=== PATIENT | female | born 1980 | race Two or more races ===

== ENCOUNTER 2020-06-05 17:22 | Outpatient (REF) | payer OTHER, SELFPAY | END 2020-06-05 17:23 | disposition home or self-care (01) | LOC: HO.LAB 17:22 | PROVIDERS: PCP Internal Medicine; Visit Provider Internal Medicine | DX: Z20.828 Contact with and (suspected) exposure to other viral communicable diseases (principal) | CPT/HCPCS: C9803; U0003 ==

== ENCOUNTER 2020-07-11 17:10 | Outpatient (REF) | payer OTHER, SELFPAY | END 2020-07-11 17:11 | disposition home or self-care (01) | LOC: HO.LAB 17:10 | PROVIDERS: Visit Provider Internal Medicine | DX: Z20.822 Contact with and (suspected) exposure to COVID-19 (principal) | CPT/HCPCS: 36415; C9803; U0003 ==

== ENCOUNTER 2020-08-12 14:47 | Outpatient (REF) | payer OTHER, SELFPAY ==
[2020-08-13 08:17] LABS: HIV AB/AG Nonreactive (Nonreactive); HIV Num 1 0.07 S/CO (0.00-0.99); ~HepC Num1 0.09 S/CO (0.00-0.79); ~Hepatitis C Antibody Nonreactive (Nonreactive)
[2020-08-13 08:26] LABS: Syphilis Screen Nonreactive (Nonreactive)
[2020-08-13 08:32] LABS: HBsAGNum1 0.17 S/CO (0.00-0.99); Hepatitis B Surface Antigen Negative (Negative)
[2020-08-13 09:57] LABS: BV Int Neg Control Negative (Negative); BV Int Pos Control Positive (Positive)
[2020-08-13 13:32] LABS: C. trachomatis RNA TMA NOT DETECTED (NOT DETECTED); N. gonorrhoeae RNA TMA NOT DETECTED (NOT DETECTED)
[2020-08-17 03:12] LABS: HPV mRNA E6/E7 rflx Not Detected (Not Detected)
== END 2020-08-12 14:48 | disposition home or self-care (01) ==
LOC: HO.LAB 14:47
PROVIDERS: PCP Internal Medicine; Visit Provider Obstetrics & Gynecology
DX: Z01.419 Encounter for gynecological examination (general) (routine) without abnormal findings (principal); Z11.51 Encounter for screening for human papillomavirus (HPV); Z11.3 Encounter for screening for infections with a predominantly sexual mode of transmission; R10.2 Pelvic and perineal pain
CPT/HCPCS: 36415; 81003; 81025; 86780; 86803; 87340; 87389; 87480; 87491; 87510; 87591; 87624; 87660; 88142

== ENCOUNTER 2020-08-14 10:10 | Outpatient (REF) | payer OTHER, SELFPAY | END 2020-08-14 10:11 | disposition home or self-care (01) | LOC: HO.LAB 10:10 | PROVIDERS: Visit Provider Obstetrics & Gynecology | DX: Z13.89 Encounter for screening for other disorder (principal) ==

== ENCOUNTER 2020-09-02 13:21 | Outpatient (REF) | payer OTHER, SELFPAY ==
--- NOTE | ~2020-09-02 | US_ITS ---
EXAMINATION: US PELVIC COMPLETE CLINICAL INFORMATION: Transabdominal and transvaginal ultrasound pelvis is performed. COMPARISON: CT abdomen and pelvis with IV contrast 02/24/2019. TECHNIQUE: Transabdominal and transvaginal ultrasound of the pelvis is performed. FINDINGS: The uterus is anteverted measuring 9.4 cm in length, 5.3 cm in AP and 5.4 cm in transverse dimension. Endometrial thickness is 0.36 cm. No uterine lesions seen. Right ovary measures 2.4 x 1.7 x 2.3 cm and volume 4.8 mL. Previously measured 2.8 x 2.3 x 2.2 cm. Left ovary measures 3.6 x 2.0 x 2.8 cm and volume 10.4 mL. No focal lesion seen. Previously left ovary measured 3.6 x 2.9 x 3.3 cm. No major change. There are small nabothian cysts seen in the cervix on transvaginal ultrasound. There is no free fluid in the cul-de-sac. US/US transvaginal IMPRESSION: Unremarkable uterus with small nabothian cysts in the cervix. Ovaries are unremarkable. There is no free fluid in cul-de-sac.
--- NOTE | ~2020-09-02 | US_ITS ---
EXAMINATION: US PELVIC COMPLETE CLINICAL INFORMATION: Transabdominal and transvaginal ultrasound pelvis is performed. COMPARISON: CT abdomen and pelvis with IV contrast 02/24/2019. TECHNIQUE: Transabdominal and transvaginal ultrasound of the pelvis is performed. FINDINGS: The uterus is anteverted measuring 9.4 cm in length, 5.3 cm in AP and 5.4 cm in transverse dimension. Endometrial thickness is 0.36 cm. No uterine lesions seen. Right ovary measures 2.4 x 1.7 x 2.3 cm and volume 4.8 mL. Previously measured 2.8 x 2.3 x 2.2 cm. Left ovary measures 3.6 x 2.0 x 2.8 cm and volume 10.4 mL. No focal lesion seen. Previously left ovary measured 3.6 x 2.9 x 3.3 cm. No major change. There are small nabothian cysts seen in the cervix on transvaginal ultrasound. There is no free fluid in the cul-de-sac. US/US pelvic complete IMPRESSION: Unremarkable uterus with small nabothian cysts in the cervix. Ovaries are unremarkable. There is no free fluid in cul-de-sac.
== END 2020-09-02 13:22 | disposition home or self-care (01) ==
LOC: HO.US 13:21
PROVIDERS: Visit Provider Obstetrics & Gynecology
DX: R10.2 Pelvic and perineal pain (principal)
CPT/HCPCS: 76830; 76856

== ENCOUNTER → 2020-09-10 13:51 | Outpatient (BNVA) | payer OTHER, SELFPAY | PROVIDERS: PCP Internal Medicine; Visit Provider Obstetrics & Gynecology ==

== ENCOUNTER 2020-10-22 11:34 | Outpatient (REF) | payer OTHER, SELFPAY ==
--- NOTE | ~2020-10-22 | MM_ITS ---
EXAMINATION: MM SCREENING DIGITAL BREAST TOMOSYNTHESIS, BILATERAL CLINICAL INFORMATION: Screening. Asymptomatic. The lifetime risk of breast cancer based on the Tyrer-Cuzick Model is 10.6%. COMPARISON: Mammography: 01/17/2018 TECHNIQUE: Digital breast tomosynthesis is performed in both the craniocaudal and mediolateral oblique views along with computer-aided detection (CAD). Synthesized 2D images are generated from the tomosynthesis. FINDINGS: There are scattered areas of fibroglandular density (ACR BI-RADS breast composition Category b). There are no significant masses, abnormal calcifications, or other abnormalities. Circumscribed density with some calcifications about the deep lateral aspect of the right breast is shown to represent vessel with calcifications on tomosynthesis views. MM/MM tomosynthesis screening BI IMPRESSION: There are no significant changes from prior study. ASSESSMENT: BI-RADS 1: Negative RECOMMENDATION: Routine annual mammography screening. This patient's information was entered into a reminder system with a target due date for their next mammogram.
== END 2020-10-22 11:35 | disposition home or self-care (01) ==
LOC: HO.MAMMO 11:34
PROVIDERS: Visit Provider Obstetrics & Gynecology
DX: Z12.31 Encounter for screening mammogram for malignant neoplasm of breast (principal)
CPT/HCPCS: 77063; 77067

== ENCOUNTER 2021-08-26 11:50 | Outpatient (REF) | payer OTHER, SELFPAY ==
[2021-08-26 14:46] LABS: Syphilis Screen Nonreactive (Nonreactive)
[2021-08-26 17:17] LABS: CT PCR NOT DETECTED (Not Detect.); NG PCR NOT DETECTED (Not Detect.)
[2021-08-27 13:18] LABS: BV Int Neg Control Negative (Negative); BV Int Pos Control Positive (Positive)
[2021-08-28 07:44] LABS: ~Hepatitis C Antibody Nonreactive (Nonreactive)
[2021-08-28 07:57] LABS: HIV AB/AG Nonreactive (Nonreactive); HIV Num 1 0.08 S/CO (0.00-0.99); Hepatitis B Surface Antigen Negative (Negative)
== END 2021-08-26 11:51 | disposition home or self-care (01) ==
LOC: HO.LAB 11:50
PROVIDERS: PCP Internal Medicine; Visit Provider Obstetrics & Gynecology
DX: Z01.419 Encounter for gynecological examination (general) (routine) without abnormal findings (principal); R10.2 Pelvic and perineal pain; N76.0 Acute vaginitis; B96.89 Other specified bacterial agents as the cause of diseases classified elsewhere; Z11.3 Encounter for screening for infections with a predominantly sexual mode of transmission; Z11.8 Encounter for screening for other infectious and parasitic diseases; Z11.4 Encounter for screening for human immunodeficiency virus [HIV]; Z11.59 Encounter for screening for other viral diseases; M79.7 Fibromyalgia; J45.909 Unspecified asthma, uncomplicated; F17.210 Nicotine dependence, cigarettes, uncomplicated; Z88.8 Allergy status to other drugs, medicaments and biological substances; Z91.018 Allergy to other foods; Z91.014 Allergy to mammalian meats; Z91.013 Allergy to seafood
CPT/HCPCS: 36415; 86780; 86803; 87340; 87389; 87480; 87491; 87510; 87591; 87660

== ENCOUNTER 2021-09-16 14:30 | Outpatient (REF) | payer OTHER, SELFPAY ==
--- NOTE | ~2021-09-16 | US_ITS ---
EXAMINATION: US PELVIS CLINICAL INFORMATION: Pelvic and perineal pain. COMPARISON: Pelvic ultrasound 09/02/2020. TECHNIQUE: Ultrasound of the pelvis is performed using both transabdominal and transvaginal transducers along with Doppler. Transvaginal imaging is performed due to inadequate visualization transabdominally. FINDINGS: UTERUS: The uterus is anteverted and measures 8.4 x 3.9 x 5.0 cm. Nabothian cysts are present in the cervix. The double wall endometrial thickness is 0.3 mm. The uterus is smooth in contour and has normal myometrial echogenicity. No visible fibroid. ADNEXA: Both ovaries are visualized and contain follicular cysts. There is normal color flow to the adnexa. There is no ovarian torsion. There is no pelvic ascites or fluid collection. Right ovary measures 2.7 x 1.8 x 2.0 cm for a volume of 4.7 mL. Left ovary measures 2.5 x 1.7 x 2.0 cm for a volume of 3.7 mL US/US pelvic and transvaginal IMPRESSION: Negative exam.
== END 2021-09-16 14:31 | disposition home or self-care (01) ==
LOC: HO.US 14:30
PROVIDERS: PCP Internal Medicine; Visit Provider Obstetrics & Gynecology
DX: R10.2 Pelvic and perineal pain (principal)
CPT/HCPCS: 76830; 76856

== ENCOUNTER → 2021-09-30 10:33 | Outpatient (BNVA) | payer OTHER, SELFPAY | PROVIDERS: Visit Provider Obstetrics & Gynecology | DX: Z13.89 Encounter for screening for other disorder (principal) ==

== ENCOUNTER 2021-10-23 11:33 | Outpatient (REF) | payer OTHER, SELFPAY ==
--- NOTE | ~2021-10-23 | MM_ITS ---
EXAMINATION: MM SCREENING DIGITAL BREAST TOMOSYNTHESIS, BILATERAL CLINICAL INFORMATION: Screening. Asymptomatic. The lifetime risk of breast cancer based on the Tyrer-Cuzick Model is 11%. COMPARISON: Mammography: 10/22/2020, 01/17/2018 TECHNIQUE: Digital breast tomosynthesis is performed in both the craniocaudal and mediolateral oblique views along with computer-aided detection (CAD). Synthesized 2D images are generated from the tomosynthesis. FINDINGS: There are scattered areas of fibroglandular density (ACR BI-RADS breast composition Category b). There are no significant masses, abnormal calcifications, or other abnormalities. Parenchymal pattern is similar to prior studies. No developing density. The axilla and skin contours are unremarkable. MM/MM tomosynthesis screening BI IMPRESSION: No mammographic evidence of malignancy. ASSESSMENT: BI-RADS 1: Negative RECOMMENDATION: Routine annual mammography screening. This patient's information was entered into a reminder system with a target due date for their next mammogram.
== END 2021-10-23 11:34 | disposition home or self-care (01) ==
LOC: HO.MAMMO 11:33
PROVIDERS: Visit Provider Obstetrics & Gynecology
DX: Z12.31 Encounter for screening mammogram for malignant neoplasm of breast (principal)
CPT/HCPCS: 77063; 77067

== ENCOUNTER 2022-10-29 07:49 | Outpatient (REF) | payer MEDICAID, SELFPAY ==
--- NOTE | ~2022-10-29 | MM_ITS ---
EXAMINATION: MM SCREENING DIGITAL BREAST TOMOSYNTHESIS, BILATERAL CLINICAL INFORMATION: Screening. Asymptomatic. The lifetime risk of breast cancer based on the Tyrer-Cuzick Model is 11%. COMPARISON: Mammography: 10/23/2021, 10/22/2020, 01/17/2018 TECHNIQUE: Digital breast tomosynthesis is performed in both the craniocaudal and mediolateral oblique views along with computer-aided detection (CAD). Synthesized 2D images are generated from the tomosynthesis. FINDINGS: There are scattered areas of fibroglandular density (ACR BI-RADS breast composition Category b). There are no significant masses, abnormal calcifications, or other abnormalities. No architectural abnormality or developing density or significant change from prior studies. The axilla are unremarkable. MM/MM tomosynthesis screening BI IMPRESSION: No mammographic evidence of malignancy. ASSESSMENT: BI-RADS 1: Negative RECOMMENDATION: Routine annual mammography screening. This patient's information was entered into a reminder system with a target due date for their next mammogram.
== END 2022-10-29 07:50 | disposition home or self-care (01) ==
LOC: HO.MAMMO 07:49
PROVIDERS: Visit Provider Obstetrics & Gynecology
DX: Z12.31 Encounter for screening mammogram for malignant neoplasm of breast (principal)
CPT/HCPCS: 77063; 77067

== ENCOUNTER → 2022-12-16 08:04 | Outpatient (BNVA) | payer MEDICAID, SELFPAY | PROVIDERS: Visit Provider Obstetrics & Gynecology ==

== ENCOUNTER 2023-01-28 14:56 | Outpatient (REF) | payer MEDICAID, SELFPAY ==
[2023-01-28 16:54] LABS: Anion Gap 16 (12-20); Blood Urea Nitrogen 8 mg/dL (9-16); Calcium 10.5 mg/dL (8.4-10.2); Carbon Dioxide 20 mmol/L (22-29); Chloride 105 mmol/L (96-108); Estimated Glomerular Filt Rate > 60; Glucose Random 96 mg/dL (60-115); Potassium 4.2 mmol/L (3.3-5.1); Sodium 137 mmol/L (135-145)
[2023-01-29 14:40] LABS: CT PCR NOT DETECTED (Not Detect.); NG PCR NOT DETECTED (Not Detect.)
[2023-01-31 04:10] LABS: HIV AB/AG Nonreactive (Nonreactive); HIV Num 1 0.07 S/CO (0.00-0.99)
[2023-01-31 04:18] LABS: ~HepC Num1 0.08 S/CO (0.00-0.79); ~Hepatitis C Antibody Nonreactive (Nonreactive)
[2023-02-03 14:43] LABS: Anti Nuclear Antibody Screen NEGATIVE (NEGATIVE)
== END 2023-01-28 14:57 | disposition home or self-care (01) ==
LOC: HO.HHCL 14:56
PROVIDERS: Visit Provider Emergency Medicine
DX: Z11.4 Encounter for screening for human immunodeficiency virus [HIV] (principal); Z11.3 Encounter for screening for infections with a predominantly sexual mode of transmission; R30.9 Painful micturition, unspecified
CPT/HCPCS: 0353U; 36415; 80048; 86038; 86803; 87086; 87389

== ENCOUNTER 2023-02-21 13:56 | Outpatient (AMB) | payer MEDICAID, SELFPAY ==
--- NOTE | 2023-02-21 13:58 | MHC.OFFVIS ---
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: No Accompanied by: Self / Same As Patient Allergies ibuprofen [From Motrin] Allergy (Severe, Verified 12/16/22 08:10) WHEEZING, TONGUE SWELLING, INCREASE SOB shrimp Allergy (Severe, Verified 12/16/22 08:10) ANAPHYLAXIS almond Allergy (Mild, Verified 12/16/22 08:10) RASH Pork/Porcine Containing Products Allergy (Mild, Verified 12/16/22 08:10) RASH HPI Fibromyalgia & Bilateral Hip Pain HPI Details Patient is 42 years female with prior history of bilateral hip pain, fibromyalgia, s/p gastric bypass, neck pain, opioid use disorder on Suboxone and remote coccyx injury presents today for evaluation of bilateral hip pain and widespread body pain. She denies any recent injury, trauma, or falls. Reports falling and injuring her coccyx about 30 years ago. Patient attributes her hip pain to arthritis. Per rheumatology referral notes, initial work up for CBC, Rheumatoid factor, and VANDANA were unremarkable. She used to follow at [facility] with Dr. Osborne and has received trigger point injections for her neck pain without relief and is no longer seen at [facility] due to non-compliance with visits. Patient has failed NSAIDs, Gabapentin, topical compound applications and Cymbalta. She is concerned for significant pain in her right lateral hip and groin with movements, changing positions, prolonged walking. She does have mild low back pain that travels into her right buttock and hip with localized tenderness in the projection of right sacroiliac joint as well as tenderness in the left greater trochanteric bursae. Patient is unable to obtain adequate sleep for many years due to pain with changing positions or laying on her sides, worse on the right. Her gait is normal without leg discrepancy. Patient has not completed physical therapy due to work/family obligations and significant pain. 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 Denies any radicular back pain symptoms and negative SLR testing with dorsiflexion. Denies any fever, weight loss, abdominal pain, bladder or bowel incontinence or dysfunction, or saddle anesthesia. Location Bilateral hips, widespread body pain Duration Bilateral lateral hip pain for about 3 + years Characteristics of symptom or complaint Burning, sharp, stabbing, aching, sore, heavy, pulling Aggravating or associated factors Prolonged walking, changing positions, sleeping Relieving factors Topical compound cream, rest, NSAIDs, gabapentin, Cymbalta Treatment Coccyx injections by Dr. Osborne in the past, good relief PENDING SALE TO [facility] Medical History (Updated 02/23/23 @ 15:23 by ANTONINO Castellon) Arthritis Asthma B12 deficiency Bilateral hip pain Cervical intraepithelial neoplasia grade 1 Fibromyalgia Iron deficiency anemia Opioid use disorder Surgical History (Updated 02/21/23 @ 14:15 by Di Jean) H/O abdominoplasty H/O gastric bypass History of loop electrical excision procedure (LEEP) Hx of tonsillectomy Hx of tubal ligation Hx of wisdom tooth extraction Family History Maternal Aunt Uterine cancer Social History Household Members: Spouse Household Members Other:: son Housing: Apartment Alcohol intake: never Patient Tobacco Use Status: Current someday Tobacco user Tobacco use type: Cigarette Cigarettes Per Day: 5 Years Smoked: 15 Substance Use Type: Other Substance Use Type Other:: percocet 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al status: employed 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: [employer] Sexual orientation: Straight/Heterosexual Gender identity: Female Female Reproductive History Menstrual Age of Menarche: 8 Review of Systems Const All systems reviewed & are unremarkable except as noted in HPI and below Physical Exam Vital Signs: Last Vital Signs Pulse 71 02/21/23 14:04 BP 99/48 L 02/21/23 14:04 Pulse Ox 98 02/21/23 14:04 Oxygen Delivery Method Room Air 02/21/23 14:04 BMI result Body Mass Index 20.9 General: Appears afebrile. Alert and oriented. Mood and affect appropriate. Follows and participates in conversation appropriately. Respiratory effort is unlabored. No cough. No nasal discharge. Able to transition from sit to stand unassisted. Ambulates with bilaterally normal heel strike and toe off. Const General: cooperative, no acute distress, alert and awake Nutritional Appearance: thin Limitations: no limitations Back/Spine/Pelvis Cervical Spine: cervical ROM normal, cervical muscular tenderness and No Cervical spine tenderness Thoracic/Lumbar Spine: thoracic and lumbar spine normal to inspection, Thoracic/lumbar spine scar(s), thoraco-lumbar ROM normal, Lasegue's sign negative, straight leg raise negative bilaterally, No thoracic spinal tenderness and No lumbar spinal tenderness Pelvis: buttock tenderness on the right Sacroiliac joints: on the right (SI distraction, side thrust and compression positive. WILVER test positive.) tender to palpation and on the left (Adrian's test reproduces mild lateral hip pain) nontender Sacrum: no tenderness Extrem Other: Multiple widespread TTPs 16/16 bilaterally, including upper and lower extremities. Right groin and lateral hip pain with right I/E hip rotations. General: Yes capillary refill normal, Yes no clubbing, cyanosis or edema and Yes no calf tenderness Right lower extremity: hip/thigh (Right lateral hip and groin pain with with I/E hip rotations) Details: normal to inspection and tenderness Location: of the hip Location: posterolaterally and over the greater trochanter; no swelling, no ecchymosis, no crepitus and no unusual warmth Left lower extremity: hip/thigh (Mild left groin pain with external hip rotations. ) Details: normal to inspection and tenderness Location: of the hip Location: laterally and over the great trochanter; no ecchymosis, no crepitus and no unusual warmth Results Reviewed Results Reviewed: XR BILATERAL HIPS WITH AP PELVIS 02/21/23 FINDINGS: Bone alignment is normal. No fracture or dislocation. The hip joints are normal. Bones pelvis are normal. There are surgical clips in the left pelvis. IMPRESSION: Unremarkable exam. Assessment & Plan Assessment & Plan (1) Bilateral hip pain: Code(s): M25.551 - Pain in right hip; M25.552 - Pain in left hip (2) Sacroiliac joint pain: Code(s): M53.3 - Sacrococcygeal disorders, not elsewhere classified (3) Low back pain: Code(s): M54.50 - Low back pain, unspecified (4) Fibromyalgia: Code(s): M79.7 - Fibromyalgia Plan Patient's pain is most consistent with bilateral GTB of both hips, SIJ and fibromyalgia. Discussed interventional treatments for these pain generators, including diagnostic vs therapeutic injections and potential neuromodulation treatments. Continue activity modifications, topical applications and pillow between knees/legs and avoiding most affected side while sleeping. Bilateral hip with pelvic view imaging completed after this visit was unremarkable. Schedule Bilateral Greater Trochanteric Bursa Steroid injections with local and fluoroscopy. If no relief, will consider sacroiliac joint injections. Expectations, risks and benefits were reviewed. Patient is aware she will be contacted to schedule this procedure. All questions were answered and the patient is in agreement of plan. Follow-up after injections and sooner as needed. Orders: Orders XR hip BI w PEL1V 02/21/23 M16.0 - Bilateral primary osteoarthritis of hip, M25.551 - Pain in right hip, M25.552 - Pain in left hip Coding Level of Care Code New Pt Level 4 (71423) Diagnoses Bilateral hip pain M25.551; M25.552 Sacroiliac joint pain M53.3 Low back pain M54.50 Fibromyalgia M79.7
[2023-02-21 14:04] VITALS: BP 99/48; PULSE 71; O2SAT 98; BMI 20.9
== END 2023-02-21 14:29 | disposition home or self-care (01) ==
PROVIDERS: PCP Internal Medicine; Visit Provider Nurse Practitioner Family
DX: M25.551 Pain in right hip (principal); M25.552 Pain in left hip; M53.3 Sacrococcygeal disorders, not elsewhere classified; M54.50 Low back pain, unspecified; M79.7 Fibromyalgia
CPT/HCPCS: 99204

== ENCOUNTER 2023-02-21 13:56 | Outpatient (REF) | payer MEDICAID, SELFPAY ==
--- NOTE | ~2023-02-21 | XR_ITS ---
EXAMINATION: XR BILATERAL HIPS WITH AP PELVIS CLINICAL INFORMATION: Pain COMPARISON: None available. TECHNIQUE: AP view of the pelvis and single views of each hip were obtained. FINDINGS: Bone alignment is normal. No fracture or dislocation. The hip joints are normal. Bones pelvis are normal. There are surgical clips in the left pelvis. XR/XR hip BI w PEL1V IMPRESSION: Unremarkable exam.
== END 2023-02-21 13:57 | disposition home or self-care (01) ==
LOC: HO.XRAY 13:56
PROVIDERS: PCP Internal Medicine; Visit Provider Nurse Practitioner Family
DX: M16.0 Bilateral primary osteoarthritis of hip (principal); M53.3 Sacrococcygeal disorders, not elsewhere classified; M54.50 Low back pain, unspecified; M79.7 Fibromyalgia
CPT/HCPCS: 73521; 99204

== ENCOUNTER 2023-03-01 16:32 | Outpatient (REF) | payer MEDICAID, SELFPAY | END 2023-03-01 16:33 | disposition home or self-care (01) | LOC: HO.HHCLNP 16:32 | PROVIDERS: Visit Provider Internal Medicine | DX: R30.0 Dysuria (principal) | CPT/HCPCS: 87086; 87088; 87186 ==

== ENCOUNTER 2023-03-04 08:18 | Outpatient (AMB) | payer MEDICAID, SELFPAY ==
--- NOTE | 2023-03-04 08:21 | A.OFFVIS_ITS ---
Intake Intake Visit Reasons: Bertin theraputic GTB inj Allergies ibuprofen [From Motrin] Allergy (Severe, Verified 03/04/23 08:21) WHEEZING, TONGUE SWELLING, INCREASE SOB shrimp Allergy (Severe, Verified 03/04/23 08:21) ANAPHYLAXIS almond Allergy (Mild, Verified 03/04/23 08:21) RASH Pork/Porcine Containing Products Allergy (Mild, Verified 03/04/23 08:21) RASH Medication List - Last Reconciled 03/04/23 by Marcie Adames LPN buprenorphine-naloxone 2-0.5 mg (Suboxone) 5 mg sublingual QAM buprenorphine-naloxone 8-2 mg (Suboxone) 10 mg sublingual QAM epinephrine IM gabapentin 300 mg PO BEDTIME zolpidem (Ambien) 5 mg PO BEDTIME HPI Bertin theraputic GTB inj HPI Details 42-year-old female is presenting today for a bilateral therapeutic GTB injection. The patient was referred by ANTONINO Castellon. She used to follow at [facility] with Dr. Osborne and has received trigger point injections for her neck pain. Denies any recent cough, cold, infection, fever or other significant changes in medical history since last office visit. FOR[facility]LY [facility], [facility] Medical History (Updated 03/04/23 @ 09:32 by Vinay Spivey MD) Arthritis Asthma B12 deficiency Bilateral hip pain Cervical intraepithelial neoplasia grade 1 Fibromyalgia Iron deficiency anemia Opioid use disorder Surgical History (Updated 02/21/23 @ 14:15 by Di Jean) H/O abdominoplasty H/O gastric bypass History of loop electrical excision procedure (LEEP) Hx of tonsillectomy Hx of tubal ligation Hx of wisdom tooth extraction Family History Maternal Aunt Uterine cancer Social History Household Members: Spouse Household Members Other:: son Housing: Apartment Alcohol intake: never Patient Tobacco Use Status: Current someday Tobacco user Tobacco use type: Cigarette Cigarettes Per Day: 5 Years Smoked: 15 Substance Use Type: Other 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al status: employed 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: [employer] Sexual orientation: Straight/Heterosexual Gender identity: Female Female Reproductive History Menstrual Age of Menarche: 8 Review of Systems Const All systems reviewed & are unremarkable except as noted in HPI and below Physical Exam General: Appears afebrile. Alert and oriented. Mood and affect appropriate. Follows and participates in conversation appropriately. Respiratory effort is unlabored. Able to transition from sit to stand unassisted. Ambulates with bilaterally normal heel strike and toe off. Office Procedures Joint Injection/Drain Joint Injection/Drain Details: Bilateral Greater Trochanteric Bursa Steroid injections, ultrasound guided After informed written consent was obtained, the patient was placed in the supine position. Pre-procedure oxygen saturation, heart rate, and blood pressure were recorded. The skin was prepped with Chloroprep. With the use of ultrasound the greater trochanter was identified. A 25-gauge 1.5 hypodermic needle was then advanced toward the trochanteric bursa on the right side. Once in position, and after negative aspiration, 20mg Kenalog mixed with 0.5% ropivacaine (3mL total). There was no evidence of paresthesias throughout needle placement. The same procedure was then repeated on the contralateral side. The patient tolerated the procedure well and there was no evidence of procedural complications. The patient was observed in the procedure room for 20 minutes, vitals were stable, and discharged in stable condition. Coding Details: An ultrasound image of the injection was taken and stored in the permanent record. - Glenohumeral/Tronchanteric Bursa/Intraarticular (Bilateral) Procedure code (CPT) selection complete Results Reviewed Results Reviewed: No imaging is available for review. Assessment & Plan Assessment & Plan (1) Greater trochanteric bursitis of both hips: Code(s): M70.61 - Trochanteric bursitis, right hip; M70.62 - Trochanteric bursitis, left hip Plan Patient is status post bilateral greater trochanteric bursa steroid injection. Patient tolerated procedure well and was discharged home in stable condition with discharge instructions. All questions were answered. We will follow-up via telephone or in clinic to assess response to therapy. If the patient finds the injection helpful, we can repeat these at quarterly interval. Scribed for Dr. Spivey by Markus Sullivan, internist medical doctor md, on 03/04/2023. I, Dr. Spivey, have personally reviewed and agree with the information entered by the scribe. Coding Level of Care Code Procedure Only Diagnoses Greater trochanteric bursitis of both hips M70.61; M70.62 CPT Codes Coding - Joint 7: 34851 - Glenohumeral/Tronchanteric Bursa/Intraarticular ([id number])
== END 2023-03-04 08:36 | disposition home or self-care (01) ==
PROVIDERS: PCP Internal Medicine; Visit Provider Internal Medicine
DX: M70.61 Trochanteric bursitis, right hip (principal); M70.62 Trochanteric bursitis, left hip
CPT/HCPCS: 20611

== ENCOUNTER → 2023-03-04 08:18 | Outpatient (BNVA) | payer MEDICAID, SELFPAY | PROVIDERS: PCP Internal Medicine; Visit Provider Internal Medicine | DX: M70.61 Trochanteric bursitis, right hip (principal); M70.62 Trochanteric bursitis, left hip | CPT/HCPCS: 20611; J3301 ==

== ENCOUNTER 2023-03-28 15:41 | Outpatient (REF) | payer MEDICAID, SELFPAY ==
[2023-03-28 17:35] LABS: MANUAL DIFF FLAG NO
[2023-03-28 17:41] LABS: Basophils Percent Auto 0.5 % (0-2); Eosinophils Absolute Auto 0.2 X10*3/uL (0.0-0.4); Eosinophils Percent Auto 2.8 % (0-4); Hematocrit 34.1 % (37.0-47.0); Imm Gran Abs Auto 0.02 X10*3/uL (0.00-0.03); Imm Gran Pct Auto 0.2 % (0.0-0.4); Lymphocytes Absolute Auto 1.8 X10*3/uL (1.2-4.9); Lymphocytes Percent Auto 21.5 % (20-40); Mean Corpuscular HGB Conc 29.3 g/dl (31.0-35.0); Mean Corpuscular Hemoglobin 22.7 pg (27.0-33.0); Mean Corpuscular Volume 77.3 fL (80.0-98.0); Mean Platelet Volume 11.5 fL (9.4-12.3); Monocytes Absolute Auto 0.7 X10*3/uL (0.1-1.2); Monocytes Percent Auto 8.4 % (2-11); Neutrophils Absolute Auto 5.5 x10*3/uL (2.0-8.3); Neutrophils Percent Auto 66.6 % (45-73); Platelet Count 259 X10*3/uL (160-400); Red Blood Count 4.41 X10*6/uL (4.20-5.50); Red Cell Distribution Width 17.2 % (11.0-16.0); White Blood Count 8.3 X10*3/uL (4.8-10.8)
[2023-03-28 17:54] LABS: Alanine Aminotransferase 14 U/L (0-31); Albumin Level 4.2 g/dL (3.5-5.0); Alkaline Phosphatase 75 U/L (39-117); Anion Gap 14 (12-20); Aspartate Amino Transferase 18 U/L (5-31); Bilirubin Total 0.2 mg/dL (0.0-1.0); Blood Urea Nitrogen 4 mg/dL (9-16); C Reactive Protein 0.19 mg/dL (< or = 0.50); Calcium 10.2 mg/dL (8.4-10.2); Carbon Dioxide 23 mmol/L (22-29); Chloride 108 mmol/L (96-108); Estimated Glomerular Filt Rate > 60; Glucose Random 81 mg/dL (60-115); Potassium 3.9 mmol/L (3.3-5.1); Sodium 141 mmol/L (135-145); Total Protein 7.5 g/dL (6.5-8.0)
[2023-03-29 03:40] LABS: Syphilis Screen Nonreactive (Nonreactive)
[2023-03-29 04:01] LABS: HBS Num1 3.68 mIU/mL (0-7.99); HBc Num1 0.16 S/CO (0.00-0.79); HBsAGNum1 0.32 S/CO (0.00-0.99); HIV AB/AG Nonreactive (Nonreactive); HIV Num 1 0.05 S/CO (0.00-0.99); Hepatitis A Antibody IgM 0.18 Index (0-0.79); Hepatitis B Core Antibody Nonreactive (Nonreactive); Hepatitis B Surface Antigen Negative (Negative); ~HepC Num1 0.14 S/CO (0.00-0.79); ~Hepatitis A Antibody IgM Nonreactive (Nonreactive); ~Hepatitis B Surface Antibody NONREACTIVE (Nonreactive); ~Hepatitis C Antibody Nonreactive (Nonreactive)
[2023-03-29 04:56] LABS: CT PCR NOT DETECTED (Not Detect.); NG PCR NOT DETECTED (Not Detect.)
[2023-03-29 11:06] LABS: BV Int Neg Control Negative (Negative); BV Int Pos Control Positive (Positive)
== END 2023-03-28 15:42 | disposition home or self-care (01) ==
LOC: HO.HHCL 15:41
PROVIDERS: Visit Provider Emergency Medicine
DX: Z11.4 Encounter for screening for human immunodeficiency virus [HIV] (principal); Z11.3 Encounter for screening for infections with a predominantly sexual mode of transmission; R30.9 Painful micturition, unspecified; R10.84 Generalized abdominal pain
CPT/HCPCS: 0353U; 36415; 80053; 85025; 86140; 86704; 86706; 86709; 86780; 86803; 87086; 87088; 87186; 87340; 87389; 87480; 87510; 87660

== ENCOUNTER 2023-03-31 09:52 | Outpatient (AMB) | payer MEDICAID, SELFPAY ==
--- NOTE | 2023-03-31 09:53 | A.OFFVIS_ITS ---
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 Spivey. Patient reports ongoing 80% pain relief in lateral hips with partial improvement in her functioning, mobility and sleep. She continues to report bilateral hip with occasional radiation of pain into her groins but not as much lateral hip pain since injections. Patient now reports left knee pain in the medial aspect and patella. She denies any recent trauma, injury or falls. Patient reports left knee pain has been chronic and she tried to manage it conservatively with heating pad, lidocaine patches, and rest. Patient has not tried ice therapy and she cannot take NSAIDs due to previous gastric bypass surgery. She is interested to undergo interven tional treatments to alleviate her left knee. Denies any fever, knee locking or buckling, swelling, rash, erythema, gait imbalance or weakness. Left knee pain is rated at 7/10. Past Procedures: 03/04/23: Bilateral GTB steroid injectio ns-80% ongoing pain relief PRIOR: Patient is 42 years female with prior history of bilateral hip pain, fibromyalgia, s/p gastric bypass, neck pain, opioid use disorder on Suboxone and remote coccyx injury presents today for evaluation of bilateral hip pain and widespread body pain. She denies any recent injury, trauma, or falls. Reports falling and injuring her coccyx about 30 years ago. Patient attributes her hip pain to arthritis. Per rheumatology referral notes, initial work up for CBC, Rheumatoid factor, and VANDANA were unremarkable. She used to follow at [facility] with Dr. Osborne and has received trigger point injections for her neck pain without relief and is no longer seen at [facility] due to non-compliance with visits. Patient has failed NSAIDs, Gabapentin, topical compound applications and Cymbalta. She is concerned for significant pain in her right lateral hip and groin with movements, changing positions, prolonged walking. She does have mild low back pain that travels into her right buttock and hip with localized tenderness in the projection of right sacroiliac joint as well as tenderness in the left greater trochanteric bursae. Patient is unable to obtain adequate sleep for many years due to pain with changing positions or laying on her sides, worse on the right. Her gait is normal without leg discrepancy. Patient has not completed physical therapy due to work/family obligations and significant pain. 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 Denies any radicular back pain symptoms and negative SLR testing with dorsiflexion. Denies any fever, weight loss, abdominal pain, bladder or bowel incontinence or dysfunction, or saddle anesthesia. Location Bilateral hips, widespread body pain Duration Bilateral lateral hip pain for about 3 + years Characteristics of symptom or complaint Burning, sharp, stabbing, aching, sore, heavy, pulling Aggravating or associated factors Prolonged walking, changing positions, sleeping Relieving factors Topical compound cream, rest, NSAIDs, gabapentin, Cymbalta Treatment Coccyx injections by Dr. Osborne in the past, good relief ON LICENSE OF [facility] Medical History (Updated 03/31/23 @ 10:09 by ANTONINO Castellon) B12 deficiency Bilateral hip pain Cervical intraepithelial neoplasia grade 1 Iron deficiency anemia Opioid use disorder Arthritis Asthma Fibromyalgia Surgical History (Updated 02/21/23 @ 14:15 by Di Jean) H/O abdominoplasty H/O gastric bypass History of loop electrical excision procedure (LEEP) Hx of wisdom tooth extraction Hx of tonsillectomy Hx of tubal ligation Family History Maternal Aunt Uterine cancer Social History Household Members: Spouse Household Members Other:: son Housing: Apartment Alcohol intake: never Patient Tobacco Use Status: Current someday Tobacco user Tobacco use type: Cigarette Cigarettes Per Day: 5 Years Smoked: 15 Substance Use Type: Other 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al status: employed 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: [employer] Sexual orientation: Straight/Heterosexual Gender identity: Female Female Reproductive History Menstrual Age of Menarche: 8 Review of Systems Const All systems reviewed & are unremarkable except as noted in HPI and below Physical Exam Vital Signs: Last Vital Signs Pulse 70 03/31/23 09:57 BP 103/51 L 03/31/23 09:57 Pulse Ox 99 03/31/23 09:57 Oxygen Delivery Method Room Air 03/31/23 09:57 BMI result Body Mass Index 20.8 General: Appears afebrile. Alert and oriented. Mood and affect appropriate. Follows and participates in conversation appropriately. Respiratory effort is unlabored. Able to transition from sit to stand unassisted. Ambulates with bilaterally normal heel strike and toe off. Extrem Left lower extremity: knee (Limited ROM due to pain.) Details: normal to inspection, tenderness Location: of the patella and of the medial joint line and crepitus; no swelling, no ecchymosis, no deformity and no unusual warmth Results Reviewed Results Reviewed: XR BILATERAL HIPS WITH AP PELVIS 02/21/23 FINDINGS: Bone alignment is normal. No fracture or dislocation. The hip joints are normal. Bones pelvis are normal. There are surgical clips in the left pelvis. IMPRESSION: Unremarkable exam. Assessment & Plan Assessment & Plan (1) Left knee pain: Code(s): M25.562 - Pain in left knee (2) Greater trochanteric bursitis of both hips: Code(s): M70.61 - Trochanteric bursitis, right hip; M70.62 - Trochanteric bursitis, left hip Plan Patient is status post bilateral greater trochanteric bursa steroid injection with ongoing 80% pain relief and improved functioning, mobility and sleep. For left knee pain, will proceed with xray first prior to interventional treatments. Continue heat therapy alternate with ice packs, lidocaine patches, rest, elevation. Discussed diagnostic knee injections for potential Sprint PNS trial as well as genicular RFA options. Informational pamphlets provided to patient today. All questions and concerns have been answered and patient agreed with the plan. Follow-up for x-ray results and sooner as needed. Orders: Orders XR knee LT 3V Today M25.562 - Pain in left knee Coding Level of Care Code Est Pt Level 3 (66024) Diagnoses Left knee pain M25.562 Greater trochanteric bursitis of both hips M70.61; M70.62
[2023-03-31 09:57] VITALS: BP 103/51; PULSE 70; O2SAT 99; BMI 20.8
== END 2023-03-31 10:17 | disposition home or self-care (01) ==
PROVIDERS: PCP Internal Medicine; Visit Provider Nurse Practitioner Family
DX: M25.562 Pain in left knee (principal); M70.61 Trochanteric bursitis, right hip; M70.62 Trochanteric bursitis, left hip
CPT/HCPCS: 99213

== ENCOUNTER 2023-03-31 09:52 | Outpatient (REF) | payer MEDICAID, SELFPAY ==
--- NOTE | ~2023-03-31 | XR_ITS ---
EXAMINATION: XR KNEE, LEFT CLINICAL INFORMATION: Left knee pain COMPARISON: 01/14/2015 TECHNIQUE: Three views of the left knee. FINDINGS: Tiny medial marginal osteophytes. Mild medial joint space narrowing. No significant joint effusion. Tiny posterior patellar osteophytes. XR/XR knee LT 3V IMPRESSION: Mild degenerative changes.
== END 2023-03-31 09:53 | disposition home or self-care (01) ==
LOC: HO.XRAY 09:52
PROVIDERS: PCP Internal Medicine; Visit Provider Nurse Practitioner Family
DX: M25.562 Pain in left knee (principal); M70.61 Trochanteric bursitis, right hip; M70.62 Trochanteric bursitis, left hip
CPT/HCPCS: 73562; 99212

== ENCOUNTER 2023-04-04 15:52 | Outpatient (REF) | payer MEDICAID, SELFPAY | END 2023-04-04 15:53 | disposition home or self-care (01) | LOC: HO.HHCLNP 15:52 | PROVIDERS: Visit Provider Emergency Medicine | DX: R10.84 Generalized abdominal pain (principal) | CPT/HCPCS: 87338 ==

== ENCOUNTER 2023-04-11 | Outpatient (REF) | payer MEDICAID, SELFPAY | END 2023-04-11 00:01 | disposition home or self-care (01) | LOC: HO.HHCLNP | PROVIDERS: Visit Provider Emergency Medicine | DX: R10.84 Generalized abdominal pain (principal) | CPT/HCPCS: 82270 ==

== ENCOUNTER 2023-04-26 11:35 | Outpatient (REF) | payer MEDICAID, SELFPAY ==
[2023-04-29 11:38] LABS: C. trachomatis RNA TMA NOT DETECTED (NOT DETECTED); N. gonorrhoeae RNA TMA NOT DETECTED (NOT DETECTED)
== END 2023-04-26 11:36 | disposition home or self-care (01) ==
LOC: HO.HHCLNP 11:35
PROVIDERS: Visit Provider Emergency Medicine
DX: R30.0 Dysuria (principal)
CPT/HCPCS: 36415; 81513; 87086; 87088; 87186; 87491; 87591

== ENCOUNTER 2023-04-27 13:50 | Outpatient (AMB) | payer MEDICAID, SELFPAY ==
[2023-04-27 13:58] VITALS: BMI 20.7
--- NOTE | 2023-04-27 13:58 | MHC.OFFVIS ---
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 has pain at base of her middle finger especially when driving. States every morning for the last 6 months, she wakes up with a locked finger and is very painful to pop up in place. Also mention she has numbness in both hands. HX of CTR 7 yrs ago, states her numbness wasbetter after sx but numbness came back after 2-3 years. 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 She complains of ~6 months painful locking of her left middle finger, particularly in the mornings. She showed me that her pain is directly over the middle finger A1 zoe. She says this is worse when driving. She also complains of bilateral hand numbness, intermittent but daily She reports having a bilateral carpal tunnel releases done at [facility] in ~2015, and says her sensation improved following surgery, but ~3 years later she began to develop numbness again. She is on Suboxone and Gabapentin for Fibromyalgia and back/hip pain [facility] Medical History (Updated 04/27/23 @ 14:22 by Glenn Angeles) B12 deficiency Bilateral hip pain Cervical intraepithelial neoplasia grade 1 Iron deficiency anemia Opioid use disorder Arthritis Asthma Fibromyalgia Surgical History (Updated 02/21/23 @ 14:15 by Di Jean) H/O abdominoplasty H/O gastric bypass History of loop electrical excision procedure (LEEP) Hx of wisdom tooth extraction Hx of tonsillectomy Hx of tubal ligation Family History Maternal Aunt Uterine cancer Social History (Updated 04/27/23 @ 14:00 by CIRILO Stewart) Household Members: Spouse Household Members Other:: son Housing: Apartment Alcohol intake: never Patient Tobacco Use Status: Current someday Tobacco user Tobacco use type: Cigarette Cigarettes Per Day: 5 Years Smoked: 15 Substance Use Type: Other 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al status: employed 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/ [employer] Sexual orientation: Straight/Heterosexual Gender identity: Female Female Reproductive History Menstrual Age of Menarche: 8 Review of Systems Const All systems reviewed & are unremarkable except as noted in HPI and below Physical Exam Vital Signs: BMI result Body Mass Index 20.7 Const General: cooperative, healthy appearing and no acute distress Orientation/consciousness: patient oriented x3 HEENT Head: Yes normocephalic and Yes atraumatic Eyes EOM: EOMs intact bilaterally Resp Effort & Inspection: normal respiratory effort and able to speak in complete sentences Cardio Jugular venous distension: no JVD Skin General skin exam: turgor normal Rashes: no rashes Neuro General: patient oriented x3 Extrem Other: Evaluation of Left Upper Extremity: The patient is alert, oriented, and in no acute distress Neuro: Median, Ulnar, Radial nerves motor and sensory intact and sensation is normal to the tips of all digits No thenar or intrinsic wasting Good APB muscle belly firing and good finger cross Vascular: Cap refill brisk ROM: She can make a fist and extend all her digits Most tender to palpation directly over the A1 zoe of the left middle finger. Slight catching but no locking today in clinic. Skin: No lacerations or abrasions. General: No Ecchymosis. No Erythema or evidence of infection. Psych Appearance: grossly normal Affect: normal affect Attitude: cooperative Office Procedures Fracture Care Details: No fracture, injection Fracture Billing Code: Fracture Billing Code Results Reviewed Results Reviewed: 04/27/23 14:06 Lidocaine HCl 1 % [Xylocaine 1 %] 2 ml .ROUTE .STK-MED ONE dexAMETHasone sod phosphate [Decadron] 4 mg .ROUTE .STK-MED ONE Assessment & Plan Assessment & Plan (1) Trigger finger, left middle finger: Code(s): M65.332 - Trigger finger, left middle finger Plan Assessment & Plan: 1. Left middle finger trigger finger I educated her about this condition I discussed operative and non-operative treatment options The patient would like to proceed with an injection Injection #1: The risks and benefits of a steroid injection including but not limited to risk of damage to blood vessels, nerves, tendons, infection, skin bleaching, failure to improve symptoms, increased pain, and possible need for further injections or other intervention were discussed with the patient and the patient wishes to proceed with the steroid injection. Once consent was obtained, I sterilely prepped the area over the A1 zoe of the flexor tendon sheath of the Left middle finger. I then injected the flexor tendon sheath with a combination of 1 mL of dexamethasone (4mg/ml), and 1% lidocaine. The patient tolerated the procedure well with no complications. If the patient continues to have locking and catching 4-6 weeks following this injection, they may call to schedule appointment to discuss alternative treatment options 2. Right hand numbness Symptoms intermittent, but daily, worse at night Status post carpal tunnel release at [facility] in 2016 initially with good improvement 3. Left hand numbness Symptoms intermittent, but daily, worse at night Status post carpal tunnel release at [facility] 2016 initially with good improvement She reports having improvement in her sensation following surgery, but that her symptoms returned a few years after I ordered a NCS to assess for peripheral nerve compression vs cervical radiculopathy She will follow up when completed for review Scribed for Cele Sears MD by Glenn Angeles, medical van driver, on 04/27/23 at 2:20 PM, EST. Coding Level of Care Code New Pt Level 3 (52869) Diagnoses Trigger finger, left middle finger M65.332 CPT Codes Fracture Care - Fracture Billing Code: Fracture Billing Code ([id number])
== END 2023-04-27 15:17 | disposition home or self-care (01) ==
PROVIDERS: PCP Internal Medicine; Visit Provider Orthopaedic Surgery
DX: M65.332 Trigger finger, left middle finger (principal)
CPT/HCPCS: 20550; 99203

== ENCOUNTER → 2023-04-27 13:50 | Outpatient (BNVA) | payer MEDICAID, SELFPAY | PROVIDERS: PCP Internal Medicine; Visit Provider Orthopaedic Surgery | DX: M65.332 Trigger finger, left middle finger (principal) | CPT/HCPCS: 20550; 99202; J1100 ==

== ENCOUNTER 2023-05-16 13:48 | Outpatient (REF) | payer MEDICAID, SELFPAY ==
--- NOTE | ~2023-05-16 | MM_ITS ---
EXAMINATION: MM DIAGNOSTIC DIGITAL BREAST TOMOSYNTHESIS, RIGHT US BREAST LIMITED, RIGHT MAMMOGRAPHY: CLINICAL INFORMATION: 42-year-old female complaining of small palpable abnormality right high axilla. COMPARISON: Mammography: 10/29/2022, 10/23/2021, 10/22/2020, and dating back to 2018. TECHNIQUE: Digital breast tomosynthesis is performed in both the craniocaudal and mediolateral oblique views along with computer-aided detection (CAD). Synthesized 2D images are generated from the tomosynthesis. FINDINGS: The breasts are heterogeneously dense, which may obscure small masses (ACR BI-RADS breast composition Category c). The area of palpable concern within the right high axilla has been marked by the technologist with a BB. There is no underlying mammographic abnormality within the right axilla. There is no abnormal lymphadenopathy. Of note, there has been progressive trabecular and skin thickening when comparing 10/29/2022, to 10/22/2020 and 10/23/2021 exams, nonspecific but suggestive of possible CHF, or malnutrition such as low protein states. Recommend clinically correlating, as this is clearly worsening. Otherwise, no masses, suspicious calcifications, or regions of developing parenchymal distortion. ULTRASOUND: CLINICAL INFORMATION: Palpable abnormality right axilla. Clear milky discharge upon right mammogram. COMPARISON: None relevant. TECHNIQUE: Targeted sonographic evaluation was performed using a high frequency linear transducer. Examination was tailored to evaluate the right axilla and retroareolar right breast. Selected archived documentation. FINDINGS: RIGHT BREAST: There is a mixture of fatty and fibroglandular tissue. No suspicious mass is seen. There is no pathologic acoustic shadowing. There is no axillary adenopathy or correlate in the region of palpable concern within the right axilla. There is no retroareolar mass or other abnormality to explain nipple discharge. Of note, there is diffuse skin thickening. MM/MM tomosynthesis diagnostic RT IMPRESSION: There are no specific findings suspicious for malignancy in the right breast. There is no mammographic or sonographic correlate to the focus of palpable concern in the right axilla. Recommend clinical management. There is no sonographic or mammographic abnormality in the right retroareolar region to explain nipple discharge. There is diffuse trabecular thickening and skin thickening which has progressed over the past 2 years. This is an unusual finding in a 42-year-old female. Differential diagnosis includes congestive heart failure and low protein states. Would recommend a full workup. OVERALL ASSESSMENT: Mammography: BI-RADS 2 - Benign Findings Ultrasound: BI-RADS 2 - Benign Findings RECOMMENDATION: 1. Patient should be managed based on the clinical impression. 2. Otherwise, routine annual screening mammography. Results were provided to the patient at time of visit by the technologist. This patient's information was entered into a reminder system with a target due date for their next mammogram.
== END 2023-05-16 13:49 | disposition home or self-care (01) ==
LOC: HO.MAMMO 13:48
PROVIDERS: PCP Internal Medicine; Visit Provider Emergency Medicine
DX: R22.31 Localized swelling, mass and lump, right upper limb (principal)
CPT/HCPCS: 76642; 77061; 77065

== ENCOUNTER → 2023-05-16 14:00 | Outpatient (BNV) | payer MEDICAID, SELFPAY | PROVIDERS: PCP Internal Medicine; Visit Provider Radiology Diagnostic Radiology | DX: R92.331 Mammographic heterogeneous density, right breast (principal) | CPT/HCPCS: 76642; 77061; 77065 ==

== ENCOUNTER 2023-05-18 15:25 | Outpatient (REF) | payer MEDICAID, SELFPAY | END 2023-05-18 15:26 | disposition home or self-care (01) | LOC: HO.LAB 15:25 | PROVIDERS: PCP Internal Medicine; Visit Provider Emergency Medicine | DX: Z13.89 Encounter for screening for other disorder (principal) | CPT/HCPCS: 36415; 83880 ==

== ENCOUNTER 2023-06-02 15:23 | Outpatient (REF) | payer MEDICAID, SELFPAY ==
--- NOTE | 2023-06-02 15:28 | EMG_ITS ---
Reason for referral: Evaluate for Carpal Tunnel Syndrome versus radiculopathy Referred by: ?Dr. Sears Procedure done: ?Bilateral upper extremities NCS/EMG Precautions and/or limitations: None The limb temperature was monitored continuously and remained between 32-36 degrees C during the performance of the NCS. Nerve Conduction Studies Anti Sensory Summary Table ?Stim Site NR Onset (ms) Norm Onset (ms) Peak (ms) Norm Peak (ms) O-P Amp (?V) Norm O-P Amp Site1 Site2 Delta-0 (ms) Dist (cm) Godfrey (m/s) Norm Godfrey (m/s) Left Median Anti Sensory (2nd Digit) Wrist ? 2.7 3.4 <3.6 66.9 >10 Wrist 2nd Digit 2.7 14.0 52 Right Median Anti Sensory (2nd Digit) Wrist ? 3.0 3.8 <3.6 41.1 >10 Wrist 2nd Digit 3.0 14.0 47 Right Radial Anti Sensory (Thumb) Forearm ? 1.9 2.5 <3.1 58.6 Forearm Thumb 1.9 0.0 Left Ulnar Anti Sensory (5th Digit) Wrist ? 2.5 3.5 <3.7 49.4 >15.0 Wrist 5th Digit 2.5 14.0 56 Right Ulnar Anti Sensory (5th Digit) Wrist ? 2.7 3.5 <3.7 52.9 >15.0 Wrist 5th Digit 2.7 14.0 52 Motor Summary Table ?Stim Site NR Onset (ms) Norm Onset (ms) O-P Amp (mV) Norm O-P Amp iAmp (mV) Amp (1st) (%) Site1 Site2 Delta-0 (ms) Dist (cm) Godfrey (m/s) Norm Godfrey (m/s) Left Median Motor (Abd Poll Brev) Wrist ? 3.3 <3.9 14.1 >4.5 16.0 100.0 Elbow Wrist 3.7 20.0 54 >45 Elbow ? 7.0 13.9 15.9 98.6 Right Median Motor (Abd Poll Brev) Wrist ? 3.4 <3.9 11.4 >4.5 12.8 100.0 Elbow Wrist 4.0 20.0 50 >45 Elbow ? 7.4 11.7 13.0 102.6 Left Ulnar Motor (Abd Dig Minimi) Wrist ? 2.7 <3.0 6.9 >5 8.2 100.0 B Elbow Wrist 2.8 16.0 57 >45 B Elbow ? 5.5 6.9 8.3 100.0 A Elbow B Elbow 1.5 10.0 67 >45 A Elbow ? 7.0 6.5 8.0 94.2 Right Ulnar Motor (Abd Dig Minimi) Wrist ? 2.8 <3.0 8.1 >5 10.0 100.0 B Elbow Wrist 3.1 16.5 53 >45 B Elbow ? 5.9 8.4 10.1 103.7 A Elbow B Elbow 1.1 10.0 91 >45 A Elbow ? 7.0 8.1 9.9 100.0 EMG ?Side Muscle Nerve Root Ins Act Fibs Psw Amp Dur Poly Recrt Int Pat Comment Right 1stDorInt Ulnar C8-T1 Nml Nml Nml Nml Nml 0 Nml Complete Right FlexCarRad Median C6-7 Nml Nml Nml Nml Nml 0 Nml Complete Right Biceps Musculocut C5-6 Nml Nml Nml Nml Nml 0 Nml Complete Right Triceps Radial C6-7-8 Nml Nml Nml Nml Nml 0 Nml Complete Right Deltoid Axillary C5-6 Nml Nml Nml Nml Nml 0 Nml Complete Left 1stDorInt Ulnar C8-T1 Nml Nml Nml Nml Nml 0 Nml Complete Left FlexCarRad Median C6-7 Nml Nml Nml Nml Nml 0 Nml Complete Left Biceps Musculocut C5-6 Nml Nml Nml Nml Nml 0 Nml Complete Left Triceps Radial C6-7-8 Nml Nml Nml Nml Nml 0 Nml Complete Left Deltoid Axillary C5-6 Nml Nml Nml Nml Nml 0 Nml Complete FINDINGS: Right median sensory nerve showed prolonged peak latency. All other nerves tested were within normal. Concentric needle EMG was performed in selected muscles of the bilateral upper extremities. Study did not reveal signs of electric abnormalities as shown in the table below. ? IMPRESSION: 1. Mildly prolonged peak latency on right median sensory nerve, despite adequate warming. 3. There is no electrodiagnostic evidence for ulnar neuropathy, brachial plexopathy, or cervical radiculopathy. CLINICAL COMMENT: Would be useful to have past EMG for comparison. Thank you for your kind referral. Annamaria Newman MD, MICHAEL Board Certified, [place] Board of Physical Medicine and Rehabilitation (ABPMR) Board Certified, [place] Board of Electrodiagnostic Medicine (ABEM) [facility] [id number] [facility]
== END 2023-06-02 15:24 | disposition home or self-care (01) ==
LOC: HO.NEURO 15:23
PROVIDERS: PCP Internal Medicine; Visit Provider Orthopaedic Surgery
DX: R20.0 Anesthesia of skin (principal); R20.2 Paresthesia of skin
CPT/HCPCS: 95886; 95911

== ENCOUNTER → 2023-06-02 15:28 | Outpatient (BNV) | payer MEDICAID, SELFPAY | PROVIDERS: PCP Internal Medicine; Visit Provider Physical Medicine & Rehabilitation | DX: G56.11 Other lesions of median nerve, right upper limb (principal) | CPT/HCPCS: 95886; 95911 ==

== ENCOUNTER 2023-07-19 15:17 | Outpatient (REF) | payer MEDICAID, SELFPAY ==
--- NOTE | ~2023-07-19 | XR_ITS ---
EXAMINATION: 1. RADIOGRAPHS CHEST 2. RADIOGRAPHS LEFT HIP CLINICAL INFORMATION: Question CHF. Left hip pain. COMPARISON: Bilateral hip x-rays February 21, 2023 and chest x-ray November 16, 2017 TECHNIQUE: 2 views of the chest and 2 views of left hip were obtained. FINDINGS: Chest: Cardiac silhouette is normal in size. The lungs are well aerated. There is no lobar consolidation. No pleural effusion or pneumothorax. No acute osseous abnormality. Surgical changes of the visualized upper abdomen. Right hip: Visualized portion of the proximal left femur demonstrate no fracture. Left femoral head is well-seated within the acetabulum. Left femoral acetabular joint space is well-maintained. Surgical clips project over the left hemipelvis. XR/XR chest 2V IMPRESSION: 1. No acute pulmonary pathology. 2. Unremarkable radiographs of the left hip.
--- NOTE | ~2023-07-19 | XR_ITS ---
EXAMINATION: 1. RADIOGRAPHS CHEST 2. RADIOGRAPHS LEFT HIP CLINICAL INFORMATION: Question CHF. Left hip pain. COMPARISON: Bilateral hip x-rays February 21, 2023 and chest x-ray November 16, 2017 TECHNIQUE: 2 views of the chest and 2 views of left hip were obtained. FINDINGS: Chest: Cardiac silhouette is normal in size. The lungs are well aerated. There is no lobar consolidation. No pleural effusion or pneumothorax. No acute osseous abnormality. Surgical changes of the visualized upper abdomen. Right hip: Visualized portion of the proximal left femur demonstrate no fracture. Left femoral head is well-seated within the acetabulum. Left femoral acetabular joint space is well-maintained. Surgical clips project over the left hemipelvis. XR/XR hip LT min 2V IMPRESSION: 1. No acute pulmonary pathology. 2. Unremarkable radiographs of the left hip.
== END 2023-07-19 15:18 | disposition home or self-care (01) ==
LOC: HO.HHCX 15:17
PROVIDERS: Visit Provider Internal Medicine
DX: M25.552 Pain in left hip (principal); R63.4 Abnormal weight loss
CPT/HCPCS: 71046; 73502

== ENCOUNTER 2023-07-20 08:08 | Outpatient (REF) | payer MEDICAID, SELFPAY ==
[2023-07-20 11:40] LABS: Estimated Average Glucose 94 mg/dL; Hemoglobin A1C 95.5465 umol/L; Hemoglobin A1c % 4.9 % (<6.0)
[2023-07-20 11:51] LABS: Glucose Random 86 mg/dL (60-115)
== END 2023-07-20 08:09 | disposition home or self-care (01) ==
LOC: HO.HHCL 08:08
PROVIDERS: Visit Provider Internal Medicine
DX: E16.2 Hypoglycemia, unspecified (principal); R63.4 Abnormal weight loss; N91.2 Amenorrhea, unspecified
CPT/HCPCS: 36415; 82947; 83036; 83880

== ENCOUNTER 2023-07-20 09:24 | Outpatient (REF) | payer MEDICAID, SELFPAY ==
[2023-07-20 10:15] LABS: B Type Natriuretic Peptide 17 pg/mL (<100)
== END 2023-07-20 09:25 | disposition home or self-care (01) ==
LOC: HO.LAB 09:24
PROVIDERS: Emergency Medicine; PCP Internal Medicine; Visit Provider Internal Medicine
DX: R92.8 Other abnormal and inconclusive findings on diagnostic imaging of breast (principal); E16.2 Hypoglycemia, unspecified; R63.4 Abnormal weight loss; N91.2 Amenorrhea, unspecified
CPT/HCPCS: 36415; 83880

== ENCOUNTER 2023-07-25 12:55 | Outpatient (REF) | payer OTHER, SELFPAY ==
--- NOTE | ~2023-07-25 | XR_ITS ---
EXAMINATION: XR CERVICAL SPINE CLINICAL INFORMATION: [facility] 07/20/2023 COMPARISON: None available. TECHNIQUE: 3 views of the cervical spine were obtained. FINDINGS: There is mild straightening of cervical lordosis, likely spasm. The vertebral heights, alignment is normal. There is loss of C5-C6 disc height. Rest the disc heights are normal. No visible acute fracture, dislocation or subluxation seen. The prevertebral and paravertebral soft tissues are normal. XR/XR cervical spine 3V IMPRESSION: Mild degenerative disc changes C5-C6 disc level. No visible acute fracture, dislocation or subluxation seen. Mild straightening of cervical lordosis likely spasm.
== END 2023-07-25 12:56 | disposition home or self-care (01) ==
LOC: HO.HHCX 12:55
PROVIDERS: Visit Provider Emergency Medicine
DX: M54.2 Cervicalgia (principal)
CPT/HCPCS: 72040

== ENCOUNTER 2023-08-23 13:30 | Outpatient (REF) | payer MEDICAID, SELFPAY ==
[2023-08-23 14:53] LABS: MANUAL DIFF FLAG NO
[2023-08-23 15:12] LABS: Basophils Absolute Auto 0.1 X10*3/uL (0.0-0.2); Basophils Percent Auto 0.8 % (0-2); Eosinophils Absolute Auto 0.4 X10*3/uL (0.0-0.4); Eosinophils Percent Auto 5.6 % (0-4); Hematocrit 38.8 % (37.0-47.0); Hemoglobin 12.3 g/dl (12.0-16.0); Imm Gran Abs Auto 0.02 X10*3/uL (0.00-0.03); Imm Gran Pct Auto 0.3 % (0.0-0.4); Lymphocytes Absolute Auto 2.1 X10*3/uL (1.2-4.9); Lymphocytes Percent Auto 27.8 % (20-40); Mean Corpuscular HGB Conc 31.7 g/dl (31.0-35.0); Mean Corpuscular Hemoglobin 28.7 pg (27.0-33.0); Mean Corpuscular Volume 90.7 fL (80.0-98.0); Mean Platelet Volume 10.6 fL (9.4-12.3); Monocytes Absolute Auto 0.7 X10*3/uL (0.1-1.2); Monocytes Percent Auto 8.5 % (2-11); Neutrophils Absolute Auto 4.3 x10*3/uL (2.0-8.3); Platelet Count 248 X10*3/uL (160-400); Red Blood Count 4.28 X10*6/uL (4.20-5.50); Red Cell Distribution Width 15.3 % (11.0-16.0); White Blood Count 7.6 X10*3/uL (4.8-10.8)
[2023-08-23 15:40] LABS: Alanine Aminotransferase 25 U/L (0-31); Albumin Level 4.3 g/dL (3.5-5.0); Alkaline Phosphatase 67 U/L (39-117); Anion Gap 11 (12-20); Aspartate Amino Transferase 38 U/L (5-31); Bilirubin Total 0.3 mg/dL (0.0-1.0); Blood Urea Nitrogen 12 mg/dL (9-16); Calcium 10.4 mg/dL (8.4-10.2); Carbon Dioxide 26 mmol/L (22-29); Chloride 108 mmol/L (96-108); Estimated Glomerular Filt Rate > 60; Glucose Random 81 mg/dL (60-115); Potassium 4.5 mmol/L (3.3-5.1); Sodium 140 mmol/L (135-145); Total Protein 7.6 g/dL (6.5-8.0)
[2023-08-25 11:37] LABS: H Pylori Breath Test Negative (Negative)
== END 2023-08-23 13:31 | disposition home or self-care (01) ==
LOC: HO.LAB 13:30
PROVIDERS: PCP Internal Medicine; Visit Provider Nurse Practitioner
DX: R10.12 Left upper quadrant pain (principal); K62.5 Hemorrhage of anus and rectum; K52.9 Noninfective gastroenteritis and colitis, unspecified
CPT/HCPCS: 36415; 80053; 83013; 85025; 99212

== ENCOUNTER 2023-08-23 13:30 | Outpatient (AMB) | payer MEDICAID, SELFPAY ==
--- NOTE | 2023-08-23 13:34 | A.OFFVIS_ITS ---
Intake Vital Signs 3 08/23/23 13:39 Height 5 ft 2 in Weight 130 lb BMI 23.8 BP 102/44 L Blood Pressure Location Lt brachial Position Sitting Pulse 79 Intake Visit Reasons: Right UQP / blood in stool Intake Note: Patient new consult for RUQ pain. Patient cc: abdominal bloating with RUQ pain . Patient denies any other GI issues. Insurance Application Investigator Required: No Accompanied by: Self / Same As Patient Allergies ibuprofen [From Motrin] Allergy (Severe, Verified 08/23/23 13:34) WHEEZING, TONGUE SWELLING, INCREASE SOB shrimp Allergy (Severe, Verified 08/23/23 13:34) ANAPHYLAXIS almond Allergy (Mild, Verified 08/23/23 13:34) RASH Pork/Porcine Containing Products Allergy (Mild, Verified 08/23/23 13:34) RASH HPI Right UQP / blood in stool 2 HPI0 Details 42-year-old female here for initial eval uation of right upper quadrant abdominal pain and hematochezia. She is referred by Aicha Wade of [facility]. PMX Asthma Continuous opioid therapy on Suboxone History of substance abuse History of cervical intraepithelial neoplasm Fibromyalgia syndrome Chronic bilateral hip pain History of iron deficiency anemia History of B12 deficiency * SURGICAL HISTORY Gastric bypass Abdominoplasty LEEP procedure Tonsillectomy [place] teeth extraction Tubal ligation * ALLERGIES Ibuprofen Shrimp Almonds Pork products * [employer] LABS: none since 03/2023 getting more recent labs TODAY'S VISIT She tells me that she had only one episode of rectal bleeding and she ended up at [facility] and was dx'd with colitis. She is saying that she has LUQ pain and it is worse with eating. This has been over the past 6 mos. She was seen at [facility] ER for colitis. They did not give her any treatment. She describes the pain as sharp and stabbing and lasting only for 5 or so minutes. She does not have any pain when she does not eat. Her bowel movements have normalized since her diagnosis of ?colitis. ? And she has had no more red blood in his stools She had a CT at [facility] that we will have to try to get. They did not offer any tx (?). She is a gastric bypass pt but in [address] Mcgraw. She as asthma that is well controlled and will be seeing a small kick press operator for palpitations soon. There are no prior problems with anesthesia or sedation.. No ID problems. An paternal aunt of stomach cancer, no known cRC or polyps. ROV 6 weeks, start omeprazole, get US and EGD/colonoscopy, HP breath test. [facility] Medical History (Updated 08/23/23 @ 13:52 by WILY Cox) B12 deficiency Bilateral hip pain Cervical intraepithelial neoplasia grade 1 Iron deficiency anemia Opioid use disorder Arthritis Asthma Fibromyalgia Surgical History H/O abdominoplasty H/O gastric bypass History of loop electrical excision procedure (LEEP) Hx of wisdom tooth extraction Hx of tonsillectomy Hx of tubal ligation Family History Maternal Aunt Uterine cancer Social History Household Members: Spouse Household Members Other:: son Housing: Apartment Alcohol intake: never Patient Tobacco Use Status: Current someday Tobacco user Tobacco use type: Cigarette Cigarettes Per Day: 5 Years Smoked: 15 Substance Use Type: Other 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al status: employed 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 Sexual orientation: Straight/Heterosexual Gender identity: Female Female Reproductive History Menstrual Age of Menarche: 8 Review of Systems Const Denies fatigue, Denies fever(s), Denies night sweats, Denies poor appetite and Denies weight loss ENT Reports Normal hearing present, Denies dental pain, Denies dysphagia, Denies hearing loss, Denies mouth pain, Denies odynophagia, Denies throat swelling, Denies tongue swelling and Reports other (Dentition adequate) Card Reports no additional complaints Resp Reports no additional complaints GI Details: Reports abdominal pain, Denies melena, Reports bloating, Denies hematochezia, Denies constipation, Denies GI cramping, Denies dysphagia, Denies excessive flatus, Denies early satiety, Reports heartburn, Reports diarrhea, Denies nausea, Denies odynophagia, Denies vomiting and Denies hematemesis Skin/Breast Denies pruritus, Denies lesions, Denies rash and Denies jaundice Neuro Reports Normal hearing present and Denies Abnormal speech present Endo Denies fatigue Aller/Immun Denies throat swelling and Denies tongue swelling Physical Exam Vital Signs: Last Vital Signs Pulse 79 08/23/23 13:39 BP 102/44 L 08/23/23 13:39 BMI result Body Mass Index 23.8 Const General: cooperative, no acute distress, well developed and well groomed Nutritional Appearance: average body habitus and well nourished Orientation/consciousness: oriented to person, oriented to place and oriented to time Limitations: No language barrier HEENT Head: Yes normocephalic and Yes atraumatic Eyes General: appearance normal, both eyes and all related structures Pupils: Equal, round and reactive pupils present Neck Neck: Yes normal visual inspection and Yes no lymphadenopathy Thyroid: Thyroid normal Resp Effort & Inspection: normal respiratory effort and able to speak in complete sentences Auscultation: clear to auscultation bilaterally Cardio Rate: regular rate Rhythm: regular rhythm Heart sounds: Normal, physiologic split S2 sound present Peripheral pulses: radial pulses present and posterior tibial pulses present GI Inspection: No distended, No Abdominal panniculus present and Yes scar Palpation (GI): Soft to palpation, Tenderness to palpation present (GI) in the LUQ, no guarding, not rigid and No hepatosplenomegaly present Percussion: Yes normal to percussion Auscultation: normal bowel sounds Rectal Exam - Female: deferred Abdomen image: 2 1. surgical scar Skin General skin exam: no rashes or lesions noted, turgor normal, skin not dry, no jaundice, No spider nevi and no striae Rashes: no rashes Nails: normal Neuro General: oriented to person, oriented to place and oriented to time Cranial nerves: Yes Equal, round and reactive pupils present and Yes Normal hearing present Speech: No Abnormal speech present Extrem General: Yes normal to inspection, No clubbing, No cyanosis and No edema Psych Appearance: grossly normal and well kempt Mental Status: mental status grossly normal Speech and movement: Normal speech and movement present Affect: normal affect Attitude: cooperative Thought process: Normal thought process present and not confabulating Thought content: Normal thought content present Insight: Limited insight present (Psych) Judgement: Limited judgement present (Psych) Assessment & Plan Assessment & Plan (1) Rectal bleeding: Code(s): K62.5 - Hemorrhage of anus and rectum (2) LUQ abdominal pain: Code(s): R10.12 - Left upper quadrant pain Plan She tells me that she had only one episode of rectal bleeding and she ended up at [facility] and was dx'd with colitis. She is saying that she has LUQ pain and it is worse with eating. This has been over the past 6 mos. She was seen at [facility] ER for colitis. They did not give her any treatment. She describes the pain as sharp and stabbing and lasting only for 5 or so minutes. She does not have any pain when she does not eat. Her bowel movements have normalized since her diagnosis of ?colitis. ? And she has had no more red blood in his stools She had a CT at [facility] that we will have to try to get. They did not offer any tx (?). She is a gastric bypass pt but in [address] Mcgraw. She as asthma that is well controlled and will be seeing a small kick press operator for palpitations soon. There are no prior problems with anesthesia or sedation.. No ID problems. An paternal aunt of stomach cancer, no known cRC or polyps. ROV 6 weeks, start omeprazole, get US and EGD/colonoscopy, HP breath test. Orders: Orders 2 Complete Blood Count Auto Diff 08/23/23 K62.5 - Hemorrhage of anus and rectum, R10.12 - Left upper quadrant pain Comprehensive Met. Panel 08/23/23 K62.5 - Hemorrhage of anus and rectum, R10.12 - Left upper quadrant pain EGD/[place] Combo - GI Use Only 08/23/23 K62.5 - Hemorrhage of anus and rectum, R10.12 - Left upper quadrant pain US abdomen complete 08/23/23 K62.5 - Hemorrhage of anus and rectum, R10.12 - Left upper quadrant pain H Pylori Breath Test Today Medications: New 2 peg 3350-electrolytes 236-22.74-6.74 -5.86 gram (Golytely) until fecal effluent is clear; do not exceed a total volume of 2,000 mL 240 mL PO Q10M 1 day 4,000 mL 0RF Z12.11 - Encounter for screening for malignant neoplasm of colon bisacodyl (Dulcolax (bisacodyl)) 10 mg (2 x 5 mg) PO BEDTIME 2 days 4 tabs 0RF famotidine (Pepcid) 40 mg PO BEDTIME 30 tabs 6RF R10.12 - Left upper quadrant pain Coding Level of Care Code New Pt Level 3 (51163) Diagnoses Rectal bleeding K62.5 LUQ abdominal pain R10.12
[2023-08-23 13:39] VITALS: BP 102/44; PULSE 79; BMI 23.8
== END 2023-08-23 14:36 | disposition home or self-care (01) ==
PROVIDERS: PCP Internal Medicine; Visit Provider Nurse Practitioner
DX: K62.5 Hemorrhage of anus and rectum (principal); R10.12 Left upper quadrant pain
CPT/HCPCS: 99203

== ENCOUNTER 2023-08-25 14:43 | Outpatient (AMB) | payer MEDICAID, SELFPAY ==
--- NOTE | 2023-08-25 14:50 | MHC.OFFVIS ---
Intake Vital Signs 08/25/23 14:51 Height 5 ft 2 in Weight 130 lb 1.164 oz BMI 23.8 BP 100/62 Blood Pressure Location Lt brachial Position Sitting Intake Visit Reasons: PHONE OPERATOR/Dr. Rojas/Abn mammo, ?CHF Intake Note: NPV w EKG Surgical Services Director Required: No Accompanied by: Self / Same As Patient Allergies ibuprofen [From Motrin] Allergy (Severe, Verified 08/25/23 14:52) WHEEZING, TONGUE SWELLING, INCREASE SOB shrimp Allergy (Severe, Verified 08/25/23 14:52) ANAPHYLAXIS almond Allergy (Mild, Verified 08/25/23 14:52) RASH Pork/Porcine Containing Products Allergy (Mild, Verified 08/25/23 14:52) RASH Medication List - Last Reconciled 08/25/23 by Juan Castillo MD aripiprazole 10 mg PO DAILY bisacodyl (Dulcolax (bisacodyl)) 10 mg (2 x 5 mg) PO BEDTIME 2 days buprenorphine-naloxone 2-0.5 mg (Suboxone) 5 mg sublingual QAM buprenorphine-naloxone 8-2 mg (Suboxone) 10 mg sublingual QAM cyanocobalamin (vitamin B-12) 1,000 mcg IM Q4W docusate sodium 100 - 200 mg PO BEDTIME PRN epinephrine IM famotidine (Pepcid) 40 mg PO BEDTIME gabapentin 300 mg PO BEDTIME nicotine 1 patch topical QAM nicotine (polacrilex) 4 mg PO Q2H PRN peg 3350-electrolytes 236-22.74-6.74 -5.86 gram (Golytely) 240 mL PO Q10M 1 day sennosides (senna) 8.6 - 17.2 mg PO BEDTIME PRN sulfamethoxazole-trimethoprim 800-160 mg 1 tab PO BID zolpidem (Ambien) 5 mg PO BEDTIME HPI HPI Comments History of Present Illness Details Allison is here for consultation regarding possible congestive heart failure. It seems that she had a mammogram recently. That had described diffuse thickening and thought to be possibly from congestive heart failure versus low protein states. Then recommended clinical follow-up. Patient herself does not have any known cardiac problems. No history of any coronary disease or myocardial infarction or cardiomyopathy or in fact anything cardiac sounding. She does not have any symptoms either like shortness of breath or angina. She states she was morbidly obese and weighed in excess of 300 lb. Then had weight loss surgery many years ago and lost significant amount of weight. [facility] Medical History (Updated 08/25/23 @ 15:15 by Juan Castillo MD) B12 deficiency Bilateral hip pain Cervical intraepithelial neoplasia grade 1 Iron deficiency anemia Opioid use disorder Arthritis Asthma Fibromyalgia Surgical History H/O abdominoplasty H/O gastric bypass History of loop electrical excision procedure (LEEP) Hx of wisdom tooth extraction Hx of tonsillectomy Hx of tubal ligation Family History Maternal Aunt Uterine cancer Social History Household Members: Spouse Household Members Other:: son Housing: Apartment Alcohol intake: never Patient Tobacco Use Status: Current someday Tobacco user Tobacco use type: Cigarette Cigarettes Per Day: 5 Years Smoked: 15 Substance Use Type: Other 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al status: employed 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 Sexual orientation: Straight/Heterosexual Gender identity: Female Female Reproductive History Menstrual Age of Menarche: 8 Review of Systems Const Denies chills, Denies daytime sleepiness, Denies fatigue, Denies fever(s), Denies frequent falls, Denies night sweats, Denies snoring, Denies weakness, Denies weight gain and Denies weight loss Eyes Denies loss of vision ENT Denies dizziness and Denies hearing loss Card Denies chest pain, Denies chest pain with activity, Denies syncope, Denies rapid heart rate, Denies edema, Denies claudication, Denies leg edema, Denies lightheadedness, Denies palpitations, Denies dyspnea, Denies dyspnea on exertion and Denies orthopnea Resp Denies cough, Denies excessive phlegm production, Denies dyspnea, Denies dyspnea on exertion, Denies snoring and Denies wheezing GI Denies abdominal pain, Denies hematochezia, Denies change in bowel habits, Denies change in stool character, Denies heartburn, Denies nausea and Denies vomiting Denies hematuria, Denies urinary frequency and Denies dysuria Musc Denies arthralgias, Denies muscle weakness, Denies numbness and Denies tingling Skin/Breast Denies nail changes and Denies rash Neuro Denies Abnormal speech present, Denies dizziness, Denies syncope, Denies frequent falls, Denies loss of vision, Denies memory loss, Denies numbness, Denies tingling and Denies weakness Psych Denies depression and Denies memory loss Endo Denies fatigue and Denies palpitations Aller/Immun Denies wheezing Physical Exam Vital Signs: Last Vital Signs BP 100/62 08/25/23 14:51 BMI result Body Mass Index 23.8 Const General: comfortable and no acute distress Orientation/consciousness: patient oriented x3 HEENT Other: Unremarkable Head: Yes normal to inspection Neck Neck: Yes normal visual inspection Chest Chest palpation & inspection: normal inspection of the chest Resp Auscultation: clear to auscultation bilaterally Cardio Palpation: normal PMI Heart sounds: S1 normal heart sound present, S2 normal heart sound present, no gallops, no murmurs and no rubs GI Palpation (GI): Soft to palpation Back/Spine/Pelvis Other: unremarkable Skin General skin exam: no rashes or lesions noted Neuro General: patient oriented x3 Speech: No Abnormal speech present Extrem General: Yes normal to inspection Psych Mental Status: mental status grossly normal Office Procedures EKG Details: EKG with sinus rhythm at 75/Min; no significant ST-T changes and otherwise unremarkable. [place]. [id number], Complete Assessment & Plan Assessment & Plan (1) Abnormal mammogram: Code(s): R92.8 - Other abnormal and inconclusive findings on diagnostic imaging of breast Plan Question of congestive heart failure based on nonspecific thickening seen on mammogram. However, clinically she has no symptoms or signs of the same. Cardiac BNP is well within normal limits. Unlikely that she has any congestive heart failure. We will get an echocardiogram as well for further clarification. Otherwise, mainly reassurance. Orders: Orders CA echo transthoracic complete Today I50.9 - Heart failure, unspecified Coding Level of Care Code New Pt Level 3 (56454) Diagnoses Abnormal mammogram R92.8 CPT Codes EKG - CPT: 16355-[id number], Complete ([id number])
[2023-08-25 14:51] VITALS: BP 100/62; BMI 23.8
== END 2023-08-25 15:15 | disposition home or self-care (01) ==
PROVIDERS: PCP Internal Medicine; Visit Provider Internal Medicine
DX: R92.8 Other abnormal and inconclusive findings on diagnostic imaging of breast (principal)
CPT/HCPCS: 93010; 99203

== ENCOUNTER → 2023-08-25 14:43 | Outpatient (BNVA) | payer MEDICAID, SELFPAY | PROVIDERS: PCP Internal Medicine; Visit Provider Internal Medicine | DX: R92.8 Other abnormal and inconclusive findings on diagnostic imaging of breast (principal) | CPT/HCPCS: 93005; 99202 ==

== ENCOUNTER 2023-09-09 09:23 | Outpatient (REF) | payer MEDICAID, SELFPAY ==
--- NOTE | ~2023-09-09 | US_ITS ---
EXAMINATION: US ABDOMEN COMPLETE CLINICAL INFORMATION: Left upper quadrant pain. COMPARISON: CT abdomen and pelvis 02/24/2019. Renal ultrasound 01/14/2015 and 02/18/2012. TECHNIQUE: Real-time imaging of the abdominal viscera. FINDINGS: PANCREAS: The pancreas is not well seen due to bowel gas. ABDOMINAL AORTA: The proximal, mid, and distal segments are normal in caliber. INFERIOR VENA CAVA: Visualized portions are normal. LIVER: Normal. The liver is normal in size. The liver contour is normal. Parenchymal echogenicity is normal. No focal hepatic lesion. There is no intrahepatic biliary duct dilatation seen. GALLBLADDER: Surgically absent. COMMON BILE DUCT: The proximal common duct at the julius hepatis measures 0.6 cm. The mid to distal common duct measures 0.9 cm in diameter. RIGHT KIDNEY: Normal. No hydronephrosis. No renal calculi or focal parenchymal lesions. The kidney measures 10.7 cm in maximum dimension. LEFT KIDNEY: Normal. No hydronephrosis. No renal calculi or focal parenchymal lesions. The kidney measures 10.6 cm in maximum dimension. SPLEEN: Normal. The spleen measures 8.9 cm in maximum dimension. FREE FLUID: None. US/US abdomen complete IMPRESSION: 1. Prior cholecystectomy. 2. The pancreas is not well seen due to bowel gas.
== END 2023-09-09 09:24 | disposition home or self-care (01) ==
LOC: HO.US 09:23
PROVIDERS: PCP Internal Medicine; Visit Provider Nurse Practitioner
DX: R10.12 Left upper quadrant pain (principal); K62.5 Hemorrhage of anus and rectum
CPT/HCPCS: 76700

== ENCOUNTER 2023-10-28 13:31 | Outpatient (REF) | payer OTHER, MEDICAID, SELFPAY ==
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
== END 2023-10-28 13:32 | disposition home or self-care (01) ==
LOC: HO.HHCX 13:31
PROVIDERS: Visit Provider Internal Medicine
DX: M25.562 Pain in left knee (principal); V89.2XXA Person injured in unspecified motor-vehicle accident, traffic, initial encounter
CPT/HCPCS: 73564

== ENCOUNTER 2023-11-11 07:54 | Outpatient (REF) | payer MEDICAID, SELFPAY | END 2023-11-11 07:55 | disposition home or self-care (01) | LOC: HO.MAMMO 07:54 | PROVIDERS: PCP Internal Medicine; Visit Provider Internal Medicine | DX: Z12.31 Encounter for screening mammogram for malignant neoplasm of breast (principal) | CPT/HCPCS: 77063; 77067 ==

== ENCOUNTER → 2023-11-11 08:00 | Outpatient (BNV) | payer MEDICAID, SELFPAY | PROVIDERS: PCP Internal Medicine; Visit Provider Radiology Diagnostic Radiology | DX: Z12.31 Encounter for screening mammogram for malignant neoplasm of breast (principal) | CPT/HCPCS: 77063; 77067 ==

== ENCOUNTER 2023-12-05 10:55 | Outpatient (AMB) | payer OTHER, SELFPAY ==
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
== END 2023-12-05 15:58 | disposition home or self-care (01) ==
PROVIDERS: PCP Internal Medicine; Visit Provider Orthopaedic Surgery
DX: R20.0 Anesthesia of skin (principal)
CPT/HCPCS: 99213

== ENCOUNTER → 2023-12-05 10:55 | Outpatient (BNVA) | payer OTHER, SELFPAY | PROVIDERS: PCP Internal Medicine; Visit Provider Orthopaedic Surgery ==

== ENCOUNTER → 2023-12-06 14:52 | Outpatient (REF) | payer OTHER, MEDICAID, SELFPAY ==
--- NOTE | 2023-12-06 14:55 | CA_ITS ---
Transthoracic Echocardiogram Patient (Last, First, Middle): Allison Morris A Gender: Female Date of : 1980 Age: 43 Procedure Date: 12/06/2023 Procedure Type: Transthoracic Echocardiogram Location: OP Height: 157.48 cm Weight: 68.04 kg BSA: 1.69 m2 Heart Rate: bpm BP: 100 / 60 mmHg Automatic I Threading Machine Feeder: CUBA Referring MD: Juan Castillo MD Blower Insulator: Wes Morales MD Symptoms: I50.9 - Heart failure, unspecified Study Quality: Adequate ECG Rhythm: Sinus Conclusions: - Normal study Findings Left Ventricle Normal left ventricular size, thickness, and systolic function. The visually estimated ejection fraction is between 60-65%. Diastolic function is normal for age. Peak GLS is -21.4%, within normal limits. Right Ventricle Normal right ventricular cavity size and systolic function. Atria Both atria are normal in size. There is no evidence of interatrial shunt. Aortic Valve Normal aortic valve structure and function. There is no aortic valve stenosis. There is no aortic valve regurgitation. Mitral Valve Normal mitral valve structure and function. There is trace mitral valve regurgitation. There is no mitral valve stenosis. Pulmonic Valve The pulmonic valve is likely normal. There is trace pulmonic valve regurgitation. Tricuspid Valve Normal tricuspid valve structure. There is trace tricuspid valve regurgitation. The right ventricular systolic pressure is normal. The right ventricular systolic pressure is 20 mmHg. Normal right atrial pressure. There is no evidence of pulmonary hypertension. Great Vessels All visible segments of the aorta are normal in size. The pulmonary artery was not well visualized. Venous The inferior vena cava is normal in size and collapses greater than 50% with inspiration. Pericardium/Pleural There is no evidence of pericardial effusion. Prior Study Comparison No prior study available for comparison. Measurements 2D Linear Measurements RVIDd: 3.59 IVSd: 0.86 0.6-0.9/0.6-1.0 cm LVIDd: 4.33 3.9-5.3/4.2-5.9 cm LVIDd Index: 2.56 2.4-3.2/2.2-3.1 cm/m2 LVIDs: 2.81 2.0-3.6 cm LVPWd: 0.73 0.7-1.1 cm LA Diam: 3.20 2.7-3.8/3.0-4.0 cm LAIDs Index: 1.89 1.5-2.3 cm/m2 LV Mass: 131.02 67-162/88-224 g LV Mass Index: 77.52 43-95/49-115 g/m2 LVOT Diam: 2.10 3.0+(-)1.3 cm 2D Volumes LA ESV A/L: 17.20 22-52/18-58 ML/M2 RA ESV A/L: 17.60 19-21 ML/M2 2D Systolic Function EF 4C: 64.90 >55% EF 2C: 62.30 >55% EF BiP: 62.70 >55% Mitral Valve MV Pk E: 0.60 MV PK A: 0.40 MV Decel Time: 397.00 E/A: 1.50 E'Lateral: 14.50 E'Medial: 10.60 E/E' Med: 5.70 E/E' Lat: 4.10 PHT: 116.00 MVA PHT: 1.90 Decel Powell: 1.51 Aortic Valve AoV Pk Godfrey: 1.24 AoV Mn Godfrey: 0.96 AoV VTI: 0.30 AoV Pk Grad: 6.00 Aov Mn Grad: 4.00 YAZAN Cont.VTI: 2.57 LVOT LVOT Pk Godfrey: 1.04 LVOT Mn Godfrey: 0.70 LVOT VTI: 0.22 LVOT Pk Grad: 4.00 LVOT Mn Grad: 2.00 LVOT Diam: 2.10 LVOT Area: 3.46 Diastolic Function MV Pk E: 0.60 MV Pk A: 0.40 E/A: 1.50 E'Medial: 10.60 E/E' Med: 5.70 E' Laterial: 14.50 E/E' Lat: 4.10 IVC Diam Exp: 1.50 Right Ventricle TAPSE (mm): 21.10 TVS' Godfrey: 11.30 Tricuspid Valve TR Pk Godfrey: 2.04 TR Pk Grad: 17.00 RA Press: 3.00 RVSP: 20.00 IVC Diam Exp: 1.50 Great Vessels Aorta Sinus of Valsalva: 2.67 2.0-3.[address] Ridge: 2.24 1.7-3.4 cm Ao Asc: 2.60 2.1-3.4 cm Ao Arch: 2.30 Updated in Other Vendor System with Status of Final Wes Morales MD electronically signed on 12/07/2023 3:44:56 PM with status of Final
== END ==
LOC: HO.CARD 14:52
PROVIDERS: PCP Internal Medicine; Visit Provider Internal Medicine
DX: I50.9 Heart failure, unspecified (principal)
CPT/HCPCS: 93306; 93356

== ENCOUNTER → 2023-12-06 14:55 | Outpatient (BNV) | payer MEDICAID, SELFPAY | PROVIDERS: PCP Internal Medicine; Visit Provider Internal Medicine Cardiovascular Disease | DX: I50.9 Heart failure, unspecified (principal) | CPT/HCPCS: 93306; 93356 ==

== ENCOUNTER 2023-12-23 14:36 | Outpatient (REF) | payer MEDICAID, SELFPAY ==
--- NOTE | 2023-12-23 14:41 | EMG_ITS ---
Chief complaint: Numbness and pain on right big toe and dorsal foot Reason for referral: Evaluate for peroneal neuropathy Referred by: Dr. Reyes Procedure done: Left lower extremity NCS/EMG Precautions and/or limitations: None The limb temperature was monitored continuously and remained between 32-36 degrees C during the performance of the NCS. Nerve Conduction Studies Anti Sensory Summary Table ?Stim Site NR Onset (ms) Norm Onset (ms) Peak (ms) Norm Peak (ms) O-P Amp (?V) Norm O-P Amp Site1 Site2 Delta-0 (ms) Dist (cm) Godfrey (m/s) Norm Godfrey (m/s) Left Sup Peron Anti Sensory (Ankle) Lateral Leg ? 2.2 2.9 <4.4 10.2 >5.0 Lateral Leg Ankle 2.2 14.0 64 Left Sural Anti Sensory (Lat Mall) Calf ? 2.9 3.7 <4.0 18.1 >5.0 Calf Lat Mall 2.9 14.0 48 Motor Summary Table ?Stim Site NR Onset (ms) Norm Onset (ms) O-P Amp (mV) Norm O-P Amp iAmp (mV) Amp (1st) (%) Site1 Site2 Delta-0 (ms) Dist (cm) Godfrey (m/s) Norm Godfrey (m/s) Left Peroneal Motor (Ext Dig Brev) Ankle ? 3.9 <4.0 8.0 >2.5 9.3 100.0 Ankle Ext Dig Brev 3.9 0.0 B Fib ? 10.0 5.8 6.8 72.5 B Fib Ankle 6.1 24.5 40 >40 Poplt ? 10.8 6.6 7.6 82.5 Poplt B Fib 0.8 4.5 56 >40 Left Peroneal TA Motor (Tib Ant) Fib Head ? 3.0 <4.2 4.1 4.4 100.0 Fib Head Tib Ant 3.0 0.0 Poplit ? 3.5 <5.7 3.9 4.2 95.1 Poplit Fib Head 0.5 4.0 80 >40.5 Left Tibial Motor (Abd Huggins Brev) Ankle ? 4.5 <5 11.1 >2.5 15.6 100.0 Ankle Abd Huggins Brev 4.5 0.0 Knee ? 12.5 8.2 11.5 73.9 Knee Ankle 8.0 37.0 46 >40 EMG ?Side Muscle Nerve Root Ins Act Fibs Psw Amp Dur Poly Recrt Int Pat Comment Left AbdHallucis MedPlantar S1-2 Nml Nml Nml Nml Nml 0 Nml Complete Left AntTibialis Dp Br Peron L4-5 Nml Nml Nml Nml Nml 0 Nml Complete Left MedGastroc Tibial S1-2 Nml Nml Nml Nml Nml 0 Nml Complete Left VastusMed Femoral L2-4 Nml Nml Nml Nml Nml 0 Nml Complete Left ExtHallLong Dp Br Peron L5, S1 Nml Nml Nml Nml Nml 0 Nml Complete Left Peroneus Long Sup Br Peron L5-S1 Nml Nml Nml Nml Nml 0 Nml Complete Paraspinal EMG ?Side Muscle Nerve Root Ins Act Fibs Psw Comment Left Lumbar Upper Rami Nml Nml Nml Left Lumbar Mid Rami Nml Nml Nml Left Lumbar Lower Rami Nml Nml Nml FINDINGS: All motor and sensory nerves tested showed normal latencies, amplitudes and conduction velocities. Concentric needle EMG was performed in selected muscles of the left lower extremity and lumbar paraspinals. Study did not reveal signs of electric abnormalities as shown in the table above. IMPRESSION: 1. This is a normal study. 2. There is no electrodiagnostic evidence for peroneal neuropathy, tibial neuropathy, lumbosacral plexopathy, lumbar radiculopathy, or peripheral neuropathy. Thank you for your kind referral. Annamaria Newman MD, MICHAEL Board Certified, [place] Board of [employer] Medicine and Rehabilitation (ABPMR) Board Certified, [place] Board of Electrodiagnostic Medicine (ABEM) [place] [id number] [facility]
== END 2023-12-23 14:37 | disposition home or self-care (01) ==
LOC: HO.NEURO 14:36
PROVIDERS: PCP Internal Medicine; Visit Provider Orthopaedic Surgery
DX: R20.0 Anesthesia of skin (principal)
CPT/HCPCS: 95886; 95908

== ENCOUNTER → 2023-12-23 14:41 | Outpatient (BNV) | payer MEDICAID, SELFPAY | PROVIDERS: PCP Internal Medicine; Visit Provider Physical Medicine & Rehabilitation | DX: R20.2 Paresthesia of skin (principal); M79.672 Pain in left foot | CPT/HCPCS: 95886; 95909 ==

== ENCOUNTER 2024-01-26 08:11 | Outpatient (REF) | payer MEDICAID, SELFPAY ==
[2024-01-26 11:33] LABS: Hematocrit 36.5 % (37.0-47.0); Hemoglobin 11.5 g/dl (12.0-16.0); Mean Corpuscular HGB Conc 31.5 g/dl (31.0-35.0); Mean Corpuscular Hemoglobin 28.2 pg (27.0-33.0); Mean Corpuscular Volume 89.5 fL (80.0-98.0); Mean Platelet Volume 12.2 fL (9.4-12.3); Platelet Count 222 X10*3/uL (160-400); Red Blood Count 4.08 X10*6/uL (4.20-5.50); White Blood Count 4.8 X10*3/uL (4.8-10.8)
[2024-01-26 12:05] LABS: Alanine Aminotransferase 54 U/L (0-31); Albumin Level 3.8 g/dL (3.5-5.0); Alkaline Phosphatase 81 U/L (39-117); Anion Gap 12 (12-20); Aspartate Amino Transferase 27 U/L (5-31); Bilirubin Direct 0.1 mg/dL (0.0-0.5); Bilirubin Total 0.3 mg/dL (0.0-1.0); Blood Urea Nitrogen 11 mg/dL (9-16); Calcium 9.4 mg/dL (8.4-10.2); Carbon Dioxide 25 mmol/L (22-29); Chloride 107 mmol/L (96-108); Estimated Glomerular Filt Rate > 60; Glucose Fasting 88 mg/dL (60-99); Potassium 4.5 mmol/L (3.3-5.1); Sodium 139 mmol/L (135-145); Total Protein 6.5 g/dL (6.5-8.0)
[2024-01-26 12:07] LABS: TSH reflex Free T4 0.87 uIU/mL (0.32-4.0)
== END 2024-01-26 08:12 | disposition home or self-care (01) ==
LOC: HO.HHCL 08:11
PROVIDERS: Visit Provider Internal Medicine
DX: R82.90 Unspecified abnormal findings in urine (principal); R25.1 Tremor, unspecified
CPT/HCPCS: 36415; 80048; 80076; 84443; 85027

== ENCOUNTER 2024-01-27 11:32 | Outpatient (AMB) | payer MEDICAID, SELFPAY ==
[2024-01-27 11:42] VITALS: BMI 23.8
--- NOTE | 2024-01-27 11:42 | MHC.OFFVIS ---
Vital Signs 01/27/24 11:42 Height 5 ft 2 in Weight 130 lb BMI 23.8 Intake Visit Reasons: OV - EMG review of left foot Intake Note: Allison a 43 year old female who presents today for an EMG review of left foot. Patient reports ongoing foot pain with no change in her symptoms since her last visit. Allergies ibuprofen [From Motrin] Allergy (Severe, Verified 01/27/24 11:43) WHEEZING, TONGUE SWELLING, INCREASE SOB shrimp Allergy (Severe, Verified 01/27/24 11:43) ANAPHYLAXIS almond Allergy (Mild, Verified 01/27/24 11:43) RASH Pork/Porcine Containing Products Allergy (Mild, Verified 01/27/24 11:43) RASH HPI HPI OV - EMG review of left foot: Details: Ms. Herrera comes in for review of her EMG. She still has some left foot numbness over the dorsum of the foot when she wears shoes but it is tolerable now. Part of the reasons tolerable is that she wears open-toed shoes this does not bother her. [facility] Medical History (Updated 12/05/23 @ 11:47 by Jeovanny Reyes MD) B12 deficiency Bilateral hip pain Cervical intraepithelial neoplasia grade 1 Iron deficiency anemia Opioid use disorder Arthritis Asthma Fibromyalgia Surgical History H/O abdominoplasty H/O gastric bypass History of loop electrical excision procedure (LEEP) Hx of wisdom tooth extraction Hx of tonsillectomy Hx of tubal ligation Family History Maternal Aunt Uterine cancer Social History Household Members: Spouse Household Members Other:: son Housing: Apartment Alcohol intake: never Patient Tobacco Use Status: Current someday Tobacco user Tobacco use type: Cigarette Cigarettes Per Day: 5 Years Smoked: 15 Substance Use Type: Other 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al status: employed 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: [employer]/ 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 No sensory or motor deficiencies appreciable Results Reviewed Results Reviewed: EMG/NCV unremarkable left lower extremity Assessment & Plan Assessment & Plan (1) Numbness of left foot: Code(s): R20.0 - Anesthesia of skin Category: Medical Plan: Intermittent dorsal foot numbness associated with shoe wear. If this worsens she will let me know and I can send her to a solvent station attendant but at this time no intervention warranted and she will let me know if her symptoms worsen. Coding Level of Care Code Est Pt Level 3 (82668) Diagnoses Numbness of left foot R20.0
== END 2024-01-27 12:03 | disposition home or self-care (01) ==
PROVIDERS: PCP Internal Medicine; Referring Provider Internal Medicine; Visit Provider Orthopaedic Surgery
DX: R20.0 Anesthesia of skin (principal)
CPT/HCPCS: 99212

== ENCOUNTER → 2024-01-27 11:32 | Outpatient (BNVA) | payer MEDICAID, SELFPAY | PROVIDERS: PCP Internal Medicine; Visit Provider Orthopaedic Surgery | DX: R20.0 Anesthesia of skin (principal) | CPT/HCPCS: 99212 ==

== ENCOUNTER 2024-02-20 10:43 | Outpatient (REF) | payer MEDICAID, SELFPAY ==
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
[2024-02-23 13:38] LABS: HPV mRNA E6/E7 Not Detected (Not Detected)
== END 2024-02-20 10:44 | disposition home or self-care (01) ==
LOC: HO.XRAY 10:43
PROVIDERS: Obstetrics & Gynecology; PCP Internal Medicine; Visit Provider Physician Assistant
DX: Z01.419 Encounter for gynecological examination (general) (routine) without abnormal findings (principal); Z11.51 Encounter for screening for human papillomavirus (HPV); S46.012D Strain of muscle(s) and tendon(s) of the rotator cuff of left shoulder, subsequent encounter
CPT/HCPCS: 36415; 73030; 81025; 87624; 88175; 99396

== ENCOUNTER 2024-02-20 11:10 | Outpatient (AMB) | payer MEDICAID, SELFPAY ==
[2024-02-20 11:29] VITALS: BP 112/66; BMI 23.4
--- NOTE | 2024-02-20 11:29 | MHC.OFFVIS ---
Vital Signs 02/20/24 11:29 Height 5 ft 2 in Weight 127 lb 13.89 oz BMI 23.4 BP 112/66 Intake Visit Reasons: annual/DO NOT RS Wax Ball Molder Required: No Information Interpreted: non-clinical & clinical Personal Development Mentor: Personal Development Mentor Present (Arelis Jung DONAL) Accompanied by: Self / Same As Patient Allergies ibuprofen [From Motrin] Allergy (Severe, Verified 02/20/24 11:40) WHEEZING, TONGUE SWELLING, INCREASE SOB shrimp Allergy (Severe, Verified 02/20/24 11:40) ANAPHYLAXIS almond Allergy (Mild, Verified 02/20/24 11:40) RASH Pork/Porcine Containing Products Allergy (Mild, Verified 02/20/24 11:40) RASH Is last menstrual period known: Yes HPI Comments Details: Presenting for annual exam. Complaining of irregular menstrual cycles. Last Pap/HPV was negative in 08/24 Last Mammogram was BI-RADS 1 in 11/24 [facility] Medical History B12 deficiency Bilateral hip pain Cervical intraepithelial neoplasia grade 1 Iron deficiency anemia Opioid use disorder Arthritis Asthma Fibromyalgia Surgical History H/O abdominoplasty H/O gastric bypass History of loop electrical excision procedure (LEEP) Hx of wisdom tooth extraction Hx of tonsillectomy Hx of tubal ligation Family History Maternal Aunt Uterine cancer Social History Household Members: Spouse Household Members Other:: son Housing: Apartment Alcohol intake: never Patient Tobacco Use Status: Current someday Tobacco user Tobacco use type: Cigarette Cigarettes Per Day: 5 Years Smoked: 15 Substance Use Type: Other 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al status: employed 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 Sexual orientation: Straight/Heterosexual Gender identity: Female Female Reproductive History Menstrual Age of Menarche: 8 control method: permanent sterilization Total pregnancies: 4 Full term: 4 Number of Living Children: 4 Date of last pap smear: 08/15/20 Date of Mammogram: 11/11/23 Review of Systems Const All systems reviewed & are unremarkable except as noted in HPI and below Card Reports as per HPI Resp Reports as per HPI GI Reports as per HPI and Reports no additional complaints Reports as per HPI Physical Exam Vital Signs: Last Vital Signs BP 112/66 02/20/24 11:29 BMI result Body Mass Index 23.4 Const General: cooperative, healthy appearing and comfortable Chest Chest palpation & inspection: normal inspection of the chest and normal palpation of entire chest wall Breast/axilla inspection: normal inspection of the breasts and normal inspection of the axillae Breast/axilla palpation: normal palpation of the breasts, normal palpation of the axillae and no axillary lymphadenopathy Resp Effort & Inspection: normal respiratory effort Auscultation: clear to auscultation bilaterally Percussion: percussion normal Cardio Palpation: normal PMI Rate: regular rate Rhythm: regular rhythm Heart sounds: no murmurs and no rubs Peripheral pulses: Peripheral pulses 2+ throughout GI Inspection: Yes normal to inspection Palpation (GI): Soft to palpation, nontender, no guarding, not rigid and No hepatosplenomegaly present Percussion: Yes normal to percussion Auscultation: normal bowel sounds Rectal Exam - Female: deferred General: Yes bladder normal to palpation External Female Exam: No lesion Speculum Exam - Vagina: normal appearance of the vagina, normal palpation, normal vaginal discharge and not erythematous Speculum Exam - Cervix: normal appearance of the cervix and normal palpation Bimanual exam- vagina & uterus: normal bimanual exam, normal palpation, uterine size normal, bladder normal to palpation, consistency normal and normal palpation Bimanual Exam- Adnexa, other: normal adnexae, no masses and no tenderness Assessment & Plan Assessment & Plan (1) Well woman exam: Code(s): Z01.419 - Encounter for gynecological examination (general) (routine) without abnormal findings Category: Medical Plan: Since the patient had persistent JENNIFER 1 status post LEEP in 2018 followed by 2 negative co testing 2019 in 2020 will proceed with Cotesting . Instructions given the patient to schedule next screen Mammogram in 11/25. Counseled the patient about the recommended dietary allowance of 1000 mg of Calcium & 600 IU of vitamin D. The patient was instructed to perform monthly self-breast exams and to schedule an annual exam in a year; All questions answered and the patient verbalized understanding. Instructed the patient to schedule annual exam in a year (2) Abnormal uterine bleeding (AUB): Code(s): N93.9 - Abnormal uterine and vaginal bleeding, unspecified Category: Medical Plan: Co testing done, GC and chlamydia taken CBC, TSH, prolactin, HCG, and pelvic ultrasound ordered. Discussed with the patient the different causes of abnormal bleeding including thyroid disorders, uterine and ovarian pathology, endometrial hyperplasia, carcinoma and other potential causes. Discussed with the patient the work up including CBC (to r/o anemia), TSH, prolactin, pelvic Ultrasound, endometrial biopsy to r/o endometrial pathology. All questions answered and the patient verbalized understanding. Instructed the patient to schedule an appointment for an endometrial biopsy in 2 weeks. Orders: Orders TSH reflex Free T4 Today N93.9 - Abnormal uterine and vaginal bleeding, unspecified Prolactin Today N93.9 - Abnormal uterine and vaginal bleeding, unspecified Complete Blood Count no Diff Today N93.9 - Abnormal uterine and vaginal bleeding, unspecified HCG Quantitative Today N93.9 - Abnormal uterine and vaginal bleeding, unspecified US pelvic and transvaginal Today N93.9 - Abnormal uterine and vaginal bleeding, unspecified Coding Level of Care Code Est Pt Prev Care 40-64y(27873) Diagnoses Well woman exam Z01.419 Abnormal uterine bleeding (AUB) N93.9
== END 2024-02-20 13:11 | disposition home or self-care (01) ==
PROVIDERS: PCP Internal Medicine; Visit Provider Obstetrics & Gynecology
DX: Z01.419 Encounter for gynecological examination (general) (routine) without abnormal findings (principal); N93.9 Abnormal uterine and vaginal bleeding, unspecified; Z32.02 Encounter for pregnancy test, result negative
CPT/HCPCS: 99396

== ENCOUNTER 2024-02-29 10:46 | Outpatient (REF) | payer MEDICAID, SELFPAY ==
--- NOTE | ~2024-02-29 | US_ITS ---
EXAMINATION: US PELVIS CLINICAL INFORMATION: Abnormal bleeding COMPARISON: Pelvic ultrasound 09/16/2021. TECHNIQUE: Ultrasound of the pelvis is performed using both transabdominal and transvaginal transducers along with Doppler. Transvaginal imaging is performed due to inadequate visualization transabdominally. FINDINGS: Uterus: The uterus is anteverted and measures 7.2 x 4.4 x 5.3 cm. The double wall endometrial thickness is 5 mm. No visible uterine mass. Adnexa: The right ovary measures 3.0 x 2.5 x 2.5 cm, volume mL. There is a 2.5 cm simple physiologic cyst in the right ovary. Color Doppler appears normal. The right ovary measures 2.0 x 2.0 x 1.4 cm, volume 4 mL. The left ovary appears normal. Color Doppler appears normal. US/US pelvic and transvaginal IMPRESSION: Endometrial stripe measures 5 mm. No visible uterine mass. Electronically signed by: Curt Menendez MD 03/07/2024 03:29 PM EDT
== END 2024-02-29 10:47 | disposition home or self-care (01) ==
LOC: HO.US 10:46
PROVIDERS: PCP Internal Medicine; Visit Provider Obstetrics & Gynecology
DX: N93.9 Abnormal uterine and vaginal bleeding, unspecified (principal)
CPT/HCPCS: 76830; 76856

== ENCOUNTER 2024-04-11 11:49 | Outpatient (REF) | payer MEDICAID, SELFPAY | END 2024-04-11 11:50 | disposition home or self-care (01) | LOC: HO.LNP 11:49 | PROVIDERS: PCP Internal Medicine; Visit Provider Obstetrics & Gynecology | DX: N93.9 Abnormal uterine and vaginal bleeding, unspecified (principal) | CPT/HCPCS: 58100; 81025; 88305 ==

== ENCOUNTER 2024-04-11 11:49 | Outpatient (AMB) | payer MEDICAID, SELFPAY ==
--- NOTE | 2024-04-11 11:50 | MHC.OFFVIS ---
Vital Signs 04/11/24 11:54 Height 5 ft 2 in Weight 127 lb 13.89 oz BMI 23.4 Intake Visit Reasons: Ultra sound follow up/ EMB Starch Crab Required: No Information Interpreted: non-clinical & clinical Communications Director: Communications Director Present (Arelis MANSFIELD) Accompanied by: Self / Same As Patient Allergies ibuprofen [From Motrin] Allergy (Severe, Verified 04/11/24 11:55) WHEEZING, TONGUE SWELLING, INCREASE SOB shrimp Allergy (Severe, Verified 04/11/24 11:55) ANAPHYLAXIS almond Allergy (Mild, Verified 04/11/24 11:55) RASH Pork/Porcine Containing Products Allergy (Mild, Verified 04/11/24 11:55) RASH HPI Comments Details: Presenting for EMB [facility] Medical History B12 deficiency Bilateral hip pain Cervical intraepithelial neoplasia grade 1 Iron deficiency anemia Opioid use disorder Arthritis Asthma Fibromyalgia Surgical History H/O abdominoplasty H/O gastric bypass History of loop electrical excision procedure (LEEP) Hx of wisdom tooth extraction Hx of tonsillectomy Hx of tubal ligation Family History Maternal Aunt Uterine cancer Social History Household Members: Spouse Household Members Other:: son Housing: Apartment Alcohol intake: never Patient Tobacco Use Status: Current someday Tobacco user Tobacco use type: Cigarette Cigarettes Per Day: 5 Years Smoked: 15 Substance Use Type: Other 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al status: employed 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 hysteroscopy D&C) & the risks were discussed with the patient including but not limited: pain, uterine perforation, bleeding, infection, possible injury to bladder, bowel, ureter, possible need for blood transfusion with all its possible risks. The patient verbalized understanding all questions answered and signed consent. Urine test done in the office was negative The patient was placed into the dorsal lithotomy position; a speculum was inserted in the vagina. Using aseptic technique for the procedure, the cervix was cleansed with Betadine. The anterior lip of the cervix was grasped with a single tooth tenaculum. The uterus was sounded to 7 cm with a 4 mm Pipelle was used. Tissues samples were obtained and placed in formalin, in a patient labeled container and sent to the pathology department. At the end of the procedure, there was minimal bleeding noted The patient tolerated the procedure well and was discharged in good condition with the following instructions: Nothing in the vagina until the bleeding stops. No sex until the bleeding stops, to call if any of the following occurs: fever (>100.4), flu-like symptoms, abdominal pain, heavy bleeding, four smelling vaginal discharge. The patient was instructed to schedule a Follow up appointment in 2 weeks to discuss pathology results of the biopsy and treatment options. This note was generated with a voice recognition program. Some errors may have been overlooked during the review of this note. Sometimes these errors may affect the content or meaning of a given sentence. [id number] Biopsy Results AMB Test Urine AMB Test Urine Negative Last Edit by Arelis Jung CMA on 04/11/24 12:00 Results Reviewed Results Reviewed: Laboratory Last Values Tst Clinic Negative 04/11/24 12:00 Assessment & Plan Assessment & Plan (1) Abnormal uterine bleeding (AUB): Code(s): N93.9 - Abnormal uterine and vaginal bleeding, unspecified Category: Medical Plan: EMB done, see procedure note Orders: Orders AMB HCG Urine Test Today Z32.02 - Encounter for test, result negative AMB Endometrial Biopsy Today N93.9 - Abnormal uterine and vaginal bleeding, unspecified Coding Level of Care Code Procedure Only Diagnoses Abnormal uterine bleeding (AUB) N93.9 CPT Codes Endometrial Biopsy - CPT: 49731-Sfxttmgxpeh Biopsy ([id number])
[2024-04-11 11:54] VITALS: BMI 23.4
== END 2024-04-11 12:26 | disposition home or self-care (01) ==
PROVIDERS: PCP Internal Medicine; Referring Provider Internal Medicine; Visit Provider Obstetrics & Gynecology
DX: N93.9 Abnormal uterine and vaginal bleeding, unspecified (principal); Z32.02 Encounter for pregnancy test, result negative
CPT/HCPCS: 58100

== ENCOUNTER 2024-04-27 11:50 | Outpatient (REF) | payer MEDICAID, SELFPAY ==
[2024-04-27 13:38] LABS: Alanine Aminotransferase 52 U/L (0-31); Albumin Level 4.2 g/dL (3.5-5.0); Alkaline Phosphatase 81 U/L (39-117); Aspartate Amino Transferase 104 U/L (5-31); Bilirubin Direct 0.1 mg/dL (0.0-0.5); Bilirubin Total 0.3 mg/dL (0.0-1.0); Total Protein 7.2 g/dL (6.5-8.0)
[2024-04-27 14:11] LABS: Folate 11.8 ng/mL (> or = 4.0); Vitamin B12 402 pg/mL (200-900)
== END 2024-04-27 11:51 | disposition home or self-care (01) ==
LOC: HO.HHCL 11:50
PROVIDERS: PCP Internal Medicine; Referring Provider Nurse Practitioner Primary Care; Visit Provider Internal Medicine
DX: E53.8 Deficiency of other specified B group vitamins (principal); R79.89 Other specified abnormal findings of blood chemistry
CPT/HCPCS: 36415; 80076; 82607; 82746

== ENCOUNTER 2024-06-05 08:28 | Outpatient (REF) | payer MEDICAID, SELFPAY ==
[2024-06-05 09:48] LABS: Hematocrit 37.4 % (37.0-47.0); Hemoglobin 12.1 g/dl (12.0-16.0); Mean Corpuscular HGB Conc 32.4 g/dl (31.0-35.0); Mean Corpuscular Hemoglobin 29.8 pg (27.0-33.0); Mean Corpuscular Volume 92.1 fL (80.0-98.0); Mean Platelet Volume 11.9 fL (9.4-12.3); Platelet Count 217 X10*3/uL (160-400); Red Blood Count 4.06 X10*6/uL (4.20-5.50); Red Cell Distribution Width 13.4 % (11.0-16.0)
[2024-06-05 10:44] LABS: HCG Quantitative < 2 mIU/mL; TSH reflex Free T4 1.11 uIU/mL (0.32-4.0)
[2024-06-06 19:24] LABS: Lutenizing Hormone 2.8 mIU/mL; Prolactin 7.5 ng/mL
== END 2024-06-05 08:29 | disposition home or self-care (01) ==
LOC: HO.LAB 08:28
PROVIDERS: PCP Internal Medicine; Visit Provider Obstetrics & Gynecology
DX: N93.9 Abnormal uterine and vaginal bleeding, unspecified (principal)
CPT/HCPCS: 36415; 83001; 83002; 84146; 84443; 84702; 85027; 99212

== ENCOUNTER 2024-06-05 08:28 | Outpatient (AMB) | payer MEDICAID, SELFPAY ==
--- NOTE | 2024-06-05 08:42 | A.OFFVIS_ITS ---
Vital Signs 06/05/24 08:43 Height 5 ft 2 in Weight 127 lb 13.89 oz BMI 23.4 Intake Visit Reasons: EMB Results/DO NOT RS X2 Allergies ibuprofen [From Motrin] Allergy (Severe, Verified 04/11/24 11:55) WHEEZING, TONGUE SWELLING, INCREASE SOB shrimp Allergy (Severe, Verified 04/11/24 11:55) ANAPHYLAXIS almond Allergy (Mild, Verified 04/11/24 11:55) RASH Pork/Porcine Containing Products Allergy (Mild, Verified 04/11/24 11:55) RASH HPI Comments Details: The patient is presenting for follow-up to discuss the results of her abnormal uterine bleeding workup and options of treatment. The following workup was done.: H&H= 11.5/36.5 TSH within normal Endometrial biopsy pathology showed the following: Scant benign inactive endometrium, and benign squamous and endocervical glandular epithelium; no atypia or carcinoma Co testing was done was negative. Mammogram was BI-RADS 1 Pelvic ultrasound showed the following: Uterus: The uterus is anteverted and measures 7.2 x 4.4 x 5.3 cm. The double wall endometrial thickness is 5 mm. No visible uterine mass. Adnexa: The right ovary measures 3.0 x 2.5 x 2.5 cm, volume mL. There is a 2.5 cm simple physiologic cyst in the right ovary. Color Doppler appears normal. The right ovary measures 2.0 x 2.0 x 1.4 cm, volume 4 mL. The left ovary appears normal. Color Doppler appears normal. [facility] Medical History B12 deficiency Bilateral hip pain Cervical intraepithelial neoplasia grade 1 Iron deficiency anemia Opioid use disorder Arthritis Asthma Fibromyalgia Surgical History H/O abdominoplasty H/O gastric bypass History of loop electrical excision procedure (LEEP) Hx of wisdom tooth extraction Hx of tonsillectomy Hx of tubal ligation Family History Maternal Aunt Uterine cancer Social History Household Members: Spouse Household Members Other:: son Housing: Apartment Alcohol intake: never Patient Tobacco Use Status: Current someday Tobacco user Tobacco use type: Cigarette Cigarettes Per Day: 5 Years Smoked: 15 Substance Use Type: Other 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al status: employed 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 Sexual orientation: Straight/Heterosexual Gender identity: Female Female Reproductive History Menstrual Age of Menarche: 8 Review of Systems Const All systems reviewed & are unremarkable except as noted in HPI and below Reports as per HPI and Reports no additional complaints GI Reports no additional complaints Reports no additional complaints Physical Exam Vital Signs: BMI result Body Mass Index 23.4 Assessment & Plan Assessment & Plan (1) Abnormal uterine bleeding (AUB): Code(s): N93.9 - Abnormal uterine and vaginal bleeding, unspecified Category: Medical Plan: Discussed with the patient the results of the work up done and options of treatment including cyclic progesterone, BCP's, Mirena IUD, endometrial ablation. All pros, cons, risks and benefits if each option was discussed with the patient and the patient decided to think about it and get back to us. Will order FSH/ LH . Instructions given the patient to schedule a 2 week follow-up appointment. All questions answered the patient verbalized understanding. Orders: Orders Lutenizing Hormone Today N93.9 - Abnormal uterine and vaginal bleeding, unspecified Follicle Stimulating Hormone Today N93.9 - Abnormal uterine and vaginal bleeding, unspecified Prolactin Today N93.9 - Abnormal uterine and vaginal bleeding, unspecified Coding Level of Care Code Est Pt Level 3 (07211) Diagnoses Abnormal uterine bleeding (AUB) N93.9
[2024-06-05 08:43] VITALS: BMI 23.4
== END 2024-06-05 08:55 | disposition home or self-care (01) ==
PROVIDERS: PCP Internal Medicine; Visit Provider Obstetrics & Gynecology
DX: N93.9 Abnormal uterine and vaginal bleeding, unspecified (principal)
CPT/HCPCS: 99213

== ENCOUNTER 2024-06-22 08:52 | Day surgery (SDC) | payer MEDICAID, SELFPAY ==
[2024-06-20 11:37] VITALS: BMI 23.4
[2024-06-22 09:22] VITALS: BP 93/44; PULSE 61; RESP 18; TEMP 36.7; O2SAT 97
--- NOTE | 2024-06-22 10:12 | P.CONAN_ITS ---
HPI - Anesthesia Eval Consult details Narrative: 43 yo female patient for EGD, Colonoscopy. Did not finish prep secondary to small stomach from bariatric surgery. Denies N/V, bloating PMFSH Active Problems Active Problems: All Active Problems (Updated 04/11/24 @ 12:23 by Derrick Jones MD) Abnormal uterine bleeding (AUB) (Acute) Numbness of left foot (Acute) Abnormal mammogram (Acute) LUQ abdominal pain (Acute) Rectal bleeding (Acute) Opioid dependence on agonist therapy (Acute)- not taking suboxone Trigger finger, left middle finger (Acute) Left knee pain (Acute) Greater trochanteric bursitis of both hips (Acute) Fibromyalgia (Acute) Low back pain (Acute) Sacroiliac joint pain (Acute) Bilateral primary osteoarthritis of hip (Acute) Bilateral hip pain (Acute) Bacterial vaginosis (Acute) Screening for STD (sexually transmitted disease) (Acute) Pelvic pain (Acute) Well woman exam (Acute) Asthma- controlled. Inhaler prn Past Medical History Medical History B12 deficiency Bilateral hip pain Cervical intraepithelial neoplasia grade 1 Iron deficiency anemia Opioid use disorder Arthritis Asthma Fibromyalgia Family History Family History Maternal Aunt Uterine cancer Family history of problems with anesthesia: No Surgical History Surgical History H/O abdominoplasty H/O gastric bypass History of loop electrical excision procedure (LEEP) Hx of wisdom tooth extraction Hx of tonsillectomy Hx of tubal ligation History of Problems with Anesthesia: No Social History Social History Household Members: Spouse Household Members Other:: son Housing: Apartment Are you a primary manager care to a significant other at home: No Do you presently have visiting nurse or other home services: No Alcohol intake: never Patient Tobacco Use Status: Former Tobacco user Tobacco use type: Cigarette Cigarettes Per Day: 5 Years Smoked: 15 Substance Use Type: Other Have you been hit, kicked, punched, or otherwise hurt by someone within the past year? 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 Sexual orientation: Straight/Heterosexual Gender identity: Female Meds Allergies Allergy/AdvReac Type Severity Reaction Status Date / Time ibuprofen [From Motrin] Allergy Severe WHEEZING, Verified 04/11/24 11:55 TONGUE SWELLING, INCREASE SOB shrimp Allergy Severe ANAPHYLAXIS Verified 04/11/24 11:55 almond Allergy Mild RASH Verified 04/11/24 11:55 Pork/Porcine Containing Allergy Mild RASH Verified 04/11/24 11:55 Products Home Medications ?Medication ?Instructions ?Recorded ?Confirmed ?Last Taken ?Type buprenorphine 2 mg-naloxone 0.5 mg 5 mg sublingual QAM 02/21/23 08/25/23 Unknown History sublingual film (Suboxone) buprenorphine 8 mg-naloxone 2 mg 10 mg sublingual QAM 02/21/23 08/25/23 Unknown History sublingual film (Suboxone) epinephrine 0.3 mg/0.3 mL IM 02/21/23 08/25/23 Unknown History injection, auto-injector zolpidem 5 mg tablet (Ambien) 5 mg PO BEDTIME 02/21/23 08/25/23 Unknown History gabapentin 300 mg capsule 300 mg PO BEDTIME 03/04/23 08/25/23 Unknown History aripiprazole 10 mg tablet 10 mg PO DAILY 03/31/23 08/25/23 Unknown History docusate sodium 100 mg capsule 100 - 200 mg PO BEDTIME PRN 03/31/23 08/25/23 Unknown History constipation sennosides 8.6 mg tablet (senna) 8.6 - 17.2 mg PO BEDTIME PRN 03/31/23 08/25/23 Unknown History constipation sulfamethoxazole 800 1 tab PO BID 03/31/23 08/25/23 Unknown History mg-trimethoprim 160 mg tablet cyanocobalamin (vitamin B-12) 1,000 mcg IM Q4W 04/27/23 08/25/23 Unknown History 1,000 mcg/mL injection solution nicotine (polacrilex) 4 mg buccal 4 mg PO Q2H PRN 04/27/23 08/25/23 Unknown History lozenge Exam Height,Weight and Vital Signs: Height 5 ft 2 in Weight 57.975 kg Last Vital Signs Temp 98.0 F 06/22/24 09:22 Pulse 61 06/22/24 09:22 Resp 18 06/22/24 09:22 BP 93/44 L 06/22/24 09:22 Pulse Ox 97 06/22/24 09:22 O2 Del Method Room Air 06/22/24 09:22 Airway Mallampati Class: II TM Dist: >3cm Neck ROM: Full Denture: Lower Partial: Upper Loose/Missing/Broken Teeth: Yes (Denies broken or loose) Heart: RRR Lungs: CTAB Other: Did not finish prep. Small stomach post bariatric surgery Assessment and Plan Assessment Anesthesia Assessment: Anesthesia Plan Discussed and Chart Reviewed Final Anesthetic Review Family History of Problems with Anesthesia: No History of Problems with Anesthesia: No NPO: Yes ASA Class: II Final Preanesthetic Review: No Changes in Pt Med Stat, Consent Obtained/Reviewed and Anes Risks/Benef Reviewed Patient Risk: Intermediate Procedure Risk: Low Assessment/Block/Sedation in SS: Assess/Block/Sedation-SS Anesthetic Plan Anesthetic Plan: TIVA Disposition: Standard PACU
--- NOTE | 2024-06-22 10:27 | MHC.SHP ---
Pre-Procedural Eval Section A - 24 Hr Update-Section A only Date of Service: 06/22/24 The patient is an INPATIENT: No The patient has been examined within 24 hours of the surgical procedure. The History & Physical has been completed within 30 days and I have reviewed it.: No Section B - Complete if H&P > 30 days Chief Complaint: Left upper quadrant pain,rectal bleeding Relevant Family History (Specify if Yes): Yes Relevant Social History: Tobacco Use Present Medications: see Short Stay Collaborative assessment Medical History: Significant History (B12 deficiency Bilateral hip pain Cervical intraepithelial neoplasia grade 1 Iron deficiency anemia Opioid use disorder Arthritis Asthma Fibromyalgia) History of Previous Operations: Relevant previous surgery/procedure and date(s) (H/O abdominoplasty H/O gastric bypass History of loop electrical excision procedure (LEEP) Hx of wisdom tooth extraction Hx of tonsillectomy Hx of tubal ligation) Allergies: Allergies Allergy/AdvReac Type Severity Reaction Status Date / Time ibuprofen [From Motrin] Allergy Severe WHEEZING, Verified 04/11/24 11:55 TONGUE SWELLING, INCREASE SOB shrimp Allergy Severe ANAPHYLAXIS Verified 04/11/24 11:55 almond Allergy Mild RASH Verified 04/11/24 11:55 Pork/Porcine Containing Allergy Mild RASH Verified 04/11/24 11:55 Products Review of Systems Sugical H&P ROS: Negative: Constitution, Cardiovascular and Respiratory and Yes, Specify: Gastrointestinal (abd pain) Exam Surgical H&P Exam: Normal: Heart, Normal: Lungs, Normal: Extremities and Normal: Abdomen Plan Diagnosis/Plan: Unchanged I have reviewed the history and physical and performed a pertinent physical examination on my patient. No changes have occurred unless specified. Time Spent With Patient Time: Total time managing care of this patient today ____ minutes.
--- NOTE | 2024-06-22 10:55 | HO.OPN-COLON ---
Colonoscopy Operative Note Operative Note Date of Service: 06/22/24 Narrative: FLEXIBLE TRANSORAL UPPER GASTROINTESTINAL ENDOSCOPY WITH BIOPSIES AND COLONOSCOPY TILL CECUM WITH BIOPSIES Pre-op diagnosis: LUQ pain, hematochezia, ? colitis Post-op diagnosis: Gastric bypass status, normal EGD, Diverticulosis Specimens and Sources: : a: small bowel bxs r/o celiac ?b: bxs gastric pouch ?c: bxs right colon r/o microscopic colitis ?d. left colon bxs to r/o microscopic colitis Endoscopist:? Sol Hampton MD Anesthesia:?MAC UPPER ENDOSCOPY Consent: Indications for the procedure and potential complications of bleeding, perforation, reaction to medications and missed diagnosis were discussed with the patient and informed consent was obtained. Instrument: Olympus GIF H 190 mid size upper endoscope Monitoring: Vital signs and clinical assessment, continuous EKG monitoring, Pulse oximetry, Carbon Dioxide monitoring and blood pressure monitoring were done throughout the procedure. Procedure: The patient was placed in the left lateral decubitis position and pre-procedure medications were administered and a bite block was placed. The endoscope was inserted into the mouth and advanced under direct vision to the third part of duodenum. A careful inspection was made as the upper endoscope was withdrawn including a retroflexed examination of the proximal stomach; Findings and interventions are described below. Findings: Larynx: Normal Esophagus: GE junction at 33 cms. No Kolb's. Stomach: Small gastric pouch with normal anastomosis at 36 cms - biopsies were obtained from the gastric pouch. Duodenum: Normal bulb and descending duodenum Biopsies were obtained from descending duodenum to check for celiac sprue Intervention: Biopsies as noted above COLONOSCOPY PROCEDURE NOTE Instrument: Olympus PCF H 190 L variable stiffness pediatric colonoscope Monitoring: Vital signs and clinical assessment, intermittent blood pressure monitoring, continuous EKG monitoring, Pulse oximetry and Carbon Dioxide monitoring were done throughout the procedure. Please see anesthesia flowsheet. Colon withdrawl time was 21 minutes. Procedure: The patient was placed in the left lateral decubitis position and pre-procedure medications were administered. After a digital rectal examination of the ano-rectum, the video colonoscope was inserted into the rectum and advanced through the colon to the cecum. The colonoscope was slowly withdrawn in a retrograde panoramic fashion and the colon mucosa was carefully examined including a retroflexed view of the rectum. Findings and interventions are described below. Procedure Difficulty: without difficulty Findings: Terminal Ileum: Not evaluated Cecum: Normal Ascending Colon: Normal Transverse Colon: Normal Descending Colon: Normal Sigmoid Colon: Mild diverticulosis Rectum: Normal Ano-rectum: Normal Colon preparation: Good after copious irrigation. [place] Bowel Preparation Scale Right colon; 2 Transverse colon: 2 Left colon; 2 (0 = Unprepared colon segment with mucosa not seen due to solid stool that cannot be cleared. 1 = Portion of mucosa of the colon segment seen, but other areas of the colon segment not well seen due to staining, residual stool and/or opaque liquid. 2 = Minor amount of residual staining, small fragments of stool and/or opaque liquid, but mucosa of colon segment seen well. 3 = Entire mucosa of colon segment seen well with no residual staining, small fragments of stool or opaque liquid) Impression and Post Procedure Diagnosis: Endoscopy Findings: ESOPHAGUS: STOMACH: DUODENUM: Colonoscopy Findings: No polyps were detected Moderate diverticulosis seen in the sigmoid colon Plan: Pt has a FU appointment on 07/06/24 with Charlette Barrera NP, Repeat Colonoscopy in 3-5 years if polyps are adenomatous and 10 year if polyps are hyperplastic. Above findings were reviewed with the patient and relevant handouts were given and the discharge area.
[2024-06-22 11:34] VITALS: BP 97/57; PULSE 79; RESP 18; TEMP 36.1; O2SAT 100
[2024-06-22 11:49] VITALS: BP 90/40; PULSE 70; RESP 16; TEMP 36.1; O2SAT 97
== END 2024-06-22 12:10 | disposition home or self-care (01) ==
PROVIDERS: PCP Internal Medicine; Visit Provider Internal Medicine Gastroenterology
PROC: (CPT 45380; principal; 2024-06-22 10:30)
DX: K62.5 Hemorrhage of anus and rectum (principal); K57.30 Diverticulosis of large intestine without perforation or abscess without bleeding; R10.12 Left upper quadrant pain; D50.9 Iron deficiency anemia, unspecified; E53.8 Deficiency of other specified B group vitamins; J45.909 Unspecified asthma, uncomplicated; M79.7 Fibromyalgia; N87.0 Mild cervical dysplasia; M25.552 Pain in left hip; M25.551 Pain in right hip; F11.90 Opioid use, unspecified, uncomplicated; Z98.51 Tubal ligation status; Z98.84 Bariatric surgery status; Z98.0 Intestinal bypass and anastomosis status; Z88.6 Allergy status to analgesic agent; Z91.014 Allergy to mammalian meats
CPT/HCPCS: 45380; 43239; 88305; 88342; J2003; J2704

== ENCOUNTER 2024-07-06 09:45 | Outpatient (REF) | payer MEDICAID, SELFPAY ==
[2024-07-06 12:13] LABS: Alanine Aminotransferase 16 U/L (0-31); Alkaline Phosphatase 85 U/L (39-117); Aspartate Amino Transferase 21 U/L (5-31); Bilirubin Direct 0.1 mg/dL (0.0-0.5); Bilirubin Total 0.4 mg/dL (0.0-1.0); Total Protein 7.1 g/dL (6.5-8.0)
[2024-07-06 12:15] LABS: Ferritin 5 ng/mL (10-250)
[2024-07-07 04:19] LABS: HBS Num1 29.61 mIU/mL (0-7.99); HBc Num1 0.14 S/CO (0.00-0.79); HIV AB/AG Nonreactive (Nonreactive); HIV Num 1 0.07 S/CO (0.00-0.99); Hepatitis A Antibody IgM 0.22 Index (0-0.79); Hepatitis B Core Antibody Nonreactive (Nonreactive); Hepatitis B Surface Antigen Negative (Negative); ~HepC Num1 0.16 S/CO (0.00-0.79); ~Hepatitis A Antibody IgM Nonreactive (Nonreactive); ~Hepatitis B Surface Antibody REACTIVE (Nonreactive); ~Hepatitis C Antibody Nonreactive (Nonreactive)
[2024-07-09 09:14] LABS: Ceruloplasmin 24 mg/dL (14-48)
[2024-07-09 12:48] LABS: Alpha Fetoprotein 2.8 ng/mL
[2024-07-10 07:52] LABS: Anti Nuclear Antibody Screen NEGATIVE (NEGATIVE)
[2024-07-10 10:49] LABS: Mitochondrial Antibodies NEGATIVE (NEGATIVE)
[2024-07-11 00:48] LABS: FIB-ALT 12 U/L (6-29); FIB-Alpha-2-Macroglobulin 177 mg/dL (106-279); FIB-Apolipoprotein A1 167 mg/dL (101-198); FIB-GGT 9 U/L (3-55); FIB-Haptoglobin 150 mg/dL (43-212); FIB-Total Bilirubin 0.4 mg/dL (0.2-1.2); Liver Fibrosis Score 0.05; Liver Fibrosis Stage F0; Nec Inflam Act Grade A0; Nec Inflam Act Score 0.02; Reference ID 5276732
[2024-07-11 13:05] LABS: Smooth Muscle Antibody <20 U (<20)
== END 2024-07-06 09:46 | disposition home or self-care (01) ==
LOC: HO.LAB 09:45
PROVIDERS: PCP Internal Medicine; Visit Provider Nurse Practitioner
DX: R74.01 Elevation of levels of liver transaminase levels (principal); K62.5 Hemorrhage of anus and rectum
CPT/HCPCS: 36415; 80076; 81596; 82105; 82390; 82728; 84443; 86015; 86038; 86381; 86704; 86706; 86709; 86803; 87340; 87389; 99212

== ENCOUNTER 2024-07-06 09:45 | Outpatient (AMB) | payer MEDICAID, SELFPAY ==
--- NOTE | 2024-07-06 09:49 | MHC.OFFVIS ---
Vital Signs 07/06/24 10:00 Height 5 ft 2 in Weight 163 lb 9.328 oz BMI 29.9 BP 94/58 L Blood Pressure Location Lt brachial Position Sitting Pulse 75 Intake Visit Reasons: s/p egd/colon Intake Note: Patient presents in office today in follow up s/p EGD and ocolonoscopy. CC: Patient continues to have abdominal bloating and RUQ abd pain. Denies other GI concerns today. Allergies ibuprofen [From Motrin] Allergy (Severe, Verified 04/11/24 11:55) WHEEZING, TONGUE SWELLING, INCREASE SOB shrimp Allergy (Severe, Verified 04/11/24 11:55) ANAPHYLAXIS almond Allergy (Mild, Verified 04/11/24 11:55) RASH Pork/Porcine Containing Products Allergy (Mild, Verified 04/11/24 11:55) RASH HPI HPI s/p egd/colon: Details: Assessment & Plan (1) Rectal bleeding: Code(s): K62.5 - Hemorrhage of anus and rectum (2) LUQ abdominal pain: Code(s): R10.12 - Left upper quadrant pain Plan She tells me that she had only one episode of rectal bleeding and she ended up at [facility] and was dx'd with colitis. She is saying that she has LUQ pain and it is worse with eating. This has been over the past 6 mos. She was seen at [facility] ER for colitis. They did not give her any treatment. She describes the pain as sharp and stabbing and lasting only for 5 or so minutes. She does not have any pain when she does not eat. Her bowel movements have normalized since her diagnosis of ?colitis. ? And she has had no more red blood in his stools She had a CT at [facility] that we will have to try to get. They did not offer any tx (?). She is a gastric bypass pt but in [address] Mcgraw. She as asthma that is well controlled and will be seeing a mma fighter for palpitations soon. There are no prior problems with anesthesia or sedation.. No ID problems. An paternal aunt of stomach cancer, no known cRC or polyps. ROV 6 weeks, start omeprazole, get US and EGD/colonoscopy, HP breath test. Orders: Orders Complete Blood Count Auto Diff 08/23/23 K62.5 - Hemorrhage of anus and rectum, R10.12 - Left upper quadrant pain Comprehensive Met. Panel 08/23/23 K62.5 - Hemorrhage of anus and rectum, R10.12 - Left upper quadrant pain EGD/Kilgore Combo - GI Use Only 08/23/23 K62.5 - Hemorrhage of anus and rectum, R10.12 - Left upper quadrant pain US abdomen complete 08/23/23 K62.5 - Hemorrhage of anus and rectum, R10.12 - Left upper quadrant pain H Pylori Breath Test Today Medications: New peg 3350-electrolytes 236-22.74-6.74 -5.86 gram (Golytely) until fecal effluent is clear; do not exceed a total volume of 2,000 mL 240 mL PO Q10M 1 day 4,000 mL 0RF Z12.11 - Encounter for screening for malignant neoplasm of colon bisacodyl (Dulcolax (bisacodyl)) 10 mg (2 x 5 mg) PO BEDTIME 2 days 4 tabs 0RF famotidine (Pepcid) 40 mg PO BEDTIME 30 tabs 6RF R10.12 - Left upper quadrant pain LABS: Laboratory Tests 04/04/23 08/23/23 04/27/24 07:45 14:34 11:55 WBC Hgb Hct Plt Count Total Bilirubin 0.3 Direct Bilirubin 0.1 AST 104 H ALT 52 H Alkaline Phosphatase 81 TSH Stool H. pylori Ag negative H. pylori Breath Test Negative 06/05/24 09:31 WBC 7.0 Hgb 12.1 Hct 37.4 Plt Count 217 Total Bilirubin Direct Bilirubin AST ALT Alkaline Phosphatase TSH 1.11 Stool H. pylori Ag H. pylori Breath Test ULTRASOUND OF THE ABDOMEN 09/12/23 FINDINGS: PANCREAS: The pancreas is not well seen due to bowel gas. ABDOMINAL AORTA: The proximal, mid, and distal segments are normal in caliber. INFERIOR VENA CAVA: Visualized portions are normal. LIVER: Normal. The liver is normal in size. The liver contour is normal. Parenchymal echogenicity is normal. No focal hepatic lesion. There is no intrahepatic biliary duct dilatation seen. GALLBLADDER: Surgically absent. COMMON BILE DUCT: The proximal common duct at the julius hepatis measures 0.6 cm. The mid to distal common duct measures 0.9 cm in diameter. RIGHT KIDNEY: Normal. No hydronephrosis. No renal calculi or focal parenchymal lesions. The kidney measures 10.7 cm in maximum dimension. LEFT KIDNEY: Normal. No hydronephrosis. No renal calculi or focal parenchymal lesions. The kidney measures 10.6 cm in maximum dimension. SPLEEN: Normal. The spleen measures 8.9 cm in maximum dimension. FREE FLUID: None. US/US abdomen complete IMPRESSION: 1. Prior cholecystectomy. 2. The pancreas is not well seen due to bowel gas. EGD/COLONOSCOPY 06/22/24 Larynx: Normal Esophagus: GE junction at 33 cms. No Kolb's. Stomach: Small gastric pouch with normal anastomosis at 36 cms - biopsies were obtained from the gastric pouch. Duodenum: Normal bulb and descending duodenum Biopsies were obtained from descending duodenum to check for celiac sprue Findings: Terminal Ileum: Not evaluated Cecum: Normal Ascending Colon: Normal Transverse Colon: Normal Descending Colon: Normal Sigmoid Colon: Mild diverticulosis Rectum: Normal Ano-rectum: Normal Colon preparation: Good after copious irrigation. Impression and Post Procedure Diagnosis: Endoscopy Findings: ESOPHAGUS: STOMACH: DUODENUM: Colonoscopy Findings: No polyps were detected Moderate diverticulosis seen in the sigmoid colon Plan: Pt has a FU appointment on 07/06/24 with Charlette Barrera NP, Repeat Colonoscopy in 3-5 years if polyps are adenomatous and 10 year if polyps are hyperplastic. BIOPSY Received: 06/22/24 ADDENDUM REPORT Addendum Addendum #1 Immunostain for H. pylori on B is negative. Control stains appropriately. Electronically Signed By: Sydnee Rhoades 06/28/24 [id number] Diagnosis A. Small bowel, biopsy: Small bowel mucosa with preserved villi and no specific change; no evidence of celiac disease. B. Gastric pouch, biopsy: Gastric body mucosa with focal minimal chronic inactive inflammation; negative for intestinal metaplasia and dysplasia. C. Colon, right, biopsy: Colonic mucosa with no specific change; no evidence of microscopic colitis. D. Colon, left, biopsy: Colonic mucosa with no specific change; no evidence of microscopic colitis. Comment: (B): Immunostain for H. pylori pending; addendum to follow TODAY'S VISIT ? cholecystectomy? ? ETOH ast>alt she confirms that she has had her gallbladder removed. She is agreeable to a 5 year recall. The procedure was well tolerated. The results were explained and the patient is agreeable to the follow-up interval as stated. The bowel pattern has returned to normal. Education was provided to tell any 1st degree relatives about their findings to be sure that they are screened by age 45. Educated that they will be put on a recall list when it is time for their repeat scope but should they move out of state or away from the hospital they will need to remember along with their primary to repeat the procedure in a timely fashion to avoid any adverse complications. I explained to her there certainly was no evidence of any chronic colitis so it is likely she simply had an infection that generated the CT scan finding this could be anything from food-borne illness to diverticulitis. She is continuing to feel well at this time. She is also not taking omeprazole. She has not needed to utilize the senna or the Colace as she seems to be moving her bowels well with some dietary changes. I note her extremely high liver function tests with transaminases elevated AST greater than ALT. No ETOH, NO fhx liver disease known, no offending rx meds. Only occasional fatigue, no other liver sx. except itching all the time (yet bili normal). Quite frankly none of the symptoms make sense in this makes me wonder if this is a lab error (particularly in the face of a recent ultrasound showing a completely normal liver) but I will run additional testing to be completely sure including repeating the liver functions. I explained all of this to her and tell her not to worry until we get further results. ROV next available. [facility] Medical History (Updated 07/06/24 @ 17:26 by WILY Cox) Numbness of left foot LUQ abdominal pain Left knee pain Low back pain Bilateral hip pain Pelvic pain Bacterial vaginosis Screening for STD (sexually transmitted disease) Well woman exam B12 deficiency Cervical intraepithelial neoplasia grade 1 Iron deficiency anemia Opioid use disorder Arthritis Asthma Fibromyalgia Surgical History History of esophagogastroduodenoscopy (EGD) H/O colonoscopy History of cholecystectomy H/O abdominoplasty H/O gastric bypass History of loop electrical excision procedure (LEEP) Hx of wisdom tooth extraction Hx of tonsillectomy Hx of tubal ligation Family History Maternal Aunt Uterine cancer Social History Household Members: Spouse Household Members Other:: son Housing: Apartment Are you a primary director of home care hospice to a significant other at home: No Do you presently have visiting nurse or other home services: No Alcohol intake: never Patient Tobacco Use Status: Former Tobacco user Tobacco use type: Cigarette Cigarettes Per Day: 5 Years Smoked: 15 Substance Use Type: Other 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al status: employed 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 Sexual orientation: Straight/Heterosexual Gender identity: Female Female Reproductive History Menstrual Age of Menarche: 8 Review of Systems Const Denies fatigue, Denies fever(s), Denies night sweats, Denies poor appetite and Denies weight loss Eyes Details: glasses Reports requires corrective lenses ENT Reports Normal hearing present, Denies dental pain, Denies dysphagia, Denies hearing loss, Denies mouth pain, Denies odynophagia, Denies throat swelling, Denies tongue swelling and Reports other (Dentition adequate) Card Reports no additional complaints Resp Reports no additional complaints GI Details: Denies abdominal pain, Denies melena, Denies bloating, Denies hematochezia, Denies constipation, Denies GI cramping, Denies dysphagia, Denies excessive flatus, Denies early satiety, Denies heartburn, Denies diarrhea, Denies nausea, Denies odynophagia, Denies vomiting and Denies hematemesis Musc Reports back pain, Reports myalgias and Reports arthralgias Skin/Breast Denies pruritus, Denies lesions, Denies rash and Denies jaundice Neuro Reports Normal hearing present and Denies Abnormal speech present Endo Denies fatigue Aller/Immun Denies throat swelling and Denies tongue swelling Physical Exam Vital Signs: Last Vital Signs Pulse 75 07/06/24 10:00 BP 94/58 L 07/06/24 10:00 BMI result Body Mass Index 29.9 Const General: cooperative, no acute distress, well developed and well groomed Nutritional Appearance: well nourished and obese Orientation/consciousness: oriented to person, oriented to place and oriented to time Limitations: language barrier HEENT Head: Yes normocephalic and Yes atraumatic Eyes General: appearance normal, both eyes and all related structures Pupils: Equal, round and reactive pupils present Neck Neck: Yes normal visual inspection and Yes no lymphadenopathy Thyroid: Thyroid normal Resp Effort & Inspection: normal respiratory effort and able to speak in complete sentences Auscultation: clear to auscultation bilaterally Cardio Rate: regular rate Rhythm: regular rhythm Heart sounds: Normal, physiologic split S2 sound present Peripheral pulses: radial pulses present and posterior tibial pulses present GI Inspection: No distended, No Abdominal panniculus present and Yes obesity Palpation (GI): Soft to palpation, nontender, no guarding, not rigid and No hepatosplenomegaly present Percussion: Yes normal to percussion Auscultation: normal bowel sounds Rectal Exam - Female: deferred Skin General skin exam: no rashes or lesions noted, turgor normal, skin not dry, no jaundice, No spider nevi and no striae Rashes: no rashes Nails: normal Neuro General: oriented to person, oriented to place and oriented to time Cranial nerves: Yes Equal, round and reactive pupils present and Yes Normal hearing present Speech: No Abnormal speech present Extrem General: Yes normal to inspection, No clubbing, No cyanosis and No edema Psych Appearance: grossly normal and well kempt Mental Status: mental status grossly normal Speech and movement: Normal speech and movement present Affect: normal affect Attitude: cooperative Thought process: Normal thought process present and not confabulating Thought content: Normal thought content present Insight: Fair insight present (Psych) Judgement: Fair judgement present (Psych) Results Reviewed Results Reviewed: Laboratory Tests 04/04/23 08/23/23 04/27/24 07:45 14:34 11:55 WBC Hgb Hct Plt Count Total Bilirubin 0.3 Direct Bilirubin 0.1 AST 104 H ALT 52 H Alkaline Phosphatase 81 TSH Stool H. pylori Ag negative H. pylori Breath Test Negative 06/05/24 09:31 WBC 7.0 Hgb 12.1 Hct 37.4 Plt Count 217 Total Bilirubin Direct Bilirubin AST ALT Alkaline Phosphatase TSH 1.11 Stool H. pylori Ag H. pylori Breath Test ULTRASOUND OF THE ABDOMEN 09/12/23 FINDINGS: PANCREAS: The pancreas is not well seen due to bowel gas. ABDOMINAL AORTA: The proximal, mid, and distal segments are normal in caliber. INFERIOR VENA CAVA: Visualized portions are normal. LIVER: Normal. The liver is normal in size. The liver contour is normal. Parenchymal echogenicity is normal. No focal hepatic lesion. There is no intrahepatic biliary duct dilatation seen. GALLBLADDER: Surgically absent. COMMON BILE DUCT: The proximal common duct at the julius hepatis measures 0.6 cm. The mid to distal common duct measures 0.9 cm in diameter. RIGHT KIDNEY: Normal. No hydronephrosis. No renal calculi or focal parenchymal lesions. The kidney measures 10.7 cm in maximum dimension. LEFT KIDNEY: Normal. No hydronephrosis. No renal calculi or focal parenchymal lesions. The kidney measures 10.6 cm in maximum dimension. SPLEEN: Normal. The spleen measures 8.9 cm in maximum dimension. FREE FLUID: None. US/US abdomen complete IMPRESSION: 1. Prior cholecystectomy. 2. The pancreas is not well seen due to bowel gas. EGD/COLONOSCOPY 06/22/24 Larynx: Normal Esophagus: GE junction at 33 cms. No Kolb's. Stomach: Small gastric pouch with normal anastomosis at 36 cms - biopsies were obtained from the gastric pouch. Duodenum: Normal bulb and descending duodenum Biopsies were obtained from descending duodenum to check for celiac sprue Findings: Terminal Ileum: Not evaluated Cecum: Normal Ascending Colon: Normal Transverse Colon: Normal Descending Colon: Normal Sigmoid Colon: Mild diverticulosis Rectum: Normal Ano-rectum: Normal Colon preparation: Good after copious irrigation. Impression and Post Procedure Diagnosis: Endoscopy Findings: ESOPHAGUS: STOMACH: DUODENUM: Colonoscopy Findings: No polyps were detected Moderate diverticulosis seen in the sigmoid colon Plan: Pt has a FU appointment on 07/06/24 with Charlette Barrera NP, Repeat Colonoscopy in 3-5 years if polyps are adenomatous and 10 year if polyps are hyperplastic. BIOPSY Received: 06/22/24 ADDENDUM REPORT Addendum Addendum #1 Immunostain for H. pylori on B is negative. Control stains appropriately. Electronically Signed By: Sydnee Rhoades 06/28/24 1720 Diagnosis A. Small bowel, biopsy: Small bowel mucosa with preserved villi and no specific change; no evidence of celiac disease. B. Gastric pouch, biopsy: Gastric body mucosa with focal minimal chronic inactive inflammation; negative for intestinal metaplasia and dysplasia. C. Colon, right, biopsy: Colonic mucosa with no specific change; no evidence of microscopic colitis. D. Colon, left, biopsy: Colonic mucosa with no specific change; no evidence of microscopic colitis. Comment: (B): Immunostain for H. pylori pending; addendum to follow Assessment & Plan Assessment & Plan (1) Transaminitis: Code(s): R74.01 - Elevation of levels of liver transaminase levels Category: Medical (2) Rectal bleeding: Comment: No cause except hemorrhoids found on her 06/2024 scope Code(s): K62.5 - Hemorrhage of anus and rectum Category: Medical Plan ? cholecystectomy? ? ETOH ast>alt she confirms that she has had her gallbladder removed. She is agreeable to a 5 year recall. The procedure was well tolerated. The results were explained and the patient is agreeable to the follow-up interval as stated. The bowel pattern has returned to normal. Education was provided to tell any 1st degree relatives about their findings to be sure that they are screened by age 45. Educated that they will be put on a recall list when it is time for their repeat scope but should they move out of state or away from the hospital they will need to remember along with their primary to repeat the procedure in a timely fashion to avoid any adverse complications. I explained to her there certainly was no evidence of any chronic colitis so it is likely she simply had an infection that generated the CT scan finding this could be anything from food-borne illness to diverticulitis. She is continuing to feel well at this time. She is also not taking omeprazole. She has not needed to utilize the senna or the Colace as she seems to be moving her bowels well with some dietary changes. I note her extremely high liver function tests with transaminases elevated AST greater than ALT. No ETOH, NO fhx liver disease known, no offending rx meds. Only occasional fatigue, no other liver sx. except itching all the time (yet bili normal). Quite frankly none of the symptoms make sense in this makes me wonder if this is a lab error (particularly in the face of a recent ultrasound showing a completely normal liver) but I will run additional testing to be completely sure including repeating the liver functions. I explained all of this to her and tell her not to worry until we get further results. ROV next available. Orders: Orders Alpha Fetoprotein Today R74.01 - Elevation of levels of liver transaminase levels Hepatitis A,B,C Profile Today R74.01 - Elevation of levels of liver transaminase levels Ferritin Today R74.01 - Elevation of levels of liver transaminase levels Liver Fibrosis Pnl Today R74.01 - Elevation of levels of liver transaminase levels Mitochondrial Antibody Today R74.01 - Elevation of levels of liver transaminase levels Smooth Muscle Antibody Today R74.01 - Elevation of levels of liver transaminase levels HIV Ab/Ag Today R74.01 - Elevation of levels of liver transaminase levels Ceruloplasmin Today R74.01 - Elevation of levels of liver transaminase levels VANDANA Reflex Titer and Pattern Today R74.01 - Elevation of levels of liver transaminase levels Liver Panel Today R74.01 - Elevation of levels of liver transaminase levels TSH reflex Free T4 Today R74.01 - Elevation of levels of liver transaminase levels Coding Level of Care Code Est Pt Level 4 (83763) Diagnoses Transaminitis R74.01 Rectal bleeding K62.5 Time Spent (min) 33
[2024-07-06 10:00] VITALS: BP 94/58; PULSE 75; BMI 29.9
== END 2024-07-06 10:31 | disposition home or self-care (01) ==
PROVIDERS: PCP Internal Medicine; Visit Provider Nurse Practitioner
DX: R74.01 Elevation of levels of liver transaminase levels (principal); K62.5 Hemorrhage of anus and rectum
CPT/HCPCS: 99214

== ENCOUNTER → 2024-08-10 08:13 | Outpatient (BNVA) | payer MEDICAID, SELFPAY | PROVIDERS: PCP Internal Medicine; Visit Provider Obstetrics & Gynecology ==

== ENCOUNTER → 2024-08-10 08:13 | Outpatient (AMB) | payer MEDICAID, SELFPAY ==
--- NOTE | 2024-08-10 08:13 | A.OFFVIS_ITS ---
Intake Visit Reasons: Lab Results Allergies ibuprofen [From Motrin] Allergy (Severe, Verified 04/11/24 11:55) WHEEZING, TONGUE SWELLING, INCREASE SOB shrimp Allergy (Severe, Verified 04/11/24 11:55) ANAPHYLAXIS almond Allergy (Mild, Verified 04/11/24 11:55) RASH Pork/Porcine Containing Products Allergy (Mild, Verified 04/11/24 11:55) RASH HPI Comments Details: The patient is schedule telehealth visit to discuss the results of the workup for abnormal uterine bleeding. The workup showed the following: H&H= 11.5/36.5 TSH , prolactin within normal FSH/LH= 7/2.8 Endometrial biopsy pathology showed the following: Scant benign inactive endometrium, and benign squamous and endocervical glandular epithelium; no atypia or carcinoma Co testing was done was negative. Mammogram was BI-RADS 1 Pelvic ultrasound showed the following: Uterus: The uterus is anteverted and measures 7.2 x 4.4 x 5.3 cm. The double wall endometrial thickness is 5 mm. No visible uterine mass. Adnexa: The right ovary measures 3.0 x 2.5 x 2.5 cm, volume mL. There is a 2.5 cm simple physiologic cyst in the right ovary. Color Doppler appears normal. The right ovary measures 2.0 x 2.0 x 1.4 cm, volume 4 mL. The left ovary appears normal. Color Doppler appears normal. [facility] Medical History Numbness of left foot LUQ abdominal pain Left knee pain Low back pain Bilateral hip pain Pelvic pain Bacterial vaginosis Screening for STD (sexually transmitted disease) Well woman exam B12 deficiency Cervical intraepithelial neoplasia grade 1 Iron deficiency anemia Opioid use disorder Arthritis Asthma Fibromyalgia Surgical History History of esophagogastroduodenoscopy (EGD) H/O colonoscopy History of cholecystectomy H/O abdominoplasty H/O gastric bypass History of loop electrical excision procedure (LEEP) Hx of wisdom tooth extraction Hx of tonsillectomy Hx of tubal ligation Family History Maternal Aunt Uterine cancer Social History Household Members: Spouse Household Members Other:: son Housing: Apartment Are you a primary healthcare applications analyst to a significant other at home: No Do you presently have visiting nurse or other home services: No Alcohol intake: never Patient Tobacco Use Status: Former Tobacco user Tobacco use type: Cigarette Cigarettes Per Day: 5 Years Smoked: 15 Substance Use Type: Other 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al status: employed 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 Sexual orientation: Straight/Heterosexual Gender identity: Female Female Reproductive History Menstrual Age of Menarche: 8 Review of Systems Const All systems reviewed & are unremarkable except as noted in HPI and below Reports as per HPI and Reports no additional complaints GI Reports no additional complaints Reports no additional complaints Telehealth Telehealth Telehealth Platform: Telephone Location of provider rendering services: practice address Location of patient: address on file Patient Identification confirmed using: Name, : Yes Telehealth method: video Patient verbally consented to treatment: Yes Patient verbally consented to billing insurance company: Yes Patient informed of any privacy concerns related to visit: Yes Minutes spent on Phone/Video with Pt.: 5 Assessment & Plan Assessment & Plan (1) Abnormal uterine bleeding (AUB): Code(s): N93.9 - Abnormal uterine and vaginal bleeding, unspecified Category: Medical Plan: Discussed with the patient the results of the work up done and options of treatment including but not limited to BCP's, cyclic Progesterone, Mirena IUD, endometrial ablation and hysterectomy. All pros, cons, risks and benefits of each option were discussed with the patient and the patient decided to go ahead with cyclic Provera, so a more detailed discussion re: Progesterone treatment including mechanism of action, benefits (regular menses, endometrial protection form unopposed estrogen and reduction in the risk of endometrial hyperplasia and/or cancer ...), risks (Thrombosis, mood changes, weight gain, breast soreness, ? increased breast ca, others). Instructions were given to use a back- up method for contraception since this is not a method control, take the medication 1 tablet daily starting day 15-24 and to schedule a 3 months follow- up appointment; patient verbalized understanding and agreed with the plan. I spent a total of 20 minutes reviewing the chart, talking to the patient via video and documenting in the medical record. Medications: New medroxyprogesterone (Provera) start Provera 1 tablet daily from day 15-24 cyclically every months, day 1 being 1st day of menses 10 mg PO DAILY 10 days 30 tabs 0RF Coding Level of Care Code Tele Est Pt Level 3 (76325) Diagnoses Abnormal uterine bleeding (AUB) N93.9
--- OUTSIDE RECORDS SUMMARY | 2024-08-10 08:28 | XMS_ITS | Encounter Summary ---
Author Organization [employer] Address [address] [facility] [address] [place] [address] Care Team Providers Care Instrument Adjuster Name Role Phone Danny Morgan MD Primary Care Provide r Encounter Details Date Type Department Care Team ([facility] st Contact Info) Description 01/17/2024 Telephone [facility] [address] [place] [address] Frieda Casper MD [address] [place] [phone] Social History Tobacco Use Types Packs/Day Years Used Date Smoking Tobacco: Former Cigarettes Passive Smoke Exposure: Past Smokeless Tobacco: Never Alcohol Answer Date Recorded Frequency of Alcohol Consumption Not on file 09/27/2023 Average Number of Drinks Not on file 024 Frequency of Binge Drinking Not on file 09/02 Score 0 09/27/2023 Depression Answer Date Recorded Patient Health Questionnaire-9 Score 19 12/08/2023 Patient Health Questionnaire-9 Score 19 12/08/2023 Last PHQ-9: Questionnaire Data Not on file 0 12/08/2023 Housing Stability Answer Date Recorded What is your housing situation today? I have elva cheng 07/19/[address] you li ve. Do you have problems with any of the following? None of the above 07/19/2023 Food Insecurity Answer Date Recorded Within the past 12 months, y ou worried that your food would run out before you got money to buy more: Never True 07/19/2023 Within the past 12 months,th e food you bought just didn't last and you didn't have enough money to get more: Never True Transportation Answer Date Recorded In the past 12 months, has l ack of transportation kept you from medical appts, meetings, work or from getting things needed for daily living? No 07/19/2023 Utilities Answer Date Recorded In the past 12 months, has t he electric, gas, oil or water company threatened to shut off services in your home? No 07/19/2023 Depression Answer Date Recorded Patient Health Questionnaire-2 Score 4 12/08/2023 Comments Unknown Sex and Gender Information Value Date Recorded Sex Assigned at Female 05/03/2022 10:18 AM EDT Legal Sex Female 10:18 AM EDT Gender Identity Female 06/15/2022 10:09 AM EST Sexual Orientation Choose not to disclose 2022 10:50 AM EST documented as of this encounter Plan of Treatment Upcoming Encounters Date Type Department Care Team (Late st Contact Info) Description 09/25/2024 1:00 PM EDT Clinical Support [facility] [address] [place] [id number] Annie Duque RN documented as of this encounter Visit Diagnoses Not on filedocumented in this encounter Additional Health Concerns Assessment Noted Time PHQ-9 Depression Total Score: 19 024 2:06 PM EDT documented as of this encounter Care Teams Instrument Adjuster Relationship Specialty Start Date End Date Danny Morgan MD [address] [place] [id number] PCP - General Internal Medicine 04/15/14 documented as of this encounter
--- OUTSIDE RECORDS SUMMARY | 2024-08-10 08:28 | XMS_ITS | Encounter Summary ---
Author Organization [employer] Address [address] [facility] 7[address] [place] [address] Care Team Providers Care Blood Typer Name Role Phone Danny Morgan MD Primary Care Provide r Reason for Visit * Reason Comments Med Refill Encounter Details Date Type Department Care Team ([facility] st Contact Info) Description 01/30/2024 Refill [facility] [address] [place], [place] [phone] Danny Morgan MD [address] [place], [place] [phone] Postsurgical malabsorption, not elsewhere classified Social History Tobacco Use Types Packs/Day Years [...] Description 09/25/2024 1:00 PM EDT Clinical Support [facility] [address] [place] [address] Annie Duque RN documented as of this encounter Visit Diagnoses Diagnosis Postsurgical malabsorption, not elsewhere classified documented in this encounter Additional Health Concerns Assessment Noted Time PHQ-9 Depression Total Score: 19 024 2:06 PM EDT documented as of this encounter Care Teams Blood Typer Relationship Specialty Start Date End Date Danny Morgan MD [address] [place] [address] PCP - General Internal Medicine 04/15/14 documented as of this encounter
--- OUTSIDE RECORDS SUMMARY | 2024-08-10 08:28 | XMS_ITS | Encounter Summary ---
Author Organization [employer] Address [address] [facility] [address] [place] [address] Care Team Providers Care Tribal Council Member Name Role Phone Danny Morgan MD Primary Care Provide r Encounter Details Date Type Department Care Team (Late st Contact Info) Description 05/18/2023 Orders Only [facility] [address] [place] [address] Nakul Rojas MD [address] [place] [address] Abnormal mammogram of right breast (Primary Dx) Social History Tobacco Use Types Packs/Day Years Used Date Smoking Tobacco: Every Day Cigarettes Passive Smoke Exposure: Current Smokeless Tobacco: Never Depression Answer Date Recorded Patient Health Questionnaire-9 Score 19 05/05/2023 Patient Health Questionnaire-9 Score 19 05/05/2023 Last PHQ-9: Questionnaire Data Not on file 1 07/05/2022 Housing Stability Answer Date Recorded What is your housing situation today? I have housing today, but I am worried about losing housing in the future 04/19/[address] you li ve. Do you have problems with any of the following? None of the above 04/19/2023 Food Insecurity Answer Date Recorded Within the past 12 months, y ou worried that your food would run out before you got money to buy more: Never True 04/19/2023 Within the past 12 months,th e food you bought just didn't last and you didn't have enough money to get more: Never True Transportation Answer Date Recorded In the past 12 months, has l ack of transportation kept you from medical appts, meetings, work or from getting things needed for daily living? No 04/19/2023 Utilities Answer Date Recorded In the past 12 months, has t he electric, gas, oil or water company threatened to shut off services in your home? No 04/19/2023 Depression Answer Date Recorded Patient Health Questionnaire-2 Score 6 05/05/2023 Comments Unknown Sex and Gender Information Value [...] Description 09/25/2024 1:00 PM EDT Clinical Support [facility] [address] [place] [phone] Annie Duque RN documented as of this encounter Procedures Procedure Name Priority Date/Time Associated Diagnosis Comments B TYPE NATRIURETIC PEPTIDE (BNP) Routine 07/20/2023 9:42 AM EST Abnormal mammogram of right breast documented in this encounter Results * B Type Natriuretic Peptide (BNP) (07/20/2023 9:42 AM EST) B Type Natriuretic Peptide 17 <100 pg/mL [facility] Comment:For those patients w ho are being treated with Natrecor(nesiritide, recombinant BNP), BNP testing should beperformed at least two hours post treatment in order toensure that only endogenous levels of BNP are detected. Blood Venous blood specimen / Unknown 07/20/2023 9:42 AM EST 07/20/2023 9:42 AM EST us Nakul Rojas MD LAB BLOOD ORDERABLES Final Resul t [facility] [address] [place] [phone] documented in this encounter Visit Diagnoses Diagnosis Abnormal mammogram of right breast- Primary documented in this encounter Additional Health Concerns Assessment Noted Time PHQ-9 Depression Total Score: 19 023 12:52 PM EDT documented as of this encounter Care Teams Tribal Council Member Relationship Specialty Start Date End Date Danny Morgan MD [address] [place] [address] PCP - General Internal Medicine 04/15/14 documented as of this encounter
--- OUTSIDE RECORDS SUMMARY | 2024-08-10 08:28 | XMS_ITS | Encounter Summary ---
Author Organization [employer] Address [address] [facility] 7t [place] [address] Care Team Providers Care Ring Conductor Name Role Phone Danny Morgan MD Primary Care Provide r Encounter Details Date Type Department Care Team (Late Contact Info) Description 06/14/2022 Abstract [facility] [address] [place] [address] Danny Morgan MD [address] [place], [place] [phone] Social History Tobacco Use Types Packs/Day Years Used Date Smoking Tobacco: Never Assessed Comments Unknown Sex and Gender Information Value Date Recorded Sex Assigned at Female 05/03/2022 10:18 AM EDT Legal Sex Female 10:18 AM EDT Gender Identity Female 06/15/2022 10:09 AM EST Sexual Orientation Choose not to disclose 2022 10:50 AM EST COVID-19 Exposure Response Date Recorded In the last 10 days, have yo u been in contact with someone who was confirmed or suspected to have Coronavirus/COVID-19? No / Unsure 06/15/2022 10:07 AM EST documented as of this encounter Plan of Treatment Upcoming Encounters Date Type Department Care Team (Late st Contact Info) Description 09/25/2024 1:00 PM EDT Clinical Support [facility] [address] [place], [place] [phone] Annie Duque RN documented as of this encounter Procedures Procedure Name Priority Date/Time Associated Diagnosis Comments PAP/HPV Routine 08/12/2020 documented in this encounter Results * Pap Smear (08/12/2020) HM Pap smear NIL HPV mRNA E6/E7 Not detected us Historical Provider HEALTH MAINTENANCE Final Result documented in this encounter Visit Diagnoses Not on filedocumented in this encounter Care Teams Ring Conductor Relationship Specialty Start Date End Date Danny Morgan MD [address] [place] [phone] PCP - General Internal Medicine 04/15/14 documented as of this encounter
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
--- OUTSIDE RECORDS SUMMARY | 2024-08-10 08:29 | XMS_ITS | Encounter Summary ---
Author Organization [employer] Address [address] [facility] [facility] [address] [place] [address] Care Team Providers Care Router Operator Name Role Phone Danny Morgan MD Primary Care Provide r Reason for Visit * Reason Comments Med Refill Encounter Details Date Type Department Care Team ([facility] st Contact Info) Description 06/01/2023 Refill [facility] [address] [place], [place] [phone] Nakul Rojas MD [address] [place] [address] Uncomplicated opioid dependence (CMS/HCC) Social History Tobacco Use Types Packs/Day Years [...] Description 09/25/2024 1:00 PM EDT Clinical Support [facility] [address] [place] [address] Annie Duque RN documented as of this encounter Visit Diagnoses Diagnosis Uncomplicated opioid dependence (CMS/HCC) documented in this encounter Additional Health Concerns Assessment Noted Time PHQ-9 Depression Total Score: 19 023 12:52 PM EDT documented as of this encounter Care Teams Router Operator Relationship Specialty Start Date End Date Danny Morgan MD [address] [place] [address] PCP - General Internal Medicine 04/15/14 documented as of this encounter
--- OUTSIDE RECORDS SUMMARY | 2024-08-10 08:29 | XMS_ITS | Encounter Summary ---
Author Organization [employer] Address [address] [facility] [address] [place] [address] Care Team Providers Care Power Cleaner Operator Name Role Phone Danny Morgan MD Primary Care Provide r Encounter Details Date Type Department Care Team (Late st Contact Info) Description 04/06/2023 Abstract [facility] [address] [place] [address] Shereen Hardy Social History Tobacco Use Types Packs/Day Years Used Date Smoking Tobacco: Every Day Cigarettes Passive Smoke Exposure: Current Smokeless Tobacco: Never Depression Answer Date Recorded Patient Health Questionnaire-9 Score 17 03/15/2023 Depression Answer Date Recorded Patient Health Questionnaire-2 Score 6 03/15/2023 Comments Unknown Sex and Gender Information Value [...] Description 09/25/2024 1:00 PM EDT Clinical Support [facility] [address] [place] [address] Annie Duque RN documented as of this encounter Visit Diagnoses Not on filedocumented in this encounter Additional Health Concerns Assessment Noted Time PHQ-9 Depression Total Score: 17 023 4:19 PM EDT documented as of this encounter Care Teams Power Cleaner Operator Relationship Specialty Start Date End Date Danny Morgan MD [address] [place] [address] PCP - General Internal Medicine 04/15/14 documented as of this encounter
--- OUTSIDE RECORDS SUMMARY | 2024-08-10 08:30 | XMS_ITS | Encounter Summary ---
Author Organization [employer] Address [address] [facility] [address] [place] [address] Care Team Providers Care Vice President Pharmacy Name Role Phone Danny Morgan MD Primary Care Provide r Encounter Details Date Type Department Care Team (Late st Contact Info) Description 03/15/2023 Orders Only [facility] [address] [place] [address] Nakul Rojas MD [address] [place] [address] Social History Tobacco Use Types Packs/Day Years [...] Description 09/25/2024 1:00 PM EDT Clinical Support [facility] [address] [place] [address] Annie Duque RN documented as of this encounter Visit Diagnoses Not on filedocumented in this encounter Additional Health Concerns Assessment Noted Time PHQ-9 Depression Total Score: 17 023 4:19 PM EDT documented as of this encounter Care Teams Vice President Pharmacy Relationship Specialty Start Date End Date Danny Morgan MD [address] [place] [address] PCP - General Internal Medicine 04/15/14 documented as of this encounter
--- OUTSIDE RECORDS SUMMARY | 2024-08-10 08:30 | XMS_ITS | Clinical Summary ---
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 [facility] [address] [place] [address] Nakul Rojas MD Uncomplicated opioid dependence ([facility]) 06/22/2024 Orders Only GENERIC EXTERNAL DATA DEPARTMENT Provider, Generic External Data 06/05/2024 Orders Only GENERIC EXTERNAL DATA DEPARTMENT Provider, Generic External Data from Last 3 Months Immunizations Name Administration Dates Next Due Hep A, Adult 03/30/2023,06/01/2022 Hep B, adult 05/25/2023,,06/01/2022,2009,09/01/2009,06/04/2009 Influenza Injectable Quadriv alant Preservative Free IIV4 MDCK 06/07/2017 Influenza injectable quadriv alent IIV4 with preservative 03/31/2018 Influenza injectable quadriv alent preservative free 03/30/2023,06/01/2022,03/31/2018,2015,02/28/2015 Influenza, IIV3, injectable 06/01/2022, 4,07/08/2011 Influenza, Split (incl. kelby fied surface antigen) 07/13/2013,04/14/2012 Influenza, seasonal, injecta ble, preservative free 02/25/2016,02/26/2015 Pfizer Covid-19 Vaccine 12+ Bivalent 03/16/2022 TD (adult), 2 Lf tetanus tox oid, preservative free, adsorbed 01/29/2000 Td (adult), 5 Lf tetanus tox oid, preservative free, adsorbed 11/22/2016 Tdap 07/08/2011 Social History Tobacco Use Types Packs/Day Years Used Date Smoking Tobacco: Former Cigarettes Passive Smoke Exposure: Past Smokeless Tobacco: Never Tobacco Cessation:Counseling Given: Not Answered Alcohol Answer Date Recorded Frequency of Alcohol [...] not to disclose 2022 10:50 AM EST Last Filed Vital Signs Vital Sign Reading Time Taken Comments Blood Pressure 106/62 01/24/2024 2:57 PM EDT Pulse 76 01/24/2024 2:57 PM EDT Temperature 36.2 ??C (97.1 ??F) 01/24/2024 2:57 PM ED T Respiratory Rate 18 01/24/2024 2:57 PM EDT Oxygen Saturation 98% 01/24/2024 2:57 PM EDT Inhaled Oxygen Concentration - - Weight 69.5 kg (153 lb 3.2 oz) 01/24/2024 2:57 P M EDT Height 157.5 cm (5' 2 ) 01/24/2024 2:57 PM EDT Body Mass Index 28.02 01/24/2024 2:57 PM EDT Plan of Treatment Upcoming Encounters Date Type Department Care Team (Late st Contact Info) Description 09/25/2024 1:00 PM EDT Clinical Support [facility] [address] [place] [phone] Annei Duque, RN Health Maintenance Due Date Last Done Comments CT Colonography 1980 FIT DNA/Cologuard 1980 FIT 1980 FOBT 1980 Sigmoidoscopy 1980 Family Planning (PISQ) 10/18/1994 COVID-19 Vaccine ( season) 2024 03/16/2022, 06/24/2021, 11/18/2020, Additional history exists Influenza Vaccine (#1) 2024 , 06/01/2022, 06/01/2022, Additional history exists Depression Monitoring (PHQ-9) 06/08/2024 12/08/2023, 12/08/2023 SDOH Screening 08/15/2024 08/15/2023 Alcohol/Substance Use Screening 09/26/2024 09/27/2023 Mammogram 11/10/2024 11/11/2023, 05/04, 05/16/2023, Additional history exists Depression Screening 12/07/2024 12/08/2023, 12/08/19 24 Tobacco Screening 03/13/2025 03/13/2024 DTaP/Tdap/Td Vaccines (3 - Td or Tdap) 11/22/2026 11/22/2016, 07/08/2011, 01/29/2000 Pap Smear 02/19/2027 02/20/2024, 08/12/2020 Cervical Cancer Screening 02/19/2029 HPV/Cotest 02/19/2029 02/20/2024, 03/2021, 08/12/2020, Additional history exists Zoster Vaccines (1 of 2) 10/18/2029 Colonoscopy 06/22/2034 Colorectal Cancer Screening 06/22/2034 RSV Patients and Patients Aged 60 years or older (1 - 1-dose 75+ series) 10/18/2054 Hepatitis A Vaccines Aged Out 03/30/2023, 06/01/20 22 No longer eligible based on patient's age to complete this topic Hepatitis B Vaccines Completed 05/25/2023, 03/30/2023, 06/01/2022, Additional history exists HIV Screening Completed 07/06/2024, 03/05, 01/28/2023, Additional history exists Hepatitis C Screening Completed 07/06/2024 , 03/28/2023, 01/28/2023, Additional history exists HIB Vaccines Aged Out No longer eligi ble based on patient's age to complete this topic HPV Vaccines Aged Out No longer eligi ble based on patient's age to complete this topic IPV Vaccines Aged Out No longer eligi ble based on patient's age to complete this topic Meningococcal Vaccine Aged Out No sim mckinley eligible based on patient's age to complete this topic Pneumococcal Vaccine: Pediatrics (0 to 5 Years) and At-Risk Patients (6 to 49) Years) Aged Out No longer eligible based on patient's age to complete this topic RSV under 20 months Aged Out No longe r eligible based on patient's age to complete this topic Rotavirus Vaccines Aged Out No longer eligible based on patient's age to complete this topic Procedures Procedure Name Priority Date/Time Associated Diagnosis Comments ACTIN (SMOOTH MUSCLE) ANTIBODY (IGG) Routine 07/06/2024 10:47 AM EST LIVER FIBROSIS, FIBROTEST ACTITEST PANEL Routine 07/06/2024 10:47 AM EST MITOCHONDRIAL ANTIBODY WITH REFLEX TO TITER Routine 07/06/2024 10:47 AM EST VANDANA SCREEN, IFA, W/REFL TITER AND PATTERN Routine 07/06/2024 10:47 AM EST ALPHA FETOPROTEIN, TUMOR MARKER Routine 07/06/2024 10:47 AM EST CERULOPLASMIN Routine 07/06/2024 10:47 AM EST HIV 1/2 ANTIGEN/ANTIBODY, FOURTH GENERATION W/RFL Routine 07/06/2024 10:47 AM EST HEPATITIS PANEL, GENERAL Routine 07/06/2024 10:47 AM EST TSH W/REFLEX TO FT4 Routine 07/06/2024 1 0:47 AM EST FERRITIN Routine 07/06/2024 10:47 AM EST HEPATIC FUNCTION PANEL Routine 10:47 AM EST HEMATOXYLIN AND EOSIN STAIN Routine 06/22/2024 11:05 AM EST PROLACTIN Routine 06/05/2024 9:31 AM EST LH Routine 06/05/2024 9:31 AM EST FSH Routine 06/05/2024 9:31 AM EST HCG, TOTAL, QN Routine 06/05/2024 9:31 AM EST TSH W/REFLEX TO FT4 Routine 06/05/2024 9 :31 AM EST CBC Routine 06/05/2024 9:31 AM EST THINPREP IMAGING PAP AND HPV MRNA E6/E7 WITH REFLEX TO HPV 16,18/45 Routine 02/20/2024 11:10 AM EDT BI MAMMOGRAM SCREENING TOMOSYNTHESIS BILATERAL Routine 11/11/2023 8:25 AM EDT from Last 3 Months or Most Recently Relevant to Health Maintenance Results * TSH with Reflex to Free T4 (07/06/2024 10:47 AM EST) Only the most recent of2 resultswithin the time period is included. TSH reflex Free T4 0.50 0.32 - 4.0 uIU/mL [facility] 07/06/2024 10:4 7 AM EST 07/06/2024 10:47 AM EST us Generic External Data Provider LAB BLOOD ORDERAB LES Final Result [facility] [address] [place] [phone] * Liver Fibrosis (HCV), FibroTest-ActiTest Panel (07/06/2024 10:47 AM EST) Liver Fibrosis Score 0.05 [facility] Liver Fibrosis Stage F0 [facility] Liver Fibrosis Interpretation SEE NOTE [facility] Comment:no fibrosisFibro Adamaris t Score (f) Metavir Score f>=0 and f<=0.21 : F0 (no fibrosis)f>0.21 and f<=0.27 : F0-F1 (no fibrosis)f>0.27 and f<=0.31 : F1 (minimal fibrosis)f>0.31 and f<=0.48 : F1-F2 (minimal fibrosis)f>0.48 and f<=0.58 : F2 (moderate fibrosis)f>0.58 and f<=0.72 : F3 (advanced fibrosis)f>0.72 and f<=0.74 : F3-F4 (advanced fibrosis)f>0.74 and f<=1.00 : F4 (severe fibrosis) Nec Inflam Act Score 0.02 [facility] Nec Inflam Act Grade A0 [facility] Nec Inflam Act Interpretation SEE NOTE [facility] Comment:no activityActiTest Score (a) Metavir Score a>=0 and a<=0.17 : A0 (no activity)a>0.17 and a<=0.29 : A0-A1 (no activity)a>0.29 and a<=0.36 : A1 (minimal activity)a>0.36 and a<=0.52 : A1-A2 (minimal activity)a>0.52 and a<=0.60 : A2 (significant activity)a>0.60 and a<=0.62 : A2-A3 (significant activity)a>0.62 and a<=1.00 : A3 (severe activity) AUC-Bgtfj-1-Macroglo bulin 177 106 - 279 mg/dL [facility] FIB-Haptoglobin 150 43 - 212 mg/dL [facility] FIB-Apolipoprotein A1 167 101 - 198 mg/dL [facility] FIB-Total Bilirubin 0.4 0.2 - 1.2 mg/dL [facility] FIB-GGT 9 3 - 55 U/L [facility] FIB-ALT 12 6 - 29 U/L [facility] Reference ID [id number] [facility] Footnote SEE NOTE [facility] Comment: The reliability of results is dependent on compliance withthe preanalytical and analytical conditions recommended byBio[employer]. The tests have to be deferred for: acutehemolysis, acute hepatitis, acute inflammation, extrahepatic cholestasis. The advice of a specialist should besought for interpretation in chronic hemolysis and Gilbert'ssyndrome. The test interpretation is not validated in livertransplant patients. Isolated extreme values of one of thecomponents should lead to caution in interpreting theresults. In case of discordance between a biopsy result trevor test, it is recommended to seek the advice of aspecialist. The causes of these discordances could be due toa flaw of the test or to a flaw in the biopsy: i.e. a liverbiopsy has a 33% variability rate for one fibrosis stage.FibroTest is interpretable for chronic hepatitis B and C,alcoholic and non alcoholic steatosis. ActiTest isinterpretable for chronic hepatitis B and C.The performance characteristics have been determined by[employer]. Ithas not been cleared or approved by the U.S. Food and DrugAdministration. Performance characteristics refer to theanalytical performance of the test.[employer], the associated logo, [employer] and all associated [employer] woods are theregistered trademarks of [employer]. All third partymarks - (R) and (TM) - are the property of their respectiveowners. (C) [id number] [employer]. Allrights reserved.THIS TEST WAS PERFORMED AT:[facility] [id number] [facility], [place] ??[phone] SWANSON MD,PHD,MICHAEL 07/06/2024 10:4 7 AM EST 07/06/2024 10:47 AM EST us Generic External Data Provider LAB BLOOD ORDERAB LES Final Result [facility] [address] [place] [phone] * Hepatitis Panel, General (07/06/2024 10:47 AM EST) Hepatitis A IgM Nonreactive Nonreactive [facility] Comment:IgM antibodies to THAPA V not detected; does not exclude earlyacute or recovered HAV infection. ~Hepatitis B Surface Antibody REACTIVE Nonreactive [facility] Comment:REACTIVE: > 11.99 mI U/mL Hepatitis B Core Antibody Nonreactive Nonreactive [facility] Hepatitis C Antibody Nonreactive Nonreactive [facility] Comment:Antibodies to HCV no t detected; does not exclude early acuteHCV infection. Hepatitis B Surface Ag Negative Negative [facility] 07/06/2024 10:4 7 AM EST 07/06/2024 10:47 AM EST Generic External Data Provider LAB BLOOD ORDERAB LES Final Result Performing Organization Address [facility] Co de Phone Number [facility] [address] [place] [phone] * Actin (Smooth Muscle) Antibody (IgG) (07/06/2024 10:47 AM EST) Smooth Muscle Antibody <20 <20 U [facility] Comment:Reference Range: <20 U: Negative>or=20 U: PositiveAntibodies recognizing actin are the main componentof smooth muscle antibodies associated with auto- immune liver disease. Actin antibodies are found inapproximately 75% of patients with autoimmunehepatitis (AIH) type 1, approximately 65% of patientswith autoimmune cholangitis, approximately 30% ofpatients with primary biliary cirrhosis andapproximately 2% of healthy controls. High values areclosely correlated with AIH type 1.THIS TEST WAS PERFORMED AT:[facility] [place] [address]YWKLENEKRUNAL HI MD,PHD 07/06/2024 10:4 7 AM EST 07/06/2024 10:47 AM EST Generic External Data Provider LAB BLOOD ORDERAB LES Final Result Performing Organization Address [facility] Co de Phone Number [facility] [address] [place] [phone] * Ceruloplasmin (07/06/2024 10:47 AM EST) Ceruloplasmin 24 14 - 48 mg/dL [facility] Comment:THIS TEST WAS PERFOR MED AT:[facility] [address] [phone] RAO MD 07/06/2024 10:4 7 AM EST 07/06/2024 10:47 AM EST us Generic External Data Provider LAB BLOOD ORDERAB LES Final Result Performing Organization Address [facility] Co de Phone Number [facility] [address] [place] [phone] * Alpha-Fetoprotein, Tumor Marker (07/06/2024 10:47 AM EST) Alpha Fetoprotein 2.8 ng/mL [facility] Comment:Reference Range: <6. 1The use of AFP as a tumor marker in females is not recommended.This test was performed using the Harshal Coulterchemiluminescent method. Values obtained fromdifferent assay methods cannot be usedinterchangeably. AFP levels, regardless ofvalue, should not be interpreted as absoluteevidence of the presence or absence of disease.THIS TEST WAS PERFORMED AT:[facility] [place] [id number] RAO MD 07/06/2024 10:4 7 AM EST 07/06/2024 10:47 AM EST Generic External Data Provider LAB BLOOD ORDERAB LES Final Result Performing Organization Address [facility] de Phone Number [facility] [address] [place] [phone] * Mitochondrial Antibody with Reflex to Titer (07/06/2024 10:47 AM EST) Mitochondrial Antibodies NEGATIVE NEGATIVE [facility] Comment:THIS TEST WAS PERFOR MED AT:[address] [place] [id number] RAO MD Mitochondrial Ab Titer TNP [facility] 07/06/2024 10:4 7 AM EST 07/06/2024 10:47 AM EST us Generic External Data Provider LAB BLOOD ORDERAB LES Final Result Performing Organization Address City/[facility]/ZIP Co de Phone Number [facility] [address] [place] [phone] * HIV-1/2 Antigen and Antibodies, Fourth Generation, with Reflexes (07/06/2024 10:47 AM EST) HIV AB/AG Nonreactive Nonreactive [facility] Comment:HIV-1 p24 Ag and/or HIV-1/HIV-2 Ab not detected.A test result that is nonreactive does not exclude thepossibility of exposure to or infection with HIV-1 and/orHIV-2. Nonreactive results in this assay for individualswith prior exposure to HIV-1 and/or HIV-2 may be due toantigen and antibody levels that are below the limit ofdetection of this assay.The 8Trip HIV Ag/Ab Combo assay result andsupplemental assay results should be interpreted inconjunction with the patient's clinical presentation,history and other laboratory results. If the results areinconsistent with clinical evidence, additional testing issuggested to confirm the result. 07/06/2024 10:4 7 AM EST 07/06/2024 10:47 AM EST us Generic External Data Provider LAB BLOOD ORDERAB LES Final Result [facility] [address] [place] [phone] * VANDANA Screen,IFA, with Reflex to Titer and Pattern (07/06/2024 10:47 AM EST) Anti Nuclear Antibody Screen NEGATIVE NEGATIVE [facility] Comment:VANDANA IFA is a first l ine screen for detecting thepresence of up to approximately 150 autoantibodies invarious autoimmune diseases. A negative VANDANA IFA resultsuggests an VANDANA-associated autoimmune disease is notpresent at this time, but is not definitive. If thereis high clinical suspicion for Sjogren's syndrome,testing for anti-SS-A/Ro antibody should be considered.Anti-Uma-1 antibody should be considered for clinicallysuspected inflammatory myopathies.AC-0: NegativeInternational Consensus on VANDANA Patterns(https://doi.org/10.1515/ygbr-8994-6207)For additional information, please refer tohttp://education.[employer]/faq/RJW331(This link is being provided for informational/educational purposes only.)THIS TEST WAS PERFORMED AT:[address] [place] [phone] RAO MD VANDANA Titer TNP [facility] VANDANA Pattern TNP [facility] VANDANA TITER 2 (REF LAB) [facility] Pattern 2 [facility] V[facility]DANA TITER 3 [facility] VANDANA PATTERN 3 [facility] 07/06/2024 10:4 7 AM EST 07/06/2024 10:47 AM EST us Generic External Data Provider LAB BLOOD ORDERAB LES Final Result Performing Organization Address [facility] Co de Phone Number [facility] [address] [place] [phone] * (ABNORMAL) Ferritin (07/06/2024 10:47 AM EST) Ferritin 5(L) 10 - 250 ng/mL [facility] 07/06/2024 10:4 7 AM EST 07/06/2024 10:47 AM EST Generic External Data Provider LAB BLOOD ORDERAB LES Final Result Performing Organization Address [facility] de Phone Number [facility] [address] [place] [phone] * Hepatic Function Panel (07/06/2024 10:47 AM EST) Bilirubin, Total 0.4 0.0 - 1.0 mg/dL [facility] Bilirubin, Direct 0.1 0.0 - 0.5 mg/dL [facility] Aspartate Amino Transferase 21 5 - 31 U/L [facility] Alanine Aminotransferase 16 0 - 31 U/L [facility] Total Protein 7.1 6.5 - 8.0 g/dL [facility] Albumin Level 4.0 3.5 - 5.0 g/dL [facility] Alkaline Phosphatase 85 39 - 117 U/L [facility] 07/06/2024 10:4 7 AM EST 07/06/2024 10:47 AM EST us Generic External Data Provider LAB BLOOD ORDERAB LES Final Result Performing Organization Address City/State/[facility] Co de Phone Number [facility] [address] [place] [phone] * Hematoxylin and Eosin Stain (06/22/2024 11:05 AM EST) 06/22/2024 11:0 5 AM EST 06/22/2024 11:56 AM EST Narrative [facility] - 06/28/2024 5:20 PM EST ----- ------- Name: Yonathan Morris ? Age/Sex: 43/F ? : 1980 Unit#: [id number] ?? Attend Dr: Sol Hampton MD ?Re06/22/24 ?Status: DEP SDC ? Location: HO.SSS ?Disch: ? ----- ------- SPEC : [id number] ? RECD: 06/22/24-1156 ? STATUS: ??SOUT ? REQ NUM: [id number] ? BETI: 06/22/24-5 ? SUBM DR: Sol Hampton MD ? ENTERED: ??06/22/24-3 ?SP TYPE: Surgical ? OTHR DR: Danny Briceño MD ?? ORDERED: ??HE Stain/12, Gross Micro L4/4, IHC, H. pylori ?Addendum Addendum ??1 ?Entered: 06/28/24-1719 Immunostain for H. pylori on B is negative. ?? Control stains appropriately. Addendum Signed (signature on file) Sydnee Jf 06/28/241719 ? ----- ------- ? Diagnosis ?? A. ??Small bowel, biopsy: ??Small bowel mucosa with preserved villi and no specific change; ?? no evidence of celiac disease. ? B. ??Gastric pouch, biopsy: ??Gastric body mucosa with focal minimal chronic inactive ?? inflammation; negative for intestinal metaplasia and dysplasia. ? C. ??Colon, right, biopsy: ??Colonic mucosa with no specific change; no evidence of ?? microscopic colitis. ? D. ??Colon, left, biopsy: ??Colonic mucosa with no specific change; no evidence of ?? microscopic colitis. ? Comment: ?? (B): ??Immunostain for H. pylori pending; addendum to follow. ?Clinical History Pre-Op Dx: ??Left upper quadrant pain, rectal bleeding Post-Op Dx: Normal EGD, diverticulosis ?Microscopic Description Microscopic sections reviewed. ? Material Received ?? A. Small bowel bx's, r/o celiac ?? B. Bx's gastric pouch ?? C. Bx's right colon, r/o microscopic colitis ?? D. Left colon bx's, r/o microscopic colitis ? CONTINUED ON NEXT PAGE ----- ------- Name: Yonathan Morris ? Age/Sex: 43/F ? : 1980 Unit#: [id number] ?? Attend Dr: Sol Hampton MD ?Re06/22/24 ?Status: DEP SDC ? Location: HO.SSS ?Disch: ? ----- ------- SPEC : [id number] ? RECD: 06/22/24-6 ? STATUS: ??SOUT ? REQ NUM: [id number] ? BETI: 06/22/24-1105 ? SUBM DR: Sol Hampton MD ? ENTERED: ??06/22/24-1213 ?SP TYPE: Surgical ? OTHR DR: Danny Briceño MD ?? ORDERED: ??HE /, Gross Micro L4/4, IHC, H. pylori ? Gross Description Received in four parts. Part A: ??Received in formalin labeled ?small bowel bx's, rule out celiac? are 2 velvety, lawrence-pink irregular tissue fragments measuring 0.2 and 0.35 cm, submitted in toto in a cassette labeled A. Part B: ??Received in formalin labeled ?bx's gastric pouch? are 2 lawrence irregular tissue fragments each measuring 0.25 cm, submitted in toto in a cassette labeled B. Part C: ??Received in formalin labeled ?bx right colon, rule out microscopic colitis? is a 0.4 cm lawrence rectangular tissue fragment, submitted in toto in a cassette labeled C. Part D: ??Received in formalin labeled ?left colon bx's, rule out microscopic colitis? are 3 lawrence irregular tissue fragments ranging from less than 0.1-0.1 cm, submitted in toto in a cassette labeled D. CEDS Special studies ordered and performed: Immunostain for H. pylori on B1. Copies To: ?? Danny Briceño MD ?? [facility] ?? [address] ?? [place] [address] ?? [phone] ?? Sol Hampton MD ?? [facility] ?? [address] ?? [place] [address] ?? [phone] ----- ------- Signed (signature on file) Sydnee Rhoades 06/25/24 1241 ? ----- ------- ? END OF REPORT ? us Generic External Data Provider LAB BLOOD ORDERAB LES Final Result [facility] [address] [place] [phone] * Prolactin (06/05/2024 9:31 AM EST) Pathologist [facility] Prolactin 7.5 ng/mL [facility] Comment:Reference Range Fema les Non- 3.0-30.0 10.0-209.0 Postmenopausal 2.0-20.0THIS TEST WAS PERFORMED AT:[facility] [place] [phone] RAO MD 06/05/2024 9:31 AM EST 06/05/2024 9:31 AM EST us Generic External Data Provider LAB BLOOD ORDERAB LES Final Result [facility] [address] [place] [address] [phone] * (ABNORMAL) CBC (06/05/2024 9:31 AM EST) [facility] White Blood Count 7.0 4.8 - 10.8 X10*3/uL [facility] Red Blood Count 4.06(L) 4.20 - 5.50 X10*6/uL [facility] Hemoglobin 12.1 12.0 - 16.0 g/dl [facility] Hematocrit 37.4 37.0 - 47.0 % [facility] Mean Corpuscular Volume 92.1 80.0 - 98.0 fL [facility] Mean Corpuscular Hemoglobin 29.8 27.0 - 33.0 pg [facility] Mean Corpuscular HGB Conc 32.4 31.0 - 35.0 g/dl [facility] Red Cell Distribution Width 13.4 11.0 - 16.0 % [facility] Platelet Count 217 160 - 400 X10*3/uL [facility] Mean Platelet Volume 11.9 9.4 - 12.3 fL [facility] NRBC Pct Auto 0.0 0.0 - 0.2 /100WBC [facility] NRBC Abs Auto 0.000 0.0 - 0.012 X10*3/uL [facility] 06/05/2024 9:31 AM EST 06/05/2024 9:31 AM EST Generic External Data Provider LAB BLOOD ORDERAB LES Final Result [facility] [address] [place] [phone] * hCG, Total, Quantitative (06/05/2024 9:31 AM EST) HCG Quantitative <2 mIU/mL [facility] Comment:Weeks post LMP Appro ximate hCG(Last Menstrual Period) Range (mIU/ml)3 - 4 weeks 9 - 1304 - 5 weeks 75 - 2,6005 - 6 weeks 850 - 20,8006 - 7 weeks 4000 - 100,2007 - 12 weeks 11,500 - 289,23876 - 16 weeks 18,300 - 137,39496 - 29 weeks (2nd trimester) 1,400 - 53,87203 - 41 weeks (3rd trimester) 940 - 60,000The [place] B- hCG assay is used for the early detection ofpregnancy; it cannot be used to diagnose any conditionunrelated to . If a B-hCG level is not supportedby the clinical evidence, results should be confirmed by analternative method (qualitative urine hCG, for example). 06/05/2024 9:31 AM EST 06/05/2024 9:31 AM EST us Generic External Data Provider LAB BLOOD ORDERAB LES Final Result [facility] [address] [place] [address] [phone] * LH (06/05/2024 9:31 AM EST) Lutenizing Hormone 2.8 mIU/mL [facility] Comment:Reference Range Foll icular Phase 1.9-12.5 Mid-Cycle Peak 8.7-76.3 Luteal Phase 0.5-16.9 Postmenopausal 10.0-54.7THIS TEST WAS PERFORMED AT:[facility] [address] [id number] RAO MD 06/05/2024 9:31 AM EST 06/05/2024 9:31 AM EST Generic External Data Provider LAB BLOOD ORDERAB LES Final Result Performing Organization Address [facility] de Phone Number [facility] [address] [place] [phone] * FSH (06/05/2024 9:31 AM EST) Follicle Stimulating Hormone 7.0 mIU/mL [facility] Comment:Reference Range Foll icular Phase 2.5-10.2 Mid-cycle Peak 3.1-17.7 Luteal Phase 1.5- 9.1 Postmenopausal 23.0-116.3THIS TEST WAS PERFORMED AT:[facility] [id number] [place] [address]NSGFLTACHO RAO MD 06/05/2024 9:31 AM EST 06/05/2024 9:31 AM EST Generic External Data Provider LAB BLOOD ORDERAB LES Final Result Performing Organization Address [facility] de Phone Number [facility] [address] [place] [phone] * ThinPrep Imaging Pap and HPV mRNA E6/E7 with Reflex to HPV 16,18/45 (02/20/2024 11:10 AM EDT) HPV 16 RNA TNP [facility] HPV 18/45 RNA [facility] HPV nRNA E6/E7 Not Detected Not Detected [facility] Comment:Methodology: Transcr iption-Mediated AmplificationThis assay detects E6/E7 viral messenger RNA (mRNA) from 14high-risk HPV types (16,18,31,33,35,39,45,51,52,56,58,59,66,68).Cervical sources are required for HPV testing.If a vaginal source from a patient who has had atotal hysterectomy with removal of cervix wassubmitted, please contact the testing laboratoryfor alternative testing options.For additional information, please refer tohttp://education.Case [employer]/faq/TDY111r6(This link if provided for information/educational purposes only.)THIS TEST WAS PERFORMED AT:[facility] [address] [address]DWAUHVIRGILIO RAO MD SOURCE: SEE NOTE [facility] Comment:None given Report Status: [facility] Clinical Information: SEE NOTE [facility] Comment:None given LMP: SEE NOTE [facility] Comment:NONE GIVEN Prev. PAP: SEE NOTE [facility] Comment:NONE GIVEN Prev. BX: SEE NOTE [facility] Comment:NONE GIVEN Statement Of Adequacy: SEE NOTE [facility] Comment:Satisfactory for luis miguel luation.Endocervical/transformation zone componentpresent. General Categorization: [facility] Interpretation/Result: SEE NOTE [facility] Comment:Cytology Results: Ne gative for intraepitheliallesion or malignancy. Cytology Comment SEE NOTE [facility] Comment:This Pap test has be en evaluated with computerassisted technology. Folder Gluer Operator: SEE NOTE [facility] Comment:RPR, CT (ASCP) CT sc reening location: [address] [address] Review Folder Gluer Operator: SEE NOTE [facility] Comment:WAC, CT(ASCP)CT scre ening location: [address] [address] Pathologist [facility] PAP Infection SEE NOTE [facility] Comment:Shift in vaginal vonnie ra suggestive of bacterialvaginosis. See Note SEE [facility] Comment:EXPLANATORY NOTE:The Pap is a screening test for cervical cancer. It isnot a diagnostic test and is subject to false negativeand false positive results. It is most reliable when asatisfactory sample, regularly obtained, is submittedwith relevant clinical findings and history, and whenthe Pap result is evaluated along with historic andcurrent clinical information. 02/20/2024 11:1 0 AM EDT 02/20/2024 3:15 PM EDT Narrative [facility] - 02/24/2024 10:56 AM EDT SEE SCANNED RESULTS IN EMR us Generic External Data Provider LAB PATHOLOGY ORD ERABLES Final Result [facility] [address] [place] [address] [phone] * BI Mammogram Screening Tomosynthesis Bilateral (11/11/2023 8:25 AM EDT) Anatomical Region Laterality Modality Breast Bilateral Mammography 11/11/2023 8:25 AM EDT Narrative 12/09/2023 9:20 AM EDT ? [facility] ? [address] ?[place] [address] ? Mammography Report ? Signed ? Patient: Morris,Yonathan A ?MR#: [id number] ?? [id number] ? : 1980 ?Acct:[id number] ? Age/Sex: 43 / F ?ADM Date: // ? Loc: HO.MAMMO ? Attending Dr: Danny Briceño MD ? Ordering Physician: Danny Briceño MD ?Resu ?? lts: 1Negative ? Date of Service: 05//24 ?Follow Up: 1 Year From Orig ?? inal Mammogram ? Procedure(s): MM tomosynthesis screening BI ?? Accession Number(s): [id number] ? cc: Danny Briceño MD ? EXAMINATION: ?? MM SCREENING DIGITAL BREAST TOMOSYNTHESIS, BILATERAL ? CLINICAL INFORMATION: ? Screening. Asymptomatic. ? COMPARISON: ?? Mammography: This study is compared with prior exams dating back to ?? 2018. ? TECHNIQUE: ?? Digital breast tomosynthesis is performed in both the craniocaudal and ?? mediolateral oblique views along with computer-aided detection (CAD). ?? Synthesized 2D images are generated from the tomosynthesis. ? FINDINGS: ?? There are scattered areas of fibroglandular density (ACR BI-RADS breast ?? composition Category b). ? There are no significant masses, abnormal calcifications, or other ?? abnormalities. ? MM/MM tomosynthesis screening BI ?? IMPRESSION: ?? No mammographic evidence of malignancy. ? ASSESSMENT: ? BI-RADS BI-RADS 1 - Negative ? RECOMMENDATION: ?? Routine annual mammography screening. ? 1 year F/U ? This examination should not preclude the clinical evaluation of a ?? suspicious palpable abnormality. ? This patient's information was entered into a reminder system with a ?? target due date for their next mammogram. ? Dictated By: ?Charu Sr MD ? Signed By: ?<Electronically signed by Charu Sr MD in OV> ? 12/09/23 0916 ? DD/ 4 ? TD/TT: ? Escalator Installer: ? Procedure Note Zhane Johns - 12/09/2023 [facility] [address] [place], [place] [address] Mammography Report Signed Patient: Yonathan Morris AMR#: [id number] : 1980Acct:[id number] Age/Sex: 43 / FADM Date: 11/11/23 Loc: HO.MAMMO Attending Dr: Danny Briceño MD Ordering Physician: Danny Briceño MDResu lts: 1Negative Date of Service: 11/11/23Follow Up: 1 Year From Orig ina Mammogram Procedure(s): MM tomosynthesis screening BI Accession Number(s): [id number] cc: Danny Briceño MD EXAMINATION: MM SCREENING DIGITAL BREAST TOMOSYNTHESIS, BILATERAL CLINICAL INFORMATION: Screening. Asymptomatic. COMPARISON: Mammography: This study is compared with prior exams dating back to 2018. TECHNIQUE: Digital breast tomosynthesis is performed in both the craniocaudal and mediolateral oblique views along with computer-aided detection (CAD). Synthesized 2D images are generated from the tomosynthesis. FINDINGS: There are scattered areas of fibroglandular density (ACR BI-RADS breast composition Category b). There are no significant masses, abnormal calcifications, or other abnormalities. MM/MM tomosynthesis screening BI IMPRESSION: No mammographic evidence of malignancy. ASSESSMENT: BI-RADS BI-RADS 1 - Negative RECOMMENDATION: Routine annual mammography screening. 1 year F/U This examination should not preclude the clinical evaluation of a suspicious palpable abnormality. This patient's information was entered into a reminder system with a target due date for their next mammogram. Dictated By: Charu Sr MD Signed By: <Electronically signed by Charu Sr MD in OV> 12/09/23915 DD/ 4 TD/TT: Escalator Installer: Danny Arroyo MD IMG BI PROCEDURES Dmitriy kameron Result - Final from Last 3 Months or Most Recently Relevant to Health Maintenance [facility] [employer] Care Teams Pipelines Manager Relationship Specialty Start Date End Date Danny Morgan MD [address] [place] [phone] PCP - General Internal Medicine 04/15/14
--- OUTSIDE RECORDS SUMMARY | 2024-08-10 08:30 | XMS_ITS | Encounter Summary ---
Author Organization [employer] Address [address] [facility] 7t [place] [address] Care Team Providers Care Clinical Operations Leader Name Role Phone Danny Morgan MD Primary Care Provide r Reason for Visit * Reason Comments Med Refill Encounter Details Date Type Department Care Team ([facility] st Contact Info) Description 06/26/2024 Refill [facility] [address] [place], [place] [phone] Nakul Rojas MD [address] [place] [address] Uncomplicated opioid dependence (CMS/HCC) Social History Tobacco [...] your housing situation today? I have elva skylar 07/19/[address] you li [...] Description 09/25/2024 1:00 PM EDT Clinical Support [facility] [address] [place] [address] Annie Duque RN documented as of this encounter Visit Diagnoses Diagnosis Uncomplicated opioid dependence (CMS/HCC) documented in this encounter Additional Health Concerns Assessment Noted Time PHQ-9 Depression Total Score: 19 024 2:06 PM EDT documented as of this encounter Care Teams Clinical Operations Leader Relationship Specialty Start Date End Date Danny Morgan MD [address] [place] [address] PCP - General Internal Medicine 04/15/14 documented as of this encounter
--- OUTSIDE RECORDS SUMMARY | 2024-08-10 08:30 | XMS_ITS | Encounter Summary ---
Author Organization [employer] Address [address] [facility] 7 [place] [address] Care Team Providers Care Cut Roll Machine Operator Name Role Phone Danny Morgan MD Primary Care Provide r Reason for Visit * Reason Onset Date Comments Nurse Triage 03/28/2023 Encounter Details Date Type Department Care Team (Late st Contact Info) Description 03/28/2023 Telephone [facility] [address] [place] [address] Danny Morgan MD [address] [place] [address] Nurse Triage Social History Tobacco Use Types Packs/Day Years [...] AM EST documented as of this encounter Miscellaneous Notes * Telephone Encounter - Geno Ratliff RN - 03/28/2023 10:36 AM EDT Triage call Pt reports urinary symptoms for several days. Pt reports it hurts, like if you had a catheter in and it was getting pulled. . Pt denies burning with urination, neg for fever. Pt symptoms are low back pain, strong odor, frequency. Pt has had frequent UTIs last one in February. Pt is advised to increase liquids to 6-8 glasses daily, reduce caffeine, alcohol , spicey foods. Pt agrees. Advised Pt to come to [facility] today and be seen by provider . Pt agrees . Hours given open till 800pm. Protocol Used: Urinary Symptoms (Adult) Protocol-Based Disposition: See in Office or Video Visit Today Video visit not offered Positive Triage Questions: * Side (flank) or lower back pain present * Bad or foul-smelling urine * Urinating more frequently than usual (i.e., frequency) * All higher-acuity triage questions were negative Care Advice Discussed: * Caffeine, Alcohol, and Foods * Reasons To Call Back - Fever occurs - Pain or burning with urination - Unable to urinate and bladder feels full - You become worse * Telephone Encounter - Brooke Funk - 03/28/2023 9:53 AM EDT Symptom: Urination Pain and stomach pain Outcome: Schedule a same-day appointment or talk to a nurse or provider today Reason: sharp pain The caller accepted this outcome documented in this encounter Plan of Treatment Upcoming Encounters Date Type Department Care Team (Late st Contact Info) Description 09/25/2024 1:00 PM EDT Clinical Support [facility] [address] [place] [address] Annie Duque RN documented as of this encounter Visit Diagnoses Not on filedocumented in this encounter Additional Health Concerns Assessment Noted Time PHQ-9 Depression Total Score: 17 023 4:19 PM EDT documented as of this encounter Care Teams Cut Roll Machine Operator Relationship Specialty Start Date End Date Danny Morgan MD [address] [place] [phone] PCP - General Internal Medicine 04/15/14 documented as of this encounter
--- OUTSIDE RECORDS SUMMARY | 2024-08-10 08:30 | XMS_ITS | Encounter Summary ---
Author Organization [employer] Address [address] [facility] 7t [place] [address] Care Team Providers Care Ironworker Machine Operator Name Role Phone Danny Morgan MD Primary Care Provide r Reason for Visit * Reason Onset Date Comments Med Refill 07/25/2024 Encounter Details Date Type Department Care Team (Late st Contact Info) Description 07/25/2024 Refill [facility] [address] [place] [address] Annie Duque RN Uncomplicated opioid dependence (CMS/HCC) Social History Tobacco [...] Description 09/25/2024 1:00 PM EDT Clinical Support [facility] [address] [place] [address] Annie Duque RN documented as of this encounter Visit Diagnoses Diagnosis Uncomplicated opioid dependence (CMS/HCC) documented in this encounter Additional Health Concerns Assessment Noted Time PHQ-9 Depression Total Score: 19 024 2:06 PM EDT documented as of this encounter Care Teams Ironworker Machine Operator Relationship Specialty Start Date End Date Danny Morgan MD [address] [place] [address] PCP - General Internal Medicine 04/15/14 documented as of this encounter
--- OUTSIDE RECORDS SUMMARY | 2024-08-10 08:31 | XMS_ITS | Clinical Summary ---
Author Organization [facility] Address [address] [place] [address] Care Team Providers Care Outdoor Emergency Care Technician Name Role Phone Unknown Primary Care Provider [phone] Allergies Active Allergy Reactions Criticality Noted Date Comments Ibuprofen Hives Medium 11/02/2020 Shrimp Anaphylaxis High 11/13/2020 Medications Medication Sig Dispensed Refills Start Date End Date Status Hysingla ER 40 MG tablet TAKE 1 TABLET BY MOUTH DAILY. MAY FILL FEWER THIS IS LAST PRESCRIPTION AND TAPERING DOSE 09/04/2020 Active Active Problems No known active problems Social History Tobacco Use Types Packs/Day Years Used Date Smoking Tobacco: Never Assessed Sex and Gender Information Value Date Recorded Sex Assigned at Not on file Gender Identity Not on file Sexual Orientation Not on file Last Filed Vital Signs Vital Sign Reading Time Taken Comments Blood Pressure 103/64 01/13/2022 2:38 PM EDT Pulse 71 01/13/2022 2:38 PM EDT Temperature 36.6 ??C (97.9 ??F) 01/13/2022 2:38 PM ED T Respiratory Rate - - Oxygen Saturation 100% 01/13/2022 2:38 PM EDT Inhaled Oxygen Concentration - - Weight 59 kg (130 lb) 11/13/2020 1:40 PM EDT Height 157.5 cm (5' 2 ) 11/13/2020 1:40 PM EDT Body Mass Index 23.78 11/13/2020 1:40 PM EDT Plan of Treatment Health Maintenance Due Date Last Done Comments Hepatitis C Virus Screening 1980 HIV Screening 10/18/1992 DTaP/Tdap/Td Vaccines (1 - Tdap) 10/18/1998 Hepatitis B Vaccines (1 of 3 - 19+ 3-dose series) 10/18/1998 Pap Smear (Ages 21-65) 10/18/2000 Mammogram 2019 Influenza Vaccine 02/02/2024 03/30/2021 COVID-19 Vaccine (1 - 2023-2 5 season) 2024 HPV Vaccines Aged Out No longer eligi ble based on patient's age to complete this topic Pneumococcal Vaccine: Pediat moraima (0-5 Years) and At-Risk Patients (6 to 49 Years) Aged Out No longer eligible b ased on patient's age to complete this topic Care Teams Outdoor Emergency Care Technician Relationship Specialty Start Date End Date Unknown Unknow Provider Address PCP - General 08/21/20
--- OUTSIDE RECORDS SUMMARY | 2024-08-10 08:31 | XMS_ITS | Encounter Summary ---
Author Organization [employer] Address [address] [facility] 7 [place] [address] Care Team Providers Care Rn Surgical Pcu Name Role Phone Danny Morgan MD Primary Care Provide r Reason for Visit * Reason Onset Date Comments Nurse Triage 01/28/2023 Encounter Details Date Type Department Care Team (Late st Contact Info) Description 01/28/2023 Telephone [facility] [address] [place] [address] Danny Morgan MD [address] [place] [address] Nurse Triage Social History Tobacco Use Types Packs/Day Years Used Date Smoking Tobacco: Every Day Cigarettes Passive Smoke Exposure: Current Smokeless Tobacco: Never Alcohol Answer Date Recorded [...] suspected to have Coronavirus/COVID-19? No / Unsure 01/05/2023 1:47 PM EDT documented as of this encounter Miscellaneous Notes * Telephone Encounter - Geno Ratliff RN - 01/28/2023 2:03 PM EDT Triage call with [facility] Wood Room Supervisor ID [id number], Pt reports speaks uzbek. Wood Room Supervisor is let go and Pt called back . Pt reports for 2 days urinary frequency, pain with urination and a few drops of blood in urine this morning and odor present. Pt is not drinking adequate fluids and is advised to increase liquids to 6-8 glasses per day. Pt will try. Pt period ended 01/25/23. Pt is advised to come to [facility] to be seen today. Pt agrees with disposition . Protocol Used: Urinary Symptoms (Adult) Protocol-Based Disposition: See in Office or Video Visit Today Video visit not offered Positive Triage Questions: * Urinating more frequently than usual (i.e., frequency) * Bad or foul-smelling urine * All higher-acuity triage questions were negative Care Advice Discussed: * Reasons To Call Back - Fever occurs - Pain or burning with urination - You become worse * Telephone Encounter - Jaleesa Causey - 01/28/2023 1:25 PM EDT Tc from pt returning call. Pt denied needing senior occupational therapist. Please contact pt at [phone] * Telephone Encounter - Geno Ratliff RN - 01/28/2023 9:48 AM EDT Triage call for third attempt with [facility] Wood Room Supervisor ID [id number]. Pt didn't answer unable to leave voice message , mail box is full. Triage call with [facility] Wood Room Supervisor ID [id number] Called x2, Pt didn't answer unable to leave voice message , mailbox is full. * Telephone Encounter - Gamaliel Catherine - 01/28/2023 9:05 AM EDT Symptom: Urine Symptoms Outcome: Schedule an urgent appointment (within 1 hour) or talk to a nurse or provider soon Reason: Severe pain when passing urine (peeing), blood mixed in urine. The caller accepted this outcome Please contact at [phone] Libyan documented in this encounter Plan of Treatment Upcoming Encounters Date Type Department Care Team (Late st Contact Info) Description 09/25/2024 1:00 PM EDT Clinical Support [facility] [address] [place] [address] Annie Duque RN documented as of this encounter Visit Diagnoses Not on filedocumented in this encounter Additional Health Concerns Assessment Noted Time PHQ-9 Depression Total Score: 18 01/17/ 023 1:39 PM EDT documented as of this encounter Care Teams Rn Surgical Pcu Relationship Specialty Start Date End Date Danny Morgan MD [address] [place] [address] PCP - General Internal Medicine 04/15/14 documented as of this encounter
--- OUTSIDE RECORDS SUMMARY | 2024-08-10 08:31 | XMS_ITS | Encounter Summary ---
Author Organization [employer] Address [address] [facility] 7 [place] [address] Care Team Providers Care Supplies Packer Name Role Phone Danny Morgan MD Primary Care Provide r Reason for Visit * Reason Comments Med Refill Encounter Details Date Type Department Care Team (Late st Contact Info) Description 01/26/2023 Refill [facility] [address] [place] [address] Danny Morgan MD [address] [place], [place] [phone] Social History Tobacco Use Types Packs/Day Years Used Date Smoking Tobacco: Every Day Cigarettes Passive Smoke Exposure: Current Smokeless Tobacco: Never PHQ-2 Answer Date Recorded Patient Health Questionnaire-2 Score 4 01/17/2023 Comments Unknown Sex and Gender Information Value [...] PM EDT documented as of this encounter Plan of Treatment Upcoming Encounters Date Type Department Care Team (Late st Contact Info) Description 09/25/2024 1:00 PM EDT Clinical Support [facility] [address] [place] [address] Annie Duque RN documented as of this encounter Visit Diagnoses Not on filedocumented in this encounter Additional Health Concerns Assessment Noted Time PHQ-9 Depression Total Score: 18 023 1:39 PM EDT documented as of this encounter Care Teams Supplies Packer Relationship Specialty Start Date End Date Danny Morgan MD [address] [place] [address] PCP - General Internal Medicine 04/15/14 documented as of this encounter
--- OUTSIDE RECORDS SUMMARY | 2024-08-10 08:31 | XMS_ITS | Encounter Summary ---
Author Organization [employer] Address [address] [facility] 7t [place] [address] Care Team Providers Care Ammonia Nitrate Operator Name Role Phone Danny Morgan MD Primary Care Provide r Reason for Visit * Reason Comments Care Coordination Outreach Encounter Details Date Type Department Care Team (Latest Contact Info) Description 08/07/2024 Patient Outreach [facility] [address] [place] [address] Danny Morgan MD [address] [place] [address] Care Coordination (Outreach) Social History Tobacco Use Types Packs/Day Years [...] AM EST documented as of this encounter Progress Notes * Denise Cortes - 08/07/2024 10:15 AM EST CHW Denise Cortes , placed outbound call to patient in regards to offer services. CHW introducing herself from [facility] CM Department with CHW's name, department and direct contact [phone] requesting call back. Will re-attempt to contact within 5 days. and address not confirmed. documented in this encounter Plan of Treatment Upcoming Encounters Date Type Department Care Team (Late st Contact Info) Description 09/25/2024 1:00 PM EDT Clinical Support [facility] [address] [place] [address] Annie Duque RN documented as of this encounter Visit Diagnoses Not on filedocumented in this encounter Additional Health Concerns Assessment Noted Time PHQ-9 Depression Total Score: 19 024 2:06 PM EDT documented as of this encounter Care Teams Ammonia Nitrate Operator Relationship Specialty Start Date End Date Danny Morgan MD [address] [place] [address] PCP - General Internal Medicine 04/15/14 documented as of this encounter
--- OUTSIDE RECORDS SUMMARY | 2024-08-10 08:32 | XMS_ITS | Encounter Summary ---
Author Organization [employer] Address [address] [facility] [address] [place] [address] Care Team Providers Care Manager Cardiac Name Role Phone Danny Morgan MD Primary Care Provide r Reason for Visit * Reason Comments Med Change Request Encounter Details Date Type Department Care Team (Late Contact Info) Description 01/05/2023 Refill [facility] [address] [place], [place] [phone] Danny Morgan MD [address] [place], [place] [phone] Social History Tobacco Use Types Packs/Day Years Used Date Smoking Tobacco: Every Day Cigarettes Passive Smoke Exposure: Current Smokeless Tobacco: Never PHQ-2 Answer Date Recorded Patient Health Questionnaire-2 Score 5 01/06/2023 Comments Unknown Sex and Gender Information Value [...] Encounters Date Type Department Care Team (Late Contact Info) Description 09/25/2024 1:00 PM EDT Clinical Support [facility] [address] [place] [address] Annie Duque RN documented as of this encounter Visit Diagnoses Not on filedocumented in this encounter Additional Health Concerns Assessment Noted Time PHQ-9 Depression Total Score: 16 023 4:00 PM EDT documented as of this encounter Care Teams Manager Cardiac Relationship Specialty Start Date End Date Danny Morgan MD [address] [place] [address] PCP - General Internal Medicine 04/15/14 documented as of this encounter
== END | disposition home or self-care (01) ==
PROVIDERS: PCP Internal Medicine; Visit Provider Obstetrics & Gynecology
CPT/HCPCS: 99213

== ENCOUNTER 2024-11-14 07:50 | Outpatient (AMB) | payer MEDICAID, SELFPAY ==
--- OUTSIDE RECORDS SUMMARY | 2024-11-14 07:53 | XMS_ITS | Encounter Summary ---
Author Organization [employer] Address [address] [facility] 7t [place] [address] Care Team Providers Care City Treasurer Name Role Phone Danny Morgan MD Primary Care Provide r Encounter Details Date Type Department Care Team (Late st Contact Info) Description 05/18/2023 Orders Only [facility] [address] [place], [place] [phone] Nakul Rojas MD [address] [place], [place] [phone] Abnormal mammogram of right breast (Primary Dx) [...] as of this encounter Plan of Treatment Not on file documented as of this encounter Procedures Procedure Name Priority Date/Time Associated Diagnosis Comments B TYPE NATRIURETIC PEPTIDE (BNP) Routine 07/20/2023 9:42 AM EST Abnormal mammogram of right breast documented in this encounter Results * B Type Natriuretic Peptide (BNP) (07/20/2023 9:42 AM EST) B Type Natriuretic Peptide 17 <100 pg/mL [facility] Comment:For those patients w ho are being treated with Natrecor(nesiritide, recombinant BNP), BNP testing should beperformed at least two hours post treatment in order toensure that only endogenous levels of BNP are detected. Blood Venous blood specimen / Unknown 07/20/2023 9:42 AM EST 07/20/2023 9:42 AM EST Nakul Rojas MD LAB BLOOD ORDERABLES Final Resul t [facility] [address] [place] [address] [phone] documented in this encounter Visit Diagnoses Diagnosis Abnormal mammogram of right breast- Primary documented in this encounter Additional Health Concerns Assessment Noted Time PHQ-9 Depression Total Score: 19 023 12:52 PM EDT documented as of this encounter Care Teams City Treasurer Relationship Specialty Start Date End Date Danny Morgan MD [address] [place] [phone] PCP - General Internal Medicine 04/15/14 documented as of this encounter
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
--- OUTSIDE RECORDS SUMMARY | 2024-11-14 07:53 | XMS_ITS | Encounter Summary ---
Author Organization [employer] Address [address] [facility] 7t [place] [address] Care Team Providers Care Janitor Custodian Name Role Phone Danny Morgan MD Primary Care Provide r Reason for Visit * Reason Comments Med Refill Encounter Details Date Type Department Care Team ([facility] st Contact Info) Description 06/01/2023 Refill [facility] [address] [place] [address] Nakul Rojas MD [address] [place] [address] Uncomplicated opioid dependence (CMS/HCC) Social History Tobacco [...] on file documented as of this encounter Visit Diagnoses Diagnosis Uncomplicated opioid dependence (CMS/HCC) documented in this encounter Additional Health Concerns Assessment Noted Time PHQ-9 Depression Total Score: 19 023 12:52 PM EDT documented as of this encounter Care Teams Janitor Custodian Relationship Specialty Start Date End Date Danny Morgan MD [address] [place] [phone] PCP - General Internal Medicine 04/15/14 documented as of this encounter
--- OUTSIDE RECORDS SUMMARY | 2024-11-14 07:53 | XMS_ITS | Encounter Summary ---
Author Organization [employer] Address [address] [facility] 7t [place] [address] Care Team Providers Care Last Sorter Name Role Phone Danny Morgan MD Primary Care Provide r Encounter Details Date Type Department Care Team ([facility] st Contact Info) Description 06/14/2022 Abstract [facility] [address] [place] [address] Danny Morgan MD [address] [place] [address] Social History Tobacco Use Types Packs/Day Years [...] this encounter Results * Pap Smear (08/12/2020) Pap smear NIL HPV mRNA E6/E7 Not detected us Historical Provider HEALTH MAINTENANCE Final Result documented in this encounter Visit Diagnoses Not on filedocumented in this encounter Care Teams Last Sorter Relationship Specialty Start Date End Date Danny Morgan MD [address] [place] [address] PCP - General Internal Medicine 04/15/14 documented as of this encounter
--- OUTSIDE RECORDS SUMMARY | 2024-11-14 07:53 | XMS_ITS | Encounter Summary ---
Author Organization [email or web address] Address [address] [facility] 7t [place] [address] Care Team Providers Care Tire Servicer Name Role Phone Danny Morgan MD Primary Care Provide r Encounter Details Date Type Department Care Team (Late st Contact Info) Description 04/06/2023 Abstract [facility] [address] [place] [address] Shereen Hardy Social History Tobacco Use Types [...] documented as of this encounter Care Teams Tire Servicer Relationship Specialty Start Date End Date Danny Morgan MD [address] [place] [address] PCP - General Internal Medicine 04/15/14 documented as of this encounter
--- NOTE | 2024-11-14 07:54 | MHC.OFFVIS ---
Vital Signs 11/14/24 07:59 Height 5 ft 2 in Weight 163 lb BMI 29.8 BP 112/74 Intake Visit Reasons: Medication follow up Director Operating Required: No Information Interpreted: non-clinical & clinical Accompanied by: Self / Same As Patient Allergies ibuprofen [From Motrin] Allergy (Severe, Verified 11/14/24 08:00) WHEEZING, TONGUE SWELLING, INCREASE SOB shrimp Allergy (Severe, Verified 11/14/24 08:00) ANAPHYLAXIS almond Allergy (Mild, Verified 11/14/24 08:00) RASH Pork/Porcine Containing Products Allergy (Mild, Verified 11/14/24 08:00) RASH HPI Comments Details: Presenting for follow-up Provera, the patient did not start Provera yet Mammogram scheduled in the coming few days [facility] Medical History Numbness of left foot LUQ abdominal pain Left knee pain Low back pain Bilateral hip pain Pelvic pain Bacterial vaginosis Screening for STD (sexually transmitted disease) Well woman exam B12 deficiency Cervical intraepithelial neoplasia grade 1 Iron deficiency anemia Opioid use disorder Arthritis Asthma Fibromyalgia Surgical History History of esophagogastroduodenoscopy (EGD) H/O colonoscopy History of cholecystectomy H/O abdominoplasty H/O gastric bypass History of loop electrical excision procedure (LEEP) Hx of wisdom tooth extraction Hx of tonsillectomy Hx of tubal ligation Family History Maternal Aunt Uterine cancer Social History Household Members: Spouse Household Members Other:: son Housing: Apartment Are you a primary adult caregiver to a significant other at home: No Do you presently have visiting nurse or other home services: No Alcohol intake: never Patient Tobacco Use Status: Former Tobacco user Tobacco use type: Cigarette Cigarettes Per Day: 5 Years Smoked: 15 Substance Use Type: Other 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al status: employed 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/ [employer] Sexual orientation: Straight/Heterosexual Gender identity: Female Female Reproductive History Menstrual Age of Menarche: 8 Review of Systems Const All systems reviewed & are unremarkable except as noted in HPI and below Reports as per HPI and Reports no additional complaints GI Reports no additional complaints Reports no additional complaints Physical Exam Vital Signs: Last Vital Signs BP 112/74 11/14/24 07:59 BMI result Body Mass Index 29.8 Assessment & Plan Assessment & Plan (1) Abnormal uterine bleeding (AUB): Code(s): N93.9 - Abnormal uterine and vaginal bleeding, unspecified Category: Medical Plan: Instructions given to patient to start Provera 10 mg p.o. q.day 15-24 cyclically for 3 months, prescription sent and schedule a follow-up appointment afterwards. All questions answered, the patient verbalized understanding. Medications: Refilled medroxyprogesterone (Provera) start Provera 1 tablet daily from day 15-24 cyclically every months, day 1 being 1st day of menses 10 mg PO DAILY 10 days 30 tabs 0RF Coding Level of Care Code Est Pt Level 3 (79815) Diagnoses Abnormal uterine bleeding (AUB) N93.9
--- OUTSIDE RECORDS SUMMARY | 2024-11-14 07:54 | XMS_ITS | Encounter Summary ---
Author Organization [employer] Address [address] [facility] 7t [place] [address] Care Team Providers Care Beekeeper Farmer Name Role Phone Danny Morgan MD Primary Care Provide r Reason for Visit * Reason Onset Date Comments Nurse Triage 03/28/2023 Encounter Details Date Type Department Care Team (Late st Contact Info) Description 03/28/2023 Telephone [facility] [address] [place] [address] Danny Morgan MD [address] [place] [address] Nurse Triage Social History Tobacco Use Types [...] Pt agrees. Advised Pt to come to [facility] today and be seen by provider . [...] documented in this encounter Plan of Treatment Not on file documented as of this encounter Visit Diagnoses Not on filedocumented in this encounter Additional Health Concerns Assessment Noted Time PHQ-9 Depression Total Score: 17 023 4:19 PM EDT documented as of this encounter Care Teams Beekeeper Farmer Relationship Specialty Start Date End Date Danny Morgan MD [address] [place] [id number] PCP - General Internal Medicine 04/15/14 documented as of this encounter
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
--- OUTSIDE RECORDS SUMMARY | 2024-11-14 07:54 | XMS_ITS | Encounter Summary ---
Author Organization [employer] Address [address] [facility] 7t [place] [address] Care Team Providers Care Dispatcher Ship Pilot Name Role Phone Danny Morgan MD Primary Care Provide r Reason for Visit * Reason Comments Med Refill Encounter Details Date Type Department Care Team ([facility] st Contact Info) Description 01/30/2024 Refill [facility] [address] [place] [address] Danny Morgan MD [address] [place] [address] Postsurgical malabsorption, not elsewhere classified Social History [...] documented as of this encounter Care Teams Dispatcher Ship Pilot Relationship Specialty Start Date End Date Danny Morgan MD [address] [place] [id number] PCP - General Internal Medicine 04/15/14 documented as of this encounter
--- OUTSIDE RECORDS SUMMARY | 2024-11-14 07:54 | XMS_ITS | Encounter Summary ---
Author Organization [employer] Address [address] [facility] 7t [place] [address] Care Team Providers Care Obstetrics Gynecology Physician Name Role Phone aDnny Morgan MD Primary Care Provide r Encounter Details Date Type Department Care Team ([facility] st Contact Info) Description 01/17/2024 Telephone [facility] [address] [place] [address] Frieda Casper MD [address] [place] [address] Social History Tobacco Use Types Packs/Day Years [...] documented as of this encounter Care Teams Obstetrics Gynecology Physician Relationship Specialty Start Date End Date Danyn Morgan MD [address] [place] [address] PCP - General Internal Medicine 04/15/14 documented as of this encounter
--- OUTSIDE RECORDS SUMMARY | 2024-11-14 07:54 | XMS_ITS | Encounter Summary ---
Author Organization [employer] Address [address] [facility] 7t [place] [address] Care Team Providers Care Plaster Foreman Name Role Phone Danny Morgan MD Primary Care Provide r Encounter Details Date Type Department Care Team (Late st Contact Info) Description 03/15/2023 Orders Only [facility] [address] [place], [place] [phone] Nakul Rojas MD [address] [place], [place] [phone] Social History Tobacco Use Types Packs/Day Years [...] AM EST documented as of this encounter Functional Status * Over the past 2 weeks, how often have you been bothered by any of the following problems? Question Answer Date of Assessment Author Patient Health Questionnaire-2 Score 6 03/04 4:19 PM EDT Dorina Pandya * If you checked off any problems on this questionnaire so far, Question Answer Date of Assessment Author How difficult have these problems made it for you to do your work, take care of things at home, or get along with other people? Very difficult 03/15/2023 4:19 PM EDT Dorina Pandya * Over the last 2 weeks, how often have you been bothered by any of the following problems? Question Answer Date of Assessment Author Feeling nervous, anxious, or on edge 2 03/04 4:19 PM EDT Dorina Pandya Not being able to stop or co ntrol worrying 3 03/15/2023 4:19 PM EDT Dorina Pandya Worrying too much about diff erent things 3 03/15/2023 4:19 PM EDT Dorina Pandya Trouble relaxing 1 03/15/2023 4:19 PM EDT Dorina Grant Being so restless that it is hard to sit still 0 03/15/2023 4:19 PM EDT Dorina Pandya Becoming easily annoyed or irritable 3 03/04 4:19 PM EDT Dorina Pandya Feeling afraid as if somethi ng awful might happen 2 03/15/2023 4:19 PM EDT Dorina Pandya JUAN R-7 Total Score 14 03/15/2023 4:19 PM EDT Dorina Pandya * Over the past 2 weeks, how often have you been bothered by any of the following problems? Question Answer Date of Assessment Author Little interest or pleasure in doing things Nearly every day 03/15/2023 4:19 PM EDT Jerrica Pandya Feeling down, depressed, or hopeless Nearly every day 03/15/2023 4:19 PM EDT Dorina Pandya Trouble falling or staying asleep, or sleeping too much Nearly every day 03/15/2023 4:19 PM EDT Dorina Pandya Feeling tired or having little energy Nearly every day 03/15/2023 4:19 PM EDT Dorina Pandya Poor appetite or overeating More than half the days 03/15/2023 4:19 PM EDT Dorina Pandya Feeling bad about yourself - or that you are a failure or have let yourself or your family down Not at all 03/15/2023 4:19 PM EDT Dorina Pandya Trouble concentrating on things, such as reading the newspaper or watching television More than half the days 03/15/2023 4:19 PM EDT Dorina Pandya Moving or speaking so slowly that other people could have noticed? Or the opposite - being so fidgety or restless that you have been moving around a lot more than usual. Not at all 03/15/2023 4:19 PM EDT Dorina Pandya Thoughts that you would be better off or hurting yourself in some way Several days 03/15/2023 4:19 PM EDT Dorina Pandya Patient Health Questionnaire-9 Score 17 03/15/2023 4:19 PM EDT Dorina Pandya documented as of this encounter Plan of Treatment Not on file documented as of this encounter Visit Diagnoses Not on filedocumented in this encounter Additional Health Concerns Assessment Noted Time PHQ-9 Depression Total Score: 17 023 4:19 PM EDT documented as of this encounter Care Teams Plaster Foreman Relationship Specialty Start Date End Date Danny Morgan MD [address] [place] [phone] PCP - General Internal Medicine 04/15/14 documented as of this encounter
--- OUTSIDE RECORDS SUMMARY | 2024-11-14 07:54 | XMS_ITS | Encounter Summary ---
Author Organization [employer] Address [address] [facility] 7t [place] [address] Care Team Providers Care Loader Operator/Ground Leader Name Role Phone Danny Morgan MD Primary Care Provide r Reason for Visit * Reason Comments Med Refill Encounter Details Date Type Department Care Team ([facility] st Contact Info) Description 06/26/2024 Refill [facility] [address] [place] [address] Nakul Rojas MD [address] [place] [address] Uncomplicated opioid dependence ([facility]) Social History Tobacco Use Types Packs/Day Years [...] documented as of this encounter Care Teams Loader Operator/Ground Leader Relationship Specialty Start Date End Date Danny Morgan MD [address] [place] [address] PCP - General Internal Medicine 04/15/14 documented as of this encounter
--- OUTSIDE RECORDS SUMMARY | 2024-11-14 07:54 | XMS_ITS | Clinical Summary ---
Author Organization [facility] Address [address] [place] [address] Care Team Providers Care Roastmaster Name Role Phone Unknown Primary Care Provider [phone] Allergies Active Allergy Reactions Criticality Noted Date Comments Ibuprofen Hives Medium 11/02/2020 Shrimp Anaphylaxis High 11/13/2020 Medications Hysingla ER 40 MG tablet TAKE 1 TABLET BY MOUTH DAILY. MAY FILL FEWER THIS IS LAST PRESCRIPTION AND TAPERING DOSE Active Active Problems No known active problems Social History Tobacco Use Types Packs/Day Years Used Date Smoking Tobacco: Never Assessed Comments Unknown Sex and Gender Information Value Date Recorded Sex Assigned at Not on file Legal Sex Female 6:23 PM EST Gender Identity Not on file Sexual Orientation [...] Pap Smear (Ages 21-65) 10/18/2000 Mammogram 2019 COVID-19 Vaccine (1 - 2023-2 5 season) 2024 Colonoscopy 10/18/2024 Influenza Vaccine 02/01/2025 03/30/2021 HPV Vaccines Aged Out No longer eligi ble based on patient's age to complete this topic Pneumococcal Vaccine: Pediat moraima (0-5 Years) and At-Risk Patients (6 to 49 Years) Aged Out No longer eligible b ased on patient's age to complete this topic Insurance [facility] Care Teams Roastmaster Relationship Specialty Start Date End Date Unknown Unknow Provider Address PCP - General 08/21/20
--- OUTSIDE RECORDS SUMMARY | 2024-11-14 07:54 | XMS_ITS | Encounter Summary ---
Author Organization [employer] Address [address] [facility] [address] [place] [address] Care Team Providers Care Hydraulic Boom Operator Name Role Phone Danny Morgan MD Primary Care Provide r Reason for Visit * Reason Comments Med Change Request Encounter Details Date Type Department Care Team ([facility] Contact Info) Description 01/05/2023 Refill [facility] [address] [place] [address] Danny Morgan MD [address] [place] [address] Social History Tobacco Use Types Packs/Day Years [...] PM EDT documented as of this encounter Functional Status * Over the past 2 weeks, how often have you been bothered by any of the following problems? Question Answer Date of Assessment Author Patient Health Questionnaire -2 Score 5 01/06/2023 9:07 AM EDT Ani Broderick [place] * If you checked off any problems on this questionnaire so far, Question Answer Date of Assessment Author How difficult have these problems made it for you to do your work, take care of things at home, or get along with other people? Somewhat difficult 01/06/2023 9:07 AM Ani Darnell MA * Over the past 2 weeks, how often have you been bothered by any of the following problems? Question Answer Date of Assessment Author Little interest or pleasure in doing things More than half the days 01/06/2023 9:07 AM Aline Darnell MA Feeling down, depressed, or hopeless Nearly every day 01/06/2023 9:07 AM Aline Darnell MA Trouble falling or staying asleep, or sleeping too much More than half the days 01/06/2023 9:07 AM Aline Darnell MA Feeling tired or having little energy More than half the days 01/06/2023 9:07 AM Aline Darnell MA Poor appetite or overeating Several days 01/06/2023 9:07 AM Aline Darnell MA Feeling bad about yourself - or that you are a failure or have let yourself or your family down Nearly every day 01/06/2023 9:07 AM Aline Darnell MA Trouble concentrating on things, such as reading the newspaper or watching television Nearly every day 01/06/2023 9:07 AM Aline Darnell MA Moving or speaking so slowly that other people could have noticed? Or the opposite - being so fidgety or restless that you have been moving around a lot more than usual. More than half the days 01/06/2023 9:07 AM Aline Darnell MA Thoughts that you would be better off or hurting yourself in some way Several days 01/06/2023 9:07 AM Aline Darnell MA Patient Health Questionnaire-9 Score 19 01/06/2023 9:07 AM Aline Darnell MA documented as of this encounter Plan of Treatment Not on file documented as of this encounter Visit Diagnoses Not on filedocumented in this encounter Additional Health Concerns Assessment Noted Time PHQ-9 Depression Total Score: 16 023 4:00 PM EDT documented as of this encounter Care Teams Hydraulic Boom Operator Relationship Specialty Start Date End Date Danny Morgan MD [address] [place] [address] PCP - General Internal Medicine 04/15/14 documented as of this encounter
--- OUTSIDE RECORDS SUMMARY | 2024-11-14 07:54 | XMS_ITS | Encounter Summary ---
Author Organization [employer] Address [address] [facility] [address] [place] [address] Care Team Providers Care Spectrographer Name Role Phone Danny Morgan MD Primary Care Provide r Reason for Visit * Reason Comments Med Refill Encounter Details Date Type Department Care Team ([facility] st Contact Info) Description 01/26/2023 Refill [facility] [address] [place] [address] Danny Morgan MD [address] [place] [address] Social History Tobacco Use Types Packs/Day Years [...] documented as of this encounter Care Teams Spectrographer Relationship Specialty Start Date End Date Danny Morgan MD [address] [place] [address] PCP - General Internal Medicine 04/15/14 documented as of this encounter
[2024-11-14 07:59] VITALS: BP 112/74; BMI 29.8
== END 2024-11-14 08:11 | disposition home or self-care (01) ==
LOC: HO.HWS 07:50
PROVIDERS: PCP Internal Medicine; Visit Provider Obstetrics & Gynecology
DX: N93.9 Abnormal uterine and vaginal bleeding, unspecified (principal)
CPT/HCPCS: 99213

== ENCOUNTER → 2024-11-14 07:50 | Outpatient (BNVA) | payer MEDICAID, SELFPAY | PROVIDERS: PCP Internal Medicine; Visit Provider Obstetrics & Gynecology | DX: N93.9 Abnormal uterine and vaginal bleeding, unspecified (principal) | CPT/HCPCS: 99212 ==

== ENCOUNTER 2024-11-16 07:58 | Outpatient (REF) | payer OTHER, SELFPAY ==
--- OUTSIDE RECORDS SUMMARY | 2024-11-16 08:00 | XMS_ITS | Encounter Summary ---
Author Organization [employer] Address [address] [facility] [address] [place] [address] Care Team Providers Care Sign Language Interpreter Name Role Phone Danny Morgan MD Primary Care Provide r Reason for Visit * Reason Comments Med Refill Encounter Details Date Type Department Care Team ([facility] st Contact Info) Description 06/01/2023 Refill [facility] [address] [place] [address] Nakul Rojas MD [address] [place] [address] Uncomplicated opioid dependence (CMS/HCC) Social History Tobacco [...] documented as of this encounter Care Teams Sign Language Interpreter Relationship Specialty Start Date End Date Danny Morgan MD [address] [place] [id number] PCP - General Internal Medicine 04/15/14 documented as of this encounter
--- OUTSIDE RECORDS SUMMARY | 2024-11-16 08:00 | XMS_ITS | Encounter Summary ---
Author Organization [employer] Address [address] [facility] [address] [place] [address] Care Team Providers Care School Aide Name Role Phone Danny Morgan MD Primary Care Provide r Encounter Details Date Type Department Care Team ([facility] st Contact Info) Description 06/14/2022 Abstract [facility] [address] [place] [address] Danny Morgan MD [address] [place] [address] Social History Tobacco Use Types Packs/Day Years [...] on filedocumented in this encounter Care Teams School Aide Relationship Specialty Start Date End Date Danny Morgan MD [address] [place] [address] PCP - General Internal Medicine 04/15/14 documented as of this encounter
--- OUTSIDE RECORDS SUMMARY | 2024-11-16 08:00 | XMS_ITS | Encounter Summary ---
Author Organization [employer] Address [address] [facility] [address] [place] [address] Care Team Providers Care Yacht Builder Name Role Phone Danny Morgan MD Primary Care Provide r Encounter Details Date Type Department Care Team (Late st Contact Info) Description 04/06/2023 Abstract [facility] MED[facility]INE [address] [place] [address] Shereen Hardy Social History Tobacco Use Types [...] documented as of this encounter Care Teams Yacht Builder Relationship Specialty Start Date End Date Danny Morgan MD [address] [place] [address] PCP - General Internal Medicine 04/15/14 documented as of this encounter
--- OUTSIDE RECORDS SUMMARY | 2024-11-16 08:00 | XMS_ITS | Encounter Summary ---
Author Organization [employer] Address [address] [facility] [address] [place] [address] Care Team Providers Care Hog Killer Name Role Phone Danny Morgan MD Primary Care Provide r Encounter Details Date Type Department Care Team (Late st Contact Info) Description 05/18/2023 Orders Only [facility] [address] [place], [place] [phone] Nakul Rojas MD [address] [place], [place] [phone] Abnormal mammogram of right breast (Primary Dx) [...] B Type Natriuretic Peptide 17 <100 pg/mL [facility] Comment:For those patients w ho are being treated with Natrecor(nesiritide, recombinant BNP), BNP testing should beperformed at least two hours post treatment in order toensure that only endogenous levels of BNP are detected. Blood Venous blood specimen / Unknown 07/20/2023 9:42 AM EST 07/20/2023 9:42 AM EST Nakul Rojas MD LAB BLOOD ORDERABLES Final Resul t [facility] [address] [place] [address] [phone] documented in this encounter Visit Diagnoses Diagnosis Abnormal mammogram of right breast- Primary documented in this encounter Additional Health Concerns Assessment Noted Time PHQ-9 Depression Total Score: 19 023 12:52 PM EDT documented as of this encounter Care Teams Hog Killer Relationship Specialty Start Date End Date Danny Morgan MD [address] [place] [id number] PCP - General Internal Medicine 04/15/14 documented as of this encounter
--- OUTSIDE RECORDS SUMMARY | 2024-11-16 08:01 | XMS_ITS | Encounter Summary ---
Author Organization [employer] Address [address] [facility] [address] [place] [address] Care Team Providers Care Data Analyst Report Writer Name Role Phone Danny Morgan MD Primary Care Provide r Reason for Visit * Reason Comments Med Change Request Encounter Details Date Type Department Care Team ([facility] Contact Info) Description 01/05/2023 Refill [facility] [address] [place] [address] Danny Morgan MD [address] [place] [address] Social History Tobacco Use Types Packs/Day Years [...] than half the days 01/06/2023 9:07 AM Alnie Darnell [place] Feeling tired or having little [...] documented as of this encounter Care Teams Data Analyst Report Writer Relationship Specialty Start Date End Date Danny Morgan MD [address] [place] [address] PCP - General Internal Medicine 04/15/14 documented as of this encounter
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
--- OUTSIDE RECORDS SUMMARY | 2024-11-16 08:01 | XMS_ITS | Encounter Summary ---
Author Organization [employer] Address 75 [facility] 7t [place] [address] Care Team Providers Care Drawer In Stitch Bonding Machine Name Role Phone Danny Morgan MD Primary Care Provide r Reason for Visit * Reason Comments Med Refill Encounter Details Date Type Department Care Team ([facility] st Contact Info) Description 01/30/2024 Refill [facility] [address] [place] [address] Danny Morgan MD [address] [place] [address] Postsurgical malabsorption, not elsewhere classified Social History [...] documented as of this encounter Care Teams Drawer In Stitch Bonding Machine Relationship Specialty Start Date End Date Danny Morgan MD [address] [place] [phone] PCP - General Internal Medicine 04/15/14 documented as of this encounter
--- OUTSIDE RECORDS SUMMARY | 2024-11-16 08:01 | XMS_ITS | Encounter Summary ---
Author Organization [employer] Address 75 [facility] 7t [place] [address] Care Team Providers Care Sugar Coating Hand Name Role Phone Danny Morgan MD Primary Care Provide r Reason for Visit * Reason Comments Med Refill Encounter Details Date Type Department Care Team ([facility] st Contact Info) Description 01/26/2023 Refill [facility]ICINE [address] [place] [address] Danny Morgan MD [address] [place] [address] Social History Tobacco Use Types Packs/Day Years [...] documented as of this encounter Care Teams Sugar Coating Hand Relationship Specialty Start Date End Date Danny Morgan MD [address] [place] [address] PCP - General Internal Medicine 04/15/14 documented as of this encounter
--- OUTSIDE RECORDS SUMMARY | 2024-11-16 08:01 | XMS_ITS | Clinical Summary ---
Author Organization [facility] Address [address] [place] [address] Care Team Providers Care Manager Supply Chain Name Role Phone Unknown Primary Care Provider [...] age to complete this topic Insurance [facility] Care Teams Manager Supply Chain Relationship Specialty Start Date End Date Unknown Unknow Provider Address PCP - General 08/21/20
--- OUTSIDE RECORDS SUMMARY | 2024-11-16 08:01 | XMS_ITS | Encounter Summary ---
Author Organization [employer] Address 75 [facility] 7t [place] [address] Care Team Providers Care Pharmacy Aide Name Role Phone Danny Morgan MD Primary Care Provide r Encounter Details Date Type Department Care Team (Late st Contact Info) Description 03/15/2023 Orders Only [facility] [address] [place], [place] [phone] Nakul Rojas MD [address] [place], [place] [phone] Social History Tobacco Use Types Packs/Day Years [...] documented as of this encounter Care Teams Pharmacy Aide Relationship Specialty Start Date End Date Danny Morgan MD [address] [place] [phone] PCP - General Internal Medicine 04/15/14 documented as of this encounter
--- OUTSIDE RECORDS SUMMARY | 2024-11-16 08:01 | XMS_ITS | Encounter Summary ---
Author Organization [employer] Address 75 [facility] 7t [place] [address] Care Team Providers Care Ripening Room Operator Name Role Phone Danny Morgan MD Primary Care Provide r Reason for Visit * Reason Onset Date Comments Nurse Triage 03/28/2023 Encounter Details Date Type Department Care Team (Late st Contact Info) Description 03/28/2023 Telephone [facility] MEDICINE [address] [place] [address] Danny Morgan MD [address] [place] [address] Nurse Triage Social History Tobacco Use Types [...] Pt agrees. Advised Pt to come to [facility] today and be seen by provider [...] documented as of this encounter Care Teams Ripening Room Operator Relationship Specialty Start Date End Date Danny Morgan MD [address] [place] [phone] PCP - General Internal Medicine 04/15/14 documented as of this encounter
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
--- OUTSIDE RECORDS SUMMARY | 2024-11-16 08:01 | XMS_ITS | Encounter Summary ---
Author Organization [employer] Address 75 [facility] 7t [place] [address] Care Team Providers Care Information Clerk Cashier Name Role Phone Danny Morgan MD Primary Care Provide r Encounter Details Date Type Department Care Team ([facility] st Contact Info) Description 01/17/2024 Telephone [facility] MEDICINE [address] [place] [address] Frieda Casper MD [address] [place] [address] Social History Tobacco Use Types Packs/Day Years [...] documented as of this encounter Care Teams Information Clerk Cashier Relationship Specialty Start Date End Date Danny Morgan MD [address] [place] [address] PCP - General Internal Medicine 04/15/14 documented as of this encounter
--- OUTSIDE RECORDS SUMMARY | 2024-11-16 08:01 | XMS_ITS | Encounter Summary ---
Author Organization [employer] Address 75 [facility] 7t [place] [address] Care Team Providers Care Personal Security Specialist Name Role Phone Danny Morgan MD Primary Care Provide r Reason for Visit * Reason Comments Med Refill Encounter Details Date Type Department Care Team ([facility] st Contact Info) Description 06/26/2024 Refill [facility] [address] [place] [address] Nakul Rojas MD [address] [place] [address] Uncomplicated opioid dependence ([facility]) Social History Tobacco Use Types Packs/Day [...] documented as of this encounter Care Teams Personal Security Specialist Relationship Specialty Start Date End Date Danny Morgan MD [address] [place] [address] PCP - General Internal Medicine 04/15/14 documented as of this encounter
== END 2024-11-16 07:59 | disposition home or self-care (01) ==
LOC: HO.MAMMO 07:58
PROVIDERS: PCP Internal Medicine; Visit Provider Internal Medicine
DX: Z12.31 Encounter for screening mammogram for malignant neoplasm of breast (principal)
CPT/HCPCS: 77063; 77067

== ENCOUNTER → 2024-11-16 08:15 | Outpatient (BNV) | payer OTHER, SELFPAY | PROVIDERS: PCP Internal Medicine; Visit Provider Internal Medicine | DX: Z12.31 Encounter for screening mammogram for malignant neoplasm of breast (principal) | CPT/HCPCS: 77063; 77067 ==

== ENCOUNTER 2025-02-15 14:56 | Outpatient (REF) | payer MEDICAID, SELFPAY ==
--- OUTSIDE RECORDS SUMMARY | 2025-02-15 16:08 | XMS_ITS | Clinical Summary ---
Author Organization [facility] Address [address] [place] [address] Care Team Providers Care Turkey Pinner Name Role Phone Unknown Primary Care Provider [...] 71 01/13/2022 2:38 PM EDT Temperature 36.6 C (97.9 F) 01/13/2022 2:38 PM EDT Respiratory Rate - - Oxygen Saturation 100% [...] series) 10/18/1998 Pap Smear (Ages 21-65) 10/18/2000 HPV Vaccines (1 - 3-dose SCD M series) 10/18/2006 Mammogram 2019 COVID-19 Vaccine (1 - 2023-2 5 season) 2024 Colonoscopy 10/18/2024 Influenza Vaccine 02/01/2025 03/30/2021 Pneumococcal Vaccine: Pediat moraima (0-5 Years) and At-Risk Patients (6 to 49 Years) Aged Out No longer eligible b ased on patient's age to complete this topic Insurance [address] [place], [place] [address]O [facility] Care Teams Turkey Pinner Relationship Specialty Start Date End Date Unknown Unknow Provider Address PCP - General 08/21/20
--- OUTSIDE RECORDS SUMMARY | 2025-02-15 16:08 | XMS_ITS | Encounter Summary ---
Author Organization [employer] Address [address] [facility] 7[address] [place] [address] Care Team Providers Care Tire Repair Mechanic Name Role Phone Danny Morgan MD Primary Care Provide r Encounter Details Date Type Department Care Team (Late st Contact Info) Description 05/18/2023 Orders Only [facility] [address] [place] [address] Nakul Rojas MD [address] [place] [address] Abnormal mammogram of right breast (Primary Dx) [...] Care Team (Late st Contact Info) Description 03/28/2025 2:30 PM EDT Office Visit [facility] [address] [place] [address] Danny Morgan MD [address] [place] [address] documented as of this encounter Procedures Procedure Name Priority Date/Time Associated Diagnosis Comments B TYPE NATRIURETIC PEPTIDE (BNP) Routine 07/20/2023 9:42 AM EST Abnormal mammogram of right breast documented in this encounter Results * B Type Natriuretic Peptide (BNP) (07/20/2023 9:42 AM EST) B Type Natriuretic Peptide 17 <100 pg/mL [facility] Comment:For those patients w ho are being treated with Natrecor(nesiritide, recombinant BNP), BNP testing should beperformed at least two hours post treatment in order toensure that only endogenous levels of BNP are detected. Blood Venous blood specimen / Unknown 07/20/2023 9:42 AM EST 07/20/2023 9:42 AM EST us Nakul Rojas MD LAB BLOOD ORDERABLES Final Resul t [facility] [address] [place] [address] [phone] documented in this encounter Visit Diagnoses Diagnosis Abnormal mammogram of right breast- Primary documented in this encounter Additional Health Concerns Assessment Noted Time PHQ-9 Depression Total Score: 19 023 12:52 PM EDT documented as of this encounter Care Teams Tire Repair Mechanic Relationship Specialty Start Date End Date Danny Morgan MD [address] [place] [address] PCP - General Internal Medicine 04/15/14 documented as of this encounter
--- OUTSIDE RECORDS SUMMARY | 2025-02-15 16:08 | XMS_ITS | Patient Health Record ---
Author Organization [facility] Address [address] [place] [address] Care Team Providers Care String Cutter Name Role Phone Jessica Thomas MD Primary Care Provider Unavail able Daniel Jones Unavailable [phone] Bisi Hutchins Unavailable Unavailable Allergies Allergen (clinical drug ingredient) Drug/Non Drug Allergy documented on EMR Reaction Allergy Type Onset Date Status Motrin Unknown Drug Allergy Active shrimp,peas,peached, ap ples (uncoded) Unknown Allergy Active Reason For Referral No Information Medications Medication SIG (Take, Route, Frequency, Duration) Notes Start Date End Date Status Amitriptyline HCl Ac tive Vitamin B-12 1000 MCG 1000 mcg IM monthly Active Omeprazole 20 MG 1 capsule Orally Onc e a day Active Bupropion & Diet Manage Prod Active Lidocaine HCl Active Dicyclomine HCl 10 MG 1-2 capsules Orall y QID prn abdominal cramps, bloating, diarrhea for 30 Active Loratadine Active Problems Problem Type SNOMED Code ICD Code Onset Dates Problem Status W/U Status Risk Notes Problem GERD (gastroesophage al reflux disease) (530.81) Active confirmed Problem Iron deficiency anemia (81625236) Anemia, iron deficiency (280.9) Active confirmed Plan Of Treatment Future Test Test Name Order Date UPPER GI ENDOSCOPY 03/28/2014 Insurance Providers Payer Name Payer Address Payer Phone Subscriber Number Group Number Insured Name Patient Relationship to Insured Coverage Start Date Coverage End Date [facility] [address] [address] [place], [place] [phone] [id number] PARRCHELSEY JARRETT Self - patient is the insured MEDICAID OF [facility] [address] [place] [address] [id number] KAROLYN CHELSEY Self - patient is the insured Medical (General) History Medical History History ICD Code Denies OH,DM,CVA,Lung disease,renal dise ase Fibromyalgia Depression Asthma-inhaler prn Anemia-Iron and B12 deficien cy--followed by Dr. 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 Mcgraw--lost > 100# Abdominoplasty Cholecystectomy 2009 tubal ligation
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
[2025-02-15 17:38] LABS: Bacterial Vaginosis PCR NEGATIVE (Negative); Candida Group PCR DETECTED (Not Detect); Candida glab krusei PCR NOT DETECTED (Not Detect); Trichomonas vaginalis PCR NOT DETECTED (Not Detect)
[2025-02-15 18:07] LABS: CT PCR NOT DETECTED (Not Detect.); NG PCR NOT DETECTED (Not Detect.)
== END 2025-02-15 14:57 | disposition home or self-care (01) ==
LOC: HO.HHCLNP 14:56
PROVIDERS: Visit Provider Internal Medicine
DX: N89.8 Other specified noninflammatory disorders of vagina (principal); Z11.3 Encounter for screening for infections with a predominantly sexual mode of transmission; Z11.8 Encounter for screening for other infectious and parasitic diseases
CPT/HCPCS: 81515; 87491; 87591

== ENCOUNTER 2025-02-27 12:39 | Outpatient (AMB) | payer MEDICAID, SELFPAY ==
--- NOTE | 2025-02-27 12:41 | MHC.OFFVIS ---
Intake Visit Reasons: medication follow up Allergies ibuprofen (From Motrin) Allergy (Severe, Verified 11/14/24 08:00) WHEEZING, TONGUE SWELLING, INCREASE SOB shrimp Allergy (Severe, Verified 11/14/24 08:00) ANAPHYLAXIS almond Allergy (Mild, Verified 11/14/24 08:00) RASH Pork/Porcine Containing Products Allergy (Mild, Verified 11/14/24 08:00) RASH HPI Comments Details: The patient is schedule a telehealth visit for follow-up regarding medroxyprogesterone acetate. The patient has been taking Provera 10 mg p.o. q.d. day 15-24 cyclicly in her menstrual cycles are regular and is requesting a refill for a prescription. Last mammogram in 11/25 was BI-RADS 1 PFSH Medical History Numbness of left foot LUQ abdominal pain Left knee pain Low back pain Bilateral hip pain Pelvic pain Bacterial vaginosis Screening for STD (sexually transmitted disease) Well woman exam B12 deficiency Cervical intraepithelial neoplasia grade 1 Iron deficiency anemia Opioid use disorder Arthritis Asthma Fibromyalgia Surgical History History of esophagogastroduodenoscopy (EGD) H/O colonoscopy History of cholecystectomy H/O abdominoplasty H/O gastric bypass History of loop electrical excision procedure (LEEP) Hx of wisdom tooth extraction Hx of tonsillectomy Hx of tubal ligation Family History Maternal Aunt Uterine cancer Social History Household Members: Spouse Household Members Other:: son Housing: Apartment Are you a primary vp care management to a significant other at home: No Do you presently have visiting nurse or other home services: No Alcohol intake: never Patient Tobacco Use Status: Former Tobacco user Tobacco use type: Cigarette Cigarettes Per Day: 5 Years Smoked: 15 Substance Use Type: Other 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al status: employed 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: [employer]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 Sexual orientation: Straight/Heterosexual Gender identity: Female Female Reproductive History Menstrual Age of Menarche: 8 Review of Systems Const All systems reviewed & are unremarkable except as noted in HPI and below Reports as per HPI and Reports no additional complaints GI Reports no additional complaints Reports no additional complaints Telehealth Telehealth Telehealth Platform: Mixamo Location of provider rendering services: practice address Location of patient: address on file Patient Identification confirmed using: Name, : Yes Telehealth method: video Patient verbally consented to treatment: Yes Patient verbally consented to billing insurance company: Yes Patient informed of any privacy concerns related to visit: Yes Minutes spent on Phone/Video with Pt.: 4 Assessment & Plan Assessment & Plan (1) Abnormal uterine bleeding (AUB): Code(s): N93.9 - Abnormal uterine and vaginal bleeding, unspecified Category: Medical Plan: Recommended the patient to continue taking Provera 10 mg p.o. q.d. day 15-24 cyclicly and to report any abnormal uterine bleeding. All questions answered, the patient verbalized understanding I spent a total of 20 minutes reviewing the chart, talking to the patient via video and documenting in the medical record. Medications: Changed From medroxyprogesterone (Provera) start Provera 1 tablet daily from day 15-24 cyclically every months, day 1 being 1st day of menses 10 mg PO DAILY 10 days 30 tabs 0RF To medroxyprogesterone (Provera) start Provera 1 tablet daily from day 15-24 cyclically every months, day 1 being 1st day of menses 10 mg PO DAILY 30 tabs 3RF 90 days Coding Level of Care Code Tele Est Pt Level 3 (49931) Diagnoses Abnormal uterine bleeding (AUB) N93.9
--- OUTSIDE RECORDS SUMMARY | 2025-02-27 13:05 | XMS_ITS | Encounter Summary ---
Author Organization [email or web address] Address [address] [facility] 7 [place] [address] Care Team Providers Care Hogshead Liner Name Role Phone Danny Morgan MD Primary Care Provide r Reason for Visit * Reason Onset Date Comments Nurse Triage 03/28/2023 Encounter Details Date Type Department Care Team (Late st Contact Info) Description 03/28/2023 Telephone [facility] [address] [place] [address] Danny Morgan MD [address] [place] [address] Nurse Triage Social History Tobacco Use Types [...] Pt agrees. Advised Pt to come to [facility] today and be seen by provider [...] Description 03/28/2025 2:30 PM EDT Office Visit [facility] [address] [place] [address] Danny Morgan MD [address] [place] [address] documented as of this encounter Visit Diagnoses Not on filedocumented in this encounter Additional Health Concerns Assessment Noted Time PHQ-9 Depression Total Score: 17 023 4:19 PM EDT documented as of this encounter Care Teams Hogshead Liner Relationship Specialty Start Date End Date Danny Morgan MD [address] [place] [id number] PCP - General Internal Medicine 04/15/14 documented as of this encounter
--- OUTSIDE RECORDS SUMMARY | 2025-02-27 13:05 | XMS_ITS | Encounter Summary ---
Author Organization [employer] Address [address] [facility] [address] [place] [address] Care Team Providers Care Halftone Operator Name Role Phone Danny Morgan MD Primary Care Provide r Reason for Visit * Reason Onset Date Comments Med Refill 01/24/2025 Encounter Details Date Type Department Care Team ([facility] st Contact Info) Description 01/24/2025 Telephone [facility] [address] [place] [address] Danny Morgan MD [address] [place] [address] Med Refill Social History Tobacco Use Types Packs/Day Years [...] encounter Miscellaneous Notes * Telephone Encounter - Laureen Anna LPN - 01/24/2025 9:46 AM EDT MAINTENANCE MANAGER checked on 01/24/25. Ambien 10 mg prescribed by Diane Gomez. Please advise patient to call theiroffice. * Telephone Encounter - Kristian Wall - 01/24/2025 9:42 AM EDT TC from pt requesting medication refill. Medications needing refill : zolpidem (Ambien) 10 MG tablet To be sent to: [facility] - [place], [place] - [address] [facility] documented in this encounter Plan of Treatment Upcoming Encounters Date Type Department Care Team (Late st Contact Info) Description 03/28/2025 2:30 PM EDT Office Visit [facility] [address] [place], [place] [phone] Danny Morgan MD [address] [place] [address] documented as of this encounter Visit Diagnoses Not on filedocumented in this encounter Additional Health Concerns Assessment Noted Time PHQ-9 Depression Total Score: 19 024 2:06 PM EDT documented as of this encounter Care Teams Halftone Operator Relationship Specialty Start Date End Date Danny Morgan MD [address] [place] [id number] PCP - General Internal Medicine 04/15/14 documented as of this encounter
--- OUTSIDE RECORDS SUMMARY | 2025-02-27 13:05 | XMS_ITS | Encounter Summary ---
Author Organization [employer] Address [address] [facility] [address] [place] [address] Care Team Providers Care Ramp Boss Name Role Phone Danny Morgan MD Primary Care Provide r Encounter Details Date Type Department Care Team (Late st Contact Info) Description 04/06/2023 Abstract [facility] [address] [place] [address] Shereen Hardy Social History Tobacco Use Types [...] Description 03/28/2025 2:30 PM EDT Office Visit [facility] [address] [place] [address] Danny Morgan MD [address] [place] [address] documented as of this encounter Visit Diagnoses Not on filedocumented in this encounter Additional Health Concerns Assessment Noted Time PHQ-9 Depression Total Score: 17 023 4:19 PM EDT documented as of this encounter Care Teams Ramp Boss Relationship Specialty Start Date End Date Danny Morgan MD [address] [place] [address] PCP - General Internal Medicine 04/15/14 documented as of this encounter
--- OUTSIDE RECORDS SUMMARY | 2025-02-27 13:05 | XMS_ITS | Clinical Summary ---
Author Organization [facility] Address [address] [place] [address] Care Team Providers Care Regional Commercial Sales Manager Name Role Phone Unknown Primary Care Provider [...] patient's age to complete this topic Insurance [address] [place], [place] [id number] [facility] Care Teams Regional Commercial Sales Manager Relationship Specialty Start Date End Date Unknown Unknow Provider Address PCP - General 08/21/20
--- OUTSIDE RECORDS SUMMARY | 2025-02-27 13:05 | XMS_ITS | Encounter Summary ---
Author Organization [employer] Address [address] [facility] 7t [place] [address] Care Team Providers Care Rounder And Backer Name Role Phone Danny Morgan MD Primary Care Provide r Reason for Visit * Reason Comments Med Refill Encounter Details Date Type Department Care Team ([facility] st Contact Info) Description 01/30/2024 Refill [facility] [address] [place], [place] [phone] Danny Mrogan MD [address] [place], [place] [phone] Postsurgical malabsorption, not elsewhere classified Social History [...] Description 03/28/2025 2:30 PM EDT Office Visit [facility] [address] [place] [address] Danny Morgan MD [address] [place] [address] documented as of this encounter Visit Diagnoses Diagnosis Postsurgical malabsorption, not elsewhere classified documented in this encounter Additional Health Concerns Assessment Noted Time PHQ-9 Depression Total Score: 19 024 2:06 PM EDT documented as of this encounter Care Teams Rounder And Backer Relationship Specialty Start Date End Date Danny Morgan MD [address] [place] [phone] PCP - General Internal Medicine 04/15/14 documented as of this encounter
--- OUTSIDE RECORDS SUMMARY | 2025-02-27 13:05 | XMS_ITS | Encounter Summary ---
Author Organization [employer] Address 75 [facility] 7 [place] [address] Care Team Providers Care Bus System Operator Name Role Phone Danny Morgan MD Primary Care Provide r Reason for Visit * Reason Comments Med Refill Encounter Details Date Type Department Care Team (Late st Contact Info) Description 01/26/2023 Refill [facility] 230 [place], [place] [phone] Danny Morgan MD [address] [place], [place] [phone] Social History Tobacco Use Types Packs/Day Years [...] Department Care Team (Late Contact Info) Description 03/28/2025 2:30 PM EDT Office Visit [facility] [address] [place] [address] Danny Morgan MD [address] [place] [address] documented as of this encounter Visit Diagnoses Not on filedocumented in this encounter Additional Health Concerns Assessment Noted Time PHQ-9 Depression Total Score: 18 023 1:39 PM EDT documented as of this encounter Care Teams Bus System Operator Relationship Specialty Start Date End Date Danny Morgan MD [address] [place] [address] PCP - General Internal Medicine 04/15/14 documented as of this encounter
--- OUTSIDE RECORDS SUMMARY | 2025-02-27 13:05 | XMS_ITS | Encounter Summary ---
Author Organization [employer] Address 75 [facility] 7t [place] [address] Care Team Providers Care Personnel Generalist Manager Name Role Phone Danny Morgan MD Primary Care Provide r Encounter Details Date Type Department Care Team (Late st Contact Info) Description 05/18/2023 Orders Only [facility] [address] [place] [address] Nakul Rojas MD [address] [place] [address] Abnormal mammogram of right breast (Primary Dx) [...] Description 03/28/2025 2:30 PM EDT Office Visit [facility] [address] [place] [address] Danny Morgan MD [address] [place] [address] documented as of this encounter Procedures Procedure Name Priority Date/Time Associated Diagnosis Comments B TYPE NATRIURETIC PEPTIDE (BNP) Routine 07/20/2023 9:42 AM EST Abnormal mammogram of right breast documented in this encounter Results * B Type Natriuretic Peptide (BNP) (07/20/2023 9:42 AM EST) B Type Natriuretic Peptide 17 <100 pg/mL [facility] Comment:For those patients w ho are being treated with Natrecor(nesiritide, recombinant BNP), BNP testing should beperformed at least two hours post treatment in order toensure that only endogenous levels of BNP are detected. Blood Venous blood specimen / Unknown 07/20/2023 9:42 AM EST 07/20/2023 9:42 AM EST us Nakul Rojas MD LAB BLOOD ORDERABLES Final Resul t [facility] [address] [place] [phone] documented in this encounter Visit Diagnoses Diagnosis Abnormal mammogram of right breast- Primary documented in this encounter Additional Health Concerns Assessment Noted Time PHQ-9 Depression Total Score: 19 023 12:52 PM EDT documented as of this encounter Care Teams Personnel Generalist Manager Relationship Specialty Start Date End Date Danny Morgan MD [address] [place] [address] PCP - General Internal Medicine 04/15/14 documented as of this encounter
--- OUTSIDE RECORDS SUMMARY | 2025-02-27 13:05 | XMS_ITS | Encounter Summary ---
Author Organization [employer] Address 75 [facility] 7t [place] [address] Care Team Providers Care [employer] Driver Name Role Phone Danny Morgan MD Primary Care Provide r Reason for Visit * Reason Comments Med Refill Encounter Details Date Type Department Care Team ([facility] st Contact Info) Description 06/01/2023 Refill [facility] [address] [place], [place] [phone] Nakul Rojas MD [address] [place] [address] Uncomplicated opioid dependence (CMS/HCC) Social History Tobacco [...] Description 03/28/2025 2:30 PM EDT Office Visit [facility] [address] [place] [address] Danny Morgan MD [address] [place] [address] documented as of this encounter Visit Diagnoses Diagnosis Uncomplicated opioid dependence (CMS/HCC) documented in this encounter Additional Health Concerns Assessment Noted Time PHQ-9 Depression Total Score: 19 023 12:52 PM EDT documented as of this encounter Care Teams [employer] Driver Relationship Specialty Start Date End Date Danny Morgan MD [address] [place] [address] PCP - General Internal Medicine 04/15/14 documented as of this encounter
--- OUTSIDE RECORDS SUMMARY | 2025-02-27 13:05 | XMS_ITS | Encounter Summary ---
Author Organization [employer] Address [address] [facility] 7t [place] [address] Care Team Providers Care Safety Glass Installer Name Role Phone Danny Morgan MD Primary Care Provide r Encounter Details Date Type Department Care Team (Late st Contact Info) Description 03/15/2023 Orders Only [facility] [address] [place] [address] Nakul Rojas MD [address] [place] [address] Social History Tobacco Use Types Packs/Day Years [...] other people? Very difficult 03/15/2023 4:19 PM EDDorina Wallis * Over the last 2 weeks, how [...] every day 03/15/2023 4:19 PM EDT Dorina Padnya Poor appetite or overeating More than half [...] Description 03/28/2025 2:30 PM EDT Office Visit [facility] [address] [place] [address] Danny Morgan MD [address] [place] [phone] documented as of this encounter Visit Diagnoses Not on filedocumented in this encounter Additional Health Concerns Assessment Noted Time PHQ-9 Depression Total Score: 17 023 4:19 PM EDT documented as of this encounter Care Teams Safety Glass Installer Relationship Specialty Start Date End Date Danny Morgan MD [address] [place] [phone] PCP - General Internal Medicine 04/15/14 documented as of this encounter
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
--- OUTSIDE RECORDS SUMMARY | 2025-02-27 13:05 | XMS_ITS | Encounter Summary ---
Author Organization [employer] Address [address] [facility] 7t [place] [address] Care Team Providers Care Vacuum Tester Cans Name Role Phone Danny Morgan MD Primary Care Provide r Reason for Visit * Reason Comments Med Refill Encounter Details Date Type Department Care Team ([facility] st Contact Info) Description 06/26/[address] [facility] [address] [place], [place] [phone] Nakul Rojas MD [address] [place] [address] Uncomplicated opioid dependence (CMS/HCC) Social History Tobacco [...] Description 03/28/2025 2:30 PM EDT Office Visit [facility] [address] [place] [address] Danny Morgan MD [address] [place] [address] documented as of this encounter Visit Diagnoses Diagnosis Uncomplicated opioid dependence (CMS/HCC) documented in this encounter Additional Health Concerns Assessment Noted Time PHQ-9 Depression Total Score: 19 024 2:06 PM EDT documented as of this encounter Care Teams Vacuum Tester Cans Relationship Specialty Start Date End Date Danny Morgan MD [address] [place] [phone] PCP - General Internal Medicine 04/15/14 documented as of this encounter
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
--- OUTSIDE RECORDS SUMMARY | 2025-02-27 13:05 | XMS_ITS | Encounter Summary ---
Author Organization [employer] Address [address] [facility] 7t [place] [address] Care Team Providers Care State Editor Name Role Phone Danny Morgan MD Primary Care Provide r Encounter Details Date Type Department Care Team (Late Contact Info) Description 06/14/2022 Abstract [facility] [address] [place] [address] Danny Morgan MD [address] [place], [place] [phone] Social History Tobacco Use Types Packs/Day Years [...] Description 03/28/2025 2:30 PM EDT Office Visit [facility] [address] [place], [place] [phone] Danny Morgan MD [address] [place], [place] [phone] documented as of this encounter Procedures Procedure Name Priority Date/Time Associated Diagnosis Comments HM PAP/HPV Routine 08/12/2020 documented in this encounter Results * Pap Smear (08/12/2020) Pap smear NIL HPV mRNA E6/E7 Not detected Historical Provider HEALTH MAINTENANCE Final Result documented in this encounter Visit Diagnoses Not on filedocumented in this encounter Care Teams State Editor Relationship Specialty Start Date End Date Danny Morgan MD [address] [place] [phone] PCP - General Internal Medicine 04/15/14 documented as of this encounter
--- OUTSIDE RECORDS SUMMARY | 2025-02-27 13:05 | XMS_ITS | Patient Health Record ---
Author Organization [facility] Address [address] [place] [address] Care Team Providers Care Railroad Track Mechanic Name Role Phone Jessica Thomas MD Primary Care Provider Unavail able Daniel Jones Unavailable [phone] Bisi Hutchins Unavailable Unavailable Allergies Allergen (clinical [...] Problem Status W/U Status Risk Notes Problem Gastroesophageal reflux disease (623181113) GERD (gastroesophag eal reflux disease) (530.81) Active confirmed Problem Iron deficiency anemia (97021904) Anemia, iron deficiency (280.9) Active confirmed Plan Of Treatment Future Test Test Name Order Date UPPER GI ENDOSCOPY 03/28/2014 Insurance Providers Payer Name Payer Address Payer Phone Subscriber Number Group Number Insured Name Patient Relationship to Insured Coverage Start Date Coverage End Date [facility] [address] [address] [place], [place] [id number] KAROLYN CHELSEY Self - patient is the insured [facility] [address] [place] [address] [phone] [id number] KAROLYN CHELSEY Self - patient is the insured Medical (General) History Medical History History ICD Code Denies [place],DM,CVA,Lung disease,renal dise ase Fibromyalgia Depression Asthma-inhaler prn Anemia-Iron and B12 deficien cy--followed by Dr. 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 Mcgraw--lost > 100# Abdominoplasty Cholecystectomy 2008 tubal ligation
--- OUTSIDE RECORDS SUMMARY | 2025-02-27 13:05 | XMS_ITS | Encounter Summary ---
Author Organization [employer] Address [address] [facility] 7t [place] [address] Care Team Providers Care Ballet Company Member Name Role Phone Danny Morgan MD Primary Care Provide r Reason for Visit * Reason Comments Med Change Request Encounter Details Date Type Department Care Team ([facility] Contact Info) Description 01/05/2023 Refill [facility] [address] [place], [place] [phone] Danny Morgan MD [address] [place], [place] [phone] Social History Tobacco Use Types Packs/Day Years [...] Description 03/28/2025 2:30 PM EDT Office Visit [facility] [address] [facility] [place] [address] Danny Morgan MD [address] [facility] [place] [address] documented as of this encounter Visit Diagnoses Not on filedocumented in this encounter Additional Health Concerns Assessment Noted Time PHQ-9 Depression Total Score: 16 023 4:00 PM EDT documented as of this encounter Care Teams Ballet Company Member Relationship Specialty Start Date End Date Danny Morgan MD [address] [facility] [place] [address] PCP - General Internal Medicine 04/15/14 documented as of this encounter
== END 2025-02-27 13:11 | disposition home or self-care (01) ==
LOC: HO.HWS 12:39
PROVIDERS: PCP Internal Medicine; Visit Provider Obstetrics & Gynecology
DX: N93.9 Abnormal uterine and vaginal bleeding, unspecified (principal)
CPT/HCPCS: 99213

== ENCOUNTER 2025-03-23 16:01 | Emergency (ER) | payer MEDICAID, SELFPAY ==
--- NOTE | ~2025-03-23 | CT_ITS ---
CLINICAL HISTORY: LLQ pain history of zeynep bypass, choley Exam: CT abdomen and pelvis with IV contrast Comparison: US/CA/SR - US PELVIS TRANSABDOMINAL AND TRANSVAGINAL - 02/29/24 10:52 EDT US/CA/SR - US ABDOMEN - 09/09/23 09:34 EST Findings: Normal lung bases. Status post cholecystectomy, mild intrahepatic bile duct dilatation, CBD is not dilated. Pancreatic duct is not dilated. Liver, spleen, pancreas, adrenal glands, right kidney, ureters, bladder, reproductive organs are unremarkable. Mild calyceal dilatation and more conspicuous dilatation of the extrarenal pelvis of the left kidney, left ureter is normal in caliber, no urolithiasis is seen. Unremarkable GI tract, normal appendix, status post gastric bypass, no bowel obstruction. Unremarkable vasculature. No adenopathy. No ascites or pneumoperitoneum. Surgical clip noted in the left lower quadrant. No acute osseous abnormality. Impression: 1. 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 No urolithiasis. 2. Status post cholecystectomy, mild intrahepatic bile duct dilatation is non-specific, recommend correlate with LFT. 3. Status post gastric bypass, no bowel obstruction. This document has been electronically signed by: Jennifer Vick MD on 03/23/2025 18:47:13
[2025-03-23 16:37] VITALS: BP 113/52; PULSE 63; RESP 16; TEMP 36.7; O2SAT 99; BMI 28.9
--- NOTE | 2025-03-23 16:40 | ED_ITS ---
HPI - Abdominal Pain General Chief Complaint: Abdominal Pain Stated Complaint: left side abd pain Time Seen by Provider: 03/23/25 17:00 History of Present Illness HPI narrative: Patient is a 44-year-old female presents today with having left lower abdominal pain. The symptom has been ongoing for the last 2 days. It is associated with no nausea no vomiting. She is having her menstrual period since Tuesday. She had a tubal ligation many years ago as well. History of cholecystectomy over 20 years ago. History of tummy tuck. History of gastric bypass about 15 years ago. Patient had a Tommy-en-Y procedure. No coughing or congestion or upper respiratory symptoms. No diaphoresis. Related Data Home Medications ?Medication ?Instructions ?Recorded ?Confirmed epinephrine 0.3 mg/0.3 mL IM 02/21/23 08/25/23 injection, auto-injector docusate sodium 100 mg capsule 100 - 200 mg PO BEDTIME PRN 03/31/23 08/25/23 constipation sennosides 8.6 mg tablet (senna) 8.6 - 17.2 mg PO BEDT CAMPOS PRN 03/31/23 08/25/23 constipation bupropion HCl 300 mg 24 hr tablet, 300 mg PO QAM 07/06 extended release hydroxyzine HCl 25 mg tablet 25 mg PO TID PRN 07/06/24 zolpidem 10 mg tablet 10 mg PO BEDTIME PRN insomni a 07/06/24 Previous Rx's ?Medication ?Instructions ?Recorded famotidine 40 mg tablet 40 mg PO BEDTIME #30 tabs medroxyprogesterone 10 mg tablet 10 mg PO DAILY 90 day s #30 tabs 02/27/25 (Provera) Allergies Allergy/AdvReac Type Severity Reaction Status Date / Time ibuprofen (From Motrin) Allergy Severe WHEEZING, Verified 03/23/25 16:38 TONGUE SWELLING, INCREASE SOB shrimp Allergy Severe ANAPHYLAXIS Verified 03/23/25 16:38 almond Allergy Mild RASH Verified 03/23/25 16:38 Pork/Porcine Containing Allergy Mild RASH Verified 03/23/25 16:38 Products Review of Systems Review of Systems Positive abdominal pain Yes all other systems are reviewed and are negative PMFSH Past Medical History Attestation statement: The following information was validated with the patient. Medical History Numbness of left foot LUQ abdominal pain Left knee pain Low back pain Bilateral hip pain Pelvic pain Bacterial vaginosis Screening for STD (sexually transmitted disease) Well woman exam B12 deficiency Cervical intraepithelial neoplasia grade 1 Iron deficiency anemia Opioid use disorder Arthritis Asthma Fibromyalgia Surgical History History of esophagogastroduodenoscopy (EGD) H/O colonoscopy History of cholecystectomy H/O abdominoplasty H/O gastric bypass History of loop electrical excision procedure (LEEP) Hx of wisdom tooth extraction Hx of tonsillectomy Hx of tubal ligation Family History Family History Maternal Aunt Uterine cancer Social History Social History Household Members: Spouse Household Members Other:: son Housing: Apartment Are you a primary personal care home administrator to a significant other at home: No Do you presently have visiting nurse or other home services: No Alcohol intake: never Patient Tobacco Use Status: Former Tobacco user Tobacco use type: Cigarette Cigarettes Per Day: 5 Years Smoked: 15 Smoked in Last 30 Days: No Use of substances other than those prescribed or required for medical reasons: No Substance Use Type: Other Advance Directives: No Advance Directives Information Provided: No Patient : No 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al status: employed 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 Oriented X3. No acute distress. Eyes: Pupils equal, round and reactive to light. ENT: Pharynx normal. Neck: Normal inspection. Neck supple. No lymph nodes noted. No crepitus CVS: Normal heart rate and rhythm. Pulses normal. Normal S1 and S2 Respiratory: No respiratory distress. Breath sounds normal. No Wheezing. No rales Abdomen: Soft and nontender. No rigidity. No distention. good BS x4 Skin: Skin warm and dry. Normal skin color. Normal skin turgor. Extremities: No lower extremity edema. Neurovascular intact to all extremities. No Lacerations. No Rash Neuro: Oriented X 3. No motor deficit. No sensory deficit. Moving all extermities. No slurred speech Vital Signs: Vital Signs - 24 hr 03/23/25 16:37 03/23/25 18:02 03/23/25 20:21 Temperature 98.1 F Pulse Rate 63 62 Respiratory Rate 16 17 18 Blood Pressure 113/52 L 92/43 L Pulse Oximetry 99 100 Oxygen Delivery Method Room Air Room Air BMI result Body Mass Index 28.9 Course Course Course Narrative: This is an RME: Additional HPI, ROS, PE not included below will be deferred to primary provider. RME assessment and note performed by: Veronica Mcdowell PA-C This is a 31-lnny-mke-female who with a hx of insomnia, who presents emergency department with complaints of left lower abdominal pain for the last 2 days. No nausea or vomiting. No urinary symptoms. No diarrhea. Patient with tenderness palpation in the left lower quadrant, denies chance of . She has a history of a appendectomy, gastric bypass, abdominoplasty. Plan: Labs, urine, further ER evaluation needed. Medical Decision Making Medical Decision Making MDM Narrative: Patient presented with left-sided abdominal pain for 2 days no nausea no vomiting. CT scan showed no kidney stone no diverticulitis no obstruction it did show a proximal obstruction near the UPJ. Question etiology. The exact radiology's reading is as below 1. 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 No urolithiasis. 2. Status post cholecystectomy, mild intrahepatic bile duct dilatation is non-specific, recommend correlate with LFT. 3. Status post gastric bypass, no bowel obstruction. Will have patient follow-up on an outpatient basis with Urology. Currently in stable condition. Patient's white count is normal. LFTs are normal. Hemoglobin is normal no evidence for anemia test was negative. Urine was negative for infection. Will discharge patient home close follow-up on an outpatient basis. Differential Diagnosis Differential Diagnoses: The differential diagnosis associated with the presentation includes Abdominal pain Admission/Observation Consideration of admission/observation: Escalation of care including admission/observation considered Pain improved no distress will discharge Lab Data [facility] Lab Attestation statement: I reviewed the patient's lab results. 03/23/25 17:12 03/23/25 17:12 Labs: Lab Results 03/23/25 03/23/25 Range/Units 17:12 21:42 WBC 6.2 (4.8-10.8) X10*3/uL RBC 3.92 L (4.20-5.50) X10*6/uL Hgb 11.2 L (12.0-16.0) g/dl Hct 35.0 L (37.0-47.0) % MCV 89.3 (80.0-98.0) fL MCH 28.6 (27.0-33.0) pg MCHC 32.0 (31.0-35.0) g/dl RDW 14.5 (11.0-16.0) % Plt Count 271 (160-400) X10*3/uL MPV 11.0 (9.4-12.3) fL Immature Gran % (Auto) 0.2 (0.0-0.4) % Neut % (Auto) 57.0 (45-73) % Lymph % (Auto) 29.7 (20-40) % Roberts % (Auto) 9.5 (2-11) % Eos % (Auto) 2.6 (0-4) % Baso % (Auto) 1.0 (0-2) % Lymph # (Auto) 1.8 (1.2-4.9) X10*3/uL Roberts # (Auto) 0.6 (0.1-1.2) X10*3/uL Eos # (Auto) 0.2 (0.0-0.4) X10*3/uL Baso # (Auto) 0.1 (0.0-0.2) X10*3/uL Abs Immat Gran (auto) 0.01 (0.00-0.03) X10*3/uL Absolute Neuts (auto) 3.5 (2.0-8.3) x10*3/uL Absolute Nucleated RBC 0.000 (0.0-0.012) X10*3/uL Nucleated RBC % (auto) 0.0 (0.0-0.2) /100WBC Sodium 140 (135-145) mmol/L Potassium 4.3 (3.3-5.1) mmol/L Chloride 110 H (96-108) mmol/L Carbon Dioxide 25 (22-29) mmol/L Anion Gap 9 L (12-20) BUN 7 L (9-16) mg/dL Creatinine 0.74 (0.5-1.4) mg/dL Estim Creat Clear Calc 89.1 Estimated GFR > 60 Random Glucose 97 (60-115) mg/dL Calcium 9.8 (8.4-10.2) mg/dL Magnesium 2.3 (1.6-2.6) mg/dL Total Bilirubin 0.2 (0.0-1.0) mg/dL Direct Bilirubin < 0.2 (0.0-0.5) mg/dL AST 28 (5-31) U/L ALT 19 (0-31) U/L Alkaline Phosphatase 76 (39-117) U/L Total Protein 7.5 (6.5-8.0) g/dL Albumin 4.6 (3.5-5.0) g/dL Lipase 16 (8-78) U/L Beta HCG, Quant < 2 mIU/mL Urine Color Yellow Urine Appearance Clear Urine pH 5.5 (5.0-9.0) Ur Specific Austin >= 1.030 H (1.005-1.025) Urine Protein Negative (Neg-Trace) mg/dL Urine Glucose (UA) Negative (Negative) mg/dL Urine Ketones Negative (Negative) mg/dL Urine Blood Negative (Negative) Urine Nitrite Negative (Negative) Ur Leukocyte Esterase Negative (Negative) Urine RBC 0-2 (0-2) /HPF Urine WBC 0-5 (0-5) /HPF Ur Squamous Epith Cells 0-2 (0-2) /HPF Urine Bacteria None Seen (None Seen) Hyaline Casts 0-2 (0-2) /LPF Independent Interpretation I performed an independent interpretation of an: CT Scan (No overt obstruction noted) Radiology Impression Discussion of test interpretation with radiology: I have reviewed the radiologist's reading. External Record Review External record reviewed: Inpatient record Chronic Conditions History of gastric bypass status post cholecystectomy history of tubal ligation Social Determinants Patient?s care significantly limited by Social Determinants of Health including: Problems related to primary support group Medications Administered Discontinued Medications Generic Name Dose Route Start Last Admin Trade Name Freq PRN Reason Stop Dose Admin Hydromorphone HCl 0.5 mg 03/23/25 17:15 03/23/25 18:02 Hydromorphone Hcl 0.5 Mg/0.5 Ml Syringe IVPUSH 03/23/25 17:16 0.5 mg ONCE ONE Administration Protocol Hydromorphone HCl 0.5 mg 09/20/25 22:11 03/23/25 22:26 Hydromorphone Hcl 0.5 Mg/0.5 Ml Syringe IVPUSH 03/23/25 22:12 0.5 mg ONCE ONE Administration Protocol Sodium Chloride 1,000 mls @ 999 mls/hr 03/23/25 17:15 03/23/25 18:02 Ns IV 03/23/25 18:15 999 mls/hr .Q1H1M ALBARO Administration Iohexol 100 ml 03/23/25 17:56 03/23/25 17:57 Iohexol 350 Mg/Ml 100 Ml Infus..Btl IV 03/23/25 17:57 85 ml ONCE ONE Administration Ondansetron HCl 4 mg 03/23/25 17:15 03/23/25 18:02 Ondansetron Hcl 4 Mg/2 Ml Vial IVPUSH 03/23/25 17:16 4 mg ONCE ONE Administration Discharge Plan Discharge Clinical Impression: Abdominal pain Patient Disposition: Home, Self-Care Instructions: Abdominal Pain (ED) Additional Instructions: 1. 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 No urolithiasis. 2. Status post cholecystectomy, mild intrahepatic bile duct dilatation is non-specific, recommend correlate with LFT. 3. Status post gastric bypass, no bowel obstruction. Please follow-up closely with Urology for the above finding. Prescriptions: No Action famotidine 40 mg tablet 40 mg PO BEDTIME Qty: 30 6RF docusate sodium 100 mg capsule 100 - 200 mg PO BEDTIME PRN (Reason: constipation) sennosides [senna] 8.6 mg tablet 8.6 - 17.2 mg PO BEDTIME PRN (Reason: constipation) zolpidem 10 mg tablet 10 mg PO BEDTIME PRN (Reason: insomnia) bupropion HCl 300 mg tablet extended release 24 hr 300 mg PO QAM hydroxyzine HCl 25 mg tablet 25 mg PO TID PRN medroxyprogesterone [Provera] 10 mg tablet 10 mg PO DAILY 90 Days Qty: 30 3RF Rx Instructions: start Provera 1 tablet daily from day 15-24 cyclically every months, day 1 being 1st day of menses epinephrine 0.3 mg/0.3 mL auto-injector IM Referrals: Kwan-Brina,Corlis, MD [Physician, Urology] - 03/26/25 Danny Briceño MD [Primary Care Provider, Medical] - 03/26/25 Print Language: Brazilian
--- OUTSIDE RECORDS SUMMARY | 2025-03-23 17:07 | XMS_ITS | Encounter Summary ---
Author Organization [employer] Address [address] [facility] 7 [place] [address] Care Team Providers Care Partner Cco Name Role Phone Danny Morgan MD Primary Care Provide r Encounter Details Date Type Department Care Team (Late st Contact Info) Description 04/06/2023 Abstract [facility] [address] [place] [address] Shereen Hardy Social History Tobacco Use Types [...] Description 03/28/2025 2:30 PM EDT Office Visit [facility] [address] [place] [address] Danny Morgan MD [address] [place] [address] documented as of this encounter Visit Diagnoses Not on filedocumented in this encounter Additional Health Concerns Assessment Noted Time PHQ-9 Depression Total Score: 17 023 4:19 PM EDT documented as of this encounter Care Teams Partner Cco Relationship Specialty Start Date End Date Danny Morgan MD [address] [place] [address] PCP - General Internal Medicine 04/15/14 documented as of this encounter
--- OUTSIDE RECORDS SUMMARY | 2025-03-23 17:07 | XMS_ITS | Encounter Summary ---
Author Organization [employer] Address [address] [facility] 7t [place] [address] Care Team Providers Care Snout Puller Name Role Phone Danny Morgan MD Primary Care Provide r Encounter Details Date Type Department Care Team (Late Contact Info) Description 06/14/2022 Abstract [facility] [address] [place] [address] Danny Morgan MD [address] [place], [place] [phone] Social History Tobacco Use Types Packs/Day Years [...] Description 03/28/2025 2:30 PM EDT Office Visit [facility] [address] [place], [place] [phone] Danny Morgan MD [address] [place], [place] [phone] documented as of this encounter Procedures Procedure Name Priority Date/Time Associated Diagnosis Comments HM PAP/HPV Routine 08/12/2020 documented in this encounter Results * Pap Smear (08/12/2020) Pap smear NIL HPV mRNA E6/E7 Not detected Historical Provider HEALTH MAINTENANCE Final Result documented in this encounter Visit Diagnoses Not on filedocumented in this encounter Care Teams Snout Puller Relationship Specialty Start Date End Date Danny Morgan MD [address] [place] [id number] PCP - General Internal Medicine 04/15/14 documented as of this encounter
--- OUTSIDE RECORDS SUMMARY | 2025-03-23 17:07 | XMS_ITS | Encounter Summary ---
Author Organization [employer] Address [address] [facility] 7t [place] [address] Care Team Providers Care Office Machine Servicer Apprentice Name Role Phone Danny Morgan MD Primary Care Provide r Encounter Details Date Type Department Care Team (Late st Contact Info) Description 05/18/2023 Orders Only [facility] [address] [place] [address] Nakul Rojas MD [address] [place] [address] Abnormal mammogram of right breast (Primary Dx) [...] 03/28/2025 2:30 PM EDT Office Visit [facility] [address] [place] [address] Danny Morgan MD [address] [place] [address] documented as of this encounter Procedures Procedure Name Priority Date/Time Associated Diagnosis Comments B TYPE NATRIURETIC PEPTIDE (BNP) Routine 07/20/2023 9:42 AM EST Abnormal mammogram of right breast documented in this encounter Results * B Type Natriuretic Peptide (BNP) (07/20/2023 9:42 AM EST) B Type Natriuretic Peptide 17 <100 pg/mL [facility] Comment:For those patients w ho are being treated with Natrecor(nesiritide, recombinant BNP), BNP testing should beperformed at least two hours post treatment in order toensure that only endogenous levels of BNP are detected. Blood Venous blood specimen / Unknown 07/20/2023 9:42 AM EST 07/20/2023 9:42 AM EST us Nakul Rojas MD LAB BLOOD ORDERABLES Final Resul t [facility] [address] [place] [address] [phone] documented in this encounter Visit Diagnoses Diagnosis Abnormal mammogram of right breast- Primary documented in this encounter Additional Health Concerns Assessment Noted Time PHQ-9 Depression Total Score: 19 023 12:52 PM EDT documented as of this encounter Care Teams Office Machine Servicer Apprentice Relationship Specialty Start Date End Date Danny Morgan MD [address] [place] [address] PCP - General Internal Medicine 04/15/14 documented as of this encounter
--- OUTSIDE RECORDS SUMMARY | 2025-03-23 17:07 | XMS_ITS | Encounter Summary ---
Author Organization [employer] Address [address] [facility] 7t [place] [address] Care Team Providers Care Onsite Health Coach Name Role Phone Danny Morgan MD Primary Care Provide r Reason for Visit * Reason Comments Med Refill Encounter Details Date Type Department Care Team ([facility] st Contact Info) Description 06/01/2023 Refill [facility] [address] [place], [place] [phone] Nakul Rojas MD [address] [place] [address] Uncomplicated opioid dependence (CMS/HCC) Social History Tobacco [...] Description 03/28/2025 2:30 PM EDT Office Visit [facility] [address] [place] [address] Danny Morgan MD [address] [place] [address] documented as of this encounter Visit Diagnoses Diagnosis Uncomplicated opioid dependence (CMS/HCC) documented in this encounter Additional Health Concerns Assessment Noted Time PHQ-9 Depression Total Score: 19 023 12:52 PM EDT documented as of this encounter Care Teams Onsite Health Coach Relationship Specialty Start Date End Date Danny Morgan MD [address] [place] [address] PCP - General Internal Medicine 04/15/14 documented as of this encounter
--- OUTSIDE RECORDS SUMMARY | 2025-03-23 17:08 | XMS_ITS | Encounter Summary ---
Author Organization [employer] Address [address] [facility] 7t [place] [address] Care Team Providers Care Folder Seamer Name Role Phone Danny Morgan MD Primary Care Provide r Reason for Visit * Reason Comments Med Change Request Encounter Details Date Type Department Care Team ([facility] Contact Info) Description 01/05/2023 Refill [facility] [address] [place], [place] [phone] Danny Morgan MD [address] [place], [place] [phone] Social History Tobacco Use Types Packs/Day Years [...] Description 03/28/2025 2:30 PM EDT Office Visit [facility] [address] [place] [address] Danny Morgan MD [address] [facility] [place] [address] documented as of this encounter Visit Diagnoses Not on filedocumented in this encounter Additional Health Concerns Assessment Noted Time PHQ-9 Depression Total Score: 16 023 4:00 PM EDT documented as of this encounter Care Teams Folder Seamer Relationship Specialty Start Date End Date Danny Morgan MD [address] [facility] [place] [address] PCP - General Internal Medicine 04/15/14 documented as of this encounter
--- OUTSIDE RECORDS SUMMARY | 2025-03-23 17:08 | XMS_ITS | Encounter Summary ---
Author Organization [email or web address] Address [address] [facility] 7t [place] [address] Care Team Providers Care Social Work Msw Name Role Phone Danny Morgan MD Primary Care Provide r Reason for Visit * Reason Comments Med Refill Encounter Details Date Type Department Care Team ([facility] st Contact Info) Description 06/26/2024 Refill [facility] [address] [place], [place] [phone] Nakul Rojas MD [address] [place] [address] Uncomplicated opioid dependence (CMS/HCC) Social History Tobacco [...] Description 03/28/2025 2:30 PM EDT Office Visit [facility] [address] [place] [address] Danny Morgan MD [address] [place] [address] documented as of this encounter Visit Diagnoses Diagnosis Uncomplicated opioid dependence (CMS/HCC) documented in this encounter Additional Health Concerns Assessment Noted Time PHQ-9 Depression Total Score: 19 024 2:06 PM EDT documented as of this encounter Care Teams Social Work Msw Relationship Specialty Start Date End Date Danny Morgan MD [address] [place] [id number] PCP - General Internal Medicine 04/15/14 documented as of this encounter
--- OUTSIDE RECORDS SUMMARY | 2025-03-23 17:08 | XMS_ITS | Patient Health Record ---
Author Organization [facility] Address [address] [place] [address] Care Team Providers Care Meat Scrubber Name Role Phone Jessica Thomas MD Primary Care Provider Unavail able Daniel Jones Unavailable [phone] Bisi Hutchins Unavailable Unavailable Allergies Allergen (clinical [...] Status Risk Notes Problem Gastroesophageal reflux disease (057100913) GERD (gastroesophag eal reflux disease) (530.81) Active confirmed Problem Iron deficiency anemia (56070895) Anemia, iron deficiency (280.9) Active confirmed Plan Of Treatment Future Test Test Name Order Date UPPER GI ENDOSCOPY 03/28/2014 Insurance Providers Payer Name Payer Address Payer Phone Subscriber Number Group Number Insured Name Patient Relationship to Insured Coverage Start Date Coverage End Date [facility] [address] [address] [place], [place] [phone] [id number] KAROLYN CHELSEY Self - patient is the insured MEDICAID OF [facility] [address] [place] [address] [phone] [id number] KAROLYN CHELSEY Self - patient is the insured Medical (General) History Medical History History ICD Code Denies MO,DM,CVA,Lung disease,renal dise ase Fibromyalgia Depression Asthma-inhaler prn Anemia-Iron and B12 deficien cy--followed by Dr. 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 Mcgraw--lost > 100# Abdominoplasty Cholecystectomy 2008 tubal ligation
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
--- OUTSIDE RECORDS SUMMARY | 2025-03-23 17:08 | XMS_ITS | Clinical Summary ---
Author Organization [facility] Address [address] [place] [address] Care Team Providers Care Mechanic And Welder Name Role Phone Unknown Primary Care Provider [...] 3-dose SCD M series) 10/18/2006 Mammogram 2019 Colonoscopy 10/18/2024 Influenza Vaccine 02/01/2025 03/30/2021 COVID-19 Vaccine (1 - 2023-2 5 season) 2025 Pneumococcal Vaccine: Pediat moraima (0-5 Years) and At-Risk Patients (6 to 49 Years) Aged Out No longer eligible b ased on patient's age to complete this topic Insurance [address] [place], [place] [address]O [employer] Care Teams Mechanic And Welder Relationship Specialty Start Date End Date Unknown Unknow Provider Address PCP - General 08/21/20
--- OUTSIDE RECORDS SUMMARY | 2025-03-23 17:08 | XMS_ITS | Encounter Summary ---
Author Organization [employer] [employer] Address [address] [facility] 7 [place] [address] Care Team Providers Care Box Office Agent Name Role Phone Danny Morgan MD Primary Care Provide r Reason for Visit * Reason Comments Med Refill Encounter Details Date Type Department Care Team (Late st Contact Info) Description 01/26/2023 Refill [facility] [address] [place], [place] [phone] Danny Morgan MD [address] [place], [place] [phone] Social History Tobacco Use Types Packs/Day Years [...] Office Visit [facility] [address] [place] [address] Danny Morgan MD [address] [place] [address] documented as of this encounter Visit Diagnoses Not on filedocumented in this encounter Additional Health Concerns Assessment Noted Time PHQ-9 Depression Total Score: 18 023 1:39 PM EDT documented as of this encounter Care Teams Box Office Agent Relationship Specialty Start Date End Date Danny Morgan MD [address] [place] [address] PCP - General Internal Medicine 04/15/14 documented as of this encounter
--- OUTSIDE RECORDS SUMMARY | 2025-03-23 17:08 | XMS_ITS | Encounter Summary ---
Author Organization [employer] Address [address] [facility] 7t [place] [address] Care Team Providers Care Vice President Name Role Phone Danny Morgan MD Primary Care Provide r Reason for Visit * Reason Comments Med Refill Encounter Details Date Type Department Care Team ([facility] st Contact Info) Description 01/30/2024 Refill [facility] [address] [place], [place] [phone] Danny Morgan MD [address] [place], [place] [phone] Postsurgical malabsorption, not elsewhere classified Social History [...] EDT Office Visit [facility] [address] [place] [address] Danny Morgan MD [address] [place] [address] documented as of this encounter Visit Diagnoses Diagnosis Postsurgical malabsorption, not elsewhere classified documented in this encounter Additional Health Concerns Assessment Noted Time PHQ-9 Depression Total Score: 19 024 2:06 PM EDT documented as of this encounter Care Teams Vice President Relationship Specialty Start Date End Date Danny Morgan MD [address] [place] [id number] PCP - General Internal Medicine 04/15/14 documented as of this encounter
--- OUTSIDE RECORDS SUMMARY | 2025-03-23 17:08 | XMS_ITS | Encounter Summary ---
Author Organization [employer] Address [address] [facility] 7t [place] [address] Care Team Providers Care Information Security Specialist Name Role Phone Danny Morgan MD Primary Care Provide r Encounter Details Date Type Department Care Team (Late st Contact Info) Description 03/15/2023 Orders Only [facility] [address] [place] [address] Nakul Rojas MD [address] [place] [address] Social History Tobacco Use Types Packs/Day Years [...] 03/28/2025 2:30 PM EDT Office Visit [facility] [address] [place] [address] Danny Morgan MD [address] [place] [phone] documented as of this encounter Visit Diagnoses Not on filedocumented in this encounter Additional Health Concerns Assessment Noted Time PHQ-9 Depression Total Score: 17 023 4:19 PM EDT documented as of this encounter Care Teams Information Security Specialist Relationship Specialty Start Date End Date Danny Morgan MD [address] [place] [id number] PCP - General Internal Medicine 04/15/14 documented as of this encounter
--- OUTSIDE RECORDS SUMMARY | 2025-03-23 17:08 | XMS_ITS | Encounter Summary ---
Author Organization [employer] Address [address] [facility] 7 [place] [address] Care Team Providers Care Director Of Billing Name Role Phone Danny Morgan MD Primary Care Provide r Reason for Visit * Reason Onset Date Comments Nurse Triage 03/28/2023 Encounter Details Date Type Department Care Team (Late st Contact Info) Description 03/28/2023 Telephone [facility] [address] [place] [address] Danny Morgan MD [address] [place] [address] Nurse Triage Social History Tobacco Use Types [...] Pt agrees. Advised Pt to come to [facility] today and be seen by provider [...] Description 03/28/2025 2:30 PM EDT Office Visit [facility] [address] [place] [address] Danny Morgan MD [address] [place] [address] documented as of this encounter Visit Diagnoses Not on filedocumented in this encounter Additional Health Concerns Assessment Noted Time PHQ-9 Depression Total Score: 17 023 4:19 PM EDT documented as of this encounter Care Teams Director Of Billing Relationship Specialty Start Date End Date Danny Morgan MD [address] [place] [phone] PCP - General Internal Medicine 04/15/14 documented as of this encounter
--- OUTSIDE RECORDS SUMMARY | 2025-03-23 17:08 | XMS_ITS | Encounter Summary ---
Author Organization [employer] Address [address] [facility] [address] [place] [address] Care Team Providers Care Synoptic Meteorologist Name Role Phone Danny Morgan MD Primary Care Provide r Reason for Visit * Reason Comments Pre-visit Planning SDOH was already com pleted Encounter Details Date Type Department Care Team ([facility] st Contact Info) Description 03/21/2025 Patient Outreach [facility] [address] [place] [address] Danny Morgan MD [address] [place] [address] Pre-visit Planning (SDOH was already completed) Social History Tobacco Use Types Packs/Day Years [...] as of this encounter Progress Notes * Brigitte Boone - 03/21/2025 11:18 AM EDT CC Brigitte Mulligan placed successful outbound call to patient for pre-visit planning. Patient name and confirmed. Patient confirms appt date and time, and has transportation arrangements. Biggest concern for appointment at this time is no concerns. Appropriate screenings completed in anticipation ofappointment. documented in this encounter Plan of Treatment Upcoming Encounters Date Type Department Care Team (Late st Contact Info) Description 03/28/2025 2:30 PM EDT Office Visit [facility] [address] [place] [address] Danny Morgan MD [address] [place] [address] documented as of this encounter Visit Diagnoses Not on filedocumented in this encounter Additional Health Concerns Assessment Noted Time PHQ-9 Depression Total Score: 19 024 2:06 PM EDT documented as of this encounter Care Teams Synoptic Meteorologist Relationship Specialty Start Date End Date Danny Morgan MD [address] [place] [address] PCP - General Internal Medicine 04/15/14 documented as of this encounter
[2025-03-23 17:15] LABS: MANUAL DIFF FLAG NO
[2025-03-23 17:22] LABS: Hematocrit 35.0 % (37.0-47.0); Hemoglobin 11.2 g/dl (12.0-16.0); Imm Gran Abs Auto 0.01 X10*3/uL (0.00-0.03); Imm Gran Pct Auto 0.2 % (0.0-0.4); Lymphocytes Absolute Auto 1.8 X10*3/uL (1.2-4.9); Mean Corpuscular HGB Conc 32.0 g/dl (31.0-35.0); Mean Corpuscular Hemoglobin 28.6 pg (27.0-33.0); Mean Corpuscular Volume 89.3 fL (80.0-98.0); NRBC Abs Auto 0.000 X10*3/uL (0.0-0.012); NRBC Pct Auto 0.0 /100WBC (0.0-0.2); Platelet Count 271 X10*3/uL (160-400); Red Blood Count 3.92 X10*6/uL (4.20-5.50); White Blood Count 6.2 X10*3/uL (4.8-10.8)
[2025-03-23 17:42] LABS: Alanine Aminotransferase 19 U/L (0-31); Albumin Level 4.6 g/dL (3.5-5.0); Alkaline Phosphatase 76 U/L (39-117); Anion Gap 9 (12-20); Aspartate Amino Transferase 28 U/L (5-31); Blood Urea Nitrogen 7 mg/dL (9-16); Calcium 9.8 mg/dL (8.4-10.2); Carbon Dioxide 25 mmol/L (22-29); Chloride 110 mmol/L (96-108); Creatinine Clr Calc Pharmacy 89.1; Estimated Glomerular Filt Rate > 60; Lipase 16 U/L (8-78); Magnesium 2.3 mg/dL (1.6-2.6); Potassium 4.3 mmol/L (3.3-5.1); Sodium 140 mmol/L (135-145); Total Protein 7.5 g/dL (6.5-8.0)
[2025-03-23] MEDS: iohexoL 350 MG/ML 100 ML INFUS..BTL IV (17:57)
[2025-03-23 18:02] VITALS: RESP 17
[2025-03-23 20:21] VITALS: BP 92/43; PULSE 62; RESP 18; O2SAT 100
[2025-03-23 21:51] LABS: Appearance Urine Clear; Glucose Urine UA Negative (Negative); PH 5.5 (5.0-9.0); Specific Gravity - Urine >= 1.030 (1.005-1.025)
[2025-03-23 22:48] VITALS: BP 101/53; PULSE 69; RESP 18; TEMP 36.7; O2SAT 96
[2025-03-23 22:51] VITALS: BP 101/53; PULSE 69; RESP 18; TEMP 36.7; O2SAT 96
--- NOTE | 2025-04-05 01:20 | PC.NURSE ---
Late entry: Pt received 1000ml of IV NS fluid on 03/23
== END 2025-03-23 22:51 | disposition home or self-care (01) ==
PROVIDERS: Physician Assistant Medical; Emergency Provider Emergency Medicine Emergency Medical Services; PCP Internal Medicine
DX: R10.32 Left lower quadrant pain (principal); R10.2 Pelvic and perineal pain; Z87.891 Personal history of nicotine dependence; Z98.84 Bariatric surgery status; Z79.899 Other long term (current) drug therapy
CPT/HCPCS: 36415; 74177; 80048; 80076; 81001; 83690; 83735; 84702; 85025; 96361; 96374; 96375; 99284; 99285; J1171; J2405; Q9967

== ENCOUNTER → 2025-03-23 17:14 | Outpatient (BNV) | payer MEDICAID, SELFPAY | PROVIDERS: Emergency Provider Emergency Medicine Emergency Medical Services; PCP Internal Medicine; Visit Provider Radiology Diagnostic Radiology | DX: N28.89 Other specified disorders of kidney and ureter (principal); Z90.49 Acquired absence of other specified parts of digestive tract; Z98.84 Bariatric surgery status | CPT/HCPCS: 74177 ==

== ENCOUNTER 2025-03-29 08:54 | Outpatient (REF) | payer MEDICAID, SELFPAY ==
--- OUTSIDE RECORDS SUMMARY | 2025-03-28 14:30 | XMS_ITS | Encounter Summary ---
Author Organization [employer] Address [address] [facility] [address] [place] [address] Care Team Providers Care Supervisor [employer] Name Role Phone Danny Morgan MD Primary Care Provide r Kieran Cross RN Unavailable [phone] Leana Zayas Unavailable Reason for Referral * Consultation (Routine) - Pending Review Specialty Diagnoses / Procedures Referred By Contac t Referred To Contact Physical Therapy Diagnoses Acute left-sided low back pain with left-sided sciatica Danny Morgan MD [address] [place] [address] Phone: tel: fax: Referral ID Status Reason Start Date Expiration Date Visits Requested Visits Authorized [id number] Pending Review Specialty Services Required 03/28/2025 03/28/2026 1 1 * Imaging (Routine) - Authorized Specialty Diagnoses / Procedures Referred By Contac t Referred To Contact Radiology Diagnoses Fecal smearing Acute left-sided low back pain with left-sided sciatica Procedures MR Lumbar Spine w/o Contrast Danny Morgan MD [address] [place] [address] Phone: tel: fax: [address] Phone: tel: fax: Referral ID Status Reason Start Date Expiration Date V isits Requested Visits Authorized [id number] Authorized 03/28/2025 03/28/2026 1 1 * Consultation (Routine) - Pending Review Specialty Diagnoses / Procedures Referred By Kumar smith Referred To Contact General Surgery Diagnoses Fecal smearing Danny Morgan MD [address] [place] [address] Phone: tel: fax: Ryan Piedra MD [address] [place] [address] [place] [address] Phone: tel: fax: Referral ID Status Reason Start Date Expiration Date Visits Requested Visits Authorized [id number] Pending Review Specialty Services Required 03/28/2025 03/28/2026 1 1 Reason for Visit * Reason Comments Annual Exam Encounter Details Date Type Department Care Team (Latest Contact Info) Description 03/28/2025 2:30 PM EDT Office Visit [facility] MEDICINE [address] [place] [address] Danny Morgan MD [address] [place] [address] Ureteropelvic junction (UPJ) obstruction (Primary Dx); Current moderate episode of major depressive disorder without prior episode (CMS/HCC); Cervical intraepithelial neoplasia grade 1; Iron deficiency anemia, unspecified iron deficiency anemia type; LLQ abdominal pain; Fecal smearing; Acute left-sided low back pain with left-sided sciatica; Encounter for immunization Social History Tobacco Use Types Packs/Day Years Used Date Smoking Tobacco: Former Cigarettes Passive Smoke Exposure: Past Smokeless Tobacco: Never Alcohol Use Standard Drinks/Week Comments Never 0 (1 standard drink = 0.6 oz pur e alcohol) Alcohol Answer Date Recorded Frequency of Alcohol Consumption Not on file 09/27/2023 Average Number of Drinks Not on file 024 Frequency of Binge Drinking Not on file 09/02 Score 0 09/27/2023 Depression Answer Date Recorded Patient Health Questionnaire-9 Score 1 03/28/2025 Patient Health Questionnaire-9 Score 1 03/28/2025 Last PHQ-9: Questionnaire Data Not on file 0 03/28/2025 Housing Stability Answer Date Recorded What is [...] Answer Date Recorded Patient Health Questionnaire-2 Score 1 03/28/2025 Internet Access Answer Date Recorded Internet Access Q1 Yes 08/16/2024 Internet Access Q2 Not on file 08/16/2024 Comments No Sex and Gender Information Value Date Recorded Sex Assigned at Female 05/03/2022 10:18 AM EDT Legal Sex Female 10:18 AM EDT Gender Identity Female 06/15/2022 10:09 AM EST Sexual Orientation Choose not to disclose 2022 10:50 AM EST documented as of this encounter Last Filed Vital Signs Vital Sign Reading Time Taken Comments Blood Pressure 118/82 03/28/2025 2:24 PM EDT Pulse 76 03/28/2025 2:24 PM EDT Temperature 36.6 C (97.9 F) 03/28/2025 2:24 PM EDT Respiratory Rate 20 03/28/2025 2:24 PM EDT Oxygen Saturation - - Inhaled Oxygen Concentration - - Weight 72.4 kg (159 lb 9.6 oz) 03/28/2025 2:24 P M EDT Height - - Body Mass Index 29.19 01/24/2024 2:57 PM EDT documented in this encounter Functional Status * Over the past 2 weeks, how often have you been bothered by any of the following problems? Question Answer Date of Assessment Author Patient Health Questionnaire -2 Score 1 03/28/2025 2:25 PM EDT Mariah Parker MA * Little interest or pleasure in doing things Answer Date of Assessment Author Not at all 03/28/2025 2:25 PM EDT Mariah Parker MA * Feeling down, depressed, or hopeless Answer Date of Assessment Author Several days 03/28/2025 2:25 PM EDT Mariah Parker MA * Trouble falling or staying asleep, or sleeping too much Answer Date of Assessment Author Not at all 03/28/2025 2:25 PM EDT Mariah Parker MA * Feeling tired or having little energy Answer Date of Assessment Author Not at all 03/28/2025 2:25 PM EDT Mariah Parker MA * Poor appetite or overeating Answer Date of Assessment Author Not at all 03/28/2025 2:25 PM EDT Mariah Parker MA * Feeling bad about yourself - or that you are a failure or have let yourself or your family down Answer Date of Assessment Author Not at all 03/28/2025 2:25 PM EDT Mariah Parker MA * Trouble concentrating on things, such as reading the newspaper or watching television Answer Date of Assessment Author Not at all 03/28/2025 2:25 PM EDT Mariah Parker MA * Moving or speaking so slowly that other people could have noticed? Or the opposite - being so fidgety or restless that you have been moving around a lot more than usual. Answer Date of Assessment Author Not at all 03/28/2025 2:25 PM EDT Mariah Parker MA * Thoughts that you would be better off or hurting yourself in some way Answer Date of Assessment Author Not at all 03/28/2025 2:25 PM EDT Mariah Parker MA * Patient Health Questionnaire-9 Score Answer Date of Assessment Author 1 03/28/2025 2:25 PM EDT Mariah Parker MA documented as of this encounter Progress Notes * Danny Arroyo MD - 03/28/2025 2:30 PM EDT SUBJECTIVE Allison Morris is a 44 y.o. female who presents for Annual Exam. Patient here for a follow up, c/o fecal incontinence in 3 different occasions in the expand of one year, no diarrhea. She is also c/o new onset of low back pain with radiation to left hip and left lower extremity Review of Systems Constitutional: Negative for fever. HENT: Negative for sore throat. Respiratory: Negative for cough and shortness of breath. Cardiovascular: Negative for chest pain. Gastrointestinal: Negative for abdominal pain. Neurological: Negative for headaches. Allergies[1] OBJECTIVE Vitals: 03/28/25 1424 BP: 118/82 Pulse: 76 Resp: 20 Temp: 97.9 ??F (36.6 ??C) TempSrc: Oral Weight: 159 lb 9.6 oz (72.4 kg) Physical Exam Vitals reviewed. Constitutional: Appearance: Normal appearance. HENT: Head: Normocephalic and atraumatic. Right Ear: External ear normal. Left Ear: External ear normal. Nose: Nose normal. Mouth/Throat: Mouth: Mucous membranes are moist. Eyes: Conjunctiva/sclera: Conjunctivae normal. Cardiovascular: Rate and Rhythm: Normal rate and regular rhythm. Pulmonary: Effort: Pulmonary effort is normal. Breath sounds: Normal breath sounds. Abdominal: Tenderness: There is abdominal tenderness in the suprapubic area and left lower quadrant. Genitourinary: Rectum: No mass, tenderness or anal fissure. Abnormal anal tone. Musculoskeletal: Lumbar back: Spasms and tenderness present. Skin: General: Skin is warm. Neurological: Mental Status: She is alert. Mental status is at baseline. Assessment/Plan Problem List Items Addressed This Visit Ureteropelvic junction (UPJ) obstruction - Primary Pt seen in the ER with c/o LLQ pain as part of her work up she had a CT that showed: 1. 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 No urolithiasis. 2. Status post cholecystectomy, mild intrahepatic bile duct dilatation is non-specific, recommend correlate with LFT. 3. Status post gastric bypass, no bowel obstruction. Pt is already scheduled to see Urology 05/20/2025 Current moderate episode of major depressive disorder without prior episode (CMS/HCC) Being followed by Tele psychiatry provider at [facility] last seen 02/28/2025 Cervical intraepithelial neoplasia grade 1 Under the care of ULTRASONIC CLEANER Dr Derrick Jones, last seen 02/27/2025 has a follow up 06/06/2025 Iron deficiency anemia Lab Results Component Value Date WBC 6.2 03/23/2025 HGB 11.2 (L) 03/23/2025 HCT 35.0 (L) 03/23/2025 MCV 89.3 03/23/2025 PLT 271 03/23/2025 Relevant Orders Vitamin B12/Folate, Serum Panel LLQ abdominal pain CT 03/23/2025 showed: 1. 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 No urolithiasis. 2. Status post cholecystectomy, mild intrahepatic bile duct dilatation is non-specific, recommend correlate with LFT. 3. Status post gastric bypass, no bowel obstruction. Seen by GI for c/o LLQ pain last 07/2024 Work up included: EGD/COLONOSCOPY 06/22/24 Larynx: Normal Esophagus: GE junction at 33 cms. No Kolb's. Stomach: Small gastric pouch with normal anastomosis at 36 cms - biopsies were obtained from the gastric pouch. Duodenum: Normal bulb and descending duodenum Biopsies were obtained from descending duodenum to check for celiac sprue Colonoscopy: Findings: Terminal Ileum: Not evaluated Cecum: Normal Ascending Colon: Normal Transverse Colon: Normal Descending Colon: Normal Sigmoid Colon: Mild diverticulosis Rectum: Normal Ano-rectum: Normal Colon preparation: Good after copious irrigation. Colonoscopy Findings: No polyps were detected Moderate diverticulosis seen in the sigmoid colon Repeat Colonoscopy in 10 year BIOPSY Received: 06/22/24 ADDENDUM REPORT Addendum Addendum #1 Immunostain for H. pylori on B is negative. Control stains appropriately. Electronically Signed By: Sydnee Rhoades 06/28/24 3462 Diagnosis A. Small bowel, biopsy: Small bowel mucosa with preserved villi and no specific change; no evidence of celiac disease. B. Gastric pouch, biopsy: Gastric body mucosa with focal minimal chronic inactive inflammation; negative for intestinal metaplasia and dysplasia. C. Colon, right, biopsy: Colonic mucosa with no specific change; no evidence of microscopic colitis. D. Colon, left, biopsy: Colonic mucosa with no specific change; no evidence of microscopic colitis. Pt has appointment with Urology in May Fecal smearing Pt with c/o 3 episodes of fecal smearing without even realizing in in the expand of over 1 year On exam, her rectal tone seems diminished Plan: MRI LS spine rule out cauda equina Pt had extensive GI work up that included colonoscopy 06/2024 Will refer to General colorectal surgeon Dr Piedra, pt might need EAUS or defecography Relevant Orders Referral to General Surgery MR Lumbar Spine w/o Contrast Acute left-sided low back pain with left-sided sciatica Patient's symptomatology suggestive of sciatica, but she is also c/o fecal smearing and on exam shehas diminished rectal tone for which she will need an MRI of LS spine to rule out cauda equina syndrome Relevant Orders MR Lumbar Spine w/o Contrast XR Lumbar Spine 2-3 Views XR Hip 2 or 3 Views Left Referral to Physical Therapy No future appointments. [1] Allergies Allergen Reactions Apple Juice Food Lobster allergy in previous EHR Ibuprofen Pear Berger Pulp Berger allergy in previous EHR Pork Allergy Pork allergy in previous EHR Prunus Persica Shrimp (Diagnostic) Shrimp allergy in previous EHR Kelso Extract documented in this encounter Miscellaneous Notes * Assessment & Plan Note - Danny Arroyo MD - 03/28/2025 3:13 PM EDT Associated Problem(s): Acute left-sided low back pain with left-sided sciatica Patient's symptomatology suggestive of sciatica, but she is also c/o fecal smearing and on exam shehas diminished rectal tone for which she will need an MRI of LS spine to rule out cauda equina syndrome * Assessment & Plan Note - Danny Arroyo MD - 03/28/2025 3:04 PM EDT Associated Problem(s): Fecal smearing Pt with c/o 3 episodes of fecal smearing without even realizing in in the expand of over 1 year On exam, her rectal tone seems diminished Plan: MRI LS spine rule out cauda equina Pt had extensive GI work up that included colonoscopy 06/2024 Will refer to General colorectal surgeon Dr Piedra, pt might need EAUS or defecography * Assessment & Plan Note - Danny Arroyo MD - 03/28/2025 2:48 PM EDT Associated Problem(s): LLQ abdominal pain CT 03/23/2025 showed: 1. 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 No urolithiasis. 2. Status post cholecystectomy, mild intrahepatic bile duct dilatation is non-specific, recommend correlate with LFT. 3. Status post gastric bypass, no bowel obstruction. Seen by GI for c/o LLQ pain last 07/2024 Work up included: EGD/COLONOSCOPY 06/22/24 Larynx: Normal Esophagus: GE junction at 33 cms. No Kolb's. Stomach: Small gastric pouch with normal anastomosis at 36 cms - biopsies were obtained from the gastric pouch. Duodenum: Normal bulb and descending duodenum Biopsies were obtained from descending duodenum to check for celiac sprue Colonoscopy: Findings: Terminal Ileum: Not evaluated Cecum: Normal Ascending Colon: Normal Transverse Colon: Normal Descending Colon: Normal Sigmoid Colon: Mild diverticulosis Rectum: Normal Ano-rectum: Normal Colon preparation: Good after copious irrigation. Colonoscopy Findings: No polyps were detected Moderate diverticulosis seen in the sigmoid colon Repeat Colonoscopy in 10 year BIOPSY Received: 06/22/24 ADDENDUM REPORT Addendum Addendum #1 Immunostain for H. pylori on B is negative. Control stains appropriately. Electronically Signed By: Sydnee Rhoades 06/28/24 1720 Diagnosis A. Small bowel, biopsy: Small bowel mucosa with preserved villi and no specific change; no evidence of celiac disease. B. Gastric pouch, biopsy: Gastric body mucosa with focal minimal chronic inactive inflammation; negative for intestinal metaplasia and dysplasia. C. Colon, right, biopsy: Colonic mucosa with no specific change; no evidence of microscopic colitis. D. Colon, left, biopsy: Colonic mucosa with no specific change; no evidence of microscopic colitis. Pt has appointment with Urology in May * Assessment & Plan Note - Danny Arroyo MD - 03/28/2025 2:45 PM EDT Associated Problem(s): Iron deficiency anemia Lab Results Component Value Date WBC 6.2 03/23/2025 HGB 11.2 (L) 03/23/2025 HCT 35.0 (L) 03/23/2025 MCV 89.3 03/23/2025 PLT 271 03/23/2025 * Assessment & Plan Note - Danny Arroyo MD - 03/28/2025 2:42 PM EDT Associated Problem(s): Cervical intraepithelial neoplasia grade 1 Under the care of ULTRASON[employer] Dr Derrick Jones, last seen 02/27/2025 has a follow up 06/06/2025 * Assessment & Plan Note - Danny Arroyo MD - 03/28/2025 2:41 PM EDT Associated Problem(s): Current moderate episode of major depressive disorder without prior episode (CMS/HCC) Being followed by Tele psychiatry provider at [facility] last seen 02/28/2025 * Assessment & Plan Note - Danny Arroyo MD - 03/28/2025 2:39 PM EDT Associated Problem(s): Ureteropelvic junction (UPJ) obstruction Pt seen in the ER with c/o LLQ pain as part of her work up she had a CT that showed: 1. 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 No urolithiasis. 2. Status post cholecystectomy, mild intrahepatic bile duct dilatation is non-specific, recommend correlate with LFT. 3. Status post gastric bypass, no bowel obstruction. Pt is already scheduled to see Urology 05/20/2025 documented in this encounter Plan of Treatment Scheduled Orders Name Type Priority Associated Diagnoses Orde r Schedule MR Lumbar Spine w/o Contrast Imaging Routine Fecal smearing Acute left-sided low back pain with left-sided sciatica Expected: 03/28/2025, Expires: 03/28/2026 Vitamin B12/Folate, Serum Panel Lab Routine Iron deficiency anemia, unspecified iron deficiency anemia type Expected: 03/28/2025, Expires: 03/28/2026 Scheduled Referrals Name Type Priority Associated Diagnoses Orde r Schedule Referral to General Surgery Outpatient Referral Routine Fecal smearing Expected: 03/28/2025 (Approximate), Expires: 03/28/2026 Referral to Physical Therapy Outpatient Referral Routine Acute left-sided low back pain with left-sided sciatica Expected: 03/28/2025 (Approximate), Expires: 03/28/2026 documented as of this encounter Procedures Procedure Name Priority Date/Time Associated Diagnosis Comments XR HIP 2 OR 3 VIEWS LEFT Routine 03/29/2025 9:15 AM EDT Acute left-sided low back pain with left-sided sciatica XR LUMBAR SPINE 2-3 VIEWS Routine 03/29/2025 9:15 AM EDT Acute left-sided low back pain with left-sided sciatica documented in this encounter Results * XR Hip 2 or 3 Views Left (03/29/2025 9:15 AM EDT) Anatomical Region Laterality Modality Lower Extremities, Hip Left Radiograp hic Imaging 03/29/2025 9:15 AM EDT Narrative 03/29/2025 9:25 AM EDT [address] [address] XRay Report Signed Patient: Allison Morris MR#: [id number] : 1980 Acct:[id number] Age/Sex: 44 / F ADM Date: 03/29/25 Loc: .[facility] Attending Dr: Danny Briceño MD Ordering Physician: Danny Briceño MD Date of Service: 03/29/25 Procedure(s): XR hip LT min 2V Accession Number(s): [id number] cc: Danny Briceño MD Reason for Exam: low back and left hip pain EXAMINATION: XR HIP 2 OR MORE VIEWS LEFT HISTORY: low back and left hip pain COMPARISON: Comparison is made with the prior examination dated 07/19/2023. FINDINGS: Three views of the left hip are submitted. Osseous mineralization is normal. There is no fracture or dislocation. The joint space is maintained. The soft tissues are unremarkable. XR/XR hip LT min 2V IMPRESSION: Unremarkable examination of the left hip. Electronically signed by: Daniel Morales MD 03/29/2025 09:21 AM EDT Dictated By: Daniel Morales MD Signed By: <Electronically signed by Daniel Morales MD in OV> 03/29/25920 DD/ 4 TD/TT: 03/29/25916 Dimmer Board Operator: Procedure Note Donotuseinterpreter, Image - 03/29/[address] [address] XRay Report Signed Patient: Allison Morris AMR#: [id number] : 1980Acct:[id number] Age/Sex: 44 / FADM Date: 03/29/25 Loc: [facility] Attending Dr: Danny Briceño MD Ordering Physician: Danny Briceño MD Date of Service: 03/29/25 Procedure(s): XR hip LT min 2V Accession Number(s): [id number] cc: Danny Briceño MD Reason for Exam: low back and left hip pain EXAMINATION: XR HIP 2 OR MORE VIEWS LEFT HISTORY: low back and left hip pain COMPARISON: Comparison is made with the prior examination dated 07/19/2023. FINDINGS: Three views of the left hip are submitted. Osseous mineralization is normal. There is no fracture or dislocation. The joint space is maintained. The soft tissues are unremarkable. XR/XR hip LT min 2V IMPRESSION: Unremarkable examination of the left hip. Electronically signed by: Daniel Morales MD 03/29/2025 09:21 AM EDT Dictated By: Daniel Morales MD Signed By: <Electronically signed by Daniel Morales MD in OV> 03/29/25920 DD/ 4 TD/TT: 03/29/25916 Dimmer Board Operator: us Danny Arroyo MD IMG XR PROCEDURES Fin al Result * XR Lumbar Spine 2-3 Views (03/29/2025 9:15 AM EDT) Anatomical Region Laterality Modality Spine, L-spine Radiographic Argelia ging 03/29/2025 9:15 AM EDT Narrative 03/29/2025 9:26 AM EDT [facility] [address] [place] [id number] XRay Report Signed Patient: Allison Morris MR#: [id number] : 1980 Acct:[id number] Age/Sex: 44 / F ADM Date: 03/29/25 Loc: [facility] Attending Dr: Danny Briceño MD Ordering Physician: Danny Briceño MD Date of Service: 03/29/25 Procedure(s): XR lumbar spine 2-3V Accession Number(s): [id number] cc: Danny Briceño MD Reason for Exam: low back and left hip pain EXAMINATION: XR LUMBAR SPINE 2-3 VIEWS HISTORY: low back and left hip pain COMPARISON: There are no prior studies for comparison. FINDINGS: AP, lateral, and coned down views of the lumbar spine are submitted. Osseous mineralization is normal. Five nonrib-bearing lumbar vertebral bodies are identified, maintaining normal height and alignment without evidence of fracture or spondylolisthesis. The intervertebral disc spaces are preserved. The posterior elements are intact. The visualized paraspinal soft tissues are unremarkable. XR/XR lumbar spine 2-3V IMPRESSION: Unremarkable examination of the lumbar spine. Electronically signed by: Daniel Morales MD 03/29/2025 09:23 AM EDT Dictated By: Daniel Morales MD Signed By: <Electronically signed by Daniel Morales MD in OV> 03/29/25922 DD/ 4 TD/TT: 03/29/25916 Dimmer Board Operator: Procedure Note Donotuseinterpreter, Image - 03/29/2025 [place] [address] XRay Report Signed Patient: Allison Morris [facility]#: [id number] : 1980Acct:[id number] Age/Sex: 44 / FADM Date: 03/29/25 Loc: [facility] Attending Dr: Danny Briceño MD Ordering Physician: Danny Briceño MD Date of Service: 03/29/25 Procedure(s): XR lumbar spine 2-3V Accession Number(s): [id number] cc: Danny Briceño MD Reason for Exam: low back and left hip pain EXAMINATION: XR LUMBAR SPINE 2-3 VIEWS HISTORY: low back and left hip pain COMPARISON: There are no prior studies for comparison. FINDINGS: AP, lateral, and coned down views of the lumbar spine are submitted. Osseous mineralization is normal. Five nonrib-bearing lumbar vertebral bodies are identified, maintaining normal height and alignment without evidence of fracture or spondylolisthesis. The intervertebral disc spaces are preserved. The posterior elements are intact. The visualized paraspinal soft tissues are unremarkable. XR/XR lumbar spine 2-3V IMPRESSION: Unremarkable examination of the lumbar spine. Electronically signed by: Daniel Morales MD 03/29/2025 09:23 AM EDT RP Dictated By: Daniel Morales MD Signed By: <Electronically signed by Daniel Morales MD in OV> 03/29/25922 DD/ 4 TD/TT: 03/29/25916 Dimmer Board Operator: Danny Arroyo MD IMG XR PROCEDURES Fin al Result documented in this encounter Visit Diagnoses Diagnosis Ureteropelvic junction (UPJ) obstruction- Primary Current moderate episode of major depressive disorder without prior episode (CMS/HCC) Cervical intraepithelial neoplasia grade 1 Mild dysplasia of cervix Iron deficiency anemia, unspecified iron deficiency anemia type LLQ abdominal pain Abdominal pain, left lower quadrant Fecal smearing Acute left-sided low back pain with left-sided sciatica Encounter for immunization documented in this encounter Additional Health Concerns Assessment Noted Time PHQ-9 Depression Total Score: 1 03/28/20 25 2:25 PM EDT documented as of this encounter Care Teams Supervisor [employer] Relationship Specialty Start Date End Date Danny Morgan MD [address] [place] [address] PCP - General Internal Medicine 04/15/14 Kieran Cross, HUGO [address] [place] [address] Registered Nurse Family Medicine 03/25/25 Leana Zayas 03/25/25 documented as of this encounter
--- NOTE | ~2025-03-29 | XR_ITS ---
EXAMINATION: XR HIP 2 OR MORE VIEWS LEFT HISTORY: low back and left hip pain COMPARISON: Comparison is made with the prior examination dated 07/19/2023. FINDINGS: Three views of the left hip are submitted. Osseous mineralization is normal. There is no fracture or dislocation. The joint space is maintained. The soft tissues are unremarkable. XR/XR hip LT min 2V IMPRESSION: Unremarkable examination of the left hip. Electronically signed by: Daniel Morales MD 03/29/2025 09:21 AM EDT
--- NOTE | ~2025-03-29 | XR_ITS ---
EXAMINATION: XR LUMBAR SPINE 2-3 VIEWS HISTORY: low back and left hip pain COMPARISON: There are no prior studies for comparison. FINDINGS: AP, lateral, and coned down views of the lumbar spine are submitted. Osseous mineralization is normal. Five nonrib-bearing lumbar vertebral bodies are identified, maintaining normal height and alignment without evidence of fracture or spondylolisthesis. The intervertebral disc spaces are preserved. The posterior elements are intact. The visualized paraspinal soft tissues are unremarkable. XR/XR lumbar spine 2-3V IMPRESSION: Unremarkable examination of the lumbar spine. Electronically signed by: Daniel Morales MD 03/29/2025 09:23 AM EDT
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
--- OUTSIDE RECORDS SUMMARY | 2025-03-29 09:30 | XMS_ITS ---
Author Organization [employer] Address [address] [facility] 7t [place] [address] Care Team Providers Care Guidance And Control System Engineer Name Role Phone Danny Morgan MD Primary Care Provide r Kieran Cross RN Unavailable [phone] Leaan Zayas Unavailable CM Complex Status:Outreach In Progress (Enrolling) Start date:03/25/2025 Enrollment reason:ADT Feed Overview ED- [place] [facility] [place]. Case Team Name Relationship Phone Kieran Cross RN(Responsible Staff) Registered Nurse [phone] Continued Care and Services Coordination
--- OUTSIDE RECORDS SUMMARY | 2025-03-29 09:30 | XMS_ITS | Encounter Summary ---
Author Organization [employer] Address [address] [facility] 7t [place] [address] Care Team Providers Care Dressmaker Helper Name Role Phone Danny Morgan MD Primary Care Provide r Kieran Cross RN Unavailable [phone] Leana Zayas Unavailable Encounter Details Date Type Department Care Team (Late st Contact Info) Description 03/15/2023 Orders Only [facility] [address] [place] [address] Nakul Rojas MD [address] [place] [address] Social History Tobacco Use Types Packs/Day Years [...] diff erent things 3 03/15/2023 4:19 PM EDDorina Wallis Trouble relaxing 1 03/15/2023 4:19 PM EDT Dorina Grant Being so restless that it is hard to sit still 0 03/15/2023 4:19 PM EDT Dorina Pandya Becoming easily annoyed or irritable 3 03/04 4:19 PM EDT Dorina Pandya Feeling afraid as if somethi ng awful might happen 2 03/15/2023 4:19 PM EDDorina Wallis JUAN R-7 Total Score 14 03/15/2023 4:19 PM Dorina Wood * Over the past 2 weeks, how often have you been bothered by any of the following problems? Question Answer Date of Assessment Author Little interest or pleasure in doing things Nearly every day 03/15/2023 4:19 PM Jerrica Wood Feeling down, depressed, or hopeless Nearly every day 03/15/2023 4:19 PM EDDorina Wallis Trouble falling or staying asleep, or sleeping too much Nearly every day 03/15/2023 4:19 PM EDDorina Wallis Feeling tired or having little energy Nearly every day 03/15/2023 4:19 PM Dorina Wood Poor appetite or overeating More than half the days 03/15/2023 4:19 PM EDDorina Wallis Feeling bad about yourself - or that [...] documented as of this encounter Care Teams Dressmaker Helper Relationship Specialty Start Date End Date Danny Morgan MD [address] [place] [address] PCP - General Internal Medicine 04/15/14 Kieran Cross, HUGO [address] [place] [address] Registered Nurse Family Medicine 03/25/25 Leana Zayas 03/25/25 documented as of this encounter
--- OUTSIDE RECORDS SUMMARY | 2025-03-29 09:30 | XMS_ITS | Encounter Summary ---
Author Organization [employer] Address [address] [facility] 7 [place] [address] Care Team Providers Care Teacher Emotionally Impaired Name Role Phone Danny Morgan MD Primary Care Provide r Kieran Cross RN Unavailable [phone] Leana aZyas Unavailable Reason for Visit * Reason Onset Date Comments chart prep 03/27/2025 Encounter Details Date Type Department Care Team ([facility] st Contact Info) Description 03/27/2025 Telephone [facility] MEDICINE 230 [place] [address] Danny Morgan MD [address] [place], [place] [phone] chart prep Social History Tobacco Use Types Packs/Day Years [...] encounter Miscellaneous Notes * Telephone Encounter - Suzette Cross [place] - 03/27/2025 3:15 PM EDT .Chart Prep Labs: not done Images: not applicable Vaccines due: Covid Due, PCV20 Due, Flu Due, and HPV Referrals: Women's health Pending appointment on 06/06 and Urology Pending appointment on 05/20 Screenings: LMP Overdue care gaps: Sbirt, PHQ9, GAD7, Disability , and Oral Health documented in this encounter Plan of Treatment Not on file documented as of this encounter Visit Diagnoses Not on filedocumented in this encounter Additional Health Concerns Assessment Noted Time PHQ-9 Depression Total Score: 19 024 2:06 PM EDT documented as of this encounter Care Teams Teacher Emotionally Impaired Relationship Specialty Start Date End Date Danny Morgan MD [address] [place] [address] PCP - General Internal Medicine 04/15/14 Kieran Cross, RN [address] [place] [address] Registered Nurse Family Medicine 03/25/25 Leana Zayas 03/25/25 documented as of this encounter
--- OUTSIDE RECORDS SUMMARY | 2025-03-29 09:30 | XMS_ITS ---
Author Organization [employer] Address [address] [facility] 7t [place] [address] Care Team Providers Care Belt Splicer Name Role Phone Danny Morgan MD Primary Care Provide r Kieran Cross RN Unavailable [phone] Leana Zayas Unavailable CHW Complex Status:Outreach In Progress (Enrolling) Start date:03/25/2025 Enrollment reason:ADT Feed Overview ED- Pt went [place] [facility] [place] 03[place]23[place]. Please outreach for enrollment. Case Team Name Relationship Phone Leana Zayas(Responsible Staff) [phone] Continued Care and Services Coordination
--- OUTSIDE RECORDS SUMMARY | 2025-03-29 09:30 | XMS_ITS | Encounter Summary ---
Author Organization [employer] Address [address] [facility] 7 [place] [address] Care Team Providers Care Sueding Machine Tender Name Role Phone Danny Morgan MD Primary Care Provide r Kieran Cross RN Unavailable [phone] Leana Zayas Unavailable Reason for Visit * Reason Comments Med Refill Encounter Details Date Type Department Care Team ([facility] st Contact Info) Description 06/01/2023 Refill [facility] MEDICINE 230 [place] [address] Nakul Rojas MD [address] [place] [address] Uncomplicated opioid dependence (CMS/HCC) Social History Tobacco [...] enough money to get more: Never True 10/ Transportation Answer Date Recorded In the past [...] documented as of this encounter Care Teams Sueding Machine Tender Relationship Specialty Start Date End Date Danny Morgan MD [address] [place] [address] PCP - General Internal Medicine 04/15/14 Kieran Cross, HUGO [address] [place] [address] Registered Nurse Family Medicine 03/25/25 Leana Zayas 03/25/25 documented as of this encounter
--- OUTSIDE RECORDS SUMMARY | 2025-03-29 09:30 | XMS_ITS | Encounter Summary ---
Author Organization [employer] Address [address] [facility] 7t [place] [address] Care Team Providers Care Head Of Marketing Analytics Name Role Phone Danny Morgan MD Primary Care Provide r Kieran Cross RN Unavailable [phone] Leana Zayas Unavailable Encounter Details Date Type Department Care Team (Late st Contact Info) Description 06/14/2022 Abstract [facility] MEDICINE 230 [place] [address] Danny Morgan MD [address] [place] [address] Social History Tobacco Use Types Packs/Day Years [...] on filedocumented in this encounter Care Teams Head Of Marketing Analytics Relationship Specialty Start Date End Date Danny Morgan MD [address] [place] [address] PCP - General Internal Medicine 04/15/14 Kieran Cross RN [address] [place] [address] Registered Nurse Family Medicine 03/25/25 Leana Zayas 03/25/25 documented as of this encounter
--- OUTSIDE RECORDS SUMMARY | 2025-03-29 09:30 | XMS_ITS | Encounter Summary ---
Author Organization [employer] Address [address] [place] [address] 7t [place] [address] Care Team Providers Care Transfer Knitter Name Role Phone Danny Morgan MD Primary Care Provide r Kieran Cross RN Unavailable [phone] Leana Zayas Unavailable Reason for Visit * Reason Comments Med Refill Encounter Details Date Type Department Care Team ([facility] st Contact Info) Description 01/26/2023 Refill [facility] MEDICINE [address] [place] [address] Danny Morgan MD [address] [place] [address] Social History Tobacco Use Types Packs/Day Years [...] documented as of this encounter Care Teams Transfer Knitter Relationship Specialty Start Date End Date Danny Morgan MD [address] [place] [address] PCP - General Internal Medicine 04/15/14 Kieran Cross RN [address] [place] [address] Registered Nurse Family Medicine 03/25/25 Leana Zayas 03/25/25 documented as of this encounter
--- OUTSIDE RECORDS SUMMARY | 2025-03-29 09:30 | XMS_ITS | Encounter Summary ---
Author Organization [employer] Address [address] [place] [address] 7 [place] [address] Care Team Providers Care Telephone Clerks Supervisor Name Role Phone Danny Morgan MD Primary Care Provide r Kieran Cross RN Unavailable [phone] Leana Zayas Unavailable Encounter Details Date Type Department Care Team (Late st Contact Info) Description 04/06/2023 Abstract [facility] MEDICINE [address] [place] [address] Shereen Hardy Social History Tobacco Use Types [...] documented as of this encounter Care Teams Telephone Clerks Supervisor Relationship Specialty Start Date End Date Danny Morgan MD [address] [place] [address] PCP - General Internal Medicine 04/15/14 Kieran Cross RN [address] [place] [address] Registered Nurse Family Medicine 03/25/25 Leana Zayas 03/25/25 documented as of this encounter
--- OUTSIDE RECORDS SUMMARY | 2025-03-29 09:30 | XMS_ITS | Encounter Summary ---
Author Organization [employer] Address [address] [facility] 7t [place] [address] Care Team Providers Care Orthotic/Prosthetic Clinician Name Role Phone Danny Morgan MD Primary Care Provide r Kieran Cross RN Unavailable [phone] Leana Zayas Unavailable Reason for Visit * Reason Comments Med Change Request Encounter Details Date Type Department Care Team ([facility] st Contact Info) Description 01/05/2023 Refill [facility] MEDICINE 230 [place] [address] Danny Morgan MD [address] [place] [address] Social History Tobacco Use Types Packs/Day Years [...] Questionnaire -2 Score 5 01/06/2023 9:07 AM Ani Darnell [place] * If you checked off any [...] Health Questionnaire-9 Score 19 01/06/2023 9:07 AM EDT Aline Broderick [place] documented as of this encounter Plan of Treatment Not on file documented as of this encounter Visit Diagnoses Not on filedocumented in this encounter Additional Health Concerns Assessment Noted Time PHQ-9 Depression Total Score: 16 023 4:00 PM EDT documented as of this encounter Care Teams Orthotic/Prosthetic Clinician Relationship Specialty Start Date End Date Danny Morgan MD [address] [place] [address] PCP - General Internal Medicine 04/15/14 Kieran Cross RN [address] [place] [address] Registered Nurse Family Medicine 03/25/25 Leana Zayas 03/25/25 documented as of this encounter
--- OUTSIDE RECORDS SUMMARY | 2025-03-29 09:30 | XMS_ITS | Encounter Summary ---
Author Organization [employer] Address [address] [facility] 7 [place] [address] Care Team Providers Care Stores Naval Name Role Phone Danny Morgan MD Primary Care Provide r Kieran Cross RN Unavailable [phone] Leana Zayas Unavailable Reason for Visit * Reason Comments Med Refill Encounter Details Date Type Department Care Team ([facility] st Contact Info) Description 06/26/2024 Refill [facility] MEDICINE 230 [place] [address] Nakul Rojas MD [address] [place] [address] Uncomplicated opioid dependence (CMS/HCC) Social History Tobacco [...] documented as of this encounter Care Teams Stores Naval Relationship Specialty Start Date End Date Danny Morgan MD [address] [place] [address] PCP - General Internal Medicine 04/15/14 Kieran Cross RN [address] [place] [address] Registered Nurse Family Medicine 03/25/25 Leana Zayas 03/25/25 documented as of this encounter
--- OUTSIDE RECORDS SUMMARY | 2025-03-29 09:30 | XMS_ITS | Encounter Summary ---
Author Organization [employer] Address [address] [facility] 7 [place] [address] Care Team Providers Care Timber Robber Name Role Phone Danny Morgan MD Primary Care Provide r Kieran Cross RN Unavailable [phone] Leana Zayas Unavailable Reason for Visit * Reason Comments Med Refill Encounter Details Date Type Department Care Team (Late st Contact Info) Description 01/30/2024 Refill [facility] MEDICINE 230 [place] [address] Danny Morgan MD 230 [place], [place] [phone] Postsurgical malabsorption, not elsewhere classified Social History [...] documented as of this encounter Care Teams Timber Robber Relationship Specialty Start Date End Date Danny Morgan MD 230 [place] [address] PCP - General Internal Medicine 04/15/14 Kieran Cross RN [address] [place] [address] Registered Nurse Family Medicine 03/25/25 Leana Zayas 03/25/25 documented as of this encounter
--- OUTSIDE RECORDS SUMMARY | 2025-03-29 09:30 | XMS_ITS | Encounter Summary ---
Author Organization [employer] Address [address] [place] [address] 7 [place] [address] Care Team Providers Care Cooker Tender Name Role Phone Danny Morgan MD Primary Care Provide r Kieran Cross RN Unavailable [phone] Leana Zayas Unavailable Reason for Visit * Reason Onset Date Comments Nurse Triage 03/28/2023 Encounter Details Date Type Department Care Team ([facility] st Contact Info) Description 03/28/2023 Telephone [facility] MEDICINE 230 [place] [address] Danny Morgan MD [address] [place], [place] [phone] Nurse Triage Social History Tobacco Use Types [...] Pt agrees. Advised Pt to come to [facility] today and be seen by provider [...] documented as of this encounter Care Teams Cooker Tender Relationship Specialty Start Date End Date Danny Morgan MD [address] [place] [address] PCP - General Internal Medicine 04/15/14 Kieran Cross RN [address] [place] [address] Registered Nurse Family Medicine 03/25/25 Leana Zayas 03/25/25 documented as of this encounter
--- OUTSIDE RECORDS SUMMARY | 2025-03-29 09:31 | XMS_ITS | Clinical Summary ---
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 From Orig inal Mammogram Procedure(s): MM tomosynthesis screening BI Accession Number(s): [id number] cc: Danny Briceño MD EXAMINATION: MM SCREENING [...] 11/24/24 1032 DD/ 0815 TD/TT: 11/16/24 0831 Geriatric Personal Care Aide: us Danny Arroyo MD IMG BI PROCEDURES Fin al Result * Hepatitis Panel, General (07/06/2024 10:47 AM EST) Hepatitis A IgM Nonreactive Nonreactive [facility] Comment:IgM antibodies to THAPA V not detected; does not exclude earlyacute or recovered HAV infection. ~Hepatitis B Surface Antibody REACTIVE Nonreactive [facility] Comment:REACTIVE: > 11.99 mI U/mL Hepatitis B Core Antibody Nonreactive Nonreactive [facility] Hepatitis C Antibody Nonreactive Nonreactive [facility] Comment:Antibodies to HCV no t detected; does not exclude early acuteHCV infection. Hepatitis B Surface Ag Negative Negative [facility] 07/06/2024 10:4 7 AM EST 07/06/2024 10:47 AM EST ethority External Data Provider LAB BLOOD ORDERAB LES Final Result [facility] [address] [place] [phone] * HIV-1/2 Antigen and Antibodies, Fourth Generation, with Reflexes (07/06/2024 10:47 AM EST) HIV AB/AG Nonreactive Nonreactive [facility] Comment:HIV-1 p24 Ag and/or HIV-1/HIV-2 Ab not detected.A test result that is nonreactive does not exclude thepossibility of exposure to or infection with HIV-1 and/orHIV-2. Nonreactive results in this assay for individualswith prior exposure to HIV-1 and/or HIV-2 may be due toantigen and antibody levels that are below the limit ofdetection of this assay.The Comprehensive CareniObsEva HIV Ag/Ab Combo assay result andsupplemental assay results should be interpreted inconjunction with the patient's clinical presentation,history and other laboratory results. If the results areinconsistent with clinical evidence, additional testing issuggested to confirm the result. 07/06/2024 10:4 7 AM EST 07/06/2024 10:47 AM EST us Generic External Data Provider LAB BLOOD ORDERAB LES Final Result [facility] [address] [place] [address] [phone] * ThinPrep Imaging Pap and HPV mRNA E6/E7 with Reflex to HPV 16,18/45 (02/20/2024 11:10 AM EDT) HPV 16 RNA [facility] HPV 18/45 RNA [facility] HPV nRNA E6/E7 Not Detected Not Detected [facility] Comment:Methodology: Transcr iption-Mediated AmplificationThis assay detects E6/E7 viral messenger RNA (mRNA) from 14high-risk HPV types (16,18,31,33,35,39,45,51,52,56,58,59,66,68).Cervical sources are required for HPV testing.If a vaginal source from a patient who has had atotal hysterectomy with removal of cervix wassubmitted, please contact the testing laboratoryfor alternative testing options.For additional information, please refer tohttp://education.FanLib/faq/WNT840h5(This link if provided for information/educational purposes only.)THIS TEST WAS PERFORMED AT:[facility] [place] [phone] RAO MD SOURCE: SEE NOTE [facility] Comment:None given Report Status: [facility] Clinical Information: SEE NOTE [facility] Comment:None given LMP: SEE NOTE [facility] Comment:NONE GIVEN Prev. PAP: SEE NOTE [facility] Comment:NONE GIVEN Prev. BX: SEE NOTE [facility] Comment:NONE GIVEN Statement Of Adequacy: SEE NOTE [facility] Comment:Satisfactory for luis miguel luation.Endocervical/transformation zone componentpresent. General Categorization: [facility] Interpretation/Result: SEE NOTE [facility] Comment:Cytology Results: Ne gative for intraepitheliallesion or malignancy. Cytology Comment SEE NOTE [facility] Comment:This Pap test has be en evaluated with computerassisted technology. Home Care Liaison: SEE NOTE [facility] Comment:RPR, CT (ASCP) CT sc reening location: [address] [address] Review Home Care Liaison: SEE NOTE [facility] Comment:WAC, CT(ASCP)CT scre ening location: [address] [address] Pathologist TNP [facility] PAP Infection SEE NOTE [facility] Comment:Shift in vaginal vonnie ra suggestive of bacterialvaginosis. See Note SEE NOTE [facility] Comment:EXPLANATORY NOTE:The Pap is [...] AM EDT 02/20/2024 3:15 PM EDT Narrative [facility] - 02/24/2024 10:56 AM EDT SEE SCANNED RESULTS IN EMR us Generic External Data Provider LAB PATHOLOGY ORD ERABLES Final Result [facility] [address] [place] [address] [phone] from Last 3 Months or Most Recently Relevant to Health Maintenance Insurance [employer] C3 Care Teams Saxophone Player Relationship Specialty Start Date End Date Danny Morgan MD [address] [place] [address] PCP - General Internal Medicine 04/15/14 Kieran Cross RN [address] [place] [address] Registered Nurse Family Medicine 03/25/25 Leana Zayas 03/25/25
--- OUTSIDE RECORDS SUMMARY | 2025-03-29 09:31 | XMS_ITS | Encounter Summary ---
Author Organization [employer] Address [address] [facility] [address] [place] [address] Care Team Providers Care Specialty Plant Supervisor Name Role Phone Danny Morgan MD Primary Care Provide r Kieran Cross RN Unavailable [phone] Leana Zayas Unavailable Reason for Visit * Reason Comments Care Coordination CM/CHW outreach Encounter Details Date Type Department Care Team (Latest Contact Info) Description 03/27/2025 Patient Outreach [facility] MEDICINE [address] [place] [address] Danny Morgan MD [address] [place], [place] [phone] Care Coordination (CM/CHW outreach) Social History Tobacco Use Types Packs/Day Years [...] as of this encounter Progress Notes * Leana Zayas - 03/27/2025 10:29 AM EDT CHW Leana Zayas, placed outbound call to patient introducing herself from [facility] CM Department, in regards to offering services. Patient's name and was confirmed. Patient agreesto participate in program. Appt. for initial assessment scheduled for 04/09/25 @ 1PM tele with CARLITOS Cross RN. CHW reinforced direct contact information or for any additional questions or concerns and extended clinic hours on Mondays and Wednesdays, and Walk-In Urgent Care Located in [facility] of [facility]. Patient provided with after-hours line for [facility], ,which offer night time triage service and option to transfer to marketing production specialist provider if needed. Patient verbalizes understanding, and able to repeat back to law writer. documented in this encounter Plan of Treatment Not on file documented as of this encounter Visit Diagnoses Not on filedocumented in this encounter Additional Health Concerns Assessment Noted Time PHQ-9 Depression Total Score: 19 12/07/ 024 2:06 PM EDT documented as of this encounter Care Teams Specialty Plant Supervisor Relationship Specialty Start Date End Date Danny Morgan MD [address] [place] [address] PCP - General Internal Medicine 04/15/14 Kieran Cross RN [address] [place] [phone] Registered Nurse Family Medicine 03/25/25 Leana Zayas 03/25/25 documented as of this encounter
--- OUTSIDE RECORDS SUMMARY | 2025-03-29 09:31 | XMS_ITS | Encounter Summary ---
Author Organization [employer] Address 75 [facility] 7t [place] [address] Care Team Providers Care E/M Engineer Name Role Phone Danny Morgan MD Primary Care Provide r Kieran Cross RN Unavailable [phone] Leana Zayas Unavailable Encounter Details Date Type Department Care Team (Late st Contact Info) Description 03/25/2025 Patient Outreach [facility] MEDICINE [address] [place] [address] Danny Morgan MD [address] [place] [address] Social History Tobacco Use Types Packs/Day Years [...] as of this encounter Progress Notes * Kieran Cross RN - 03/25/2025 9:16 AM EDT CARLITOS Cross RN, performed chart review, in anticipation of initial assessment with patient, as patient has stratified for C3 Adult Complex Care through the ADT feed. History significant for depression, fibromyalgia, iron deficiency anemia, insomnia, bilateral foot pain, bilateral hip pain, tremor of both hands, PTSD, opioid dependence, former smoker, trigger middle finger of left hand, JUAN R,amenorrhea, weight loss, dysfunction of left eustachian tube, neck pain, and bilateral shoulder pain. Specialists include [facility], Behavioral Health, Neurology, and Orthopedic Surgery. ED visits within the last 12 months include [facility] [place]. Last appointment in PCP office on 02/15/25. Next appoint ment scheduled for 03/28/25 at 2:30pm for PE with PCP. documented in this encounter Plan of Treatment Not on file documented as of this encounter Visit Diagnoses Not on filedocumented in this encounter Additional Health Concerns Assessment Noted Time PHQ-9 Depression Total Score: 19 024 2:06 PM EDT documented as of this encounter Care Teams E/M Engineer Relationship Specialty Start Date End Date Danny Morgan MD [address] [place] [address] PCP - General Internal Medicine 04/15/14 Kieran Cross RN [address] [place] [address] Registered Nurse Family Medicine 03/25/25 Leana Zayas 03/25/25 documented as of this encounter
--- OUTSIDE RECORDS SUMMARY | 2025-03-29 09:31 | XMS_ITS | Encounter Summary ---
Author Organization [employer] Address [address] [facility] 7t [place] [address] Care Team Providers Care Ticket Printer Name Role Phone Danny Morgan MD Primary Care Provide r Kieran Cross RN Unavailable [phone] Leana Zayas Unavailable Encounter Details Date Type Department Care Team (Late st Contact Info) Description 03/25/2025 Patient Outreach [facility] MEDICINE [address] [place] [address] Danny Morgan MD [address] [place] [address] Social History Tobacco Use Types Packs/Day Years [...] documented as of this encounter Care Teams Ticket Printer Relationship Specialty Start Date End Date Danny oMrgan MD [address] [place] [address] PCP - General Internal Medicine 04/15/14 Kieran Cross RN [address] [place] [address] Registered Nurse Family Medicine 03/25/25 Leana Zayas 03/25/25 documented as of this encounter
--- OUTSIDE RECORDS SUMMARY | 2025-03-29 09:31 | XMS_ITS | Patient Health Record ---
Author Organization [facility] Address [address] [place] [address] Care Team Providers Care Industrial Service Technician Name Role Phone Jessica Thomas MD Primary Care Provider Unavail able Daniel Jones Unavailable [phone] Bisi Hutchins Unavailable Unavailable Allergies Allergen (clinical [...] Status Risk Notes Problem Gastroesophageal reflux disease (816512048) GERD (gastroesophag eal reflux disease) (530.81) Active confirmed Problem Iron deficiency anemia (54001536) Anemia, iron deficiency (280.9) Active confirmed Plan Of Treatment Future Test Test Name Order Date UPPER GI ENDOSCOPY 03/28/2014 Insurance Providers Payer Name Payer Address Payer Phone Subscriber Number Group Number Insured Name Patient Relationship to Insured Coverage Start Date Coverage End Date [facility] [address] [employer] [facility] [address] [address] [place], [place] [id number] KAROLYN CHELSEY Self - patient is the insured MEDICAID [facility] [address] [place] [address] [phone] [id number] KAROLYN CHELSEY Self - patient is the insured Medical (General) History Medical History History ICD Code Denies PA,DM,CVA,Lung disease,renal dise ase Fibromyalgia Depression Asthma-inhaler prn Anemia-Iron and B12 deficien cy--followed by Dr. 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 Mcgraw--lost > 100# Abdominoplasty Cholecystectomy 2008 tubal ligation
--- OUTSIDE RECORDS SUMMARY | 2025-03-29 09:31 | XMS_ITS | Clinical Summary ---
Author Organization [facility] Address [address] [place] [address] Care Team Providers Care Compliance Technician Name Role Phone Unknown Primary Care [...] patient's age to complete this topic Insurance [address] [place], [place] [address] [facility] INSURANCE Care Teams Compliance Technician Relationship Specialty Start Date End Date Unknown Unknow Provider Address PCP - General 08/21/20
--- OUTSIDE RECORDS SUMMARY | 2025-03-29 09:31 | XMS_ITS | Encounter Summary ---
Author Organization [employer] Address 75 [facility] 7t [place] [address] Care Team Providers Care Printed Circuit Layout Taper Name Role Phone Danny Morgan MD Primary Care Provide r Kieran Cross RN Unavailable [phone] Leana Zayas Unavailable Encounter Details Date Type Department Care Team (Late st Contact Info) Description 05/18/2023 Orders Only [facility] [address] [place] [address] Nakul Rojas MD [address] [place] [address] Abnormal mammogram of right breast (Primary Dx) [...] B Type Natriuretic Peptide 17 <100 pg/mL [facility] Comment:For those patients w ho are being treated with Natrecor(nesiritide, recombinant BNP), BNP testing should beperformed at least two hours post treatment in order toensure that only endogenous levels of BNP are detected. Blood Venous blood specimen / Unknown 07/20/2023 9:42 AM EST 07/20/2023 9:42 AM EST us Nakul Rojas MD LAB BLOOD ORDERABLES Final Resul t [facility] [address] [place] [address] [phone] documented in this encounter Visit Diagnoses Diagnosis Abnormal mammogram of right breast- Primary documented in this encounter Additional Health Concerns Assessment Noted Time PHQ-9 Depression Total Score: 19 023 12:52 PM EDT documented as of this encounter Care Teams Printed Circuit Layout Taper Relationship Specialty Start Date End Date Danny Morgan MD [address] [place] [address] PCP - General Internal Medicine 04/15/14 Kieran Cross RN [address] [place] [address] Registered Nurse Family Medicine 03/25/25 Leana Zayas 03/25/25 documented as of this encounter
--- OUTSIDE RECORDS SUMMARY | 2025-03-29 09:31 | XMS_ITS | Encounter Summary ---
Author Organization [employer] Address [address] [facility] 7t [place] [address] Care Team Providers Care Audiology Director Name Role Phone Danny Morgan MD Primary Care Provide r Kieran Cross RN Unavailable [phone] Leana Zayas Unavailable Encounter Details Date Type Department Care Team (Latest Contact Info) Description 03/28/2025 Travel Social History Tobacco Use Types Packs/Day Years [...] [place] documented as of this encounter Plan of Treatment Not on file documented as of this encounter Visit Diagnoses Not on filedocumented in this encounter Additional Health Concerns Assessment Noted Time PHQ-9 Depression Total Score: 1 03/28/20 2:25 PM EDT documented as of this encounter Care Teams Audiology Director Relationship Specialty Start Date End Date Danny Morgan MD [address] [place] [address] PCP - General Internal Medicine 04/15/14 Kieran Cross, RN [address] [place] [address] Registered Nurse Family Medicine 03/25/25 Leana Zayas 03/25/25 documented as of this encounter
[2025-03-29 12:42] LABS: Folate 9.6 ng/mL (> or = 4.0); Vitamin B12 211 pg/mL (200-900)
[2025-04-01 04:36] LABS: HBS Num1 21.60 mIU/mL (0-7.99); HBc Num1 0.14 S/CO (0.00-0.79); HBsAGNum1 0.30 S/CO (0.00-0.99); HIV Num 1 0.05 S/CO (0.00-0.99); Hepatitis A Antibody IgM 0.22 Index (0-0.79); Hepatitis B Surface Antigen Negative (Negative); ~HepC Num1 0.11 S/CO (0.00-0.79); ~Hepatitis A Antibody IgM Nonreactive (Nonreactive); ~Hepatitis B Surface Antibody REACTIVE (Nonreactive); ~Hepatitis C Antibody Nonreactive (Nonreactive)
== END 2025-03-29 08:55 | disposition home or self-care (01) ==
LOC: HO.HHCL 08:54
PROVIDERS: Internal Medicine; PCP Internal Medicine; Visit Provider Internal Medicine
DX: Z20.2 Contact with and (suspected) exposure to infections with a predominantly sexual mode of transmission (principal); Z11.59 Encounter for screening for other viral diseases; Z11.4 Encounter for screening for human immunodeficiency virus [HIV]; Z72.51 High risk heterosexual behavior; M54.42 Lumbago with sciatica, left side; D50.9 Iron deficiency anemia, unspecified
CPT/HCPCS: 36415; 72100; 73502; 82607; 82746; 86592; 86704; 86706; 86709; 86803; 87340; 87389

== ENCOUNTER → 2025-03-29 09:01 | Outpatient (BNV) | payer MEDICAID, SELFPAY | PROVIDERS: PCP Internal Medicine; Visit Provider Radiology Diagnostic Radiology | DX: M25.552 Pain in left hip (principal); M54.50 Low back pain, unspecified | CPT/HCPCS: 72100; 73502 ==

== ENCOUNTER 2025-04-10 18:47 | Outpatient (REF) | payer MEDICAID, SELFPAY ==
--- NOTE | ~2025-04-10 | MR_ITS ---
EXAMINATION: MR LUMBAR SPINE WITHOUT IV CONTRAST History: LUMBAGO WITH SCIATICA LEFT SIDE. FECAL INCONTINENCE Technique: Sagittal T1, T2 and STIR, and axial T1 and T2 weighted images of the lumbar spine were obtained per departmental protocol. Comparison: Correlation is made with plain films of the lumbar spine dated 03/29/2025. Findings: The vertebral bodies maintain normal height, alignment, and marrow signal intensity. There is mild degenerative disc disease at the L1-2 level with disc desiccation and loss of disc height. The remaining intervertebral discs maintain normal height and hydration. At T12-L1,there is no evidence of disc herniation, central spinal stenosis, or neural foraminal narrowing. At L1-2, there is a mild disc bulge which is asymmetric to the left. There is no central spinal or neural foraminal stenosis. At L2-3, there is no evidence of disc herniation, central spinal stenosis, or neural foraminal narrowing. At L3-4, there is no evidence of disc herniation, central spinal stenosis, or neural foraminal narrowing. At L4-5, there is mild facet and ligamentum flavum hypertrophy. There is no evidence of disc herniation, central spinal stenosis, or neural foraminal narrowing. At L5-S1, there is no evidence of disc herniation, central spinal stenosis, or neural foraminal narrowing. The conus terminates at the L1-2 level and demonstrates normal signal. The visualized paraspinal soft tissues are unremarkable. MR/MR lumbar spine wo con Impression: Minimal degenerative changes as described. Electronically signed by: Daniel Morales MD 04/11/2025 07:25 AM EDT
== END 2025-04-10 18:48 | disposition home or self-care (01) ==
LOC: HO.MRI 18:47
PROVIDERS: PCP Internal Medicine; Visit Provider Internal Medicine
DX: M54.42 Lumbago with sciatica, left side (principal); R15.1 Fecal smearing
CPT/HCPCS: 72148

== ENCOUNTER → 2025-04-10 19:02 | Outpatient (BNV) | payer MEDICAID, SELFPAY | PROVIDERS: PCP Internal Medicine; Visit Provider Radiology Diagnostic Radiology | DX: M54.42 Lumbago with sciatica, left side (principal) | CPT/HCPCS: 72148 ==

== ENCOUNTER 2025-05-20 10:53 | Outpatient (AMB) | payer MEDICAID, SELFPAY ==
--- NOTE | 2025-05-20 11:08 | A.OFFVIS_ITS ---
Intake Visit Reasons: UPJ stricture Intake Note: New patient presents today for initial visit for UPJ stricture Urology Medication:None Blood Thinner:None Antibiotic Allergies:None Allergies ibuprofen (From Motrin) Allergy (Severe, Verified 05/20/25 11:09) WHEEZING, TONGUE SWELLING, INCREASE SOB shrimp Allergy (Severe, Verified 05/20/25 11:09) ANAPHYLAXIS almond Allergy (Mild, Verified 05/20/25 11:09) RASH Pork/Porcine Containing Products Allergy (Mild, Verified 05/20/25 11:09) RASH Medication List - Last Reconciled 05/20/25 by Kim Gamble MD bupropion HCl XL 300 mg PO QAM docusate sodium 100 - 200 mg PO BEDTIME PRN epinephrine IM famotidine 40 mg PO BEDTIME hydroxyzine HCl 25 mg PO TID PRN medroxyprogesterone (Provera) 10 mg PO DAILY 90 days sennosides (senna) 8.6 - 17.2 mg PO BEDTIME PRN zolpidem 10 mg PO BEDTIME PRN HPI Comments Details: 05/20/2025--/Renetta's the patient presents with you evaluation she was in the emergency room on 03/2025 for left flank pain. A CT scan done at that time noted some narrowing of sees UPJ with some fullness of the renal pelvis. History of Present Illness The patient is a 44-year-old female presenting with left flank pain. She was evaluated in the emergency room on March 23, 2025, for this pain, where a CT scan indicated narrowing at the ureteropelvic junction with fullness of the renal pelvis, suggesting a possible obstruction. The pain has persisted since the emergency room visit, with no change in severity. The patient has not used any narcotic pain relief but has been using Tylenol. The patient was advised to reduce caffeine and alcohol intake as these can exacerbate symptoms due to their diuretic effects. Results - CT scan with IV contrast: Narrowing at the ureteropelvic junction with fullness of the renal pelvis, good renal parenchema bilaterally. Plan Left Ureteropelvic Junction Obstruction - Plan to perform a Lasix renal scan to assess the degree of obstruction. - Consideration of temporary stent placement if significant obstruction is confirmed. - Patient advised to reduce caffeine and alcohol intake to alleviate symptoms. - Follow-up planned post renal scan to determine further management. [facility] Medical History Numbness of left foot LUQ abdominal pain Left knee pain Low back pain Bilateral hip pain Pelvic pain Bacterial vaginosis Screening for STD (sexually transmitted disease) Well woman exam B12 deficiency Cervical intraepithelial neoplasia grade 1 Iron deficiency anemia Opioid use disorder Arthritis Asthma Fibromyalgia Surgical History History of esophagogastroduodenoscopy (EGD) H/O colonoscopy History of cholecystectomy H/O abdominoplasty H/O gastric bypass History of loop electrical excision procedure (LEEP) Hx of wisdom tooth extraction Hx of tonsillectomy Hx of tubal ligation Family History Maternal Aunt Uterine cancer Social History Household Members: Spouse Household Members Other:: son Housing: Apartment Are you a primary career development associate to a significant other at home: No Do you presently have visiting nurse or other home services: No Alcohol intake: never Patient Tobacco Use Status: Former Tobacco user Tobacco use type: Cigarette Cigarettes Per Day: 5 Years Smoked: 15 Substance Use Type: Other 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al status: employed 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 Sexual orientation: Straight/Heterosexual Gender identity: Female Female Reproductive History Menstrual Age of Menarche: 8 Review of Systems Const All systems reviewed & are unremarkable except as noted in HPI and below Reports no additional complaints Eyes Reports no additional complaints ENT Reports no additional complaints Card Reports no additional complaints Resp Reports no additional complaints GI Reports no additional complaints Reports as per HPI Musc Reports no additional complaints Skin/Breast Reports system reviewed and no additional complaints, except as documented Neuro Reports no additional complaints Psych Reports no additional complaints Endo Reports no additional complaints Tyshawn/Lymph Reports no additional complaints Aller/Immun Reports no additional complaints Physical Exam Const General: cooperative, healthy appearing and no acute distress Orientation/consciousness: patient oriented x3 HEENT Head: Yes normal to inspection, Yes normocephalic and Yes atraumatic Eyes Conjunctivae: conjunctivae normal Neck Neck: Yes normal visual inspection and Yes trachea midline Chest Chest palpation & inspection: normal inspection of the chest Resp Effort & Inspection: normal respiratory effort GI Inspection: Yes normal to inspection Neuro General: patient oriented x3 Psych Appearance: grossly normal Results Reviewed Results Reviewed: Date of Service: 03/23/25 Procedure(s): CT abdomen pelvis w IV con Accession Number(s): [id number] cc: Danny Briceño MD; Marley Harris MD~ Report Number: [id number]: Total DLP = 0.00 mGy-cm Reason for Exam: LLQ pain history of zeynep bypass, choley CLINICAL HISTORY: LLQ pain history of zeynep bypass, choley Exam: CT abdomen and pelvis with IV contrast Comparison: US/NC/SR - US PELVIS TRANSABDOMINAL AND TRANSVAGINAL - 02/29/24 10:52 EDT US/NC/SR - US ABDOMEN - 09/09/23 09:34 EST Findings: Normal lung bases. Status post cholecystectomy, mild intrahepatic bile duct dilatation, CBD is not dilated. Pancreatic duct is not dilated. Liver, spleen, pancreas, adrenal glands, right kidney, ureters, bladder, reproductive organs are unremarkable. Mild calyceal dilatation and more conspicuous dilatation of the extrarenal pelvis of the left kidney, left ureter is normal in caliber, no urolithiasis is seen. Unremarkable GI tract, normal appendix, status post gastric bypass, no bowel obstruction. Unremarkable vasculature. No adenopathy. No ascites or pneumoperitoneum. Surgical clip noted in the left lower quadrant. No acute osseous abnormality. Impression: 1. 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 No urolithiasis. 2. Status post cholecystectomy, mild intrahepatic bile duct dilatation is non-specific, recommend correlate with LFT. 3. Status post gastric bypass, no bowel obstruction. Assessment & Plan Assessment & Plan (1) Left flank pain: Code(s): R10.9 - Unspecified abdominal pain Category: Medical (2) UPJ (ureteropelvic junction) obstruction: Code(s): N13.5 - Crossing vessel and stricture of ureter without hydronephrosis Category: Medical Plan Plan Left Ureteropelvic Junction Obstruction - Plan to perform a Lasix renal scan to assess the degree of obstruction. - Consideration of temporary stent placement if significant obstruction is co nfirmed. - Patient advised to reduce caffeine and alcohol intake to alleviate symptoms. - Follow-up planned post renal scan to determine further management. Orders: Orders NM renal flow w pharm int Today N13.5 - Crossing vessel and stricture of ureter without hydronephrosis, R10.9 - Unspecified abdominal pain Coding Level of Care Code New Pt Level 4 (81828) Diagnoses Left flank pain R10.9 UPJ (ureteropelvic junction) obstruction N13.5
== END 2025-05-20 11:47 | disposition home or self-care (01) ==
LOC: HO.HUSH 10:54
PROVIDERS: PCP Internal Medicine; Visit Provider Urology
DX: R10.9 Unspecified abdominal pain (principal); N13.5 Crossing vessel and stricture of ureter without hydronephrosis
CPT/HCPCS: 99204

== ENCOUNTER → 2025-05-20 10:53 | Outpatient (BNVA) | payer MEDICAID, SELFPAY | PROVIDERS: PCP Internal Medicine; Visit Provider Urology | DX: R10.9 Unspecified abdominal pain (principal); N13.5 Crossing vessel and stricture of ureter without hydronephrosis | CPT/HCPCS: 81003; 99202 ==

== ENCOUNTER 2025-05-23 10:40 | Outpatient (AMB) | payer MEDICAID, SELFPAY ==
--- NOTE | 2025-05-23 10:56 | A.OFFVIS_ITS ---
Vital Signs 05/23/25 11:15 Height 5 ft 2 in Weight 158 lb BMI 28.9 BP 104/60 Blood Pressure Location Rt brachial Position Sitting Pulse 74 Pulse Source Pulse Oximeter Pulse Oximetry (%) 98 Oxygen Delivery Method Room Air Intake Visit Reasons: rectal bleeding Intake Note: Est pt for mgmt of [facility] w/ hx of hemorrhoids. CC: Pt denies any new GI concerns or sx at this time. Confirms she is still taking her current Rx w/o complications. Gospel Worker Required: No Accompanied by: Significant Other Allergies ibuprofen (From Motrin) Allergy (Severe, Verified 05/23/25 11:09) WHEEZING, TONGUE SWELLING, INCREASE SOB shrimp Allergy (Severe, Verified 05/23/25 11:09) ANAPHYLAXIS almond Allergy (Mild, Verified 05/23/25 11:09) RASH Pork/Porcine Containing Products Allergy (Mild, Verified 05/23/25 11:09) RASH HPI HPI rectal bleeding: Details: Assessment & Plan (1) Transaminitis: Code(s): R74.01 - Elevation of levels of liver transaminase levels Category: Medical (2) Rectal bleeding: Comment: No cause except hemorrhoids found on her 06/2024 scope Code(s): K62.5 - Hemorrhage of anus and rectum Category: Medical Plan ? cholecystectomy? ? ETOH ast>alt she confirms that she has had her gallbladder removed. She is agreeable to a 5 year recall. The procedure was well tolerated. The results were explained and the patient is agreeable to the follow-up interval as stated. The bowel pattern has returned to normal. Education was provided to tell any 1st degree relatives about their findings to be sure that they are screened by age 45. Educated that they will be put on a recall list when it is time for their repeat scope but should they move out of state or away from the hospital they will need to remember along with their primary to repeat the procedure in a timely fashion to avoid any adverse complications. I explained to her there certainly was no evidence of any chronic colitis so it is likely she simply had an infection that generated the CT scan finding this could be anything from food-borne illness to diverticulitis. She is continuing to feel well at this time. She is also not taking omeprazole. She has not needed to utilize the senna or the Colace as she seems to be moving her bowels well with some dietary changes. I note her extremely high liver function tests with transaminases elevated AST greater than ALT. No ETOH, NO fhx liver disease known, no offending rx meds. Only occasional fatigue, no other liver sx. except itching all the time (yet bili normal). Quite frankly none of the symptoms make sense in this makes me wonder if this is a lab error (particularly in the face of a recent ultrasound showing a completely normal liver) but I will run additional testing to be completely sure including repeating the liver functions. I explained all of this to her and tell her not to worry until we get further results. ROV next available. Orders: Orders Alpha Fetoprotein Today R74.01 - Elevation of levels of liver transaminase levels Hepatitis A,B,C Profile Today R74.01 - Elevation of levels of liver transaminase levels Ferritin Today R74.01 - Elevation of levels of liver transaminase levels Liver Fibrosis Pnl Today R74.01 - Elevation of levels of liver transaminase levels Mitochondrial Antibody Today R74.01 - Elevation of levels of liver transaminase levels Smooth Muscle Antibody Today R74.01 - Elevation of levels of liver transaminase levels HIV Ab/Ag Today R74.01 - Elevation of levels of liver transaminase levels Ceruloplasmin Today R74.01 - Elevation of levels of liver transaminase levels VANDANA Reflex Titer and Pattern Today R74.01 - Elevation of levels of liver transaminase levels Liver Panel Today R74.01 - Elevation of levels of liver transaminase levels TSH reflex Free T4 Today R74.01 - Elevation of levels of liver transaminase levels LABS: Laboratory Tests 07/06/24 03/23/25 03/29/25 10:47 17:12 09:21 Estimated GFR > 60 Total Bilirubin 0.2 Direct Bilirubin < 0.2 AST 28 ALT 19 Alkaline Phosphatase 76 Liver Fibrosis Stage F0 Alpha Fetoprotein 2.8 TSH 0.50 VANDANA Screen NEGATIVE Anti-Mitochondrial Ab NEGATIVE Anti-Smooth Muscle Ab <20 Hepatitis A IgM Ab Nonreactive Hep Bs Antigen Negative Hep Bs Antibody REACTIVE Hep B Core Total Ab Nonreactive Hepatitis C Ab (EIA) Nonreactive HIV 1&2 Ab/P24 Ag 4thGn Nonreactive TODAY'S VISIT [facility] Medical History (Updated 05/23/25 @ 16:19 by WILY Cox) Transaminitis Numbness of left foot LUQ abdominal pain Left knee pain Low back pain Bilateral hip pain Pelvic pain Bacterial vaginosis Screening for STD (sexually transmitted disease) Well woman exam B12 deficiency Cervical intraepithelial neoplasia grade 1 Iron deficiency anemia Opioid use disorder Arthritis Asthma Fibromyalgia Surgical History History of esophagogastroduodenoscopy (EGD) H/O colonoscopy History of cholecystectomy H/O abdominoplasty H/O gastric bypass History of loop electrical excision procedure (LEEP) Hx of wisdom tooth extraction Hx of tonsillectomy Hx of tubal ligation Family History Maternal Aunt Uterine cancer Social History Household Members: Spouse Household Members Other:: son Housing: Apartment Are you a primary before and after school daycare worker to a significant other at home: No Do you presently have visiting nurse or other home services: No Alcohol intake: never Patient Tobacco Use Status: Former Tobacco user Tobacco use type: Cigarette Cigarettes Per Day: 5 Years Smoked: 15 Substance Use Type: Other 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al status: employed 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 Sexual orientation: Straight/Heterosexual Gender identity: Female Female Reproductive History Menstrual Age of Menarche: 8 Review of Systems Const Denies fatigue, Denies fever(s), Denies night sweats, Denies poor appetite and Denies weight loss ENT Reports Normal hearing present, Denies dental pain, Denies dysphagia, Denies hearing loss, Denies mouth pain, Denies odynophagia, Denies throat swelling, Denies tongue swelling and Reports other (Dentition adequate) Card Reports no additional complaints Resp Reports no additional complaints GI Details: Rectal leakage/fecal incontinence without diarrhea Denies abdominal pain, Denies melena, Denies bloating, Denies hematochezia, Denies constipation, Denies GI cramping, Denies dysphagia, Denies excessive flatus, Denies early satiety, Denies heartburn, Denies diarrhea, Denies nausea, Denies odynophagia, Denies vomiting and Denies hematemesis Skin/Breast Denies pruritus, Denies lesions, Denies rash and Denies jaundice Neuro Reports Normal hearing present and Denies Abnormal speech present Endo Denies fatigue Aller/Immun Denies throat swelling and Denies tongue swelling Physical Exam Vital Signs: Last Vital Signs Pulse 74 05/23/25 11:15 BP 104/60 05/23/25 11:15 Pulse Ox 98 05/23/25 11:15 Oxygen Delivery Method Room Air 05/23/25 11:15 BMI result Body Mass Index 28.9 Const General: cooperative, no acute distress, well developed and well groomed Nutritional Appearance: well nourished and overweight Orientation/consciousness: oriented to person, oriented to place and oriented to time Limitations: No language barrier HEENT Head: Yes normocephalic and Yes atraumatic Eyes General: appearance normal, both eyes and all related structures Pupils: Equal, round and reactive pupils present Neck Neck: Yes normal visual inspection and Yes no lymphadenopathy Thyroid: Thyroid normal Resp Effort & Inspection: normal respiratory effort and able to speak in complete sentences Auscultation: clear to auscultation bilaterally Cardio Rate: regular rate Rhythm: regular rhythm Heart sounds: Normal, physiologic split S2 sound present Peripheral pulses: radial pulses present and posterior tibial pulses present GI Inspection: No distended and No Abdominal panniculus present Palpation (GI): Soft to palpation, nontender, no guarding, not rigid and No hepatosplenomegaly present Percussion: Yes normal to percussion Auscultation: normal bowel sounds Rectal Exam - Female: deferred Skin General skin exam: no rashes or lesions noted, turgor normal, skin not dry, no jaundice, No spider nevi and no striae Rashes: no rashes Nails: normal Neuro General: oriented to person, oriented to place and oriented to time Cranial nerves: Yes Equal, round and reactive pupils present and Yes Normal hearing present Speech: No Abnormal speech present Extrem General: Yes normal to inspection, No clubbing, No cyanosis and No edema Psych Appearance: grossly normal and well kempt Mental Status: mental status grossly normal Speech and movement: Normal speech and movement present Affect: normal affect Attitude: cooperative Thought process: Circumstantial thought process present and not confabulating Thought content: Normal thought content present Insight: Limited insight present (Psych) Judgement: Limited judgement present (Psych) Assessment & Plan Assessment & Plan (1) Fecal incontinence: Code(s): R15.9 - Full incontinence of feces Category: Medical (2) Pelvic floor dysfunction in female: Comment: she has worked [employer] in the past Code(s): M62.89 - Other specified disorders of muscle Category: Medical (3) Hepatic steatosis: Comment: Actually, given unremarkable CAT scan findings, relatively normal transaminases, and no other problems uncover I think that this likely just her normal that very slightly from the average. No further monitoring is needed except for liver function tests by the primary care provider [facility]; 07/06/2508/ 10:4717:1209:21 Estimated GFR > 60 Total Bilirubin 0.2 Direct Bilirubin < 0.2 AST 28 ALT 19 Alkaline Phosphatase 76 Liver Fibrosis Stage F0 Alpha Fetoprotein 2.8 TSH 0.50 VANDANA Screen NEGATIVE Anti-Mitochondrial Ab NEGATIVE Anti-Smooth Muscle Ab <20 Hepatitis A IgM Ab Nonreactive Hep Bs Antigen Negative Hep Bs Antibody REACTIVE Hep B Core Total Ab Nonreactive Hepatitis C Ab (EIA) Nonreactive HIV 1&2 Ab/P24 [address]reactive CT ABDOMEN AND PELVIS 03/2025 Findings: Normal lung bases. Status post cholecystectomy, mild intrahepatic bile duct dilatation, CBD is not dilated. Pancreatic duct is not dilated. Liver, spleen, pancreas, adrenal glands, right kidney, ureters, bladder, reproductive organs are unremarkable. Mild calyceal dilatation and more conspicuous dilatation of the extrarenal pelvis of the left kidney, left ureter is normal in caliber, no urolithiasis is seen. Unremarkable GI tract, normal appendix, status post gastric bypass, no bowel obstruction. Unremarkable vasculature. No adenopathy. No ascites or pneumoperitoneum. Surgical clip noted in the left lower quadrant. No acute osseous abnormality. Code(s): K76.0 - Fatty (change of) liver, not elsewhere classified Category: Medical Plan Subjective Patient presents to review recent liver testing and to discuss bowel control issues. Reports approximately one year of intermittent fecal incontinence characterized by passive leakage without urge, more often with softer stools but sometimes with small formed stool. Denies cramping or abdominal/rectal urge preceding episodes. Notes perianal wetness sensation and has discovered stool on toilet paper when wiping after urination. Identifies that eating salads seems to precipitate looser stools and more leakage. Previously performed pelvic floor exercises and had seen a pelvic slot machine floor person in the past but is not currentl y in therapy. History of heartburn previously treated with famotidine with good effect. Previously saw a pelvic floor therapist; no longer in active therapy. Objective - Liver laboratory studies reviewed today: within normal limits. - Liver imaging reviewed today: normal; no evidence of hepatic damage. Transaminases can be monitored by her primary care provider yearly and if they become greater than twice the upper range of normal then consider return her to our service. Assessment & Plan Fecal incontinence, likely related to pelvic floor dysfunction: Clinical history suggests passive leakage with softer stools and diminished urge awareness, consistent with age-related sphincter/pelvic floor weakness. - Start psyllium husk fiber tablets 2 tablets twice daily; may adjust within 1?2 tablets twice daily based on tolerance and stool form. - If preferred, may use fiber powders such as Metamucil, Benefiber, or Citrucel. - Identify and avoid dietary triggers; trial individual salad components separately to determine culprit ingredient and avoid if provoking loose stools. - Avoid docusate as it may worsen leakage. - Consider re-engagement with pelvic floor physical therapy if symptoms persist after fiber optimization. - Follow up in 8 weeks to reassess response and next steps. Liver laboratory and imaging review: Results are normal; no evidence of hepatic injury or active liver disease. - Reassurance provided. - No additional liver workup indicated at this time. Heartburn/GERD: Previously well controlled with famotidine; patient not currently taking due to lack of supply. - Refill famotidine. Medication reconciliation - Current medications reviewed: carries epinephrine auto-injector; hydroxyzine; sertraline; zolpidem. - Provera discontinued. - Reinforced to avoid docusate given fecal leakage. Medications: New psyllium husk (Daily Fiber) 1.04 grams (2 x 0.52 gram) PO BID 120 caps 6RF M62.89 - Other specified disorders of muscle, R15.9 - Full incontinence of feces Refilled famotidine 40 mg PO BEDTIME 30 tabs 6RF R10.12 - Left upper quadrant pain Coding Level of Care Code Est Pt Level 3 (31854) Diagnoses Fecal incontinence R15.9 Pelvic floor dysfunction in female M62.89 Hepatic steatosis K76.0
[2025-05-23 11:15] VITALS: BP 104/60; PULSE 74; O2SAT 98; BMI 28.9
--- OUTSIDE RECORDS SUMMARY | 2025-05-23 15:54 | XMS_ITS | Encounter Summary ---
Author Organization [employer] Address [address] [place] [address] [address] [place] [address] Care Team Providers Care Dish Washer Name Role Phone Danny Morgan MD Primary Care Provide r Kieran Cross RN Unavailable [phone] Leana Zayas Unavailable Reason for Visit * Reason Comments Med Refill Encounter Details Date Type Department Care Team (Late Contact Info) Description 01/26/2023 Refill [facility] [address] [place] [id number] Danny Morgan MD [address] [place] [address] Social History Tobacco Use Types Packs/Day Years [...] Department Care Team (Late Contact Info) Description 08/01/2025 9:15 AM EST Office Visit [facility] [address] [place] [address] Danny Morgan MD [address] [place] [address] documented as of this encounter Visit Diagnoses Not on filedocumented in this encounter Additional Health Concerns Assessment Noted Time PHQ-9 Depression Total Score: 18 023 1:39 PM EDT documented as of this encounter Care Teams Dish Washer Relationship Specialty Start Date End Date Danny Morgan MD [address] [place] [address] PCP - General Internal Medicine 04/15/14 Kieran Cross RN [address] [place] [id number] Registered Nurse Family Medicine 03/25/25 Leana Zayas 03/25/25 documented as of this encounter
--- OUTSIDE RECORDS SUMMARY | 2025-05-23 15:55 | XMS_ITS | Encounter Summary ---
Author Organization [employer] Address [address] [facility] [address] [place] [address] Care Team Providers Care Internet Researcher Name Role Phone Danny Morgan MD Primary Care Provide r Kieran Cross RN Unavailable [phone] Leana Zayas Unavailable Reason for Visit * Reason Comments Med Refill Encounter Details Date Type Department Care Team (Late st Contact Info) Description 01/30/2024 Refill [facility] [address] [place] [address] Danny Morgan MD [address] [place], [place] [phone] Postsurgical malabsorption, not elsewhere classified Social History [...] Care Team (Late st Contact Info) Description 08/01/2025 9:15 AM EST Office Visit [facility] [address] [place] [phone] Danny Morgan MD [address] [place] [address] documented as of this encounter Visit Diagnoses Diagnosis Postsurgical malabsorption, not elsewhere classified documented in this encounter Additional Health Concerns Assessment Noted Time PHQ-9 Depression Total Score: 19 024 2:06 PM EDT documented as of this encounter Care Teams Internet Researcher Relationship Specialty Start Date End Date Danny Morgan MD [address] [place] [address] PCP - General Internal Medicine 04/15/14 Kieran Cross, HUGO [address] [place] [id number] Registered Nurse Family Medicine 03/25/25 Leana Zayas 03/25/25 documented as of this encounter
--- OUTSIDE RECORDS SUMMARY | 2025-05-23 15:55 | XMS_ITS | Clinical Summary ---
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 [facility] Eosinophils Absolute Auto 0.2 0.0 - 0.4 X10*3/uL [facility] Basophils Absolute Auto 0.1 0.0 - 0.2 X10*3/uL [facility] NRBC Abs Auto 0.000 0.0 - 0.012 X10*3/uL [facility] 03/23/2025 5:12 PM EDT 03/23/2025 5:14 PM EDT us Generic External Data Provider LAB BLOOD ORDERAB LES Final Result [facility] [address] [place] [address] [phone] * hCG, Total, Quantitative (03/23/2025 5:12 PM EDT) Pathologist [facility] [place] HCG Quantitative <2 mIU/mL [facility] Comment:Weeks post LMP Appro ximate hCG(Last Menstrual Period) Range (mIU/ml)3 - 4 weeks 9 - 1304 - 5 weeks 75 - 2,6005 - 6 weeks 850 - 20,8006 - 7 weeks 4000 - 100,2007 - 12 weeks 11,500 - 289,23103 - 16 weeks 18,300 - 137,03680 - 29 weeks (2nd trimester) 1,400 - 53,74376 - 41 weeks (3rd trimester) 940 - [...] ORDERAB LES Final Result Performing Organization Address City/[facility]/ZIP Co de Phone Number [facility] [address] [place] [phone] * Magnesium (03/23/2025 5:12 PM EDT) Magnesium 2.3 1.6 - 2.6 mg/dL [facility] 03/23/2025 5:12 PM EDT 03/23/2025 5:14 PM EDT Generic External Data Provider LAB BLOOD ORDERAB LES Final Result Performing Organization Address City/[facility]/ZIP Co de Phone Number [facility] [address] [place] [address] [phone] * Lipase (03/23/2025 5:12 PM EDT) Lipase 16 8 - 78 U/L [facility] 03/23/2025 5:12 PM EDT 03/23/2025 5:14 PM EDT us Generic External Data Provider LAB BLOOD ORDERAB LES Final Result Performing Organization Address [facility]/ZIP Co de Phone Number [facility] [address] [place] [phone] * Hepatic Function Panel (03/23/2025 5:12 PM EDT) [facility] Bilirubin, Total 0.2 0.0 - 1.0 mg/dL [facility] Bilirubin, Direct <0.2 0.0 - 0.5 mg/dL [facility] Aspartate Amino Transferase 28 5 - 31 U/L [facility] Alanine Aminotransferase 19 0 - 31 U/L [facility] Total Protein 7.5 6.5 - 8.0 g/dL [facility] Albumin Level 4.6 3.5 - 5.0 g/dL [facility] Alkaline Phosphatase 76 39 - 117 U/L [facility] 03/23/2025 5:12 PM EDT 03/23/2025 5:14 PM EDT Generic External Data Provider LAB BLOOD ORDERAB LES Final Result Performing Organization Address [facility]/RUST de Phone Number [facility] [address] [place] [phone] * (ABNORMAL) Basic Metabolic Panel (03/23/2025 5:12 PM EDT) [facility] Sodium 140 135 - 145 mmol/L [facility] Potassium 4.3 3.3 - 5.1 mmol/L [facility] Chloride 110(H) 96 - 108 mmol/L [facility] Carbon Dioxide 25 22 - 29 mmol/L [facility] Anion Gap 9(L) 12 - 20 [facility] Urea Nitrogen (BUN) 7(L) 9 - 16 mg/dL [facility] Creatinine, Serum 0.74 0.5 - 1.4 mg/dL [facility] Creatinine Clr Calc Pharmacy 89.1 [facility] Comment:Provided height and weight: 157.48 cm,71.8 kg.eGFR (calculated from the MDRD study equation) and eCrCl(calculated from the Cockcroft-Gault equation) are based ondifferent parameters and may not yield comparable results.If eCrCl result is absurd, please check patient'sheight/weight. Estimated Glomerular Filt Rate >60 [facility] Comment:Chronic Kidney Disea se: Estimated GFR < 60 mL/min/1.05v2Ulsexc Kidney Disease: Estimated GFR < 15 mL/min/1.73m2 Glucose 97 60 - 115 mg/dL [facility] Calcium 9.8 8.4 - 10.2 mg/dL [facility] 03/23/2025 5:1 2 PM EDT 03/23/2025 5:14 PM EDT us Generic External Data Provider LAB BLOOD ORDERAB LES Final Result Performing Organization Address City/State/[facility] Co de Phone Number [facility] [address] [place] [phone] * BI Mammogram Screening Tomosynthesis Bilateral (11/16/2024 8:15 AM EDT) Anatomical Region Laterality Modality Breast Bilateral Mammography 11/16/2024 8:15 AM EDT Narrative 11/24/2024 10:35 AM EDT [facility] [address] [place] [address] Mammography Report Signed Patient: Yonathan Morris MR#: [id number] : 1980 Acct:[id number] Age/Sex: 44 / F ADM Date: 11/16/24 Loc: YI Attending Dr: Danny Briceño MD Ordering Physician: Danny Briceño MD Resu lts: 1Negative Date of Service: 11/16/24 Follow Up: 1 Year From Orig inal Mammogram Procedure(s): MM tomosynthesis screening BI Accession Number(s): [id number] cc: Danny Briceño MD EXAMINATION: MM SCREENING [...] Trinity Rivas DO 11/24/2024 10:32 AM EDT RP Dictated By: Trinity Rivas DO Signed By: <Electronically signed by Trinity Rivas DO in OV> 11/24/24 1032 DD/ 0815 TD/TT: 11/16/24 0831 Manufacturing Inspector: Procedure Note Donotuseinterpreter, Image - 11/24/2024 [facility] [address] [place] [address] Mammography Report Signed Patient: Yonathan Morris [facility]#: [id number] : 1980Acct:[id number] Age/Sex: 44 / FADM Date: 11/16/24 Loc: HO.MAMMO Attending Dr: Danny Briceño MD Ordering Physician: Danny Briceño MDResu lts: 1Negative Date of Service: 11/16/24Follow Up: 1 Year From Orig inal Mammogram Procedure(s): MM tomosynthesis screening BI Accession Number(s): [id number] cc: Danny Briceño MD EXAMINATION: MM SCREENING [...] Trinity Rivas DO 11/24/2024 10:32 AM EDT RP Dictated By: Trinity Rivas DO Signed By: <Electronically signed by Trinity Rivas DO in OV> 11/24/24 1032 DD/ 0815 TD/TT: 11/16/24 0831 Manufacturing Inspector: us Danny Arroyo MD IMG BI PROCEDURES Fin al Result * [facility] Imaging Pap and HPV mRNA E6/E7 with Reflex to HPV 16,18/45 (02/20/2024 11:10 AM EDT) HPV [address] [facility] HPV 18/45 RNA [facility] HPV nRNA E6/E7 Not Detected Not Detected [facility] Comment:Methodology: Transcr iption-Mediated AmplificationThis assay detects E6/E7 viral messenger RNA (mRNA) from 14high-risk HPV types (16,18,31,33,35,39,45,51,52,56,58,59,66,68).Cervical sources are required for HPV testing.If a vaginal source from a patient who has had atotal hysterectomy with removal of cervix wassubmitted, please contact the testing laboratoryfor alternative testing options.For additional information, please refer [email or web address](This link if provided for information/educational purposes only.)THIS TEST WAS PERFORMED AT:[employer] [address] [phone] RAO MD SOURCE: SEE NOTE [facility] Comment:None given Report Status: [facility] Clinical Information: SEE NOTE [facility] Comment:None given LMP: SEE NOTE [facility] Comment:NONE GIVEN Prev. PAP: SEE NOTE [facility] Comment:NONE GIVEN Prev. BX: SEE NOTE [facility] Comment:NONE GIVEN Statement Of Adequacy: SEE NOTE [facility] Comment:Satisfactory for luis miguel luation.Endocervical/transformation zone componentpresent. General Categorization: [facility] Interpretation/Result: SEE NOTE [facility] Comment:Cytology Results: Ne gative for intraepitheliallesion or malignancy. Cytology Comment SEE NOTE [facility] Comment:This Pap test has be en evaluated with computerassisted technology. Gunnery/Ordnance Officer: SEE NOTE [facility] Comment:RPR, CT (ASCP) CT sc reening location: [address] [address] Review Gunnery/Ordnance Officer: SEE NOTE [facility] Comment:WAC, CT(ASCP)CT scre ening location: [address] [address] [address] [facility] PAP Infection SEE NOTE [facility] Comment:Shift in vaginal vonnie ra suggestive of bacterialvaginosis. See Note SEE NOTE [facility] Comment:EXPLANATORY NOTE:The Pap is [...] AM EDT 02/20/2024 3:15 PM EDT Narrative [facility] - 02/24/2024 10:56 AM EDT SEE SCANNED RESULTS IN EMR us Generic External Data Provider LAB PATHOLOGY ORD ERABLES Final Result [facility] [address] [place] [phone] [phone] from Last 3 Months or Most Recently Relevant to Health Maintenance Insurance [employer] Care Teams Earth Observ[employer] Chief Scientist Relationship Specialty Start Date End Date Danny Morgan MD [address] [place] [address] PCP - General Internal Medicine 04/15/14 Kieran Cross RN [address] [place] [phone] Registered Nurse Family Medicine 03/25/25 Leana Zayas 03/25/25
--- OUTSIDE RECORDS SUMMARY | 2025-05-23 15:55 | XMS_ITS | Patient Health Record ---
Author Organization [employer] [facility] Address [address] [place] [address] Care Team Providers Care Networks Software Consultant Name Role Phone Jessica Thomas MD Primary Care Provider Unavail able Daniel Jones Unavailable [phone] Bisi Hutchisn Unavailable Unavailable Allergies Allergen (clinical drug ingredient) Drug/Non Drug Allergy documented on EMR Reaction Allergy Type Onset Date Status shrimp,peas,peached, ap ples (uncoded) Unknown Allergy Active Motrin Unknown Drug Allergy Active Reason For Referral No Information Medications Medication SIG (Take, Route, Frequency, Duration) Notes Start Date End Date Status Amitriptyline HCl Ac tive Vitamin B-12 1000 MCG 1000 mcg IM monthly Active Omeprazole 20 MG Capsule Delayed Release 1 capsule Orally Once a day Active Bupropion & Diet Manage Prod Active Lidocaine HCl Active Dicyclomine HCl 10 MG Capsule 1-2 capsules Orally QID prn abdominal cramps, bloating, diarrhea; Duration: 30 Active Loratadine Active Social History Social History Additional Details Category Social Info Options Details Miscellaneous: Marital status: Occupation: home Section Notes: Nonsmoker; no alcohol Problems Problem Type SNOMED Code ICD Code Onset Dates Problem Status W/U Status Risk Notes Problem Gastroesophageal reflux disease (944096755) GERD (gastroesophag eal reflux disease) (530.81) Active confirmed Problem Iron deficiency anemia (69967314) Anemia, iron deficiency (280.9) Active confirmed Plan Of Treatment Future Test Test Name Order Date UPPER GI ENDOSCOPY 03/28/2014 Insurance Providers Payer Name Payer Address Payer Phone Subscriber Number Group Number Insured Name Patient Relationship to Insured Coverage Start Date Coverage End Date [facility] [address] [address] [place], [place] [phone] [id number] PARR MACIELS Self - patient is the insured MEDICAID OF [facility] [address] [place] [address] [phone] [id number] CHELSEY PARR Self - patient is the insured Medical (General) History Medical History History ICD Code Denies AR,DM,CVA,Lung disease,renal dise ase Fibromyalgia Depression Asthma-inhaler prn Anemia-Iron and B12 deficien cy--followed by Dr. 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 Mcgraw--lost > 100# Abdominoplasty Cholecystectomy 2008 tubal ligation
--- OUTSIDE RECORDS SUMMARY | 2025-05-23 15:55 | XMS_ITS | Encounter Summary ---
Author Organization [facility] [facility] Address [address] [facility] 7t [place] [address] Care Team Providers Care Hog Ribber Name Role Phone Danny Morgan MD Primary Care Provide r Kieran Cross RN Unavailable [phone] Leana Zayas Unavailable Reason for Visit * Reason Onset Date Comments Results 04/02/2025 Encounter Details Date Type Department Care Team (Late st Contact Info) Description 04/02/2025 Results Follow-Up [facility] [address] [place] [address] Danny Morgan MD [address] [place] [address] XR Hip 2 or 3 Views Left, MR Lumbar Spine w/o Contrast Social History Tobacco Use Types Packs/Day Years [...] encounter Miscellaneous Notes * Telephone Encounter - Olga Oneal RN - 04/12/2025 11:30 AM EDT TC placed to the pt to advise of MR Lumbar Spine results that showed only minimal degenerative changes. The pt was agreeable to the results but would like to know what the plan is going forward as she rates her pain as constant around an 8/10. The pt would be agreeable to either a referral out to aspecialist, PT or medication. Pt advised that this message will be forwarded to PCP for review and advisement. ----- Message from Danny Arroyo MD sent at 04/11/2025 4:45 PM EDT ----- Please let patient know her MRI showed: Minimal degenerative changes only ----- Message ----- From: Tawanda, Ris Results In Sent: 04/11/2025 7:29 AM EDT To: Danny Arroyo MD * Result Encounter Note - Danny Arroyo MD - 04/11/2025 4:45 PM EDT Please let patient know her MRI showed: Minimal degenerative changes only * Result Encounter Note - Danny Arroyo MD - 04/02/2025 4:11 PM EDT Please let patient know her hip x-ray was unremarkable documented in this encounter Plan of Treatment Upcoming Encounters Date Type Department Care Team (Late st Contact Info) Description 08/01/2025 9:15 AM EST Office Visit [facility] [address] [place] [address] Danny Morgan MD [address] [place] [address] documented as of this encounter Visit Diagnoses Not on filedocumented in this encounter Additional Health Concerns Assessment Noted Time PHQ-9 Depression Total Score: 1 03/28/20 2:25 PM EDT documented as of this encounter Care Teams Hog Ribber Relationship Specialty Start Date End Date Danny Morgan MD [address] [place] [address] PCP - General Internal Medicine 04/15/14 Kieran Cross, HUGO [address] [place] [phone] Registered Nurse Family Medicine 03/25/25 Leana Zayas 03/25/25 documented as of this encounter
--- OUTSIDE RECORDS SUMMARY | 2025-05-23 15:55 | XMS_ITS | Encounter Summary ---
Author Organization [employer] Address [address] [facility] [address] [place] [address] Care Team Providers Care Aboriginal Home [employer] Liaison Officer Name Role Phone Danny Morgan MD Primary Care Provide r Kieran Cross RN Unavailable [phone] Leana Zayas Unavailable Encounter Details Date Type Department Care Team (Late st Contact Info) Description 05/18/2023 Orders Only [facility] [address] [place] [address] Nakul Rojas MD [address] [place] [address] Abnormal mammogram of right breast (Primary Dx) [...] Description 08/01/2025 9:15 AM EST Office Visit [facility] [address] [place] [address] [phone] Danny Morgan MD [address] [place] [address] documented as of this encounter Procedures Procedure Name Priority Date/Time Associated Diagnosis Comments B TYPE NATRIURETIC PEPTIDE (BNP) Routine 07/20/2023 9:42 AM EST Abnormal mammogram of right breast documented in this encounter Results * B Type Natriuretic Peptide (BNP) (07/20/2023 9:42 AM EST) B Type Natriuretic Peptide 17 <100 pg/mL [facility] Comment:For those patients w ho are being treated with Natrecor(nesiritide, recombinant BNP), BNP testing should beperformed at least two hours post treatment in order toensure that only endogenous levels of BNP are detected. Blood Venous blood specimen / Unknown 07/20/2023 9:42 AM EST 07/20/2023 9:42 AM EST us Nakul Rojas MD LAB BLOOD ORDERABLES Final Resul t [facility] [address] [place] [address] [place] [phone] documented in this encounter Visit Diagnoses Diagnosis Abnormal mammogram of right breast- Primary documented in this encounter Additional Health Concerns Assessment Noted Time PHQ-9 Depression Total Score: 19 023 12:52 PM EDT documented as of this encounter Care Teams [employer] Liaison Officer Relationship Specialty Start Date End Date Danny Morgan MD [address] [place] [address] PCP - General Internal Medicine 04/15/14 Kieran Cross RN [address] [place] [phone] Registered Nurse Family Medicine 03/25/25 Leana Zayas 03/25/25 documented as of this encounter
--- OUTSIDE RECORDS SUMMARY | 2025-05-23 15:55 | XMS_ITS | Encounter Summary ---
Author Organization [employer] Address [address] [facility] 7t [place] [address] Care Team Providers Care Sugar Mixer Name Role Phone Danny Morgan MD Primary Care Provide r Kieran Cross RN Unavailable [phone] Leana Zayas Unavailable Reason for Visit * Reason Comments Med Change Request Encounter Details Date Type Department Care Team ([facility] st Contact Info) Description 01/05/2023 Refill [facility] [address] [place] [address] Danny Morgan MD [address] [place] [address] Social History Tobacco Use Types Packs/Day Years [...] 01/06/2023 9:07 AM Ani Darnell [place] * How difficult have these problems made it for you to do your work, take care of things at home, or get along with other people? Answer Date of Assessment Author Somewhat difficult 01/06/2023 9:07 AM Aline Bautista [place] * Over the past 2 weeks, [...] Description 08/01/2025 9:15 AM EST Office Visit [facility] [address] [place] [address] Danny Morgan MD [address] [place], [place] [phone] documented as of this encounter Visit Diagnoses Not on filedocumented in this encounter Additional Health Concerns Assessment Noted Time PHQ-9 Depression Total Score: 16 023 4:00 PM EDT documented as of this encounter Care Teams Sugar Mixer Relationship Specialty Start Date End Date Danny Morgan MD [address] [place] [address] PCP - General Internal Medicine 04/15/14 Kieran Cross RN [address] [place] [phone] Registered Nurse Family Medicine 03/25/25 Leana Zayas 03/25/25 documented as of this encounter
--- OUTSIDE RECORDS SUMMARY | 2025-05-23 15:56 | XMS_ITS | Encounter Summary ---
Author Organization [employer] Address [address] [facility] [address] [place] [address] Care Team Providers Care Billiard Table Repairer Name Role Phone Danny Morgan MD Primary Care Provide r Kieran Cross RN Unavailable [phone] Leana Zayas Unavailable Reason for Visit * Reason Onset Date Comments Nurse Triage 03/28/2023 Encounter Details Date Type Department Care Team ([facility] st Contact Info) Description 03/28/2023 Telephone [facility] [address] [place] [address] Danny Morgan MD [address] [place], [place] [phone] Nurse Triage Social History Tobacco Use Types [...] Pt agrees. Advised Pt to come to [facility] today and be seen by provider [...] become worse * Telephone Encounter - Brooke Fnuk - 03/28/2023 9:53 AM EDT Symptom: Urination Pain and stomach pain Outcome: Schedule a same-day appointment or talk to a nurse or provider today Reason: sharp pain The caller accepted this outcome documented in this encounter Plan of Treatment Upcoming Encounters Date Type Department Care Team (Late st Contact Info) Description 08/01/2025 9:15 AM EST Office Visit [facility] [address] [place] [address] Danny Morgan MD [address] [place] [address] documented as of this encounter Visit Diagnoses Not on filedocumented in this encounter Additional Health Concerns Assessment Noted Time PHQ-9 Depression Total Score: 17 023 4:19 PM EDT documented as of this encounter Care Teams Billiard Table Repairer Relationship Specialty Start Date End Date Danny Morgan MD [address] [place] [address] PCP - General Internal Medicine 04/15/14 Kieran Cross RN [address] [place] [phone] Registered Nurse Family Medicine 03/25/25 Leana Zayas 03/25/25 documented as of this encounter
--- OUTSIDE RECORDS SUMMARY | 2025-05-23 15:56 | XMS_ITS | Encounter Summary ---
Author Organization [employer] Address [address] [facility] [address] [place] [address] Care Team Providers Care Banquet Steward Name Role Phone Danny Morgan MD Primary Care Provide r Kieran Cross RN Unavailable [phone] Leana Zayas Unavailable Reason for Visit * Reason Comments Med Refill Encounter Details Date Type Department Care Team ([facility] st Contact Info) Description 06/26/2024 Refill [facility] [address] [place] [address] Nakul Rojas MD [address] [place] [address] Uncomplicated opioid dependence (CMS/HCC) Social History Tobacco [...] Description 08/01/2025 9:15 AM EST Office Visit [facility] [address] [place] [address] Danny Morgan MD [address] [place] [address] documented as of this encounter Visit Diagnoses Diagnosis Uncomplicated opioid dependence (CMS/HCC) (HCC) documented in this encounter Additional Health Concerns Assessment Noted Time PHQ-9 Depression Total Score: 19 024 2:06 PM EDT documented as of this encounter Care Teams Banquet Steward Relationship Specialty Start Date End Date Danny Morgan MD [address] [place] [address] PCP - General Internal Medicine 04/15/14 Kieran Cross RN [address] [place] [phone] Registered Nurse Family Medicine 03/25/25 Leana Zayas 03/25/25 documented as of this encounter
--- OUTSIDE RECORDS SUMMARY | 2025-05-23 15:56 | XMS_ITS | Encounter Summary ---
Author Organization [employer] Address [address] [facility] 7t [place] [address] Care Team Providers Care International Freight Forwarder Name Role Phone Danny Morgan MD Primary Care Provide r Kieran Cross RN Unavailable [phone] Leana Zayas Unavailable Encounter Details Date Type Department Care Team (Late st Contact Info) Description 03/15/2023 Orders Only [facility] [address] [place] [address] Nakul Rojas MD [address] [place] [address] Social History Tobacco Use Types Packs/Day Years [...] 03/04 4:19 PM EDT Dorina Pandya * How difficult have these problems made it for you to do your work, take care of things at home, or get along with other people? Answer Date of Assessment Author Very difficult 03/15/2023 4:19 PM EDT Alina Pandya * Over the last 2 weeks, [...] Description 08/01/2025 9:15 AM EST Office Visit [facility] [address] [place] [address] Danny Morgan MD [address] [place] [address] documented as of this encounter Visit Diagnoses Not on filedocumented in this encounter Additional Health Concerns Assessment Noted Time PHQ-9 Depression Total Score: 17 023 4:19 PM EDT documented as of this encounter Care Teams International Freight Forwarder Relationship Specialty Start Date End Date Danny Morgan MD [address] [place] [address] PCP - General Internal Medicine 04/15/14 Kieran Cross, HUGO [address] [place] [address] Registered Nurse Family Medicine 03/25/25 Leana Zayas 03/25/25 documented as of this encounter
--- OUTSIDE RECORDS SUMMARY | 2025-05-23 15:56 | XMS_ITS | Encounter Summary ---
Author Organization [employer] Address [address] [place] [address] 7t [place] [address] Care Team Providers Care Stencil Printer Name Role Phone Danny Morgan MD Primary Care Provide r Kieran Cross RN Unavailable [phone] Leana Zayas Unavailable Encounter Details Date Type Department Care Team (Late st Contact Info) Description 04/06/2023 Abstract [facility] [address] [place], [place] [phone] Shereen Hardy Social History Tobacco Use Types [...] Description 08/01/2025 9:15 AM EST Office Visit [facility] [address] [place], [place] [phone] Danny Morgan MD [address], [place] [phone] documented as of this encounter Visit Diagnoses Not on filedocumented in this encounter Additional Health Concerns Assessment Noted Time PHQ-9 Depression Total Score: 17 023 4:19 PM EDT documented as of this encounter Care Teams Stencil Printer Relationship Specialty Start Date End Date Danny Morgan MD [address] [place] [address] PCP - General Internal Medicine 04/15/14 Kieran Cross RN [address] [place] [address] Registered Nurse Family Medicine 03/25/25 Leana Zayas 03/25/25 documented as of this encounter
--- OUTSIDE RECORDS SUMMARY | 2025-05-23 15:56 | XMS_ITS | Encounter Summary ---
Author Organization [employer] Address [address] [place] [address] 7t [place] [address] Care Team Providers Care Emergency Vehicle Operator Name Role Phone Danny Morgan MD Primary Care Provide r Kieran Cross RN Unavailable [phone] Leana Zayas Unavailable Encounter Details Date Type Department Care Team (Late st Contact Info) Description 06/14/2022 Abstract [facility] [address] [place] [address] [phone] Danny Morgan MD [address] [place] [address] [phone] Social History Tobacco Use Types Packs/Day Years [...] Office Visit [facility] [address] [place] [address] [phone] Danny Morgan MD [address] [place], [place] [phone] documented as of this encounter Procedures Procedure Name Priority Date/Time Associated Diagnosis Comments PAP/HPV Routine 08/12/2020 documented in this encounter Results * Pap Smear (08/12/2020) Pap smear NIL HPV mRNA E6/E7 Not detected Historical Provider HEALTH MAINTENANCE Final Result documented in this encounter Visit Diagnoses Not on filedocumented in this encounter Care Teams Emergency Vehicle Operator Relationship Specialty Start Date End Date Danny Morgan MD [address] [place] [address] PCP - General Internal Medicine 04/15/14 Kieran Cross RN [address] [place] [address] Registered Nurse Family Medicine 03/25/25 Leana Zayas 03/25/25 documented as of this encounter
--- OUTSIDE RECORDS SUMMARY | 2025-05-23 15:56 | XMS_ITS | Encounter Summary ---
Author Organization [employer] Address 75 [facility] 7 [place] [address] Care Team Providers Care Drupal Developer Name Role Phone Danny Morgan MD Primary Care Provide r Kieran Cross RN Unavailable [phone] Leana Zayas Unavailable Reason for Visit * Reason Comments Med Refill Encounter Details Date Type Department Care Team ([facility] st Contact Info) Description 06/01/2023 Refill [facility] [address] [place] [address] Nakul Rojas MD [address] [place] [address] Uncomplicated opioid dependence (CMS/HCC) Social History Tobacco [...] Description 08/01/2025 9:15 AM EST Office Visit [facility] [address] [place] [address] Danny Morgan MD [address] [place] [address] documented as of this encounter Visit Diagnoses Diagnosis Uncomplicated opioid dependence (CMS/HCC) (HCC) documented in this encounter Additional Health Concerns Assessment Noted Time PHQ-9 Depression Total Score: 19 023 12:52 PM EDT documented as of this encounter Care Teams Drupal Developer Relationship Specialty Start Date End Date Danny Morgan MD [address] [place] [address] PCP - General Internal Medicine 04/15/14 Kieran Cross RN [address] [place] [address] Registered Nurse Family Medicine 03/25/25 Leana Zayas 03/25/25 documented as of this encounter
--- OUTSIDE RECORDS SUMMARY | 2025-05-23 15:57 | XMS_ITS ---
Author Organization [employer] Address [address] [facility] 7 [place] [address] Care Team Providers Care Senior Speech Pathologist Name Role Phone Danny Morgan MD Primary Care Provide r Kieran Cross RN Unavailable [phone] Leana Zayas Unavailable CM Complex Status:Enrolled (Active) Start date:03/25/2025 Enrollment date:04/09/2025 Enrollment reason:ADT Feed Overview ED- Pt went to [facility] ED on 03/23/25. Case Team Name Relationship Phone Kirean Cross RN(Responsible Staff) Registered Nurse [phone] Continued Care and Services Coordination
--- OUTSIDE RECORDS SUMMARY | 2025-05-23 15:57 | XMS_ITS ---
Author Organization [employer] Address [address] [place] [address] 7 [place] [address] Care Team Providers Care Heavy Equipment Technician Name Role Phone Danny Morgan MD Primary Care Provide r Kieran Cross RN Unavailable [phone] Leana Zayas Unavailable CHW Complex Status:Enrolled (Active) Start date:03/25/2025 Enrollment date:04/15/2025 Enrollment reason:ADT Feed Overview ED- Pt went to [facility] ED on 03/23/25. Please outreach for enrollment. Case Team Name Relationship Phone Leana Zayas(Responsible Staff) [phone] Continued Care and Services Coordination
== END 2025-05-23 11:58 | disposition home or self-care (01) ==
LOC: HO.HGI 10:40
PROVIDERS: PCP Internal Medicine; Visit Provider Nurse Practitioner
DX: R15.9 Full incontinence of feces (principal); M62.89 Other specified disorders of muscle; K76.0 Fatty (change of) liver, not elsewhere classified
CPT/HCPCS: 99213

== ENCOUNTER → 2025-05-23 10:40 | Outpatient (BNVA) | payer MEDICAID, SELFPAY | PROVIDERS: PCP Internal Medicine; Visit Provider Nurse Practitioner | DX: K76.0 Fatty (change of) liver, not elsewhere classified (principal); M62.89 Other specified disorders of muscle; R15.9 Full incontinence of feces | CPT/HCPCS: 99212 ==

== ENCOUNTER → 2025-06-13 11:21 | Outpatient (REF) | payer MEDICAID, SELFPAY ==
--- NOTE | ~2025-06-13 | NM_ITS ---
EXAMINATION: NM KIDNEY FLOW FUNCTION WITH RX HISTORY: R10.9 - Unspecified abdominal pain. TECHNIQUE: A renogram and renal scan were performed following intravenous administration of 9.2 mCi technetium 99m-DTPA. The patient received 36 mg IV Lasix approximately 30 minutes after injection of the radiopharmaceutical. COMPARISON: Correlation is made with a CT of the abdomen with contrast dated 03/23/2025. FINDINGS: There is normal symmetric blood flow to both kidneys. There is symmetric cortical uptake bilaterally. The estimated split uptake is 56.4% on the left and 43.6% on the right. There is symmetric excretion bilaterally. There is retention of activity in a dilated left renal pelvis, with washout after Lasix administration. The estimated half life of excretion is 18.3 minutes on the left and 34.2 minutes on the right. NM/NM renal flow w pharm int IMPRESSION: Findings consistent with a dilated left renal collecting system with normal washout after Lasix administration. No evidence of calculi, obstruction. Electronically signed by: Daniel Morales MD 06/13/2025 01:10 PM [facility]
== END ==
LOC: HO.NUCMED 11:21
PROVIDERS: PCP Internal Medicine; Visit Provider Urology
DX: N13.5 Crossing vessel and stricture of ureter without hydronephrosis (principal); R10.9 Unspecified abdominal pain
CPT/HCPCS: 78708; A9539; J1938

== ENCOUNTER → 2025-06-13 11:23 | Outpatient (BNV) | payer MEDICAID, SELFPAY | PROVIDERS: PCP Internal Medicine; Visit Provider Radiology Diagnostic Radiology | DX: R10.9 Unspecified abdominal pain (principal) | CPT/HCPCS: 78708 ==

== ENCOUNTER 2025-06-24 13:58 | Outpatient (AMB) | payer MEDICAID, SELFPAY ==
--- NOTE | 2025-06-24 14:21 | A.OFFVIS_ITS ---
Intake Visit Reasons: 5w/Lasix Renogram (set)UA) Intake Note: Patient is present for 5W/LASIX RENOGRAM Urology Medication:NONE Antibiotic Allergy:NONE Blood Thinner:NONE Credit And Collections Representative Required: No Allergies ibuprofen (From Motrin) Allergy (Severe, Verified 06/24/25 14:22) WHEEZING, TONGUE SWELLING, INCREASE SOB shrimp Allergy (Severe, Verified 06/24/25 14:22) ANAPHYLAXIS almond Allergy (Mild, Verified 06/24/25 14:22) RASH Pork/Porcine Containing Products Allergy (Mild, Verified 06/24/25 14:22) RASH HPI Comments Details: 06/24/2025--Allison is here in follow-up after Lasix renal scan. 05/20/2025--/Renetta's the patient presents with you evaluation she was in the emergency room on 03/2025 for left flank pain. A CT scan done at that time noted some narrowing of sees UPJ with some fullness of the renal pelvis. History of Present Illness The patient is a 44-year-old female presenting with left flank pain. She was evaluated in the emergency room on March 23, 2025, for this pain, where a CT scan indicated narrowing at the ureteropelvic junction with fullness of the renal pelvis, suggesting a possible obstruction. The pain has persisted since the emergency room visit, with no change in severity. The patient has not used any narcotic pain relief but has been using Tylenol. The patient was advised to reduce caffeine and alcohol intake as these can exacerbate symptoms due to their diuretic effects. Results - CT scan with IV contrast: Narrowing at the ureteropelvic junction with fullness of the renal pelvis, good renal parenchema bilaterally. Plan Left Ureteropelvic Junction Obstruction - Plan to perform a Lasix renal scan to assess the degree of obstruction. - Consideration of temporary stent placement if significant obstruction is confirmed. - Patient advised to reduce caffeine and alcohol intake to alleviate symptoms. - Follow-up planned post renal scan to determine further management. [facility] Medical History Transaminitis Numbness of left foot LUQ abdominal pain Left knee pain Low back pain Bilateral hip pain Pelvic pain Bacterial vaginosis Screening for STD (sexually transmitted disease) Well woman exam B12 deficiency Cervical intraepithelial neoplasia grade 1 Iron deficiency anemia Opioid use disorder Arthritis Asthma Fibromyalgia Surgical History History of esophagogastroduodenoscopy (EGD) H/O colonoscopy History of cholecystectomy H/O abdominoplasty H/O gastric bypass History of loop electrical excision procedure (LEEP) Hx of wisdom tooth extraction Hx of tonsillectomy Hx of tubal ligation Family History Maternal Aunt Uterine cancer Social History Household Members: Spouse Household Members Other:: son Housing: Apartment Are you a primary pet caretaker to a significant other at home: No Do you presently have visiting nurse or other home services: No Alcohol intake: never Patient Tobacco Use Status: Former Tobacco user Tobacco use type: Cigarette Cigarettes Per Day: 5 Years Smoked: 15 Substance Use Type: Other 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al status: employed 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 Sexual orientation: Straight/Heterosexual Gender identity: Female Female Reproductive History Menstrual Age of Menarche: 8 Review of Systems Const All systems reviewed & are unremarkable except as noted in HPI and below Reports no additional complaints Eyes Reports no additional complaints ENT Reports no additional complaints Card Reports no additional complaints Resp Reports no additional complaints GI Reports no additional complaints Reports as per HPI Musc Reports no additional complaints Skin/Breast Reports system reviewed and no additional complaints, except as documented Neuro Reports no additional complaints Psych Reports no additional complaints Endo Reports no additional complaints Tyshawn/Lymph Reports no additional complaints Aller/Immun Reports no additional complaints Results AMB Urinalysis, Automated UA Leukoctes 0 Cha/uL Last Edit by CIRILO Kapoor on 06/24/25 14:57 UA Nitrite Negative Last Edit by CIRILO Kapoor on 06/24/25 14:57 UA Urobilinogen 0.2 mg/dL Last Edit by CIRILO Kapoor on 06/24/25 14:5 7 UA Protein 15 mg/dL Last Edit by CIRILO Kapoor on 06/24/25 14:57 UA pH 6.0 Last Edit by CIRILO Kapoor on 06/24/25 14:57 UA Blood 0 Alexander/uL Last Edit by CIRILO Kapoor on 06/24/25 14:57 UA Specific [place] 1.025 Last Edit by CIRILO Kapoor on 06/24/25 14: 57 UA Ketone Negative Last Edit by CIRILO Kapoor on 06/24/25 14:57 UA Bilirubin 0 mg/dL Last Edit by CIRILO Kapoor on 06/24/25 14:57 UA Glucose 0 mg/dL Last Edit by CIRILO Kapoor on 06/24/25 14:57 Results Reviewed Results Reviewed: Date of Service: 06/13/25 EXAMINATION: NM KIDNEY FLOW FUNCTION WITH RX HISTORY: R10.9 - Unspecified abdominal pain. TECHNIQUE: A renogram and renal scan were performed following intravenous administration of 9.2 mCi technetium 99m-DTPA. The patient received 36 mg IV Lasix approximately 30 minutes after injection of the radiopharmaceutical. COMPARISON: Correlation is made with a CT of the abdomen with contrast dated 03/23/2025. FINDINGS: There is normal symmetric blood flow to both kidneys. There is symmetric cortical uptake bilaterally. The estimated split uptake is 56.4% on the left and 43.6% on the right. There is symmetric excretion bilaterally. There is retention of activity in a dilated left renal pelvis, with washout after Lasix administration. The estimated half life of excretion is 18.3 minutes on the left and 34.2 minutes on the right. IMPRESSION: Findings consistent with a dilated left renal collecting system with normal washout after Lasix administration. No evidence of calculi, obstruction. Date of Service: 03/23/25 CLINICAL HISTORY: LLQ pain history of zeynep bypass, choley Exam: CT abdomen and pelvis with IV contrast Comparison: US/ID/SR - US PELVIS TRANSABDOMINAL AND TRANSVAGINAL - 02/29/24 10:52 EDT US/ID/SR - US ABDOMEN - 09/09/23 09:34 EST Findings: Normal lung bases. Status post cholecystectomy, mild intrahepatic bile duct dilatation, CBD is not dilated. Pancreatic duct is not dilated. Liver, spleen, pancreas, adrenal glands, right kidney, ureters, bladder, reproductive organs are unremarkable. Mild calyceal dilatation and more conspicuous dilatation of the extrarenal pelvis of the left kidney, left ureter is normal in caliber, no urolithiasis is seen. Unremarkable GI tract, normal appendix, status post gastric bypass, no bowel obstruction. Unremarkable vasculature. No adenopathy. No ascites or pneumoperitoneum. Surgical clip noted in the left lower quadrant. No acute osseous abnormality. Impression: 1. 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 No urolithiasis. 2. Status post cholecystectomy, mild intrahepatic bile duct dilatation is non-specific, recommend correlate with LFT. 3. Status post gastric bypass, no bowel obstruction. Assessment & Plan Assessment & Plan (1) Left flank pain: Code(s): R10.9 - Unspecified abdominal pain Category: Medical (2) Hydronephrosis, left: Code(s): N13.30 - Unspecified hydronephrosis Category: Medical Orders: Orders AMB Urinalysis Automated Today Z13.9 - Encounter for screening, unspecified Coding Diagnoses Left flank pain R10.9 Hydronephrosis, left N13.30
--- OUTSIDE RECORDS SUMMARY | 2025-06-24 17:28 | XMS_ITS | Encounter Summary ---
Author Organization [employer] Address [address] [place] [address] 7t [place] [address] Care Team Providers Care Practice Lead Name Role Phone Danny Morgan MD Primary Care Provide r Kieran Cross RN Unavailable Leana Zayas Unavailable Encounter Details Date Type Department Care Team (Late st Contact Info) Description 04/06/2023 Abstract [facility] [address] [place], [place] [phone] Shereen Hardy Social History Tobacco Use Types [...] Description 08/01/2025 9:15 AM EST Office Visit [facility] [address] [place], [place] [phone] Danny Morgan MD [address] [place], [place] [phone] documented as of this encounter Visit Diagnoses Not on filedocumented in this encounter Additional Health Concerns Assessment Noted Time PHQ-9 Depression Total Score: 17 023 4:19 PM EDT documented as of this encounter Care Teams Practice Lead Relationship Specialty Start Date End Date Danny Morgan MD [address] [place] [address] PCP - General Internal Medicine 04/15/14 Kieran Cross RN [address] [place] [address] Registered Nurse Family Medicine 03/25/25 Leana Zayas 03/25/25 06/17/25 documented as of this encounter
--- OUTSIDE RECORDS SUMMARY | 2025-06-24 17:28 | XMS_ITS | Encounter Summary ---
Author Organization [employer] Address [address] [place] [address] 7t [place] [address] Care Team Providers Care Leasing Property Manager Name Role Phone Danny Morgan MD Primary Care Provide r Kieran Cross RN Unavailable [phone] Leana Zayas Unavailable Encounter Details Date Type Department Care Team (Late st Contact Info) Description 06/14/2022 Abstract [facility] [address] [place] [address] [phone] Danny Morgan MD [address] [place] [address] [phone] Social History Tobacco Use Types Packs/Day Years [...] Description 08/01/2025 9:15 AM EST Office Visit [facility] [address] [place] [address] [phone] Danny Morgan MD [address] [place], [place] [phone] documented as of this encounter Procedures Procedure Name Priority Date/Time Associated Diagnosis Comments PAP/HPV Routine 08/12/2020 documented in this encounter Results * Pap Smear (08/12/2020) Pap smear NIL HPV mRNA E6/E7 Not detected Historical Provider HEALTH MAINTENANCE Final Result documented in this encounter Visit Diagnoses Not on filedocumented in this encounter Care Teams Leasing Property Manager Relationship Specialty Start Date End Date Danny Morgan MD [address] [place] [address] PCP - General Internal Medicine 04/15/14 Kieran Cross RN [address] [place] [address] Registered Nurse Family Medicine 03/25/25 Leana Zayas 03/25/25 06/17/25 documented as of this encounter
--- OUTSIDE RECORDS SUMMARY | 2025-06-24 17:28 | XMS_ITS | Encounter Summary ---
Author Organization [employer] Address 75 [facility] 7t [place] [address] Care Team Providers Care Supervisor Customer Complaint Service Name Role Phone Danny Morgan MD Primary Care Provide r Kieran Cross RN Unavailable [phone] Leana Zayas Unavailable Encounter Details Date Type Department Care Team (Late st Contact Info) Description 05/18/2023 Orders Only [facility] [address] [place] [address] Nakul Rojas MD [address] [place] [address] Abnormal mammogram of right breast (Primary Dx) [...] 08/01/2025 9:15 AM EST Office Visit [facility] [address] [place] [address] [phone] Danny Morgan MD [address] [place] [address] documented as of this encounter Procedures Procedure Name Priority Date/Time Associated Diagnosis Comments B TYPE NATRIURETIC PEPTIDE (BNP) Routine 07/20/2023 9:42 AM EST Abnormal mammogram of right breast documented in this encounter Results * B Type Natriuretic Peptide (BNP) (07/20/2023 9:42 AM EST) B Type Natriuretic Peptide 17 <100 pg/mL [facility] Comment:For those patients w ho are being treated with Natrecor(nesiritide, recombinant BNP), BNP testing should beperformed at least two hours post treatment in order toensure that only endogenous levels of BNP are detected. Blood Venous blood specimen / Unknown 07/20/2023 9:42 AM EST 07/20/2023 9:42 AM EST us Nakul Rojas MD LAB BLOOD ORDERABLES Final Resul t [facility] [address] [place] [address] [place] [phone] documented in this encounter Visit Diagnoses Diagnosis Abnormal mammogram of right breast- Primary documented in this encounter Additional Health Concerns Assessment Noted Time PHQ-9 Depression Total Score: 19 023 12:52 PM EDT documented as of this encounter Care Teams Supervisor Customer Complaint Service Relationship Specialty Start Date End Date Danny Morgan MD [address] [place] [address] PCP - General Internal Medicine 04/15/14 Kieran Cross RN [address] [place] [address] Registered Nurse Family Medicine 03/25/25 Leana Zayas 03/25/25 06/17/25 documented as of this encounter
--- OUTSIDE RECORDS SUMMARY | 2025-06-24 17:28 | XMS_ITS | Encounter Summary ---
Author Organization [employer] Address 75 [facility] 7 [place] [address] Care Team Providers Care Lathe Scalper Operator Name Role Phone Danny Morgan MD Primary Care Provide r Kieran Cross RN Unavailable [phone] Leana Zayas Unavailable Reason for Visit * Reason Comments Med Refill Encounter Details Date Type Department Care Team (Late st Contact Info) Description 01/30/2024 Refill [facility] [address] [place] [address] Danny Morgan MD [address] [place], [place] [phone] Postsurgical malabsorption, not elsewhere classified Social History [...] 08/01/2025 9:15 AM EST Office Visit [facility] [address] [place] [address] Danny Morgan MD [address] [place] [address] documented as of this encounter Visit Diagnoses Diagnosis Postsurgical malabsorption, not elsewhere classified documented in this encounter Additional Health Concerns Assessment Noted Time PHQ-9 Depression Total Score: 19 024 2:06 PM EDT documented as of this encounter Care Teams Lathe Scalper Operator Relationship Specialty Start Date End Date Danny Morgan MD [address] [place] [address] PCP - General Internal Medicine 04/15/14 Kieran Cross, HUGO [address] [place] [address] Registered Nurse Family Medicine 03/25/25 Leana Zayas 03/25/25 06/17/25 documented as of this encounter
--- OUTSIDE RECORDS SUMMARY | 2025-06-24 17:28 | XMS_ITS ---
Author Organization [employer] Address 75 [facility] 7 [place] [address] Care Team Providers Care Marketing Assistant Manager Name Role Phone Danny Morgan MD Primary Care Provide r Kieran Cross RN Unavailable [phone] CM Complex Status:Enrolled (Active) Start date:03/25/2025 Enrollment date:04/09/2025 Enrollment reason:ADT Feed Overview ED- Pt went to [facility] on 03/23/25. Case Team Name Relationship Phone Kieran Cross RN(Responsible Staff) Registered Nurse [phone] Continued Care and Services Coordination
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
--- OUTSIDE RECORDS SUMMARY | 2025-06-24 17:28 | XMS_ITS | Clinical Summary ---
Author Organization [facility] Address [address] [place] [address] Care Team Providers Care Youth Probation Officer Name Role Phone Unknown Primary Care Provider [...] Pap Smear (Ages 21-65) 10/18/2000 Mammogram 2019 Colonoscopy 10/18/2024 Influenza Vaccine 02/01/2025 03/30/2021 COVID-19 Vaccine (1 - 2024-2 6 season) 2025 HPV Vaccines (No Doses Required) Completed Pneumococcal Vaccine: Pediat moraima (0-5 Years) and At-Risk Patients (6 to 49 Years) Aged Out No longer eligible b ased on patient's age to complete this topic Insurance [facility] Care Teams Youth Probation Officer Relationship Specialty Start Date End Date Unknown Unknow Provider Address PCP - General 08/21/20
--- OUTSIDE RECORDS SUMMARY | 2025-06-24 17:28 | XMS_ITS | Encounter Summary ---
Author Organization [employer] Address [address] [facility] 7 [place] [address] Care Team Providers Care Rn Plasma Center Name Role Phone Danny Morgan MD Primary Care Provide r Kieran Cross RN Unavailable [phone] Leana Zayas Unavailable Reason for Visit * Reason Comments Med Refill Encounter Details Date Type Department Care Team ([facility] st Contact Info) Description 06/26/2024 Refill [facility] [address] [place] [address] Nakul Rojas MD [address] [place] [address] Uncomplicated opioid dependence (CMS/HCC) Social History Tobacco [...] Description 08/01/2025 9:15 AM EST Office Visit [facility] [address] [place] [address] Danny Morgan MD [address] [place] [address] documented as of this encounter Visit Diagnoses Diagnosis Uncomplicated opioid dependence (CMS/HCC) (HCC) documented in this encounter Additional Health Concerns Assessment Noted Time PHQ-9 Depression Total Score: 19 024 2:06 PM EDT documented as of this encounter Care Teams Rn Plasma Center Relationship Specialty Start Date End Date Danny Morgan MD [address] [place] [address] PCP - General Internal Medicine 04/15/14 Kieran Cross RN [address] [place] [address] Registered Nurse Family Medicine 03/25/25 Leana Zayas 03/25/25 06/17/25 documented as of this encounter
--- OUTSIDE RECORDS SUMMARY | 2025-06-24 17:28 | XMS_ITS | Encounter Summary ---
Author Organization [employer] Address [address] [place] [address] 7t [place] [address] Care Team Providers Care Tower Hand Name Role Phone Danny Morgan MD Primary Care Provide r Kieran Cross RN Unavailable [phone] Leana Zayas Unavailable Reason for Visit * Reason Comments Med Refill Encounter Details Date Type Department Care Team (Late Contact Info) Description 01/26/2023 Refill [facility] [address] [place] [phone] Danny Morgan MD [address] [place] [address] Social History Tobacco Use Types Packs/Day Years [...] Description 08/01/2025 9:15 AM EST Office Visit [facility] [address] [place] [address] Danny Morgan MD [address] [place] [address] documented as of this encounter Visit Diagnoses Not on filedocumented in this encounter Additional Health Concerns Assessment Noted Time PHQ-9 Depression Total Score: 18 023 1:39 PM EDT documented as of this encounter Care Teams Tower Hand Relationship Specialty Start Date End Date Danny Morgan MD [address] [place] [address] PCP - General Internal Medicine 04/15/14 Kieran Cross RN [address] [place] [address] Registered Nurse Family Medicine 03/25/25 Leana Zayas 03/25/25 06/17/25 documented as of this encounter
--- OUTSIDE RECORDS SUMMARY | 2025-06-24 17:28 | XMS_ITS | Encounter Summary ---
Author Organization [employer] Address [address] [place] [address] 7t [place] [address] Care Team Providers Care Breaker Boss Name Role Phone Danny Morgan MD Primary Care Provide r Kieran Cross RN Unavailable [phone] Leana Zayas Unavailable Reason for Visit * Reason Comments Med Change Request Encounter Details Date Type Department Care Team ([facility] Contact Info) Description 01/05/2023 Refill [facility] [address] [place] [phone] Danny Morgan MD [address] [place] [address] Social History Tobacco Use Types Packs/Day Years [...] 08/01/2025 9:15 AM EST Office Visit [facility] [address] [place] [address] Danny Morgan MD [address] [place] [address] documented as of this encounter Visit Diagnoses Not on filedocumented in this encounter Additional Health Concerns Assessment Noted Time PHQ-9 Depression Total Score: 16 023 4:00 PM EDT documented as of this encounter Care Teams Breaker Boss Relationship Specialty Start Date End Date Danny Morgan MD [address] [place] [address] PCP - General Internal Medicine 04/15/14 Kieran Cross RN [address] [place] [address] Registered Nurse Family Medicine 03/25/25 Leana Zayas 03/25/25 06/17/25 documented as of this encounter
--- OUTSIDE RECORDS SUMMARY | 2025-06-24 17:28 | XMS_ITS | Patient Health Record ---
Author Organization [facility] Address [address] [place] [address] Care Team Providers Care Campaign Manager Name Role Phone Jessica Thomas MD Primary Care Provider Unavail able Daniel Jones Unavailable [phone] Bisi Hutchins Unavailable Unavailable Allergies Allergen (clinical [...] Status Risk Notes Problem Gastroesophageal reflux disease (874864078) GERD (gastroesophag eal reflux disease) (530.81) Active confirmed Problem Iron deficiency anemia (33264801) Anemia, iron deficiency (280.9) Active confirmed Plan Of Treatment Future Test Test Name Order Date UPPER GI ENDOSCOPY 03/28/2014 Insurance Providers Payer Name Payer Address Payer Phone Subscriber Number Group Number Insured Name Patient Relationship to Insured Coverage Start Date Coverage End Date [facility] [address] [address] [place], [place] [phone] [id number] PARR MACIELS Self - patient is the insured MEDICAID OF [facility] [address] [place] [address] [phone] [id number] CHELSEY PARR Self - patient is the insured Medical (General) History Medical History History ICD Code Denies AL,DM,CVA,Lung disease,renal dise ase Fibromyalgia Depression Asthma-inhaler prn Anemia-Iron and B12 deficien cy--followed by Dr. 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 Mcgraw--lost > 100# Abdominoplasty Cholecystectomy 2008 tubal ligation
--- OUTSIDE RECORDS SUMMARY | 2025-06-24 17:28 | XMS_ITS | Encounter Summary ---
Author Organization [employer] Address [address] [place] [address] 7t [place] [address] Care Team Providers Care Lacemaker Name Role Phone Danny Morgan MD Primary Care Provide r Kieran Cross RN Unavailable [phone] Leana Zayas Unavailable Encounter Details Date Type Department Care Team (Late st Contact Info) Description 03/15/2023 Orders Only [facility] [address] [place] [address] Nakul Rojas MD [address] [place] [address] [phone] Social History Tobacco Use Types Packs/Day Years [...] 9:15 AM EST Office Visit [facility] [address] [place] [address] Danny Morgan MD [address] [place], [place] [phone] documented as of this encounter Visit Diagnoses Not on filedocumented in this encounter Additional Health Concerns Assessment Noted Time PHQ-9 Depression Total Score: 17 023 4:19 PM EDT documented as of this encounter Care Teams Lacemaker Relationship Specialty Start Date End Date Danny Morgan MD [address] [place] [address] PCP - General Internal Medicine 04/15/14 Kieran Cross, HUGO [address] [place] [address] Registered Nurse Family Medicine 03/25/25 Leana Zayas 03/25/25 06/17/25 documented as of this encounter
--- OUTSIDE RECORDS SUMMARY | 2025-06-24 17:28 | XMS_ITS | Encounter Summary ---
Author Organization [employer] Address [address] [facility] 7 [place] [address] Care Team Providers Care Senior Technical Architect Name Role Phone Danny Morgan MD Primary Care Provide r Kieran Cross RN Unavailable [phone] Leana Zayas Unavailable Reason for Visit * Reason Comments Med Refill Encounter Details Date Type Department Care Team ([facility] st Contact Info) Description 06/01/2023 Refill [facility] [address] [place] [address] Nakul Rojas MD [address] [place] [address] Uncomplicated opioid dependence (CMS/HCC) Social History Tobacco [...] Description 08/01/2025 9:15 AM EST Office Visit [facility] [address] [place] [address] Danny Morgan MD [address] [place] [address] documented as of this encounter Visit Diagnoses Diagnosis Uncomplicated opioid dependence (CMS/HCC) (HCC) documented in this encounter Additional Health Concerns Assessment Noted Time PHQ-9 Depression Total Score: 19 023 12:52 PM EDT documented as of this encounter Care Teams Senior Technical Architect Relationship Specialty Start Date End Date Danny Morgan MD [address] [place] [address] PCP - General Internal Medicine 04/15/14 Kieran Cross RN [address] [place] [address] Registered Nurse Family Medicine 03/25/25 Leana Zayas 03/25/25 06/17/25 documented as of this encounter
--- OUTSIDE RECORDS SUMMARY | 2025-06-24 17:28 | XMS_ITS | Encounter Summary ---
Author Organization [employer] Address [address] [facility] 7 [place] [address] Care Team Providers Care Civil Preparedness Coordinator Name Role Phone Danny Morgan MD Primary Care Provide r Kieran Cross RN Unavailable [phone] Leana Zayas Unavailable Reason for Visit * Reason Onset Date Comments Nurse Triage 03/28/2023 Encounter Details Date Type Department Care Team ([facility] st Contact Info) Description 03/28/2023 Telephone [facility] [address] [place] [address] Danny Morgan MD [address] [place], [place] [phone] Nurse Triage Social History Tobacco Use Types [...] Pt agrees. Advised Pt to come to [facility] today and be seen by provider . [...] Description 08/01/2025 9:15 AM EST Office Visit [facility] [address] [place] [address] Danny Morgan MD [address] [place] [address] documented as of this encounter Visit Diagnoses Not on filedocumented in this encounter Additional Health Concerns Assessment Noted Time PHQ-9 Depression Total Score: 17 023 4:19 PM EDT documented as of this encounter Care Teams Civil Preparedness Coordinator Relationship Specialty Start Date End Date Danny Morgan MD [address] [place] [address] PCP - General Internal Medicine 04/15/14 Kieran Cross RN [address] [place] [address] Registered Nurse Family Medicine 03/25/25 Leana Zayas 03/25/25 06/17/25 documented as of this encounter
== END 2025-06-24 15:05 | disposition home or self-care (01) ==
LOC: HO.HUSH 13:59
PROVIDERS: PCP Internal Medicine; Visit Provider Urology
DX: Z13.9 Encounter for screening, unspecified (principal)

== ENCOUNTER → 2025-06-24 13:58 | Outpatient (BNVA) | payer MEDICAID, SELFPAY | PROVIDERS: PCP Internal Medicine; Visit Provider Urology | DX: N13.30 Unspecified hydronephrosis (principal); R10.A2 Flank pain, left side | CPT/HCPCS: 81003 ==

== ENCOUNTER 2025-07-02 11:18 | Day surgery (SDC) | payer MEDICAID, SELFPAY ==
--- OUTSIDE RECORDS SUMMARY | 2025-06-25 15:24 | XMS_ITS | Encounter Summary ---
Author Organization [employer] Address [address] [place] [address] 7t [place] [address] Care Team Providers Care Sr. Payroll Processor Name Role Phone Danny Morgan MD Primary Care Provide r Kieran Cross RN Unavailable [phone] Leana Zayas Unavailable Reason for Visit * Reason Comments Med Change Request Encounter Details Date Type Department Care Team ([facility] Contact Info) Description 01/05/2023 Refill [facility] [address] [place] [phone] Danny Morgan MD [address] [place] [address] Social History Tobacco Use Types Packs/Day Years [...] EST Office Visit [facility] [address] [place] [address] Danny Morgan MD [address] [place] [address] documented as of this encounter Visit Diagnoses Not on filedocumented in this encounter Additional Health Concerns Assessment Noted Time PHQ-9 Depression Total Score: 16 023 4:00 PM EDT documented as of this encounter Care Teams Sr. Payroll Processor Relationship Specialty Start Date End Date Danny Morgan MD [address] [place] [address] PCP - General Internal Medicine 04/15/14 Kieran Cross RN [address] [place] [address] Registered Nurse Family Medicine 03/25/25 Leana Zyaas 03/25/25 06/17/25 documented as of this encounter
--- OUTSIDE RECORDS SUMMARY | 2025-06-25 15:24 | XMS_ITS | Encounter Summary ---
Author Organization [employer] Address [address] [place] [address] 7t [place] [address] Care Team Providers Care Motor Coach Operator Name Role Phone Danny Morgan MD Primary Care Provide r Kieran Cross RN Unavailable [phone] Leana Zayas Unavailable Encounter Details Date Type Department Care Team (Late st Contact Info) Description 06/14/2022 Abstract [facility] [address] [place] [address] [phone] Danny Morgan MD [address] [place] [address] [phone] Social History Tobacco Use Types Packs/Day Years [...] Description 08/01/2025 9:15 AM EST Office Visit [facility] [address] [place] [address] [phone] Danny Morgan MD [address] [place], [place] [phone] documented as of this encounter Procedures Procedure Name Priority Date/Time Associated Diagnosis Comments PAP/HPV Routine 08/12/2020 documented in this encounter Results * Pap Smear (08/12/2020) Pap smear NIL HPV mRNA E6/E7 Not detected Historical Provider HEALTH MAINTENANCE Final Result documented in this encounter Visit Diagnoses Not on filedocumented in this encounter Care Teams Motor Coach Operator Relationship Specialty Start Date End Date Danny Morgan MD [address] [place] [address] PCP - General Internal Medicine 04/15/14 Kieran Cross RN [address] [place] [address] Registered Nurse Family Medicine 03/25/25 Leana Zayas 03/25/25 06/17/25 documented as of this encounter
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
--- OUTSIDE RECORDS SUMMARY | 2025-06-25 15:24 | XMS_ITS | Encounter Summary ---
Author Organization [employer] Address [address] [place] [address] 7[address] [place] [address] Care Team Providers Care Commercial Sales Director Name Role Phone Danny Morgan MD Primary Care Provide r Kieran Cross RN Unavailable [phone] Leana Zayas Unavailable Encounter Details Date Type Department Care Team (Late st Contact Info) Description 03/15/2023 Orders Only [facility] [address] [place] [phone] Nakul Rojas MD [address] [place] [address] [phone] Social History Tobacco Use Types Packs/Day Years [...] Description 08/01/2025 9:15 AM EST Office Visit [facility] [address] [place] [phone] Danny Morgan MD [address] [place], [place] [phone] documented as of this encounter Visit Diagnoses Not on filedocumented in this encounter Additional Health Concerns Assessment Noted Time PHQ-9 Depression Total Score: 17 023 4:19 PM EDT documented as of this encounter Care Teams Commercial Sales Director Relationship Specialty Start Date End Date Danny Morgan MD [address] [place] [phone] PCP - General Internal Medicine 04/15/14 Kieran Cross, HUGO [address] [place] [address] Registered Nurse Family Medicine 03/25/25 Leana Zayas 03/25/25 06/17/25 documented as of this encounter
--- OUTSIDE RECORDS SUMMARY | 2025-06-25 15:24 | XMS_ITS | Encounter Summary ---
Author Organization [employer] Address [address] [facility] 7 [place] [address] Care Team Providers Care Granulating Blender Name Role Phone Danny Morgan MD Primary Care Provide r Kieran Cross RN Unavailable [phone] Leana Zayas Unavailable Reason for Visit * Reason Comments Med Refill Encounter Details Date Type Department Care Team ([facility] st Contact Info) Description 06/26/2024 Refill [facility] [address] [place] [address] Nakul Rojas MD [address] [place] [address] Uncomplicated opioid dependence (CMS/HCC) Social History Tobacco [...] Description 08/01/2025 9:15 AM EST Office Visit [facility] [address] [place] [address] Danny Morgan MD [address] [place] [address] documented as of this encounter Visit Diagnoses Diagnosis Uncomplicated opioid dependence (CMS/HCC) (HCC) documented in this encounter Additional Health Concerns Assessment Noted Time PHQ-9 Depression Total Score: 19 024 2:06 PM EDT documented as of this encounter Care Teams Granulating Blender Relationship Specialty Start Date End Date Danny Morgan MD [address] [place] [address] PCP - General Internal Medicine 04/15/14 Kieran Cross RN [address] [place] [phone] Registered Nurse Family Medicine 03/25/25 Leana Zayas 03/25/25 06/17/25 documented as of this encounter
--- OUTSIDE RECORDS SUMMARY | 2025-06-25 15:24 | XMS_ITS | Encounter Summary ---
Author Organization [employer] Address [address] [facility] 7 [place] [address] Care Team Providers Care Pharmacy Assistant Name Role Phone Dnany Morgan MD Primary Care Provide r Kieran Cross RN Unavailable [phone] Leana Zayas Unavailable Reason for Visit * Reason Comments Med Refill Encounter Details Date Type Department Care Team (Late st Contact Info) Description 01/30/[address] [facility] [address] [place] [address] Danny Morgan MD [address] [place], [place] [phone] Postsurgical malabsorption, not elsewhere classified Social History [...] Description 08/01/2025 9:15 AM EST Office Visit [facility] [address] [place] [address] Danny Morgan MD [address] [place] [address] documented as of this encounter Visit Diagnoses Diagnosis Postsurgical malabsorption, not elsewhere classified documented in this encounter Additional Health Concerns Assessment Noted Time PHQ-9 Depression Total Score: 19 024 2:06 PM EDT documented as of this encounter Care Teams Pharmacy Assistant Relationship Specialty Start Date End Date Danny Morgan MD [address] [place] [address] PCP - General Internal Medicine 04/15/14 Kieran Cross, HUGO [address] [place] [address] Registered Nurse Family Medicine 03/25/25 Leana Zayas 03/25/25 06/17/25 documented as of this encounter
--- OUTSIDE RECORDS SUMMARY | 2025-06-25 15:24 | XMS_ITS | Clinical Summary ---
Author Organization [facility] Address [address] [place] [address] Care Team Providers Care Windows Desktop Engineer Name Role Phone Unknown Primary Care Provider [...] patient's age to complete this topic Insurance [facility] INSURANCE Care Teams Windows Desktop Engineer Relationship Specialty Start Date End Date Unknown Unknow Provider Address PCP - General 08/21/20
--- OUTSIDE RECORDS SUMMARY | 2025-06-25 15:24 | XMS_ITS | Patient Health Record ---
Author Organization [facility] Address [address] [place] [address] Care Team Providers Care Underwriting Technician Name Role Phone Jessica Thomas MD Primary Care Provider Unavail able Daniel Jones Unavailable [phone] Bisi Hutchins Unavailable Unavailable Allergies Allergen (clinical [...] Status Risk Notes Problem Gastroesophageal reflux disease (098598477) GERD (gastroesophag eal reflux disease) (530.81) Active confirmed Problem Iron deficiency anemia (81167255) Anemia, iron deficiency (280.9) Active confirmed Plan Of Treatment Future Test Test Name Order Date UPPER GI ENDOSCOPY 03/28/2014 Insurance Providers Payer Name Payer Address Payer Phone Subscriber Number Group Number Insured Name Patient Relationship to Insured Coverage Start Date Coverage End Date [facility] [address] [address] [place], [place] [id number] [phone] [id number] PARR MACIELS Self - patient is the insured MEDICAID OF [facility] [address] [place] [id number] [phone] [id number] CHELSEY PARR Self - patient is the insured Medical (General) History Medical History History ICD Code Denies OR,DM,CVA,Lung disease,renal dise ase Fibromyalgia Depression Asthma-inhaler prn Anemia-Iron and B12 deficien cy--followed by Dr. 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 Mcgraw--lost > 100# Abdominoplasty Cholecystectomy 2008 tubal ligation
--- OUTSIDE RECORDS SUMMARY | 2025-06-25 15:24 | XMS_ITS | Encounter Summary ---
Author Organization [employer] Address [address] [facility] 7 [place] [address] Care Team Providers Care Delivery Helper Name Role Phone Danny Morgan MD Primary Care Provide r Kieran Cross RN Unavailable [phone] Leana Zayas Unavailable Reason for Visit * Reason Onset Date Comments Nurse Triage 03/28/2023 Encounter Details Date Type Department Care Team ([facility] st Contact Info) Description 03/28/2023 Telephone [facility] [address] [place] [address] Danny Morgan MD [address] [place], [place] [phone] Nurse Triage Social History Tobacco Use Types [...] Pt agrees. Advised Pt to come to [facility] today and be seen by [...] 9:15 AM EST Office Visit [facility] [address] [place] [address] Danny Morgan MD [address] [place] [address] documented as of this encounter Visit Diagnoses Not on filedocumented in this encounter Additional Health Concerns Assessment Noted Time PHQ-9 Depression Total Score: 17 023 4:19 PM EDT documented as of this encounter Care Teams Delivery Helper Relationship Specialty Start Date End Date Danny Morgan MD [address] [place] [address] PCP - General Internal Medicine 04/15/14 Kieran Cross RN [address] [place] [address] Registered Nurse Family Medicine 03/25/25 Leana Zayas 03/25/25 06/17/25 documented as of this encounter
--- OUTSIDE RECORDS SUMMARY | 2025-06-25 15:24 | XMS_ITS ---
Author Organization [employer] Address [address] [facility] 7 [place] [address] Care Team Providers Care Quality Assurance Coach Name Role Phone Danny Morgan MD Primary Care Provide r Kieran Cross RN Unavailable [phone] Complex Status:Enrolled (Active) Start date:03/25/2025 Enrollment date:04/09/2025 Enrollment reason:ADT Feed Overview ED- Pt went to [facility] ED on 03/23/25. Case Team Name Relationship Phone Kieran Cross RN(Responsible Staff) Registered Nurse [phone] Continued Care and Services Coordination
--- OUTSIDE RECORDS SUMMARY | 2025-06-25 15:24 | XMS_ITS | Encounter Summary ---
Author Organization [employer] Address [address] [facility] 7 [place] [address] Care Team Providers Care Credit Card Specialist Name Role Phone Danny Morgan MD Primary Care Provide r Kieran Cross RN Unavailable [phone] Leana Zayas Unavailable Reason for Visit * Reason Comments Med Refill Encounter Details Date Type Department Care Team ([facility] st Contact Info) Description 06/01/2023 Refill [facility] [address] [place] [address] Nakul Rojas MD [address] [place] [address] Uncomplicated opioid dependence (CMS/HCC) Social History Tobacco [...] 08/01/2025 9:15 AM EST Office Visit [facility] [address] [place] [address] Danny Morgan MD [address] [place] [address] documented as of this encounter Visit Diagnoses Diagnosis Uncomplicated opioid dependence (CMS/HCC) (HCC) documented in this encounter Additional Health Concerns Assessment Noted Time PHQ-9 Depression Total Score: 19 023 12:52 PM EDT documented as of this encounter Care Teams Credit Card Specialist Relationship Specialty Start Date End Date Danny Morgan MD [address] [place] [address] PCP - General Internal Medicine 04/15/14 Kieran Cross RN [address] [place] [address] Registered Nurse Family Medicine 03/25/25 Leana Zayas 03/25/25 06/17/25 documented as of this encounter
--- OUTSIDE RECORDS SUMMARY | 2025-06-25 15:24 | XMS_ITS | Encounter Summary ---
Author Organization [employer] Address [address] [place] [address] 7t [place] [address] Care Team Providers Care Chemical Tester Name Role Phone Danny Morgan MD Primary Care Provide r Kieran Cross RN Unavailable [phone] Leana Zayas Unavailable Encounter Details Date Type Department Care Team (Late st Contact Info) Description 04/06/2023 Abstract [facility] [address] [place], [place] [phone] Shereen Hardy Social History Tobacco Use Types [...] 9:15 AM EST Office Visit [facility] [address] [place], [place] [phone] Danny Morgan MD [address] [place], [place] [phone] documented as of this encounter Visit Diagnoses Not on filedocumented in this encounter Additional Health Concerns Assessment Noted Time PHQ-9 Depression Total Score: 17 023 4:19 PM EDT documented as of this encounter Care Teams Chemical Tester Relationship Specialty Start Date End Date Danny Morgan MD [address] [place] [address] PCP - General Internal Medicine 04/15/14 Kieran Cross RN [address] [place] [address] Registered Nurse Family Medicine 03/25/25 Leana Zayas 03/25/25 06/17/25 documented as of this encounter
--- OUTSIDE RECORDS SUMMARY | 2025-06-25 15:24 | XMS_ITS | Encounter Summary ---
Author Organization [employer] Address [address] [place] [address] 7t [place] [address] Care Team Providers Care Appeals Court Associate Justice Name Role Phone Danny Morgan MD Primary Care Provide r Kieran Cross RN Unavailable [phone] Leana Zayas Unavailable Reason for Visit * Reason Comments Med Refill Encounter Details Date Type Department Care Team (Late Contact Info) Description 01/26/2023 Refill [facility] MED[facility]INE [address] [place] [address] Danny Morgan MD [address] [place] [address] Social History Tobacco Use Types Packs/Day Years [...] Description 08/01/2025 9:15 AM EST Office Visit [facility] [address] [place] [address] Danny Morgan MD [address] [place] [address] documented as of this encounter Visit Diagnoses Not on filedocumented in this encounter Additional Health Concerns Assessment Noted Time PHQ-9 Depression Total Score: 18 023 1:39 PM EDT documented as of this encounter Care Teams Appeals Court Associate Justice Relationship Specialty Start Date End Date Danny Morgan MD [address] [place] [address] PCP - General Internal Medicine 04/15/14 Kieran Cross RN [address] [place] [address] Registered Nurse Family Medicine 03/25/25 Leana Zayas 03/25/25 06/17/25 documented as of this encounter
--- OUTSIDE RECORDS SUMMARY | 2025-06-25 15:24 | XMS_ITS | Encounter Summary ---
Author Organization [employer] Address [address] [facility] 7t [place] [address] Care Team Providers Care Environmental Associate Name Role Phone Danny Morgna MD Primary Care Provide r Kieran Cross RN Unavailable [phone] Leana Zayas Unavailable Encounter Details Date Type Department Care Team (Late st Contact Info) Description 05/18/2023 Orders Only [facility] [address] [place] [address] Nakul Rojas MD [address] [place] [address] Abnormal mammogram of right breast (Primary Dx) [...] Description 08/01/2025 9:15 AM EST Office Visit [facility] [address] [place] [phone] Danny Morgan MD [address] [place] [address] documented as of this encounter Procedures Procedure Name Priority Date/Time Associated Diagnosis Comments B TYPE NATRIURETIC PEPTIDE (BNP) Routine 07/20/2023 9:42 AM EST Abnormal mammogram of right breast documented in this encounter Results * B Type Natriuretic Peptide (BNP) (07/20/2023 9:42 AM EST) B Type Natriuretic Peptide 17 <100 pg/mL [facility] Comment:For those patients w ho are being treated with Natrecor(nesiritide, recombinant BNP), BNP testing should beperformed at least two hours post treatment in order toensure that only endogenous levels of BNP are detected. Blood Venous blood specimen / Unknown 07/20/2023 9:42 AM EST 07/20/2023 9:42 AM EST us Nakul Rojas MD LAB BLOOD ORDERABLES Final Resul t [facility] [address] [place] [address] [place] [phone] documented in this encounter Visit Diagnoses Diagnosis Abnormal mammogram of right breast- Primary documented in this encounter Additional Health Concerns Assessment Noted Time PHQ-9 Depression Total Score: 19 023 12:52 PM EDT documented as of this encounter Care Teams Environmental Associate Relationship Specialty Start Date End Date Danny Morgan MD [address] [place] [address] PCP - General Internal Medicine 04/15/14 Kieran Cross RN [address] [place] [address] Registered Nurse Family Medicine 03/25/25 Leana Zayas 03/25/25 06/17/25 documented as of this encounter
--- NOTE | 2025-06-26 09:03 | HO.ANESPROP2 ---
Documented by User: Kirti Valladares NP 06/26/25 09:28 HPI - Anesthesia Eval Consult details Narrative: 44 yr old female for left Cystoscopy,retrograde with Stent Placement ?opioid use disorder: no additional info available ?tobacco use vs former PMFSH Active Problems Active Problems: All Active Problems Hydronephrosis, left (Acute) Pelvic floor dysfunction in female (Acute) Fecal incontinence (Acute) Hepatic steatosis (Acute) UPJ (ureteropelvic junction) obstruction (Acute) Left flank pain (Acute) Primary fibromyalgia syndrome (Acute) Asthma (Acute) Abnormal uterine bleeding (AUB) (Acute) Abnormal mammogram (Acute) Rectal bleeding (Acute) Opioid dependence on agonist therapy (Acute) Trigger finger, left middle finger (Acute) Greater trochanteric bursitis of both hips (Acute) Fibromyalgia (Acute) Sacroiliac joint pain (Acute) Bilateral primary osteoarthritis of hip (Acute) Past Medical History Medical History Transaminitis Numbness of left foot LUQ abdominal pain Left knee pain Low back pain Bilateral hip pain Pelvic pain Bacterial vaginosis Screening for STD (sexually transmitted disease) Well woman exam B12 deficiency Cervical intraepithelial neoplasia grade 1 Iron deficiency anemia Opioid use disorder Arthritis Asthma Fibromyalgia Family History Family History Maternal Aunt Uterine cancer Family history of problems with anesthesia: No Surgical History Surgical History History of esophagogastroduodenoscopy (EGD) H/O colonoscopy History of cholecystectomy H/O abdominoplasty H/O gastric bypass History of loop electrical excision procedure (LEEP) Hx of wisdom tooth extraction Hx of tonsillectomy Hx of tubal ligation History of Problems with Anesthesia: No Social History Social History Household Members: Spouse Household Members Other:: son Housing: Apartment Are you a primary healthcare facility administrator to a significant other at home: No Do you presently have visiting nurse or other home services: No Alcohol intake: never Patient Tobacco Use Status: Former Tobacco user Tobacco use type: Cigarette Cigarettes Per Day: 5 Years Smoked: 15 Substance Use Type: Other Have you been hit, kicked, punched, or otherwise hurt by someone within the past year? 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 Sexual orientation: Straight/Heterosexual Gender identity: Female Meds Allergies Allergy/AdvReac Type Severity Reaction Status Date / Time ibuprofen (From Motrin) Allergy Severe WHEEZING, Verified 06/24/25 14:22 TONGUE SWELLING, INCREASE SOB shrimp Allergy Severe ANAPHYLAXIS Verified 06/24/25 14:22 almond Allergy Mild RASH Verified 06/24/25 14:22 Pork/Porcine Containing Allergy Mild RASH Verified 06/24/25 14:22 Products Home Medications ?Medication ?Instructions ?Recorded ?Confirmed ?Last Taken ?Type epinephrine 0.3 mg/0.3 mL IM 02/21/23 05/20/25 Unknown History injection, auto-injector zolpidem 10 mg tablet 10 mg PO BEDTIME PRN insomnia 07/06/24 07/02/25 Unknown History hydroxyzine pamoate 25 mg capsule 25 mg PO TID PRN anxiety 05/23/25 07/02/25 Unknown History sertraline 50 mg tablet 50 mg PO DAILY 05/23/25 07/02/25 Unknown History Assessment and Plan Assessment Anesthesia Assessment: Chart Reviewed Final Anesthetic Review Family History of Problems with Anesthesia: No History of Problems with Anesthesia: No Documented by User: Magan Acharya MD 07/02/25 11:54 [facility] Past Medical History Medical History Transaminitis Numbness of left foot LUQ abdominal pain Left knee pain Low back pain Bilateral hip pain Pelvic pain Bacterial vaginosis Screening for STD (sexually transmitted disease) Well woman exam B12 deficiency Cervical intraepithelial neoplasia grade 1 Iron deficiency anemia Opioid use disorder Arthritis Asthma Fibromyalgia Functional capacity: independent ambulation Family History Family History Maternal Aunt Uterine cancer Surgical History Surgical History History of esophagogastroduodenoscopy (EGD) H/O colonoscopy History of cholecystectomy H/O abdominoplasty H/O gastric bypass History of loop electrical excision procedure (LEEP) Hx of wisdom tooth extraction Hx of tonsillectomy Hx of tubal ligation Social History Social History Household Members: Spouse Household Members Other:: son Housing: Apartment Are you a primary healthcare facility administrator to a significant other at home: No Do you presently have visiting nurse or other home services: No Alcohol intake: never Patient Tobacco Use Status: Former Tobacco user Tobacco use type: Cigarette Cigarettes Per Day: 5 Years Smoked: 15 Substance Use Type: Other Have you been hit, kicked, punched, or otherwise hurt by someone within the past year? 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 Sexual orientation: Straight/Heterosexual Gender identity: Female Meds Allergies Allergy/AdvReac Type Severity Reaction Status Date / Time ibuprofen (From Motrin) Allergy Severe WHEEZING, Verified 06/24/25 14:22 TONGUE SWELLING, INCREASE SOB shrimp Allergy Severe ANAPHYLAXIS Verified 06/24/25 14:22 almond Allergy Mild RASH Verified 06/24/25 14:22 Pork/Porcine Containing Allergy Mild RASH Verified 06/24/25 14:22 Products Home Medications ?Medication ?Instructions ?Recorded ?Confirmed ?Last Taken ?Type epinephrine 0.3 mg/0.3 mL IM 02/21/23 05/20/25 Unknown History injection, auto-injector zolpidem 10 mg tablet 10 mg PO BEDTIME PRN insomnia 07/06/24 07/02/25 Unknown History hydroxyzine pamoate 25 mg capsule 25 mg PO TID PRN anxiety 05/23/25 07/02/25 Unknown History sertraline 50 mg tablet 50 mg PO DAILY 05/23/25 07/02/25 Unknown History Exam Airway Mallampati Class: II TM Dist: >3cm Neck ROM: Full Loose/Missing/Broken Teeth: No Heart: ok Lungs: ok Other: ok Assessment and Plan Assessment Anesthesia Assessment: Anesthesia Plan Discussed Final Anesthetic Review NPO: Yes ASA Class: II Final Preanesthetic Review: No Changes in Pt Med Stat, Meds/Allgs Chart Reviewed, Consent Obtained/Reviewed and Anes Risks/Benef Reviewed Patient Risk: Low Procedure Risk: Low Anesthetic Plan Anesthetic Plan: GA Disposition: Standard PACU
[2025-07-01 14:55] VITALS: BMI 29.1
[2025-07-02] VITALS (10 sets, daily range): BP systolic 87–116; BP diastolic 31–58; PULSE 69–84; RESP 12–21; TEMP 36.3–36.9; O2SAT 97–100
--- NOTE | ~2025-07-02 | FL_ITS ---
EXAMINATION: FL GUIDANCE ONLY HISTORY: cystoscopy, retrograde with stent placement- left COMPARISON: Correlation is made with a CT of the abdomen with contrast dated 03/23/2025. TECHNIQUE: Fluoroscopy time: 32.7 seconds. Cumulative Dose: 7.3976 mGy. DAP: 3.2178 Gycm2 Images: 4. FINDINGS: Fluoroscopic spot films from a left retrograde pyelogram demonstrate mild dilatation of the collecting system. The ureter is normal in caliber. The final images demonstrate a nephroureteral stent in place. FL/FL guidance in OR IMPRESSION: Fluoroscopy during procedure. Please see procedure report for additional information. Electronically signed by: Daniel Morales MD 07/02/2025 02:25 PM [facility]
--- NOTE | 2025-07-02 11:59 | MHC.SHP ---
Pre-Procedural Eval Section A - 24 Hr Update-Section A only Date of Service: 07/02/25 The patient is an INPATIENT: No The patient has been examined within 24 hours of the surgical procedure. The History & Physical has been completed within 30 days and I have reviewed it.: Yes Section B - Complete if H&P > 30 days Chief Complaint: Unspecified hydronephrosis Allergies: Allergies Allergy/AdvReac Type Severity Reaction Status Date / Time ibuprofen (From Motrin) Allergy Severe WHEEZING, Verified 06/24/25 14:22 TONGUE SWELLING, INCREASE SOB shrimp Allergy Severe ANAPHYLAXIS Verified 06/24/25 14:22 almond Allergy Mild RASH Verified 06/24/25 14:22 Pork/Porcine Containing Allergy Mild RASH Verified 06/24/25 14:22 Products Plan Diagnosis/Plan: Unchanged I have reviewed the history and physical and performed a pertinent physical examination on my patient. No changes have occurred unless specified. Cystoscopy Left retrograde ureteral stent. Time Spent With Patient Time: Total time managing care of this patient today ____ minutes.
[2025-07-02 12:00] LABS: Cannabinoid Screen Urine Not Detected (Not Detect)
[2025-07-02] MEDS: Lactated Ringers 1,000 ML 100 ML IVCONT ×2 (12:05→13:47)
--- NOTE | 2025-07-02 13:38 | P.OP_ITS ---
Operative Note Operative Note Date of Service: 07/02/25 Narrative: PreOperative Diagnosis:?? left UPJ partial, left flank pain Post Operative Diagnosis:?? ?left UPJ partial, left flank pain Procedure: Cystoscopy, left retrograde left stent insertion, size 6fr by 22-32 cm Surgeon:?Dr Kim Gamble Anesthesia:? General Procedure: After informed consent was verified the patient was brought to the operating placed on the OR table in supine position.? General Anesthesia was administered per protocol.? The patient was placed in lithotomy position, prepped and draped in the usual sterile fashion.? Safety pause time-out and side of surgery confirmed.? Antibiotics confirmed. A 22 Danish cystoscope was inserted transurethrally. The bladder was visualized.? Both ureteric orifices were in normal position. The? left ureteric orifice was cannulated? a retrograde examination was performed, there was narrowing inferior to the Left UPJ, A sensor guidewire was placed up to the level of the renal pelvis under fluoroscopy. A 6 fr by 22- 32 cm ureteral stent was passed over the guide wire under fluoroscopic guidance. The guide wire was removed. The bladder was emptied.? The rigid cystoscope was removed. ? The patient tolerated the procedure well and was brought to the recovery room in stable condition. Complications: None EBL: minimal (<5 mL) Drains: Ureteral stent as dictated above
[2025-07-02] MEDS: oxyCODONE HCl Immed Release 5 MG TABLET PO (14:30)
== END 2025-07-02 14:59 | disposition home or self-care (01) ==
PROVIDERS: Nurse Practitioner; PCP Internal Medicine; Visit Provider Urology
PROC: (CPT 52332; principal; 2025-07-02 12:50)
DX: N13.30 Unspecified hydronephrosis (principal); J45.909 Unspecified asthma, uncomplicated; D50.9 Iron deficiency anemia, unspecified; M79.7 Fibromyalgia; E53.8 Deficiency of other specified B group vitamins; R74.01 Elevation of levels of liver transaminase levels; N87.0 Mild cervical dysplasia; F11.90 Opioid use, unspecified, uncomplicated; Z88.6 Allergy status to analgesic agent; Z91.018 Allergy to other foods; Z91.014 Allergy to mammalian meats; Z91.013 Allergy to seafood; Z90.49 Acquired absence of other specified parts of digestive tract; Z98.84 Bariatric surgery status; Z98.890 Other specified postprocedural states; Z87.891 Personal history of nicotine dependence
CPT/HCPCS: 52332; 80307; 87086; C1758; C1769; C2617; J0690; J1100; J1171; J1885; J2003; J2371; J2405; J2704; J3010; Q9967

== ENCOUNTER → 2025-07-02 11:18 | Outpatient (BNV) | payer MEDICAID, SELFPAY | PROVIDERS: PCP Internal Medicine; Visit Provider Urology | DX: R10.A2 Flank pain, left side (principal); N13.0 Hydronephrosis with ureteropelvic junction obstruction | CPT/HCPCS: 52332; 74420 ==